=== PATIENT | female | born 1990 | race Caucasian/White ===

== ENCOUNTER → 2016-02-17 | Outpatient (CLI) | payer OTHER ==
[~2016-02-17] MED LIST: BCPILLS PO; CGN1 PO; LEVO50TA6 PO; LTHSR/300 PO; RISP3TAB3 PO
[2016-02-17 16:41] LABS: BASO % 0.1 %; BASO ABS # 0.01 K/uL (0-0.2); COMPLETE YES; HEMATOCRIT 38.1 % (37-47); IG% 0.1 %; LYMPH % 30.4 %; LYMPH ABS # 2.41 K/uL (1.2-3.4); MEAN CELL VOLUME 83.6 fL (80-100); MEAN CORPUSCULAR HEMOGLOBIN 27.6 pg (25-34); MEAN CORPUSCULAR HGB CONC 33.1 g/dl (32-36); MEAN PLATELET VOLUME 9.2 fL (7.4-10.4); MONO % 6.8 %; NEUT % 60.6 %; PLATELET COUNT 316 K/uL (130-400); RED BLOOD COUNT 4.56 M/uL (4.2-5.4); WHITE BLOOD COUNT 7.93 K/uL (4.8-10.8)
[2016-02-17 16:59] LABS: ALT/SGPT 29 U/L (12-78); AST/SGOT 13 U/L (15-37); BLOOD UREA NITROGEN 7 mg/dl (7-18); BUN/CREATININE RATIO 10.2 (10-20); CARBON DIOXIDE 26 mmol/L (21-32); CHLORIDE 109 mmol/L (98-107); CHOLESTEROL 181 mg/dl (0-200); CREATININE 0.69 mg/dl (0.60-1.20); GLUCOSE 87 mg/dl (70-99); SODIUM 143 mmol/L (136-145); TRIGLYCERIDES 130 mg/dl (0-150); VERY LOW DENSITY LIPOPROT CALC 26 mg/dl
[2016-02-17 17:09] LABS: ALB/GLOB RATIO 1.2 (0.9-2); ALKALINE PHOSPHATASE 30 U/L (45-117); CHOLESTEROL/HDL RATIO 2.8; HDL CHOLESTEROL 65 mg/dl; LDL CHOLESTEROL CALCULATED 90 mg/dl
== END | disposition home or self-care (01) ==
LOC: C.LAB1850 15:58
PROVIDERS: ATTEND Internal Medicine
DX: E03.9 Hypothyroidism, unspecified (principal); F30.9 Manic episode, unspecified; Z51.81 Encounter for therapeutic drug level monitoring; Z00.00 Encounter for general adult medical examination without abnormal findings; F32.9 Major depressive disorder, single episode, unspecified

== ENCOUNTER → 2016-07-21 | Outpatient (CLI) | payer OTHER ==
[~2016-07-21] MED LIST changes: +BENZ-89 PO; -CGN1 PO
[2016-07-23 20:51] LABS: CHLAMYDIA TRACH RNA*** NOT DETECTED (NOT DETECTED); GC (NEIS GONORRHOEAE)RNA** NOT DETECTED (NOT DETECTED)
== END | disposition home or self-care (01) ==
LOC: C.LABSPEC 15:50
PROVIDERS: ATTEND Physician Assistant
DX: Z01.419 Encounter for gynecological examination (general) (routine) without abnormal findings (principal)

== ENCOUNTER → 2017-02-03 | Outpatient (CLI) | payer OTHER ==
[2017-02-03 18:06] LABS: BASO % 0.1 %; BASO ABS # 0.01 K/uL (0-0.2); COMPLETE YES; EOS % 1.4 %; HEMATOCRIT 39.6 % (37-47); IG% 0.1 %; LYMPH % 29.4 %; LYMPH ABS # 2.52 K/uL (1.2-3.4); MEAN CORPUSCULAR HEMOGLOBIN 28.8 pg (25-34); MEAN CORPUSCULAR HGB CONC 33.8 g/dl (32-36); MEAN PLATELET VOLUME 9.3 fL (7.4-10.4); MONO % 7.9 %; NEUT % 61.1 %; PLATELET COUNT 294 K/uL (130-400); RED BLOOD COUNT 4.66 M/uL (4.2-5.4); WHITE BLOOD COUNT 8.58 K/uL (4.8-10.8)
[2017-02-03 18:32] LABS: ALT/SGPT 21 U/L (12-78); AST/SGOT 12 U/L (15-37); BLOOD UREA NITROGEN 15 mg/dl (7-18); CALCIUM 9.6 mg/dl (8.5-10.1); CARBON DIOXIDE 23 mmol/L (21-32); CHLORIDE 105 mmol/L (98-107); CREATININE 0.74 mg/dl (0.60-1.20); GLUCOSE 84 mg/dl (70-99); POTASSIUM 3.8 mmol/L (3.5-5.1); SODIUM 137 mmol/L (136-145)
[2017-02-03 18:42] LABS: ALKALINE PHOSPHATASE 28 U/L (45-117)
== END | disposition home or self-care (01) ==
LOC: C.LAB 17:07
PROVIDERS: ATTEND Internal Medicine
DX: E03.9 Hypothyroidism, unspecified (principal); F32.9 Major depressive disorder, single episode, unspecified

== ENCOUNTER 2019-07-05 10:04 | Inpatient (IN) ==
[2019-07-05] MEDS ORDERED: LORazepam 2 MG/ML VIAL (IM USE) IM STA ×2 (10:38→13:41)
--- NOTE | 2019-07-05 10:47 | Emergency Department Note ---
History of Present Illness General Chief Complaint: Mental Health Evaluation Time Seen by Provider: 07/05/19 10:14 Source: patient, EMS and police Mode of arrival: EMS Limitations: patient cooperation History of Present Illness Provider complaint: altered mental status Onset (ago): hour(s) less than 1 Duration: constant History of same: Yes Relieved By: + none Context: no recent alcohol abuse Associated psychiatric symptoms: + racing thoughts Associated symptoms: + denies other symptoms Treatments prior to arrival: + physical restraints The patient presents to the ED with police and EMS. According to the police, the mother called 911 when her daughter dressed up like a Cinderella and was carrying a basket and stated to her mother that she was walking to [place]. Police picked her up. She was combative for police and had to be restrained and brought in with police. When asked questions, the patient just asked additional questions he does not answer the questions that she has asked. She has racing thoughts and random statements. She is unreliable. She is observant of his her surroundings and is aware of her surroundings. She does remember certain things that have been asked to her and will repeat them later. No additional history is available. Home Medications Home Medications Medication Instructions Recorded Confirmed Type progesterone micronized 200 mg PO HS 06/04/19 07/05/19 History [Prometrium] azelastine 137 mcg (0.1 %) nasal 2 spray INTNAS DAILY #30 ml 06/11/19 07/05/19 Rx spray aerosol Allergies Allergy/AdvReac Type Severity Reaction Status Date / Time amoxicillin Allergy Intermediate RASH Verified 06/04/19 22:31 Bactrim Allergy Intermediate HIVES Verified 08/02/14 21:30 prednisone Allergy Intermediate PSYCH Verified 06/04/19 22:31 SYMPTOMS (MANIC) sulfamethoxazole Allergy Intermediate HIVES Verified 06/04/19 22:31 trimethoprim Allergy Intermediate HIVES Verified 06/04/19 22:31 clindamycin Allergy Verified 06/04/19 22:31 Sulfa (Sulfonamide Allergy Verified 06/04/19 22:31 Antibiotics) Past Med/Surg History Medical History Bipolar disorder (Acute 08/02/12) Manic behavior (Inactive) Surgical History H/O oral surgery Family History Brother ADHD (attention deficit hyperactivity disorder) Drug dependence Father Alcoholism Coronary heart disease Myocardial infarction Grandmother (Maternal) Bipolar disorder Depression Mother Multiple sclerosis Uncle Colorectal cancer Denies family history of Ovarian cancer Prostate cancer Breast cancer Social History Preferred Language: Faroese Feels Safe at Home: Yes Smoking Status: Unknown if ever smoked Hx Alcohol Use: Yes Hx Substance Use: No Review of Systems Unobtainable due to cognitive status Physical Exam Vital Signs Vital Signs - 24 hr 07/05/19 10:16 07/05/19 12:23 07/05/19 14:00 Pulse Rate 146 H Pulse Rate [Right Finger] 145 H 147 H Pulse Rhythm [Right Finger] Pulse Strength [Right Finger] Respiratory Rate 22 20 20 Respiratory Effort / Characteristics Non-Labored Spontaneous Non-Labored Spontaneous Non-Labored Spontaneous Respiratory Depth Normal Normal Normal Respiratory Pattern Regular Regular Blood Pressure 131/95 Blood Pressure [Right Arm] 150/89 H 131/78 Blood Pressure Mean 107 Blood Pressure Mean [Right Arm] 109 95 Blood Pressure Position Lying Pulse Oximetry 98 97 96 Oxygen Delivery Method Room Air Room Air Room Air Sepsis Action Taken by Nursing No Action Required 07/05/19 16:00 07/05/19 17:32 Pulse Rate Pulse Rate [Right Finger] 114 H 101 H Pulse Rhythm [Right Finger] Regular Pulse Strength [Right Finger] Normal Respiratory Rate 16 Respiratory Effort / Characteristics Non-Labored Respiratory Depth Normal Respiratory Pattern Regular Blood Pressure Blood Pressure [Right Arm] Blood Pressure Mean Blood Pressure Mean [Right Arm] Blood Pressure Position Pulse Oximetry 98 Oxygen Delivery Method Room Air Sepsis Action Taken by Nursing CONSTITUTIONAL/VITAL SIGNS: Reviewed / noted above. GENERAL: Non-toxic in appearance. The patient's hands are painted green and her nose tip is green. INTEGUMENTARY: Warm, dry, and [place]. HEAD: Normocephalic. EYES: without scleral icterus or trauma. ENT/OROPHARYNX: clear and moist. LYMPHADENOPATHY/NECK: Is supple without lymphadenopathy or meningismus. RESPIRATORY: Lungs clear and equal. CARDIOVASCULAR: Regular rate and rhythm. GI/ABDOMEN: Soft and nontender. No organomegaly or pulsatile mass. No rebound or guarding. Normal bowel sounds. EXTREMITIES: Warm and well perfused. BACK: No CVA tenderness. NEUROLOGICAL: Intact without focal deficits. PSYCHIATRIC: The patient has racing thoughts. She is not cooperative and does not answer questions when asked. The patient frequently asks questions or attempts to ask questions when she has asked a question. She does not follow any commands. She is speaking incessantly. MUSCULOSKELETAL: Normally developed with good muscle tone. TRIAGE NURSING DOCUMENTATION REVIEWED. Course Administered Medications Discontinued Medications Haloperidol Lactate (Haldol) 5 mg IM NOW STA Stop: 07/05/19 11:06 Last Admin: 07/05/19 12:07 Dose: 5 mg Documented by: [id number] Sodium Chloride (Nss 1000ml) 1,000 mls @ 999 mls/hr IV .Q1H1M ONE Stop: 07/05/19 16:00 Last Infusion: 07/05/19 16:38 Dose: 0 mls/hr Documented by: [id number] Admin: 07/05/19 15:29 Dose: 999 mls/hr Documented by: [id number] Lorazepam (Ativan) 1 mg IM NOW STA Stop: 07/05/19 10:39 Last Admin: 07/05/19 10:43 Dose: 1 mg Documented by: [id number] Lorazepam (Ativan) Confirm Administered Dose 2 mg .ROUTE .STK-MED ONE Stop: 07/05/19 12:42 Last Admin: 07/05/19 12:45 Dose: 2 mg Documented by: [id number] Lorazepam (Ativan) 2 mg IM NOW STA Stop: 07/05/19 13:42 Last Admin: 07/05/19 12:45 Dose: Not Given Documented by: [id number] Potassium Chloride (Klor-Con M10) 40 meq PO NOW STA Stop: 07/05/19 15:01 Last Admin: 07/05/19 16:16 Dose: 40 meq Documented by: [id number] Medical Decision Making Differential Diagnosis + acute psychosis, + chronic schizophrenia, + suicidal ideation, + bipolar disorder, + depression, + drug-induced psychotic disorder, + anxiety, + mood disorder, + panic attack, + infection, + hypoglycemia, + toxicologic and + neurologic Medical Records Attestation: I reviewed the patient's medical records. Home Medications Current Medication List: was personally reviewed by me Laboratory Data Attestation: I reviewed the patient's lab results. Result diagrams: 07/05/19 10:37 07/05/19 10:37 Lab Results 07/05/19 07/05/19 07/05/19 Range/Units 10:37 10:37 10:37 WBC 11.44 H (4.8-10.8) K/uL RBC 4.60 (4.2-5.4) M/uL Hgb 13.2 (12.0-16.0) g/dL Hct 39.3 (37-47) % MCV 85.4 (80-100) fL MCH 28.7 (25-34) pg MCHC 33.6 (32-36) g/dL RDW Std Deviation 40.3 (36.4-46.3) fL RDW Coeff of Yanna 12.9 (11.5-14.5) % Plt Count 361 (130-400) K/uL MPV 9.2 (7.4-10.4) fL Immature Gran % (Auto) 0.2 % Neut % (Auto) 72.1 % Lymph % (Auto) 20.2 % [place] % (Auto) 7.1 % Eos % (Auto) 0.3 % Baso % (Auto) 0.1 % Immature Gran # (Auto) 0.02 (0.00-0.02) K/uL Neut # (Auto) 8.26 H (1.4-6.5) K/uL Lymph # (Auto) 2.31 (1.2-3.4) K/uL [place] # (Auto) 0.81 H (0.11-0.59) K/uL Eos # (Auto) 0.03 (0-0.5) K/uL Baso # (Auto) 0.01 (0-0.2) K/uL Sodium 141 (136-145) mmol/L Potassium 3.1 L (3.5-5.1) mmol/L Chloride 109 H (98-107) mmol/L Carbon Dioxide 20 L (21-32) mmol/L Anion Gap 12.0 H (3-11) BUN 15 (7-18) mg/dl Creatinine 1.00 (0.6-1.2) mg/dl Est Cr Clr Drug Dosing 82.2 ml/min Est GFR ( Amer) 89.4 Est GFR (Non-Af Amer) 77.2 BUN/Creatinine Ratio 15.5 (10-20) Glucose 106 H (70-99) mg/dl Calcium 9.0 (8.5-10.1) mg/dl Total Bilirubin 0.7 (0.2-1) mg/dl AST 14 L (15-37) U/L ALT 20 (12-78) U/L Alkaline Phosphatase 33 L (45-117) U/L Total Protein 8.2 (6.4-8.2) gm/dl Albumin 4.4 (3.4-5.0) gm/dl Globulin 3.8 (2.5-4.0) gm/dl Albumin/Globulin Ratio 1.2 (0.9-2) TSH 0.208 L (0.300-4.500) uIu/ml Free T4 (0.8-1.6) ng/dl HCG, Qual (Negative) Urine Color Urine Appearance (Clear) Urine pH (4.5-7.5) Ur Specific [place] (1.000-1.030) Urine Protein (Negative) Urine Glucose (UA) (Negative) Urine Ketones (Negative) Urine Blood (Negative) Urine Nitrite (Negative) Urine Bilirubin (Negative) Urine Urobilinogen (Negative) Ur Leukocyte Esterase (Negative) Urine WBC (Auto) (0-5) /hpf Urine RBC (Auto) (0-4) /hpf U Hyaline Cast (Auto) (0-5) /lpf U Epithel Cells (Auto) (0-5) /lpf Urine Bacteria (Auto) (Negative) POC Ur Test (NEG) Salicylates < 1.7 L (2.8-20) mg/dl Urine Opiates Screen (Neg) Ur Methadone, Qual (Neg) Acetaminophen < 2 L (10-30) ug/ml Urine Barbiturates (Neg) Ur Phencyclidine (PCP) (Neg) U Amphetamin/Meth Scrn (Neg) MDMA (Ecstasy) Screen (Neg) U Benzodiazepines Scrn (Neg) Ur Cocaine Metabolite (Neg) U Marijuana (THC) Screen (Neg) Ethyl Alcohol mg/dL (0-3) mg/dl 07/05/19 07/05/19 07/05/19 Range/Units 10:37 10:37 10:44 WBC (4.8-10.8) K/uL RBC (4.2-5.4) M/uL Hgb (12.0-16.0) g/dL Hct (37-47) % MCV (80-100) fL MCH (25-34) pg MCHC (32-36) g/dL RDW Std Deviation (36.4-46.3) fL RDW Coeff of Yanna (11.5-14.5) % Plt Count (130-400) K/uL MPV (7.4-10.4) fL Immature Gran % (Auto) % Neut % (Auto) % Lymph % (Auto) % [place] % (Auto) % Eos % (Auto) % Baso % (Auto) % Immature Gran # (Auto) (0.00-0.02) K/uL Neut # (Auto) (1.4-6.5) K/uL Lymph # (Auto) (1.2-3.4) K/uL [place] # (Auto) (0.11-0.59) K/uL Eos # (Auto) (0-0.5) K/uL Baso # (Auto) (0-0.2) K/uL Sodium (136-145) mmol/L Potassium (3.5-5.1) mmol/L Chloride (98-107) mmol/L Carbon Dioxide (21-32) mmol/L Anion Gap (3-11) BUN (7-18) mg/dl Creatinine (0.6-1.2) mg/dl Est Cr Clr Drug Dosing ml/min Est GFR ( Amer) Est GFR (Non-Af Amer) BUN/Creatinine Ratio (10-20) Glucose (70-99) mg/dl Calcium (8.5-10.1) mg/dl Total Bilirubin (0.2-1) mg/dl AST (15-37) U/L ALT (12-78) U/L Alkaline Phosphatase (45-117) U/L Total Protein (6.4-8.2) gm/dl Albumin (3.4-5.0) gm/dl Globulin (2.5-4.0) gm/dl Albumin/Globulin Ratio (0.9-2) TSH (0.300-4.500) uIu/ml Free T4 1.06 (0.8-1.6) ng/dl HCG, Qual Negative (Negative) Urine Color Urine Appearance (Clear) Urine pH (4.5-7.5) Ur Specific [place] (1.000-1.030) Urine Protein (Negative) Urine Glucose (UA) (Negative) Urine Ketones (Negative) Urine Blood (Negative) Urine Nitrite (Negative) Urine Bilirubin (Negative) Urine Urobilinogen (Negative) Ur Leukocyte Esterase (Negative) Urine WBC (Auto) (0-5) /hpf Urine RBC (Auto) (0-4) /hpf U Hyaline Cast (Auto) (0-5) /lpf U Epithel Cells (Auto) (0-5) /lpf Urine Bacteria (Auto) (Negative) POC Ur Test (NEG) Salicylates (2.8-20) mg/dl Urine Opiates Screen (Neg) Ur Methadone, Qual (Neg) Acetaminophen (10-30) ug/ml Urine Barbiturates (Neg) Ur Phencyclidine (PCP) (Neg) U Amphetamin/Meth Scrn (Neg) MDMA (Ecstasy) Screen (Neg) U Benzodiazepines Scrn (Neg) Ur Cocaine Metabolite (Neg) U Marijuana (THC) Screen (Neg) Ethyl Alcohol mg/dL < 3.0 (0-3) mg/dl 07/05/19 07/05/19 07/05/19 Range/Units Unknown Unknown Unknown WBC (4.8-10.8) K/uL RBC (4.2-5.4) M/uL Hgb (12.0-16.0) g/dL Hct (37-47) % MCV (80-100) fL MCH (25-34) pg MCHC (32-36) g/dL RDW Std Deviation (36.4-46.3) fL RDW Coeff of Yanna (11.5-14.5) % Plt Count (130-400) K/uL MPV (7.4-10.4) fL Immature Gran % (Auto) % Neut % (Auto) % Lymph % (Auto) % [place] % (Auto) % Eos % (Auto) % Baso % (Auto) % Immature Gran # (Auto) (0.00-0.02) K/uL Neut # (Auto) (1.4-6.5) K/uL Lymph # (Auto) (1.2-3.4) K/uL [place] # (Auto) (0.11-0.59) K/uL Eos # (Auto) (0-0.5) K/uL Baso # (Auto) (0-0.2) K/uL Sodium (136-145) mmol/L Potassium (3.5-5.1) mmol/L Chloride (98-107) mmol/L Carbon Dioxide (21-32) mmol/L Anion Gap (3-11) BUN (7-18) mg/dl Creatinine (0.6-1.2) mg/dl Est Cr Clr Drug Dosing ml/min Est GFR ( Amer) Est GFR (Non-Af Amer) BUN/Creatinine Ratio (10-20) Glucose (70-99) mg/dl Calcium (8.5-10.1) mg/dl Total Bilirubin (0.2-1) mg/dl AST (15-37) U/L ALT (12-78) U/L Alkaline Phosphatase (45-117) U/L Total Protein (6.4-8.2) gm/dl Albumin (3.4-5.0) gm/dl Globulin (2.5-4.0) gm/dl Albumin/Globulin Ratio (0.9-2) TSH (0.300-4.500) uIu/ml Free T4 (0.8-1.6) ng/dl HCG, Qual (Negative) Urine Color Dark Yellow Urine Appearance Cloudy A (Clear) Urine pH 5.0 (4.5-7.5) Ur Specific [place] 1.030 (1.000-1.030) Urine Protein 1+ H (Negative) Urine Glucose (UA) Negative (Negative) Urine Ketones 4+ H (Negative) Urine Blood Negative (Negative) Urine Nitrite Negative (Negative) Urine Bilirubin Negative (Negative) Urine Urobilinogen Negative (Negative) Ur Leukocyte Esterase Trace H (Negative) Urine WBC (Auto) 10-30 H (0-5) /hpf Urine RBC (Auto) 10-30 H (0-4) /hpf U Hyaline Cast (Auto) 5-10 H (0-5) /lpf U Epithel Cells (Auto) >30 H (0-5) /lpf Urine Bacteria (Auto) 1+ H (Negative) POC Ur Test NEG (NEG) Salicylates (2.8-20) mg/dl Urine Opiates Screen Neg (Neg) Ur Methadone, Qual Neg (Neg) Acetaminophen (10-30) ug/ml Urine Barbiturates Neg (Neg) Ur Phencyclidine (PCP) Neg (Neg) U Amphetamin/Meth Scrn Neg (Neg) MDMA (Ecstasy) Screen Neg (Neg) U Benzodiazepines Scrn Neg (Neg) Ur Cocaine Metabolite Neg (Neg) U Marijuana (THC) Screen Neg (Neg) Ethyl Alcohol mg/dL (0-3) mg/dl ECG Data Attestation: I personally reviewed and interpreted this ECG as follows: Indication: tachycardia Rate (beats per minute): 129 Rhythm: sinus tachycardia Findings: no PVC and no ST elevation Blood Pressure Blood Pressure Findings: Normal blood pressure MDM Narrative The patient presents to the ED with police and EMS. According to the police, the mother called 911 when her daughter dressed up like a Cinderella and was carrying a basket and stated to her mother that she was walking to [place]. Police picked her up. She was combative for police and had to be restrained and brought in with police. When asked questions, the patient just asked additional questions he does not answer the questions that she has asked. She has racing thoughts and random statements. She is unreliable. She is observant of his her surroundings and is aware of her surroundings. She does remember certain things that have been asked to her and will repeat them later. No additional history is available. The patient's vital signs revealed tachycardia. She was agitated when these were taken. Other details noted above. The patient does not answer questions. She is speaking constantly and asking questions. She does not answer questions but asks questions when she is asked questions. She does not want to cooperate. She required physical restraints and she was also given IV Ativan to help calm her down. We twelve-lead EKG shows a sinus tach at a rate of 129. The patient CBC was unremarkable. Potassium was low at 3 0.1. Salicylate and Tylenol are negative. Alcohol was negative. The patient's urinalysis appears contaminated. The patient does not complain of any urinary symptoms. Will await culture. She does have ketones which would suggest dehydration. The patient was given a liter of normal saline IV here. She was also given 40 mEq of oral potassium. In addition to this she was given a total of 3 mg of IM Ativan and 5 mg of IM Haldol for her initial lack of cooperation and agitation. Urine tox screen was negative. The patient was a little more cooperative after medication was provided. Her tachycardia improved. A 302 petition was signed by myself. The patient is felt to be stable for psychiatric admission. Impression & Plan Bipolar disorder, Madeline, Acute dehydration Discharge Plan Visit Data Chief Complaint: Mental Health Evaluation ED Provider: Devyn Oakley Discharge Problem: Bipolar disorder, Madeline, Acute dehydration Patient Disposition: Transfer Behavioral Health Fac Forms Stand Alone Forms: Count Includes [facility], Suicide Prevention Resources, Virtual Emergency Department, Important Visit Information Prescriptions Prescriptions: No Action azelastine 137 mcg (0.1 %) aerosol,spray 2 spray INTNAS DAILY Qty: 30 RF: 11 progesterone micronized [Prometrium] 200 mg capsule 200 mg PO HS RF: 0 Referrals Referrals: Francisco Nance MD [Primary Care Provider] -
[2019-07-05 10:51] LABS: Basophils # (auto) 0.01 K/uL (0-0.2); Basophils % (auto) 0.1 %; Eosinophils # (auto) 0.03 K/uL (0-0.5); Eosinophils % (auto) 0.3 %; Hematocrit (blood only) 39.3 % (37-47); Hemoglobin 13.2 g/dL (12.0-16.0); Immature Granulocytes # (auto) 0.02 K/uL (0.00-0.02); Immature Granulocytes % (auto) 0.2 %; Lymphocytes # (auto) 2.31 K/uL (1.2-3.4); Lymphocytes % (auto) 20.2 %; Mean Corpuscular Hemoglobin 28.7 pg (25-34); Mean Corpuscular Hgb Conc 33.6 g/dL (32-36); Mean Corpuscular Volume 85.4 fL (80-100); Mean Platelet Volume 9.2 fL (7.4-10.4); Monocytes # (auto) 0.81 K/uL (0.11-0.59); Monocytes % (auto) 7.1 %; Neutrophils # (auto) 8.26 K/uL (1.4-6.5); Neutrophils % (auto) 72.1 %; Platelet Count 361 K/uL (130-400); RDW Coefficient of Variation 12.9 % (11.5-14.5); RDW Standard Deviation 40.3 fL (36.4-46.3); White Blood Count 11.44 K/uL (4.8-10.8)
[2019-07-05] MEDS ORDERED: HALOPERIDOL LACTATE 5 MG/ML 1 ML VIAL IM STA ×2 (11:05→19:30)
[2019-07-05 11:09] LABS: Albumin Level 4.4 gm/dl (3.4-5.0); BUN Creatinine Ratio 15.5 (10-20); Creatinine Clr Calc Pharmacy 82.2 ml/min; Est GFR (African American) 89.4; Est GFR (Non-African American) 77.2; Potassium 3.1 mmol/L (3.5-5.1)
[2019-07-05 11:20] LABS: Albumin Globulin Ratio 1.2 (0.9-2); Bilirubin,Total 0.7 mg/dl (0.2-1); Globulin 3.8 gm/dl (2.5-4.0); Thyroid Stimulating Hormone 0.208 uIu/ml (0.300-4.500); Total Protein 8.2 gm/dl (6.4-8.2)
[2019-07-05 11:23] LABS: Acetaminophen < 2 ug/ml (10-30); Salicylate < 1.7 mg/dl (2.8-20)
[2019-07-05] MEDS ORDERED: LORazepam 2 MG/ML VIAL (IM USE) ONE (12:41)
[2019-07-05 13:14] LABS: Pregnancy Test, Serum Negative (Negative)
[2019-07-05] MEDS ORDERED: POTASSIUM CHLORIDE 10 MEQ TABCR PO STA (15:00)
[2019-07-05] MEDS ORDERED: SODIUM CHLORIDE 0.9% 1000ML 1,000 ML IV ONE (15:00)
[2019-07-05 16:49] LABS: Appearance Urine Cloudy (Clear); Bacteria Urine Automated 1+ (Negative); Bilirubin Urine Negative (Negative); Blood Urine Negative (Negative); Color Urine Dark Yellow; Epithelial Cell Urine Auto >30 /lpf (0-5); Glucose Urine UA Negative (Negative); Ketones Urine 4+ (Negative); Leukocyte Esterase Urine Trace (Negative); Nitrite Urine Negative (Negative); Protein Urine 1+ (Negative); Urobilinogen Urine Negative (Negative)
[2019-07-05 17:27] LABS: Amphetamines+Metham, Urine Neg (Neg); Barbiturates, Urine Neg (Neg); Benzodiazepine, Urine Neg (Neg); Cocaine, Urine Neg (Neg); MDMA (Ecstacy), Urine Neg (Neg); Methadone, Urine Neg (Neg); Opiate, Urine Neg (Neg); Phencyclidine, Urine Neg (Neg)
[2019-07-05] MEDS ORDERED: MAGNESIUM HYDROXIDE SUSP 30 ML UDC PO PRN (18:39)
[2019-07-05] MEDS ORDERED: BISMUTH SUBSALICYLATE PER ML OMNICELL CHARGE PO PRN (18:39)
[2019-07-05] MEDS ORDERED: ALUMINUM/MAGNESIUM SUSP 30 ML UDC PO PRN (18:39)
[2019-07-05] MEDS ORDERED: SODIUM CHLORIDE 0.65% NA SOLN 45 ML (OCEAN) PRN (18:39)
[2019-07-05] MEDS ORDERED: ACETAMINOPHEN 325 MG TAB PO PRN (18:39)
[2019-07-05] MEDS ORDERED: HALOPERIDOL LACTATE 5 MG/ML 1 ML VIAL IM PRN (18:41)
[2019-07-05] MEDS ORDERED: haloperidoL 5 MG TAB PO PRN (18:43)
[2019-07-05] MEDS ORDERED: LORazepam 1 MG TAB PO PRN (18:44)
[2019-07-05] MEDS ORDERED: LORazepam 2 MG/ML VIAL (IM USE) IM PRN (18:44)
[2019-07-05] MEDS ORDERED: BENZTROPINE MESYLATE 1 MG/ML 2 ML AMP IM PRN (18:45)
[2019-07-05] MEDS ORDERED: BENZTROPINE MESYLATE 1 MG TAB PO PRN (18:47)
[2019-07-05] MEDS ORDERED: BENZTROPINE MESYLATE 1 MG/ML 2 ML AMP IM STA (19:30)
--- NOTE | 2019-07-05 19:39 | Emergency Department Note ---
ED Visit Note I received this patient at change of shift signout from Dr. Oakley. Please see his note for initial history and physical. The patient has a history of psychosis and presented to the emergency department with a 302 petition. The patient was medically cleared but received medication for sedation prior to my evaluation. At this time the patient is awake and alert. She is somewhat somnolent but awakens easily to verbal commands. She was evaluated for admission at 3 S. and at this time the psychiatrist on 3 S. is requesting further sedation because the patient is starting to become somewhat combative when she found out she was a 302 which was being upheld. I did order Haldol and Cogentin at this time. Further sedation will be ordered if the patient does not respond well to this. Otherwise the patient has been medically cleared and I feel is a good candidate for inpatient management. .
[2019-07-06] MEDS ORDERED: LORazepam 1 MG TAB PO PRN (05:05)
--- NOTE | 2019-07-06 10:19 | History & Physical ---
Date of Service July 06, 2019 Impression / Recommendations Impression This 29-year-old woman with a known history of bipolar disorder was admitted in a manic state through the emergency room after her mother called 911 and reported that the patient was behaving in a bizarre and disorganized fashion. According to reports from the patient's mother, she had been fasting for up to 4 days at a time (inexplicably), had only been sleeping approximately 2 hours a night, and was engaging in behaviors such as dressing up as "a Cinderella" and announcing that she plan to walk from [facility] to [place]. The patient tells us that she her skin green, and offers varying explanations for this. And when explanation she said that she believes that she was being sent a message through a calling that she observed that had a embossed image of the Stat[place] on 1 side. The patient told us that the image of the statue of Moran allowed her to realize that the [place] is a corrupt place and that she needed to protest this by posing as the Statue of [place]. However, she could not begin to explain any connection between seeing a coin that showed the Statue of [place] and believing that somehow she was being sent a message, targeted just for her, that the [place] is corrupt. She also firmly believe that others would understand that if she her skin green posed like the Statue of [place] (the patient gestures as if holding a torch in the air) she was doing so to protest corruption. Later, she said that she was mimicking a statue of some sort that she had seen of either a ballerina or an industrial gas service helper [whereupon she arose from her chair and posed with 1 lower extremity raised in the air, with one arm behind her and one arm in front of her, suggesting an industrial gas service helper]. Later, she said that she had dyed her skin green as a way of communicating her concern about the earth and the environment. The above seems to encapsulate the degree o to which the patient's thinking is disorganized. She has marketed flight of ideas and pressured speech. She sometimes cannot be interrupted, and if she is interrupted she accuses the interviewer of "not listening" and "not understanding." The patient also seems to have no insight into her illness, and is largely uncooperative with the interview. The patient indicates that she will declined to take psychiatric medications and says "I do not need any medications. There is nothing wrong with me. Maybe you should take them." Currently, medication over objection may be necessary in this case. (1) Bipolar disorder: 07/06/19 -The patient is currently in the manic phase of bipolar disorder, although she has essentially no insight into her condition and her need for treatment. She has been admitted to the [facility] health unit and has been referred for individual, group and activity therapies with the goal of providing the patient on external reality testing, as well as the importance of adherence with psychiatric treatment. -It will be important for the patient to be placed back on mood stabilizing agents and antipsychotics. It has been reported that, in the past, the patient has taken aripiprazole and lithium carbonate, but she reportedly stopped these medications at some unspecified point or points in the past. The plan is to restart aripiprazole 15 mg a day and lithium carbonate 300 mg twice a day. Because of the question of possible dehydration admission, we are starting lithium carbonate at a lower dose, but anticipate titrating following laboratory testing. Present on Admission?: Yes (2) Acute dehydration: 07/06/2019 -The patient had an elevated heart rate in the emergency department and it was felt that this was probably attributable to dehydration. The patient's laboratory data is equivocal. The concern is that the patient's mother reports that the patient has been fasting and it is possible that she is also been restricting fluid intake. We will monitor while encouraging fluids. (3) Hypothyroidism: 07/06/2019 -Patient has reported history of hypothyroidism. Her most recent laboratory data showed a TSH of 208 (low) and T4 of 1.06, at the high end of normal. She tells us that she has been adherent with her thyroid medication on an outpatient basis, namely Alba thyroid 90 mg daily. -Alba Thyroid is not on the formulary at [facility]. The reasonable conversion is to levothyroxine 125 mcg daily, and this will be ordered. Inventory Assets Strengths: Intelligent. Supportive family. Needs: Mood stabilization. Insight into her illness. Cooperation with treatment. Risk Factors Assessment History of multiple psychiatric hospitalizations. Psychotic illness. Male: No : Yes Do You Have Access To A Gun?: No Health Problems: No Mental Health Diagnoses: Yes Previous Attempt: No (The patient reports that she has no history of suicide attempts or other self-injurious behaviors. However, she is considered a highly unreliable cyanide pot hardener.) Family History of Suicide: No (The patient is not considered a reliable cyanide pot hardener.) Previous Psychiatric Hospitalization: Yes (The patient does not cooperate by providing information regarding previous hospitalizations and, in fact, neither confirms or denies that there have been previous psychiatric hospitalizations. However, third-republican reports of the patient has a history of multiple psychiatric admissions.) Hopelessness: No Smoker: No Protective Factors Assessment : No Responsible for Young Children: No Employed: No Stable Relationships: No Supportive Family: Yes Good Rapport with Provider: No Absence of Any Risk Factors Above: No Psychiatric History Identifying Data GIOVANNI EDMOND is a 29-year-old F who currently lives in the [facility] with her mother. She has a history of biplolar disorder, and was admitted on 07/05/19 18:28 on a 302 involuntary commitment for psychosis and dangerous behaviors. Chief Complaint "I've become aware of all that's wrong with [place], and some people don't like it". History of Present Illness The patient is a 29-year-old woman with a known diagnosis of bipolar disorder who presented to the emergency room regarding these.on 07/05/2019 accompanied by the police and EMS. According to reports received from the patient's mother with whom the patient lives the patient had been engaging in bizarre behaviors such as "dressing up like a Cinderella," and announcing that she planned to walk from [facility] to [place]. (The patient told our staff that she had walked "about 45 miles already.") Mother also reports that the patient has been not sleeping, with the possible exception of "maybe about 2 hours a night," has exhibited increased energy, and has been inexplicably "fasting" approximately 4 days a week. Admission, the patient's heart rate was elevated and she was found to be dehydrated. The patient's mother contacted the police through 911, and according to reports when the patient was encountered by the police she was combative and had to be restrained. (The patient, herself, says that she was simply sitting on some grass, and that she did not resist -- but did question why she was being handcuffed.) On evaluation today the patient was found to be quite disorganized with marketed pressured speech and flight of ideas. Much of what the patient said made little or no sense. For instance, she began by saying that she observed a client that had the embossed image of "a bird" on 1 side" lady liberty" on the other. She took this as a sign that [place] is "fundamentally corrupt," and so in order to protest corruption she somehow her skin green and posed as lady liberty, and then later as a mica plate layer hand in order to resemble a statue of some sort that she has in her home. She also says that she picked the color green to protest "the rape of our environment." Further, the patient being the victim of some sort of conspiracy that involved [facility] and several credit unions. This belief seems to have been somehow connected to an incident in which her banking card was not returned by an [employer]. She also says that she believes that her hospitalization is directly a function of the fact that "[place] is not ready for me to change it," and insists that she does not have nor has she ever had a mental illness. Further, the patient insists that she must be discharged today because she has "uncovered" written evidence that will somehow exonerate her brother, a man who she says is facing criminal charges and imprisonmentalthough she declines to say what the charges are and what the exonerated evident says. She was quite uncooperative and, for example, during the interview refused to sit in the seat that I did ask her to sit and. Later, she sat down on the floor, but did arise and return to her seat when asked to do so. I tried several times to enjoying the patient to cooperate with the evaluation, but she said, repeatedly "you are not in a position to private tutors and teachers me. I am in a position to private tutors and teachers you!" At 1 point, she became electively mute "to protest [place]," but then spontaneously spoke but subsequently refused to answer questions and, instead, he became irritable and bumptious. Reportedly, the patient had been prescribed Abilify and lithium, but had stopped both medications in the past. Past Psychiatric History Previous Psych History: Patient has a known diagnosis of bipolar disorder. She does not cooperate with questions regarding past medications. Information provided by third parties indicate that she had been taking Abilify and lithium, but both of these medications were stopped by the patient, independently, at some unspecified point in the past. Current Psychiatric Diagnosis: Bipolar 1 disorder, manic. Outpatient Services: The patient tells us that she is not seeing a psychiatrist or therapist on an outpatient basis and as that she does not intend to because she does not believe she has a mental illness. Previous Psych Admissions: Reportedly, the patient has a history of multiple psychiatric hospitalizations. She does not respond to questions Do You Have Access To A Gun?: No History of Previous Suicide Attempt: No (The patient reports that she does not have a history of intentional self-injurious behaviors, but is not considered a reliable cyanide pot hardener.) Past Medication Trials: Declines to discuss medication history. It is noted that at some unspecified point in the past the patient took Abilify and lithium. It is not clear when she stopped these medications. Past Head Trauma/Neuro History The patient was not cooperative with review of systems Allergies Allergy/AdvReac Type Severity Reaction Status Date / Time amoxicillin Allergy Intermediate RASH Verified 06/04/19 22:31 Bactrim Allergy Intermediate HIVES Verified 08/02/14 21:30 prednisone Allergy Intermediate PSYCH Verified 06/04/19 22:31 SYMPTOMS (MANIC) sulfamethoxazole Allergy Intermediate HIVES Verified 06/04/19 22:31 trimethoprim Allergy Intermediate HIVES Verified 06/04/19 22:31 clindamycin Allergy Verified 06/04/19 22:31 Sulfa (Sulfonamide Allergy Verified 06/04/19 22:31 Antibiotics) Home Medications Home Medications Medication Instructions Recorded Confirmed Type progesterone micronized 200 mg PO HS 06/04/19 07/05/19 History [Prometrium] azelastine 137 mcg (0.1 %) nasal 2 spray INTNAS DAILY #30 ml 06/11/19 07/05/19 Rx spray aerosol thyroid (pork) [Alba Thyroid] 90 mg PO DAILY 07/06/19 07/06/19 History Family History Family History of: Doesn't Know Alcohol History Hx of Alcohol Use Over the Past 12 Months: Yes (Occasional) Smoking Use tobacco type: cigarettes Smoking Status: Unknown if ever smoked Substance History Hx of Prescription Med Misuse Over the Past 12 Months: No Hx of Over the Counter Med Misuse Over the Past 12 Months: No Hx of Inhalent Misuse Over the Past 12 Months: No Hx of Organic Substance Use Over the Past 12 Months: No Hx of Illegal Substances/Street Drug Use Over Past 12 Months: No Problems as a Result of Past Substance Use: None Identified Personal History Living Arrangements: Home Highest Grade Completed: College Patient History Medical History Bipolar disorder (Acute 08/02/12) Manic behavior (Inactive) Surgical History H/O oral surgery Family History Brother ADHD (attention deficit hyperactivity disorder) Drug dependence Father Alcoholism Coronary heart disease Myocardial infarction Grandmother (Maternal) Bipolar disorder Depression Mother Multiple sclerosis Uncle Colorectal cancer Denies family history of Ovarian cancer Prostate cancer Breast cancer Social History Preferred Language: Italian Communication Ability: Effective Feels Safe at Home: Yes Smoking Status: Unknown if ever smoked Hx Alcohol Use: Yes Hx Substance Use: No Review of Systems Review of Systems: All systems reviewed & are unremarkable except as noted in HPI & below The patient was not cooperative with the review of systems during her psychiatric evaluation and repeatedly insisted that she needed to leave the hospital in order to save her brother from imprisonment. The somatic history, review of systems, and physical examination completed by Devyn Oakley DO of the emergency department has been reviewed and is excepted for purposes of medical clearance to the behavioral health unit. Physical Exam Psychiatric: Orientation: alert, oriented x 3 and + guarded The patient's cheeks, forearms, and neck have a greenish tint about them. The patient explains that this is because she had dyed her skin green, intentionally. First, she said that it was so that she could pose as the Statue of [place]. Later, she referenced wanting to pose like a ballerina or industrial gas service helper. Later still, she said that the green was to speak to her connection to the green earth, and as a form of protest. Eye Contact: + poor eye contact Hyper kinetic. The patient moved fairly constantly within her seat, but out of her seat, sat on the floor Speech: + pressured speech Affect: + irritable affect and + elated affect The patient tells us that her mood is "Perfectly normal." Thought Process: + flight of ideas Thought Content: + delusions The patient speaks of conspiracies to prevent her from forcing changes "to [place]" that the contrary is not prepared to make. She gives as an example the fact that her LOLI card was recently not returned by an LOL[employer] machine Suicidal Thoughts: denies suicidal thoughts The patient will not cooperate with a formal suicide risk assessment Homicidal Thoughts: denies homicidal thoughts The patient does not cooperate with a formal homicide risk assessment Hallucinations: no auditory hallucinations, no visual hallucinations and no tactile hallucinations Many of the patient's recollections appear to be distorted by delusional beliefs and extremely poor insight. Estimated Intelligence: + above average estimated intelligence Insight: + severely impaired insight Judgement: + severely impaired judgement Vital Signs (Past 24 Hours): Last Vital Signs Temp 36.7 C 07/06/19 06:28 Pulse 139 H 07/06/19 06:29 Resp 18 07/06/19 06:28 BP 119/73 07/06/19 06:29 Pulse Ox 98 07/05/19 16:00 Results & Data ([facility]) Laboratory Results Laboratory Results - last 24 hr 07/05/19 07/05/19 07/05/19 10:37 10:37 10:37 WBC 11.44 H RBC 4.60 Hgb 13.2 Hct 39.3 MCV 85.4 MCH 28.7 MCHC 33.6 RDW Std Deviation 40.3 RDW Coeff of Yanna 12.9 Plt Count 361 MPV 9.2 Immature Gran % (Auto) 0.2 Neut % (Auto) 72.1 Lymph % (Auto) 20.2 Hughes % (Auto) 7.1 Eos % (Auto) 0.3 Baso % (Auto) 0.1 Immature Gran # (Auto) 0.02 Neut # (Auto) 8.26 H Lymph # (Auto) 2.31 Hughes # (Auto) 0.81 H Eos # (Auto) 0.03 Baso # (Auto) 0.01 Sodium 141 Potassium 3.1 L Chloride 109 H Carbon Dioxide 20 L Anion Gap 12.0 H BUN 15 Creatinine 1.00 Est Cr Clr Drug Dosing 82.2 Est GFR ( Amer) 89.4 Est GFR (Non-Af Amer) 77.2 BUN/Creatinine Ratio 15.5 Glucose 106 H Calcium 9.0 Total Bilirubin 0.7 AST 14 L ALT 20 Alkaline Phosphatase 33 L Total Creatine Kinase 151 Total Protein 8.2 Albumin 4.4 Globulin 3.8 Albumin/Globulin Ratio 1.2 TSH 0.208 L Free T4 HCG, Qual Urine Color Urine Appearance Urine pH Ur Specific [place] Urine Protein Urine Glucose (UA) Urine Ketones Urine Blood Urine Nitrite Urine Bilirubin Urine Urobilinogen Ur Leukocyte Esterase Urine WBC (Auto) Urine RBC (Auto) U Hyaline Cast (Auto) U Epithel Cells (Auto) Urine Bacteria (Auto) POC Ur Test Salicylates < 1.7 L Urine Opiates Screen Ur Methadone, Qual Acetaminophen < 2 L Urine Barbiturates Ur Phencyclidine (PCP) U Amphetamin/Meth Scrn MDMA (Ecstasy) Screen U Benzodiazepines Scrn Ur Cocaine Metabolite U Marijuana (THC) Screen Ethyl Alcohol mg/dL 07/05/19 07/05/19 07/05/19 10:37 10:37 10:44 WBC RBC Hgb Hct MCV MCH MCHC RDW Std Deviation RDW Coeff of Yanna Plt Count MPV Immature Gran % (Auto) Neut % (Auto) Lymph % (Auto) Hughes % (Auto) Eos % (Auto) Baso % (Auto) Immature Gran # (Auto) Neut # (Auto) Lymph # (Auto) Hughes # (Auto) Eos # (Auto) Baso # (Auto) Sodium Potassium Chloride Carbon Dioxide Anion Gap BUN Creatinine Est Cr Clr Drug Dosing Est GFR ( Amer) Est GFR (Non-Af Amer) BUN/Creatinine Ratio Glucose Calcium Total Bilirubin AST ALT Alkaline Phosphatase Total Creatine Kinase Total Protein Albumin Globulin Albumin/Globulin Ratio TSH Free T4 1.06 HCG, Qual Negative Urine Color Urine Appearance Urine pH Ur Specific [place] Urine Protein Urine Glucose (UA) Urine Ketones Urine Blood Urine Nitrite Urine Bilirubin Urine Urobilinogen Ur Leukocyte Esterase Urine WBC (Auto) Urine RBC (Auto) U Hyaline Cast (Auto) U Epithel Cells (Auto) Urine Bacteria (Auto) POC Ur Test Salicylates Urine Opiates Screen Ur Methadone, Qual Acetaminophen Urine Barbiturates Ur Phencyclidine (PCP) U Amphetamin/Meth Scrn MDMA (Ecstasy) Screen U Benzodiazepines Scrn Ur Cocaine Metabolite U Marijuana (THC) Screen Ethyl Alcohol mg/dL < 3.0 07/05/19 07/05/19 07/05/19 Unknown Unknown Unknown WBC RBC Hgb Hct MCV MCH MCHC RDW Std Deviation RDW Coeff of Yanna Plt Count MPV Immature Gran % (Auto) Neut % (Auto) Lymph % (Auto) Hughes % (Auto) Eos % (Auto) Baso % (Auto) Immature Gran # (Auto) Neut # (Auto) Lymph # (Auto) Hughes # (Auto) Eos # (Auto) Baso # (Auto) Sodium Potassium Chloride Carbon Dioxide Anion Gap BUN Creatinine Est Cr Clr Drug Dosing Est GFR ( Amer) Est GFR (Non-Af Amer) BUN/Creatinine Ratio Glucose Calcium Total Bilirubin AST ALT Alkaline Phosphatase Total Creatine Kinase Total Protein Albumin Globulin Albumin/Globulin Ratio TSH Free T4 HCG, Qual Urine Color Dark Yellow Urine Appearance Cloudy A Urine pH 5.0 Ur Specific [place] 1.030 Urine Protein 1+ H Urine Glucose (UA) Negative Urine Ketones 4+ H Urine Blood Negative Urine Nitrite Negative Urine Bilirubin Negative Urine Urobilinogen Negative Ur Leukocyte Esterase Trace H Urine WBC (Auto) 10-30 H Urine RBC (Auto) 10-30 H U Hyaline Cast (Auto) 5-10 H U Epithel Cells (Auto) >30 H Urine Bacteria (Auto) 1+ H POC Ur Test NEG Salicylates Urine Opiates Screen Neg Ur Methadone, Qual Neg Acetaminophen Urine Barbiturates Neg Ur Phencyclidine (PCP) Neg U Amphetamin/Meth Scrn Neg MDMA (Ecstasy) Screen Neg U Benzodiazepines Scrn Neg Ur Cocaine Metabolite Neg U Marijuana (THC) Screen Neg Ethyl Alcohol mg/dL Current Inpatient Medications Current Inpatient Medications: Current Inpatient Medications Acetaminophen (Tylenol) 650 mg PO Q4H PRN PRN Reason: Headache or Minor Fever Stop: 08/04/19 18:38 Al Hydrox/Mg Hydrox/Simethicone (Maalox) 30 ml PO Q4H PRN PRN Reason: GI Upset Stop: 08/04/19 18:38 Benztropine Mesylate (Cogentin) 1 mg IM Q4H PRN PRN Reason: Allergic Reaction Stop: 08/04/19 18:44 Benztropine Mesylate (Cogentin) 1 mg PO Q4H PRN PRN Reason: Allergic Reaction Stop: 08/04/19 18:46 Bismuth Subsalicylate (Kaopectate) 15 ml PO PRN PRN PRN Reason: Loose Stool Stop: 08/04/19 18:38 Haloperidol (Haldol) 5 mg PO Q4H PRN PRN Reason: Anxiety/Agitation Stop: 08/04/19 18:42 Haloperidol Lactate (Haldol) 5 mg IM Q4H PRN PRN Reason: Anxiety/Agitation Stop: 08/04/19 18:40 Hydroxyzine HCl (Vistaril) 50 mg PO HSZ PRN PRN Reason: Insomnia Stop: 08/04/19 18:38 Hydroxyzine HCl (Vistaril) 25 mg PO Q4H PRN PRN Reason: Anxiety Stop: 08/04/19 18:38 Lorazepam (Ativan) 2 mg IM Q4H PRN PRN Reason: Anxiety/Agitation Stop: 08/04/19 18:43 Lorazepam (Ativan) 1 mg PO Q4H PRN PRN Reason: Anxiety/Agitation Stop: 08/04/19 18:43 Magnesium Hydroxide (Milk Of Magnesia) 30 ml PO DAILY PRN PRN Reason: Constipation Stop: 08/04/19 18:38 Sodium Chloride (Hillman Nasal) 1 - 2 sprays NA PRN PRN PRN Reason: Nasal Dryness/Congestion Stop: 08/04/19 18:38
[2019-07-06] MEDS: ARIPiprazole 15 MG TAB PO SCH (12:22)
--- NOTE | 2019-07-06 16:49 | Electrocardiogram Report ---
Test Reason : Blood Pressure : / mmHG Vent. Rate : 129 BPM Atrial Rate : 129 BPM P-R Int : 154 ms QRS Dur : 064 ms QT Int : 300 ms P-R-T Axes : 064 072 044 degrees QTc Int : 439 ms Sinus tachycardia Septal infarct , age undetermined Abnormal ECG When compared with ECG of 22-MAR-2013 15:29, QRS duration has decreased Septal infarct is now Present ST no longer elevated in Anterior leads Nonspecific T wave abnormality now evident in Anterior leads Confirmed by Dru Claire ([id number]) on 07/06/2019 4:49:30 PM Referred By: REFERRED SELF Confirmed By:Dru Claire
--- NOTE | 2019-07-06 17:03 | Communication Note ---
Date of Service: July 06, 2019 The patient was offered a dose of aripiprazole today and she flatly refused it. She further announced that she would not agree to take any psychiatric medi cations. We suggested the possibility of quetiapine, and she said that she would not take any psychiatric medication and that the only medication she would agree to take is her thyroid medication. Further, the patient was advised that she has been ordered lithium carbonate and is scheduled for a dose this evening. She similarly announced that she would refuse lithium carbonate as well. She notes that she will not accept any available mood stabilizer as a substitute. The patient is psychotic, manic, and psychotropic medications (mood stabilizers/antipsychotic medications) are medically necessary and are in the service of stabilizing the patient's condition to the degree that she will be safely able to leave the hospital and transition to ongoing psychiatric treatment in the community. Accordingly, it is my finding at the patient should be given an antipsychotic/mood stabilizing agent such as olanzapine against her expressed will if she continues to refuse aripiprazole or similar antipsychotic.
[2019-07-06] MEDS ORDERED: LITHIUM CARBONATE 450 MG TABCR PO SCH (21:00)
[2019-07-06] MEDS: LITHIUM CARBONATE 300 MG TAB PO SCH (21:40)
--- NOTE | 2019-07-07 07:01 | Psychiatric Progress Note ---
Date of Service July 07, 2019 Impression / Recommendations Impression This 29-year-old woman with a known history of bipolar disorder was admitted in a manic state through the emergency room after her mother called 911 and reported that the patient was behaving in a bizarre and disorganized fashion. 302 was completed by police, who noted that the patient [place] singing and dancing with no sense of her surroundings, was delusional, talking to "prophets" and was unable to articulate her thoughts. She was labile, delusional, combative, and laughing hysterically. According to reports from the patient's mother, she had been fasting for up to 4 days at a time (inexplicably), had only been sleeping approximately 2 hours a night, and was engaging in behaviors such as dressing up as "a Cinderella" and announcing that she plan to walk from [facility] to [place]. She dyed her skin green, and said that she believes that she was being sent a message through a coin that she observed that had a embossed image of the [place] of [place] on 1 side. Thinking is disorganized, and she has marked flight of ideas and pressured speech, lacks insight into her illness, and is largely uncooperative. She remains severely manic and psychotic, is refusing to take psychiatric medications, and we are recommending medications over objection. (1) Bipolar disorder: 07/06/19 -The patient is currently in the manic phase of bipolar disorder, although she has essentially no insight into her condition and her need for treatment. [facility] and has been referred for individual, group and activity therapies with the goal of providing the patient on external reality testing, as well as the importance of adherence with psychiatric treatment. -It will be important for the patient to be placed back on mood stabilizing agents and antipsychotics. It has been reported that, in the past, the patient has taken aripiprazole and lithium carbonate, but she reportedly stopped these medications at some unspecified point or points in the past. The plan is to restart aripiprazole 15 mg a day and lithium carbonate 300 mg twice a day. Because of the question of possible dehydration admission, we are starting lithium carbonate at a lower dose, but anticipate titrating following laboratory testing. 06/26 -Continues to refuse medications. Will require a 303 and meds over objection, will need to file for 303 hearing on Tuesday. -Continue to offer home psychotropics (lithium and aripiprazole), and has Haldol PO and IM prn. -Continue private room, and excuse for groups due to disruptive behavior. Minimize stimulation, and encourage sleep. No caffeine. (2) Acute dehydration: 07/06/2019 -The patient had an elevated heart rate in the emergency department and it was felt that this was probably attributable to dehydration. The patient's laboratory data is equivocal. The concern is that the patient's mother reports that the patient has been fasting and it is possible that she is also been restricting fluid intake. We will monitor while encouraging fluids. (3) Hypothyroidism: 07/06/2019 -Patient has reported history of hypothyroidism. Her most recent laboratory data showed a TSH of 208 (low) and T4 of 1.06, at the high end of normal. She tells us that she has been adherent with her thyroid medication on an outpatient basis, namely [place] thyroid 90 mg daily. -[place] Thyroid is not on the formulary at [facility]. The reasonable conversion is to levothyroxine 125 mcg daily, and this will be ordered. 07/06 -patient's mother is going to bring in her thyroid medication. (4) Hypokalemia: Potassium 3.1 in the ER, received 40 mEq. She is eating here. Recheck BMP tomorrow. (5) Madeline: Inventory Assets Strengths: Intelligent. Supportive family. Needs: Mood stabilization. Insight into her illness, treatment adherence. Cooperation with treatment. Risk Factors Assessment Male: No : Yes Do You Have Access To A Gun?: No Health Problems: No Mental Health Diagnoses: Yes Previous Attempt: No (The patient reports that she has no history of suicide attempts or other self-injurious behaviors. 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 However, third-constitution party reports of the patient has a history of multiple psychiatric admissions.) Hopelessness: No Smoker: No Protective Factors Assessment : No Responsible for Young Children: No Employed: No Stable Relationships: No Supportive Family: Yes Good Rapport with Provider: No Absence of Any Risk Factors Above: No Interval History Identifying Information GIOVANNI EDMOND is a 29-year-old F who currently lives in the [place] with her mother, has a history of bipolar disorder, and was admitted on 07/05/19 18:28 on a 302 involuntary commitment for psychosis and dangerous behaviors. Chief Complaint "That's really negative". Review of Systems Sleep Information Total Hours of Sleep: 1 Sleep Comments: See nurse's note. Meal Information Percent Meal Consumed - Breakfast: 100 Percent Meal Consumed - Lunch: 75 Percent Meal Consumed - Dinner: 75 Subjective Subjective Patient was seen & assessed and interval progress reviewed with nursing and social work. Staff report she has been irritable, uncooperative, disruptive, hiding from staff, and refusing all medications. She is inappropriate and disruptive in groups, but gets angry when she is asked to leave. She entered the day room without clothes, and had to be redirected to her room, and then returned to the day room wearing a brown paper garbage bag. She is sarcastic and argumentative with staff, and is refusing all medications. She was unwilling to complete her social history, and filled out paperwork nonsensically with colored pencils. She has been irritable and oppositional with admission assessment/questions from staff. She only slept 1 hour overnight. On my assessment, she is irritable, oppositional, and extremely pressured and hyperverbal. She says "I was dressing up like lady Scott, a peaceful protest, I have these coins at my house with a lady [place] on one side and a hawk on one side, you can go there and look at them if you don't believe me. I just decided to see what [place] would look like, do you understand what art is? You can go to my house, check it if you do not believe me, I wasn't hurting anyone, I wanted to walk to [place], it's another whole long story, it is the headquarters of [email or web address] and they've been playing tag along or pass along for 20 people, I simply wanted to take care of my brother's loans because he's incarcerated, I decided to walk there in person if you're just going to toggle me between 20 people..." She is very difficult to redirect or interrupt. Attempted to clarify when she came to [place], she indicates that she is left ear "off-and-on" for many years, and says she graduated in February and returned here sometime after that because of "a detour, a bump in the road, and I don't want to get into that, but it let me back to [place]." She says she has not been in treatment for at least 3 months, and does not believe that she has a mental illness or needs treatment, stating she does not believe in medication and demands that we "stop using the words dis-ability and dis-order and bi-polar, do understand?!" Tempted to de-escalate her verbally, which was ineffective, and she then dismissed me from her room. Physical Exam Psychiatric Orientation: alert; + uncooperative Apperance: appeared stated age; + inappropriately dressed (Wearing a hooded sweater that is on backwards with a solorzano in front) Eye Contact: + poor eye contact Motor Behavior: + psychomotor agitation Moving rapidly around the room, lying on her bed, getting up, going to the window, doing dance moves Extremely pressured, hyperverbal speech; loud and sarcastic tone Affect: + labile affect Changes rapidly from euphoric/expansive to angry Thought Process: + flight of ideas, + looseness of associations and + incoherent thought process; + thought process not clear or coherent Thought Content: + delusions and + ideas of reference Suicidal Thoughts: denies suicidal thoughts Homicidal Thoughts: denies homicidal thoughts Patient refuses to answer questions Cognition: + recent memory not intact and + attention not intact Insight: + severely impaired insight Judgement: + severely impaired judgement Vital Signs (Past 24 Hours) Last Vital Signs Temp 36.8 C 07/06/19 20:00 Pulse 139 H 07/06/19 06:29 Resp 18 07/06/19 06:28 BP 119/73 07/06/19 06:29 Pulse Ox 98 07/05/19 16:00 Results & Data ([facility]) Current Inpatient Medications Current Inpatient Medications: Current Inpatient Medications Acetaminophen (Tylenol) 650 mg PO Q4H PRN PRN Reason: Headache or Minor Fever Stop: 08/04/19 18:38 Al Hydrox/Mg Hydrox/Simethicone (Maalox) 30 ml PO Q4H PRN PRN Reason: GI Upset Stop: 08/04/19 18:38 Aripiprazole (Abilify) 15 mg PO QAM KOFI Stop: 08/05/19 10:44 Last Admin: 07/06/19 12:22 Dose: Not Given Documented by: Benztropine Mesylate (Cogentin) 1 mg IM Q4H PRN PRN Reason: Allergic Reaction Stop: 08/04/19 18:44 Benztropine Mesylate (Cogentin) 1 mg PO Q4H PRN PRN Reason: Allergic Reaction Stop: 08/04/19 18:46 Bismuth Subsalicylate (Kaopectate) 15 ml PO PRN PRN PRN Reason: Loose Stool Stop: 08/04/19 18:38 Haloperidol (Haldol) 5 mg PO Q4H PRN PRN Reason: Anxiety/Agitation Stop: 08/04/19 18:42 Haloperidol Lactate (Haldol) 5 mg IM Q4H PRN PRN Reason: Anxiety/Agitation Stop: 08/04/19 18:40 Hydroxyzine HCl (Vistaril) 50 mg PO HSZ PRN PRN Reason: Insomnia Stop: 08/04/19 18:38 Hydroxyzine HCl (Vistaril) 25 mg PO Q4H PRN PRN Reason: Anxiety Stop: 08/04/19 18:38 Levothyroxine Sodium (Synthroid) 125 mcg PO DAILYBB [facility] Stop: 08/06/19 07:59 [place] Carbonate ([place] Carbonate) 300 mg PO BID [facility] Stop: 08/05/19 20:59 Last Admin: 07/06/19 21:40 Dose: Not Given Documented by: Lorazepam (Ativan) 2 mg IM Q4H PRN PRN Reason: Anxiety/Agitation Stop: 08/04/19 18:43 Lorazepam (Ativan) 1 mg PO Q4H PRN PRN Reason: Anxiety/Agitation Stop: 08/04/19 18:43 Magnesium Hydroxide (Milk Of Magnesia) 30 ml PO DAILY PRN PRN Reason: Constipation Stop: 08/04/19 18:38 Sodium Chloride ([place] Nasal) 1 - 2 sprays NA PRN PRN PRN Reason: Nasal Dryness/Congestion Stop: 08/04/19 18:38 Mental Health & Subst Abuse Tx Therapist Name of Therapist: Denies Horticulture/Floriculture Teacher Name of Horticulture/Floriculture Teacher: Denies Post Discharge Appointments Primary Care Physician Name Of Family Doctor: Dr. Galvan (1) Bipolar disorder Active/Remission status: currently active Current bipolar episode type: manic Current episode severity: severe Psychotic features: with psychotic features Qualified Code(s): F31.2 - Bipolar disorder, current episode manic severe with psychotic features
[2019-07-07] MEDS: LEVOTHYROXINE SODIUM 125 MCG TABLET PO SCH (10:42)
[2019-07-07] MEDS: LITHIUM CARBONATE 300 MG TAB PO SCH ×2 (10:42→21:44)
[2019-07-07] MEDS: ARIPiprazole 15 MG TAB PO SCH (10:42)
--- NOTE | 2019-07-08 07:04 | Psychiatric Progress Note ---
Date of Service July 08, 2019 Impression / Recommendations Impression This 29-year-old woman with a known history of bipolar disorder was admitted in a manic state through the emergency room after her mother called 911 and reported that the patient was behaving in a bizarre and disorganized fashion. 302 was completed by police, who noted that the patient was [place] to a divided highway singing and dancing with no sense of her surroundings, was delusional, talking to "prophets" and was unable to articulate her thoughts. She was labile, delusional, combative, and laughing hysterically. According to reports from the patient's mother, she had been fasting for up to 4 days at a time (inexplicably), had only been sleeping approximately 2 hours a night, and was engaging in behaviors such as dressing up as "a Cinderella" and announcing that she plan to walk from [facility] to [place]. She dyed her skin green, and said that she believes that she was being sent a message through a coin that she observed that had a embossed image of the Stat[place] of [place] on 1 side. Thinking is disorganized, and she has marked flight of ideas and pressured speech, lacks insight into her illness, and is agitated and uncooperative. She remains severely manic and psychotic, is refusing to take psychiatric medications, and we are recommending a 303 involuntary commitment and medications over objection. (1) Bipolar disorder: 07/06/19 -The patient is currently in the manic phase of bipolar disorder, although she has essentially no insight into her condition and her need for treatment. She has been admitted to the [facility] and has been referred for individual, group and activity therapies with the goal of providing the patient on external reality testing, as well as the importance of adherence with psychiatric treatment. -It will be important for the patient to be placed back on mood stabilizing agents and antipsychotics. It has been reported that, in the past, the patient has taken aripiprazole and lithium carbonate, but she reportedly stopped these medications at some unspecified point or points in the past. The plan is to restart aripiprazole 15 mg a day and lithium carbonate 300 mg twice a day. Because of the question of possible dehydration admission, we are starting lithium carbonate at a lower dose, but anticipate titrating following laboratory testing. 07/06 -Continues to refuse medications. Will require a 303 and meds over objection, will need to file for 303 hearing on Tuesday. -Continue to offer home psychotropics (lithium and aripiprazole), and has Haldol PO and IM prn. -Continue private room, and excuse for groups due to disruptive behavior. Minimize stimulation, and encourage sleep. No caffeine. 07/07 -Continue to refuse all medications. Will file for 303 tomorrow and initiate meds over objection as soon as granted, as she is no better, and manic and psychotic symptoms are severe and impairing. She is unable to provide for her own basic needs and is at risk of harm to herself as evidenced by her behavior detailed above, not eating or sleeping, with electrolyte disarray (hypokalemia). (2) Acute dehydration: 07/06/2019 -The patient had an elevated heart rate in the emergency department and it was felt that this was probably attributable to dehydration. The patient's laboratory data is equivocal. The concern is that the patient's mother reports that the patient has been fasting and it is possible that she is also been restricting fluid intake. We will monitor while encouraging fluids. (3) Hypothyroidism: 07/06/2019 -Patient has reported history of hypothyroidism. Her most recent laboratory data showed a TSH of 208 (low) and T4 of 1.06, at the high end of normal. She tells us that she has been adherent with her thyroid medication on an outpatient basis, namely [place] thyroid 90 mg daily. -[place] Thyroid is not on the formulary at [facility]. The reasonable conversion is to levothyroxine 125 mcg daily, and this will be ordered. 07/06 -patient is refusing levothyroxine. She states her mother is going to bring in her thyroid medication. (4) Hypokalemia: 07/06 - Potassium 3.1 in the ER, received 40 mEq. She is eating here. Recheck BMP tomorrow. 07/07 - potassium 3.3 today. Is eating some, encouraging good nutrition. Reviewed EKG from the ER; sinus tachycardia with rate 129, QTC 439. (5) Aleida: Inventory Assets Strengths: Intelligent. Supportive family. Needs: Mood stabilization. Insight into her illness, treatment adherence. Cooperation with treatment. Risk Factors Assessment Male: No : Yes Do You Have Access To A Gun?: No Health Problems: No Mental Health Diagnoses: Yes Previous Attempt: No (The patient reports that she has no history of suicide attempts or other self-injurious behaviors. 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 However, third-democrat reports of the patient has a history of multiple psychiatric admissions.) Hopelessness: No Smoker: No Protective Factors Assessment : No Responsible for Young Children: No Employed: No Stable Relationships: No Supportive Family: Yes Good Rapport with Provider: No Absence of Any Risk Factors Above: No Interval History Identifying Information GIOVANNI EDMOND is a 29-year-old F who currently lives in the [facility] with her mother, has a history of bipolar disorder, and was admitted on 07/05/19 18:28 on a 302 involuntary commitment for psychosis and dangerous behaviors. Chief Complaint Patient laughing and yelling, " maybe don't put coffee on their trays next time examination point" Review of Systems Sleep Information Total Hours of Sleep: 1 Sleep Comments: See nurse's note. Meal Information Percent Meal Consumed - Breakfast: 100 Percent Meal Consumed - Lunch: 0 Percent Meal Consumed - Dinner: 50 Nutrition Comment: pt. allowed to rest Subjective Subjective Patient was seen & assessed and interval progress reviewed with nursing and social work. Staff report she remains psychotic and manic, labile, hyperverbal, irritable, easily agitated, and unable to complete admission assessment due to disorganization and aleida. She wanted staff to mail her mother an ROMA when asked to sign one so staff could talk to her mother, who called in last evening. She napped in the quiet room yesterday. She is disorganized, wrote all over the covers of books from the unit library, decorated her room with toilet paper, placed all her socks in a big comanche, and made a concoction of orange peels and put it on her face. Attempted to see her several times today; she was agitated, screaming at staff and at someone on the phone, yelling that the hospital is "giving sick people sugar! Can you believe that!" She did not respond to several attempts by staff to verbally de-escalate her. The phone was turned off, but she continued to talk as if someone was there. Security was called and she was offered medication, which she refused. She was sobbing and yelling, but allowed staff to walk her to her room. She yelled expletives at staff, "you think you're doing such good, you're all part of the machine." She went to her room but was yelling and ranting in her room. Staff again verbally de-escalated, offered to get her food and drink, but in the interim she again started yelling, pacing, gesticulating agitatedly. Physical Exam Psychiatric Well-nourished well-developed female appearing her stated age. Casually dressed, hair disheveled and unkempt, sticking out from her head. Agitated and uncooperative. Observed several times on the unit, yelling, screaming, frequent use of expletives. Initially on the phone, screaming and ranting, and then in the quiet room, pacing, yelling. Hyperverbal, pressured, agitated. Loose associations, flight of ideas, paranoia and delusions of persecution. Very poor judgment and insight. Vital Signs (Past 24 Hours) Last Vital Signs Temp 36.9 C 07/07/19 21:37 Pulse 132 H 07/07/19 07:08 Resp 16 07/07/19 07:07 BP 125/73 07/07/19 07:08 Pulse Ox 98 07/05/19 16:00 Results & Data ([facility]) Current Inpatient Medications Current Inpatient Medications: Current Inpatient Medications Acetaminophen (Tylenol) 650 mg PO Q4H PRN PRN Reason: Headache or Minor Fever Stop: 08/04/19 18:38 Al Hydrox/Mg Hydrox/Simethicone (Maalox) 30 ml PO Q4H PRN PRN Reason: GI Upset Stop: 08/04/19 18:38 Aripiprazole (Abilify) 15 mg PO QAM KOFI Stop: 08/05/19 10:44 Last Admin: 07/07/19 10:42 Dose: Not Given Documented by: Benztropine Mesylate (Cogentin) 1 mg IM Q4H PRN PRN Reason: Allergic Reaction Stop: 08/04/19 18:44 Benztropine Mesylate (Cogentin) 1 mg PO Q4H PRN PRN Reason: Allergic Reaction Stop: 08/04/19 18:46 Bismuth Subsalicylate (Kaopectate) 15 ml PO PRN PRN PRN Reason: Loose Stool Stop: 08/04/19 18:38 Haloperidol (Haldol) 5 mg PO Q4H PRN PRN Reason: Anxiety/Agitation Stop: 08/04/19 18:42 Haloperidol Lactate (Haldol) 5 mg IM Q4H PRN PRN Reason: Anxiety/Agitation Stop: 08/04/19 18:40 Hydroxyzine HCl (Vistaril) 50 mg PO HSZ PRN PRN Reason: Insomnia Stop: 08/04/19 18:38 Hydroxyzine HCl (Vistaril) 25 mg PO Q4H PRN PRN Reason: Anxiety Stop: 08/04/19 18:38 Levothyroxine Sodium (Synthroid) 125 mcg PO DAILYBB [facility] Stop: 08/06/19 07:59 Last Admin: 07/07/19 10:42 Dose: Not Given Documented by: [place] Carbonate ([place] Carbonate) 300 mg PO BID [facility] Stop: 08/05/19 20:59 Last Admin: 07/07/19 21:44 Dose: Not Given Documented by: Lorazepam (Ativan) 2 mg IM Q4H PRN PRN Reason: Anxiety/Agitation Stop: 08/04/19 18:43 Lorazepam (Ativan) 1 mg PO Q4H PRN PRN Reason: Anxiety/Agitation Stop: 08/04/19 18:43 Magnesium Hydroxide (Milk Of Magnesia) 30 ml PO DAILY PRN PRN Reason: Constipation Stop: 08/04/19 18:38 Sodium Chloride ([place] Nasal) 1 - 2 sprays NA PRN PRN PRN Reason: Nasal Dryness/Congestion Stop: 08/04/19 18:38 Mental Health & Subst Abuse Tx Therapist Name of Therapist: Denies Auto Garage Attendant Name of Auto Garage Attendant: Denies Post Discharge Appointments Primary Care Physician Name Of Family Doctor: Dr. Galvan (1) Bipolar disorder Active/Remission status: currently active Current bipolar episode type: manic Current episode severity: severe Psychotic features: with psychotic features Qualified Code(s): F31.2 - Bipolar disorder, current episode manic severe with psychotic features
[2019-07-08 08:38] LABS: BUN Creatinine Ratio 5.1 (10-20); Calcium 9.5 mg/dl (8.5-10.1); Creatinine Clr Calc Pharmacy 100.2 ml/min; Est GFR (African American) 113.7; Est GFR (Non-African American) 98.1; Potassium 3.3 mmol/L (3.5-5.1)
[2019-07-08] MEDS: LITHIUM CARBONATE 300 MG TAB PO SCH ×2 (08:59→21:36)
[2019-07-08] MEDS: LEVOTHYROXINE SODIUM 125 MCG TABLET PO SCH (08:59)
[2019-07-08] MEDS: ARIPiprazole 15 MG TAB PO SCH (08:59)
[2019-07-08] MEDS ORDERED: HALOPERIDOL LACTATE 5 MG/ML 1 ML VIAL IM PRN (10:11)
[2019-07-09] MEDS: ARMOUR THYROID PO SCH (07:15)
--- NOTE | 2019-07-09 08:09 | Psychiatric Progress Note ---
Date of Service July 09, 2019 Impression / Recommendations Impression This 29-year-old woman with a known history of bipolar disorder was admitted in a manic state through the emergency room after her mother called 911 and reported that the patient was behaving in a bizarre and disorganized fashion. 302 was completed by police, who noted that the patient was [place] to a divided [place] singing and dancing with no sense of her surroundings, was delusional, talking to "prophets" and was unable to articulate her thoughts. She was labile, delusional, combative, and laughing hysterically. According to reports from the patient's mother, she had been fasting for up to 4 days at a time (inexplicably), had only been sleeping approximately 2 hours a night, and was engaging in behaviors such as dressing up as "a Cinderella" and announcing that she plan to walk from [facility] to [place]. She dyed her skin green, and said that she believes that she was being sent a message through a coin that she observed that had a embossed image of the [place] on 1 side. Thinking is disorganized, and she has marked flight of ideas and pressured speech, lacks insight into her illness, and is agitated and uncooperative. She remains severely manic and psychotic, is refusing to take psychiatric medications, and is on a a 303 involuntary commitment, and will start medications over objection. She has slept 1 hour or less for the past 3 nights, and is increasingly agitated, disruptive and intrusive, causing property damage on the unit. (1) Bipolar disorder: 07/06/19 -The patient is currently in the manic phase of bipolar disorder, although she has essentially no insight into her condition and her need for treatment. She has been admitted to the [facility] behavioral health unit and has been referred for individual, group and activity therapies with the goal of providing the patient on external reality testing, as well as the importance of adherence with psychiatric treatment. -It will be important for the patient to be placed back on mood stabilizing agents and antipsychotics. It has been reported that, in the past, the patient has taken aripiprazole and lithium carbonate, but she reportedly stopped these medications at some unspecified point or points in the past. The plan is to restart aripiprazole 15 mg a day and lithium carbonate 300 mg twice a day. Because of the question of possible dehydration admission, we are starting lithium carbonate at a lower dose, but anticipate titrating following laboratory testing. 07/06 -Continues to refuse medications. Will require a 303 and meds over objection, will need to file for 303 hearing on Tuesday. -Continue to offer home psychotropics (lithium and aripiprazole), and has Haldol PO and IM prn. -Continue private room, and excuse for groups due to disruptive behavior. Minimize stimulation, and encourage sleep. No caffeine. 07/07 -Continue to refuse all medications. Will file for 303 tomorrow and initiate meds over objection as soon as granted, as she is no better, and manic and psychotic symptoms are severe and impairing. She is unable to provide for her own basic needs and is at risk of harm to herself as evidenced by her behavior detailed above, not eating or sleeping, with electrolyte disarray (hypokalemia). 07/08 -303 granted. -Agree with Dr. Lal's recommendation for medications over objection as she has bipolar type I, is currently manic and psychotic, lacks any insight into her condition, and is unlikely to recover without the use of mood stabilizing and antipsychotic medication. She has responded well to medication in the past, and has been able to stabilize and regain function. She refused to discuss medication options, but after being informed of the recommendation for medications over objection, she took Abilify and lithium. -Will discontinue aripiprazole in favor of a more potent antipsychotic, given severity of symptoms and agitation, and start olanzapine 5mg qnoon with 10mg IM for refusal. -She will need fasting labs when more cooperative. -She has now signed release for her mother and will get collateral from her and schedule a family meeting once patient is more stable and able to tolerate it. She will also need outpatient services, possibly a 304 IOC and BCM. (2) Nonadherence to medication: 07/08 - Get collateral information from mother regarding treatment history, as patient unable/unwilling to provide information, and we have no previous records. Consider 304 IOC and PABON, given history of nonadherence with severe, debilitating symptoms when ill. Present on Admission?: Yes (3) Acute dehydration: 07/06/2019 -The patient had an elevated heart rate in the emergency department and it was felt that this was probably attributable to dehydration. The patient's laboratory data is equivocal. The concern is that the patient's mother reports that the patient has been fasting and it is possible that she is also been restricting fluid intake. We will monitor while encouraging fluids. (4) Hypothyroidism: 07/06/2019 -Patient has reported history of hypothyroidism. Her most recent laboratory data showed a TSH of 208 (low) and T4 of 1.06, at the high end of normal. She tells us that she has been adherent with her thyroid medication on an outpatient basis, namely [place] thyroid 90 mg daily. -[place] Thyroid is not on the formulary at [facility]. The reasonable conversion is to levothyroxine 125 mcg daily, and this will be ordered. 07/06 -patient is refusing levothyroxine. She states her mother is going to bring in her thyroid medication. (5) Hypokalemia: 07/06 - Potassium 3.1 in the ER, received 40 mEq. She is eating here. Recheck BMP tomorrow. 07/07 - potassium 3.3 today. Is eating some, encouraging good nutrition. Reviewed EKG from the ER; sinus tachycardia with rate 129, QTC 439. Inventory Assets Strengths: Intelligent. Supportive family. Needs: Mood stabilization. Insight into her illness, treatment adherence. Cooperation with treatment. Risk Factors Assessment Male: No : Yes Do You Have Access To A Gun?: No Health Problems: No Mental Health Diagnoses: Yes Previous Attempt: No (The patient reports that she has no history of suicide attempts or other self-injurious behaviors. However, she is considered a highly unreliable oreman.) Family History of Suicide: No (The patient is not considered a reliable oreman.) Previous Psychiatric Hospitalization: Yes (The patient does not cooperate by providing information regarding previous hospitalizations and, in fact, neither confirms or denies that there have been previous psychiatric hospitalizations. However, third-green party reports of the patient has a history of multiple psychiatric admissions.) Hopelessness: No Smoker: No Protective Factors Assessment : No Responsible for Young Children: No Employed: No Stable Relationships: No Supportive Family: Yes Good Rapport with Provider: No Absence of Any Risk Factors Above: No Interval History Identifying Information GIOVANNI EDMOND is a 29-year-old F who currently lives in the [place] with her mother, has a history of bipolar disorder, and was admitted on 05/28/20 18:28 on a 302 involuntary commitment for psychosis and dangerous behaviors. She is on a 303 as of 07/09/2019. Chief Complaint "What is this, who signed my 302?" Review of Systems Notes Attempted to review 10 systems, but patient is unable to participate due to severity of agitation. Sleep Information Total Hours of Sleep: 0.75 Sleep Comments: See nurse's note. Meal Information Percent Meal Consumed - Breakfast: 100 Percent Meal Consumed - Lunch: 100 Percent Meal Consumed - Dinner: 25 Nutrition Comment: pt. allowed to rest Subjective Subjective Patient was seen & assessed and interval progress reviewed with treatment team. Staff report she has been agitated, causing property destruction on the unit (defacing books, ripping down art and charts on the wall, drawing on the mendes with crayons, ripping up papers). She remains expansive, labile, easily overwhelmed, tangential with flight of ideas, and continues to refuse all medications. She is intrusive and inappropriate with peers, touching them and disrupting groups. The phones had to be turned off as she was screaming and swearing and could not be redirected, but continued to talk on the phone for several minutes, not realizing the phone was off. She was escorted to open seclusion and refused medication, stating it was against her right, she would only take natural substances, and wanted to be able to express her feelings. She said harm would come to anyone who forces her to take meds, but she would not harm them. She believes the air being circulated around the unit and in the hospital is filled with COVID-19. She called her mother and was behaving in a paranoid fashion, trying to give her mother codes and passwords, and the conversation made no sense. She frequently goes to the nursing station with various requests, and slept only 45 minutes overnight. She continues to come out of her room partially clothed, and is irritable when reminded that she has to be dressed while out on the unit. On my assessment, she was being given her rights with respect to her 303 hearing, and was agitated and argumentative, stating she can't read while walking, and when invited to sit down, said "no, I'm fine here," and sat down on the floor. Observed nursing staff attempt to review patient's rights with her, and she asked multiple questions, interrupting before anyone could complete an answer. Reviewed with her that she was admitted on a 302 for bipolar aleida with psychosis, reviewed treatment recommendations and her refusal, and reviewed that we will have a 303 hearing today as we are recommending ongoing inpatient treatment. Reviewed medication recommendations and that two physicians have seen her and recommended medications over objection, and that these will be administered via IM. Asked if she would be w illing to discuss medication options, and if there were any mood stabilizers or antipsychotic medications she would be willing to take. She said she was "willing to take meds that aren't synthesized, do you know what that means?" She interrupted several times to ask questions including "Why are you a doctor?" "Do you think you and I speak the same language?" She did not answer when asked if she would take lithium, which she was previously prescribed for bipolar, as it is an element, and responded with "Do you have any curl cream in your purse? Well that's too bad." She did not appear to understand her rights, as she made statements such as "what is inpatient treatment mean?" Even after explaining this several times, said she still did not understand. She insisted no one had given her her rights, although she was holding the paper in her hand and reading from it. She attended her 303 hearing by phone and was intrusive and interrupting frequently. She had to be redirected multiple times, and security were called to the unit, as she escalated, yelling, with psychomotor agitation. She demanded to question me, and asked "where were you at 9:05am on July 08?" She stated "if you don't know where you were, you're not responsible for you're surroundings, you're not responsible for me." "You didn't see me leave my house, I doubt anyone here saw me leave!" She asked a series of disjointed questions and at one point was yelling into the phone, interrupting her assistant county attorney, at other times started to sob, and was very labile. She was hyperverbal and extremely disorganized, talking about The Wizard of and the [address] brick [address], related Em to Sleeping Beauty, for to herself is Em, and was largely incoherent. She spoke for about 20 minutes, despite multiple attempts by the flight deck officer to redirect her. Staff who sat with her for the hearing reported she had documents spread out all around her, including a Lion [employer] coloring page, and during her testimony jumped up and did a toe touch while yelling. After the hearing, she was sobbing uncontrollably, stating her family was in danger, and asked staff to call her mother and tell her to lock the door so she would stay safe. The social service manager and I attempted to contact her mother by phone, but were unable to reach her and left a voicemail after multiple attempts. Physical Exam Psychiatric Orientation: alert; + uncooperative Hostile and agitated Apperance: appropriately dressed; + inappropriately groomed Hair standing up wildly on head, runs her hands through it frequently Eye Contact: good eye contact (staring, intense) Motor Behavior: steady gait and station and + psychomotor agitation pacing, repeatedly comes at me and gets very close despite frequent reminders to maintain a 6 foot distance Speech: + pressured speech hyperverbal, loud, sarcastic and angry tone Affect: + labile affect and + irritable affect vacillates wildly, expansive, angry Mood: + irritable mood Thought Process: + tangential thought process, + flight of ideas and + looseness of associations Thought Content: + paranoid, + delusions, + ideas of reference and + persecution Patient will not answer questions Cognition: + recent memory not intact and + attention not intact Insight: + severely impaired insight Judgement: + severely impaired judgement Vital Signs (Past 24 Hours) Last Vital Signs Temp 37.3 C 07/08/19 21:25 Pulse 101 H 07/08/19 07:17 Resp 16 07/08/19 07:15 BP 135/91 07/08/19 07:17 Pulse Ox 98 07/05/19 16:00 Results & Data ([facility]) Laboratory Results Laboratory Results - last 24 hr 07/08/19 07:58 Sodium 138 Potassium 3.3 L Chloride 105 Carbon Dioxide 25 Anion Gap 8.0 BUN 4 L Creatinine 0.82 Est Cr Clr Drug Dosing 100.2 Est GFR ( Amer) 113.7 Est GFR (Non-Af Amer) 98.1 BUN/Creatinine Ratio 5.1 L Glucose 103 H Calcium 9.5 Current Inpatient Medications Current Inpatient Medications: Current Inpatient Medications Acetaminophen (Tylenol) 650 mg PO Q4H PRN PRN Reason: Headache or Minor Fever Stop: 08/04/19 18:38 Al Hydrox/Mg Hydrox/Simethicone (Maalox) 30 ml PO Q4H PRN PRN Reason: GI Upset Stop: 08/04/19 18:38 Aripiprazole (Abilify) 15 mg PO QAM [facility] Stop: 08/05/19 10:44 Last Admin: 07/08/19 08:59 Dose: Not Given Documented by: Benztropine Mesylate (Cogentin) 1 mg IM Q4H PRN PRN Reason: Allergic Reaction Stop: 08/04/19 18:44 Benztropine Mesylate (Cogentin) 1 mg PO Q4H PRN PRN Reason: Allergic Reaction Stop: 08/04/19 18:46 Bismuth Subsalicylate (Kaopectate) 15 ml PO PRN PRN PRN Reason: Loose Stool Stop: 08/04/19 18:38 Haloperidol (Haldol) 5 mg PO Q4H PRN PRN Reason: Anxiety/Agitation Stop: 08/04/19 18:42 Haloperidol Lactate (Haldol) 10 mg IM Q4H PRN PRN Reason: psychosis, aleida, agitation Stop: 08/04/19 18:40 Hydroxyzine HCl (Vistaril) 50 mg PO HSZ PRN PRN Reason: Insomnia Stop: 08/04/19 18:38 Hydroxyzine HCl (Vistaril) 25 mg PO Q4H PRN PRN Reason: Anxiety Stop: 08/04/19 18:38 Goldenrod Carbonate (Goldenrod Carbonate) 300 mg PO BID [facility] Stop: 08/05/19 20:59 Last Admin: 07/08/19 21:36 Dose: Not Given Documented by: Lorazepam (Ativan) 2 mg IM Q4H PRN PRN Reason: Anxiety/Agitation Stop: 08/04/19 18:43 Lorazepam (Ativan) 1 mg PO Q4H PRN PRN Reason: Anxiety/Agitation Stop: 08/04/19 18:43 Magnesium Hydroxide (Milk Of Magnesia) 30 ml PO DAILY PRN PRN Reason: Constipation Stop: 08/04/19 18:38 *[place] Thyroid*Non- Formulary Patient's Own Med 1 ea PO DAILY@0800 [facility] Stop: 08/08/19 07:59 Last Admin: 07/09/19 07:15 Dose: 1 ea Documented by: Sodium Chloride ([place] Nasal) 1 - 2 sprays NA PRN PRN PRN Reason: Nasal Dryness/Congestion Stop: 08/04/19 18:38 Mental Health & Subst Abuse Tx Therapist Name of Therapist: Denies Vp Analysis Name of Vp Analysis: Denies Post Discharge Appointments Primary Care Physician Name Of Family Doctor: Dr. Galvan (1) Bipolar disorder Active/Remission status: currently active Current bipolar episode type: manic Current episode severity: severe Psychotic features: with psychotic features Qualified Code(s): F31.2 - Bipolar disorder, current episode manic severe with psychotic features
[2019-07-09] MEDS: ARIPiprazole 15 MG TAB PO SCH (09:53)
[2019-07-09] MEDS: LITHIUM CARBONATE 300 MG TAB PO SCH ×2 (09:53→22:32)
[2019-07-09] MEDS ORDERED: OLANZapine 5 MG TABLET PO PRN (10:44)
[2019-07-09] MEDS ORDERED: OLANZapine 10 MG/2.1 ML SDV IM PRN ×2 (10:45→11:08)
[2019-07-09] MEDS ORDERED: OLANZapine 5 MG TABLET PO SCH (12:00)
[2019-07-10] MEDS: LITHIUM CARBONATE 300 MG TAB PO SCH ×2 (08:41→20:54)
[2019-07-10] MEDS ORDERED: OLANZAPINE ZYDIS 5 MG ORALLY DIS. TAB PO SCH (12:00)
--- NOTE | 2019-07-10 13:21 | Psychiatric Progress Note ---
Date of Service July 10, 2019 Impression / Recommendations Impression This 29-year-old woman with a known history of bipolar disorder was admitted in a manic state through the emergency room after her mother called 911 and reported that the patient was behaving in a bizarre and disorganized fashion. 302 was completed by police, who noted that the patient [place] to a [place] singing and dancing with no sense of her surroundings, was delusional, talking to "prophets" and was unable to articulate her thoughts. She was labile, delusional, combative, and laughing hysterically. According to reports from the patient's mother, she had been fasting for up to 4 days at a time (inexplicably), had only been sleeping approximately 2 hours a night, and was engaging in behaviors such as dressing up as "a Cinderella" and announcing that she plan to walk from [facility] to [place]. She dyed her skin green, and said that she believes that she was being sent a message through a coin that she observed that had a embossed image of the Stat[place] of [place] on 1 side. Thinking is disorganized, and she has marked flight of ideas and pressured speech, lacks insight into her illness, and is agitated and uncooperative. She presented as severely manic and psychotic, was refusing to take psychiatric medications, and is now on a 303 involuntary commitment as of 07/09/2019. Medications over objection has been initiated; however, patient has been agreeable with taking her medications by mouth at this point. Pt is receiving olanzapine, with we are titrating as tolerated. Early in her admission, patient was sleeping 1 hour or less for the past 3 nights, and was agitated, disruptive and intrusive, and had caused property damage on the unit. Although she is in better behavioral control today, she is still labile, excessively energized, intrusive, and tangential and in need of ongoing inpatient psychiatric hospitalization. (1) Bipolar disorder: 07/06/19 -The patient is currently in the manic phase of bipolar disorder, although she has essentially no insight into her condition and her need for treatment. She has been admitted to the [facility] behavioral health unit and has been referred for individual, group and activity therapies with the goal of providing the patient on external reality testing, as well as the importance of adherence with psychiatric treatment. -It will be important for the patient to be placed back on mood stabilizing agents and antipsychotics. It has been reported that, in the past, the patient has taken aripiprazole and lithium carbonate, but she reportedly stopped these medications at some unspecified point or points in the past. The plan is to restart aripiprazole 15 mg a day and lithium carbonate 300 mg twice a day. Because of the question of possible dehydration admission, we are starting lithium carbonate at a lower dose, but anticipate titrating following laboratory testing. 07/06 -Continues to refuse medications. Will require a 303 and meds over objection, will need to file for 303 hearing on Tuesday. -Continue to offer home psychotropics (lithium and aripiprazole), and has Haldol PO and IM prn. -Continue private room, and excuse for groups due to disruptive behavior. Minimize stimulation, and encourage sleep. No caffeine. 07/07 -Continue to refuse all medications. Will file for 303 tomorrow and initiate meds over objection as soon as granted, as she is no better, and manic and psychotic symptoms are severe and impairing. She is unable to provide for her own basic needs and is at risk of harm to herself as evidenced by her behavior detailed above, not eating or sleeping, with electrolyte disarray (hypokalemia). 07/08 -303 granted. -Agree with Dr. Lal's recommendation for medications over objection as she has bipolar type I, is currently manic and psychotic, lacks any insight into her condition, and is unlikely to recover without the use of mood stabilizing and antipsychotic medication. She has responded well to medication in the past, and has been able to stabilize and regain function. She refused to discuss medication options, but after being informed of the recommendation for medications over objection, she took Abilify and lithium. -Will discontinue aripiprazole in favor of a more potent antipsychotic, given severity of symptoms and agitation, and start olanzapine 5mg qnoon with 10mg IM for refusal. -She will need fasting labs when more cooperative. -She has now signed release for her mother and will get collateral from her and schedule a family meeting once patient is more stable and able to tolerate it. She will also need outpatient services, possibly a 304 IOC and BC. 07/09 - Pt has been taking scheduled oral doses of olanzapine, not requiring IM medications over objection. She was hesitant to increase her dose further, but did agree to 7.5mg of olanzapine tomorrow. Pt preferred to continue her dosing at 1200, but we did discuss moving the medication to bedtime once patient is able to demonstrate consistency with the oral medications. - Fasting labs when appropriate - Will require family meeting when appropriate (2) Nonadherence to medication: 07/08 - Get collateral information from mother regarding treatment history, as patient unable/unwilling to provide information, and we have no previous records. Consider 304 IOC and PABON, given history of nonadherence with severe, debilitating symptoms when ill. (3) Acute dehydration: 07/06/2019 -The patient had an elevated heart rate in the emergency department and it was felt that this was probably attributable to dehydration. The patient's laboratory data is equivocal. The concern is that the patient's mother reports that the patient has been fasting and it is possible that she is also been restricting fluid intake. We will monitor while encouraging fluids. (4) Hypothyroidism: 07/06/2019 -Patient has reported history of hypothyroidism. Her most recent laboratory data showed a TSH of 208 (low) and T4 of 1.06, at the high end of normal. She tells us that she has been adherent with her thyroid medication on an outpatient basis, namely Celoron thyroid 90 mg daily. -Celoron Thyroid is not on the formulary at [facility]. The reasonable conversion is to levothyroxine 125 mcg daily, and this will be ordered. 07/06 -patient is refusing levothyroxine. She states her mother is going to bring in her thyroid medication. 07/09 - Celoron Thyroid brought in from home and initiated on 07/08, patient has been taking consistently but has been negotiating timing of the medication to avoid taking with food or other medications. (5) Hypokalemia: 07/06 - Potassium 3.1 in the ER, received 40 mEq. She is eating here. Recheck BMP tomorrow. 07/07 - potassium 3.3 today. Is eating some, encouraging good nutrition. Reviewed EKG from the ER; sinus tachycardia with rate 129, QTC 439. Inventory Assets Strengths: Intelligent. Supportive family. Needs: Mood stabilization. Insight into her illness, treatment adherence. Cooperation with treatment. Risk Factors Assessment Male: No : Yes Do You Have Access To A Gun?: No Health Problems: No Mental Health Diagnoses: Yes Previous Attempt: No (The patient reports that she has no history of suicide attempts or other self-injurious behaviors. 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 However, third-green party reports of the patient has a history of multiple psychiatric admissions.) Hopelessness: No Smoker: No Protective Factors Assessment : No Responsible for Young Children: No Employed: No Stable Relationships: No Supportive Family: Yes Good Rapport with Provider: No Absence of Any Risk Factors Above: No Interval History Identifying Information GIOVANNI EDMOND is a 29-year-old F who currently lives in the [place] with her mother, has a history of bipolar disorder, and was admitted on 07/05/19 18:28 on a 302 involuntary commitment for psychosis and dangerous behaviors. She is on a 303 as of 07/09/2019. Chief Complaint "Oh, I'm doing alright. Busy reading." Review of Systems Notes Constitutional: reports fatigue after taking olanzapine Cardiovascular: denied Respiratory: denied Gastrointestinal: denied Neurological: denied Psychiatric: denies symptoms other than stated above Total of at least 10 systems reviewed, pertinent positives as above and in HPI. Sleep Information Total Hours of Sleep: 10 Sleep Comments: See nurse's note. Meal Information Percent Meal Consumed - Breakfast: 100 Percent Meal Consumed - Lunch: 55 Percent Meal Consumed - Dinner: 50 Nutrition Comment: pt. allowed to rest Subjective Subjective Patient was seen & assessed and interval progress reviewed with nursing and social work. Staff report the patient has been taking her prescribed medications by mouth, not yet requiring medications over objection as ordered. She continues to be intrusive and energized, but did reportedly sleep last evening. Pt was seen today to assess progress since admission. Pt states that she is "doing alright" and states that she has been "busy reading." Pt has been working through part of the patient workbook and was previously observed to be reviewing her 303 paperwork with a highlighter. Pt denies any concerns presently, aside from fatigue related to dosing of olanzapine. Pt states that she feels stable on her current dose and states "don't you think I'm stable?" This provider informed the patient that 5mg of olanzapine is generally insufficient for stabilization of mood and that further titration is recommended. Pt shares with this provider that she is concerned about increasing her medication as "this will cause me to lose my creativity, it will cause me to be lethargic, and I will have seizures." Pt states that she is worried about becoming "too tired to even think." We discussed that these our not our treatment goals, and that once patient is demonstrating ability to tolerate the medication consistently, consideration could be given to moving the dose to bedtime. Pt did appreciate hearing this. After further discussion, patient is agreeable with increasing her dose to 7.5mg tomorrow afternoon. She requested to keep the medication at 1200 until it is adjusted to the evening. Pt denies SI and other concerns. Again, she claims that her present mood is "stable, normal" and "a good night sleep was all I needed." Pt denied any additional needs presently. Physical Exam Psychiatric Orientation: alert and cooperative (appropriate with conversation) Apperance: appropriately dressed, appropriately groomed and appeared stated age Eye Contact: + fair eye contact Motor Behavior: no abnormal motor movements (sitting on edge of bed) Speech: normal rate/rhythm/volume of speech (rambling, though not necessarily pressured at this time) Affect: + labile affect (as observed throughout the day) At time of conversation, patient is calm and behavior is appropriate Mood: no depressed mood ("I'm alright") Thought Process: + circumstantial thought process and + flight of ideas Thought Content: + preoccupation (with controlling medications, desire for creativity) Suicidal Thoughts: denies suicidal thoughts and denies suicidal intent Homicidal Thoughts: denies homicidal thoughts Hallucinations: no auditory hallucinations and no visual hallucinations Cognition: attention grossly intact and language grossly intact Insight: + impaired insight Judgement: + impaired judgement Vital Signs (Past 24 Hours) Last Vital Signs Temp 37.3 C 07/08/19 21:25 Pulse 101 H 07/08/19 07:17 Resp 16 07/08/19 07:15 BP 135/91 07/08/19 07:17 Pulse Ox 98 07/05/19 16:00 Results & Data ([facility]) Current Inpatient Medications Current Inpatient Medications: Current Inpatient Medications Acetaminophen (Tylenol) 650 mg PO Q4H PRN PRN Reason: Headache or Minor Fever Stop: 08/04/19 18:38 Al Hydrox/Mg Hydrox/Simethicone (Maalox) 30 ml PO Q4H PRN PRN Reason: GI Upset Stop: 08/04/19 18:38 Benztropine Mesylate (Cogentin) 1 mg IM Q4H PRN PRN Reason: Allergic Reaction Stop: 08/04/19 18:44 Benztropine Mesylate (Cogentin) 1 mg PO Q4H PRN PRN Reason: Allergic Reaction Stop: 08/04/19 18:46 Bismuth Subsalicylate (Kaopectate) 15 ml PO PRN PRN PRN Reason: Loose Stool Stop: 08/04/19 18:38 Hydroxyzine HCl (Vistaril) 50 mg PO HSZ PRN PRN Reason: Insomnia Stop: 08/04/19 18:38 Hydroxyzine HCl (Vistaril) 25 mg PO Q4H PRN PRN Reason: Anxiety Stop: 08/04/19 18:38 Clemons Carbonate (Clemons Carbonate) 300 mg PO BID KOFI Stop: 08/05/19 20:59 Last Admin: 07/10/19 08:41 Dose: 300 mg Documented by: Lorazepam (Ativan) 1 mg PO Q4H PRN PRN Reason: Anxiety/Agitation Stop: 08/04/19 18:43 Magnesium Hydroxide (Milk Of Magnesia) 30 ml PO DAILY PRN PRN Reason: Constipation Stop: 08/04/19 18:38 *Celoron Thyroid*Non- Formulary Patient's Own Med 1 ea PO DAILY@0800 [facility] Stop: 08/08/19 07:59 Last Admin: 07/09/19 07:15 Dose: 1 ea Documented by: Olanzapine (Zyprexa) 5 mg PO Q4H PRN PRN Reason: psychosis Stop: 08/08/19 10:44 Olanzapine (Zyprexa) 10 mg IM UD PRN PRN Reason: agitation/psychosis/PO refusal Stop: 08/08/19 10:44 Olanzapine (Zyprexa Zydis Od) 5 mg PO DAILY@1200 [facility] Stop: 08/09/19 11:59 Last Admin: 07/10/19 11:08 Dose: 5 mg Documented by: Sodium Chloride ([place] Nasal) 1 - 2 sprays NA PRN PRN PRN Reason: Nasal Dryness/Congestion Stop: 08/04/19 18:38 Mental Health & Subst Abuse Tx Therapist Name of Therapist: Denies Application Performance Engineer Name of Application Performance Engineer: Denies Post Discharge Appointments Primary Care Physician Name Of Family Doctor: LANNY Galvan Primary Care Provider Appointment Comment: [address] [facility] Contact Information Discharge Discharge Address: [address] [place] [address] (1) Bipolar disorder Active/Remission status: currently active Current bipolar episode type: manic Current episode severity: severe Psychotic features: with psychotic features Qualified Code(s): F31.2 - Bipolar disorder, current episode manic severe with psychotic features
[2019-07-10] MEDS: ARMOUR THYROID PO SCH (14:31)
[2019-07-11] MEDS: ARMOUR THYROID PO SCH (06:21)
[2019-07-11] MEDS: LITHIUM CARBONATE 300 MG TAB PO SCH ×2 (08:46→20:52)
[2019-07-11] MEDS ORDERED: OLANZAPINE ZYDIS 5 MG ORALLY DIS. TAB PO SCH (12:00)
--- NOTE | 2019-07-11 13:15 | Psychiatric Progress Note ---
Date of Service July 11, 2019 Impression / Recommendations Impression This 29-year-old woman with a known history of bipolar disorder was admitted in a manic state through the emergency room after her mother called 911 and reported that the patient was behaving in a bizarre and disorganized fashion. 302 was completed by police, who noted that the patient was [place] to a [place] singing and dancing with no sense of her surroundings, was delusional, talking to "prophets" and was unable to articulate her thoughts. She was labile, delusional, combative, and laughing hysterically. According to reports from the patient's mother, she had been fasting for up to 4 days at a time (inexplicably), had only been sleeping approximately 2 hours a night, and was engaging in behaviors such as dressing up as "a Cinderella" and announcing that she plan to walk from [facility] to [place]. She dyed her skin green, and said that she believes that she was being sent a message through a coin that she observed that had a embossed image of the [place] of [place] on 1 side. Thinking is disorganized, and she has marked flight of ideas and pressured speech, lacks insight into her illness, and is agitated and uncooperative. She presented as severely manic and psychotic, was refusing to take psychiatric medications, and is now on a 303 involuntary commitment as of 07/09/2019. Medications over objection has been initiated; however, patient has been agreeable with taking her medications by mouth at this point. Pt is receiving olanzapine, with we are titrating as tolerated. Early in her admission, patient was sleeping 1 hour or less for the past 3 nights, and was agitated, disruptive and intrusive, and had caused property damage on the unit. Although she is in better behavioral control today, she is still labile, excessively energized, intrusive, and tangential and in need of ongoing inpatient psychiatric hospitalization. (1) Bipolar disorder: 07/06/19 -The patient is currently in the manic phase of bipolar disorder, although she has essentially no insight into her condition and her need for treatment. She has been admitted to the [facility] unit and has been referred for individual, group and activity therapies with the goal of providing the patient on external reality testing, as well as the importance of adherence with psychiatric treatment. -It will be important for the patient to be placed back on mood stabilizing agents and antipsychotics. It has been reported that, in the past, the patient has taken aripiprazole and lithium carbonate, but she reportedly stopped these medications at some unspecified point or points in the past. The plan is to restart aripiprazole 15 mg a day and lithium carbonate 300 mg twice a day. Because of the question of possible dehydration admission, we are starting lithium carbonate at a lower dose, but anticipate titrating following laboratory testing. 07/06 -Continues to refuse medications. Will require a 303 and meds over objection, will need to file for 303 hearing on Tuesday. -Continue to offer home psychotropics (lithium and aripiprazole), and has Haldol PO and IM prn. -Continue private room, and excuse for groups due to disruptive behavior. Minimize stimulation, and encourage sleep. No caffeine. 07/07 -Continue to refuse all medications. Will file for 303 tomorrow and initiate meds over objection as soon as granted, as she is no better, and manic and psychotic symptoms are severe and impairing. She is unable to provide for her own basic needs and is at risk of harm to herself as evidenced by her behavior detailed above, not eating or sleeping, with electrolyte disarray (hypokalemia). 07/08 -303 granted. -Agree with Dr. Lal's recommendation for medications over objection as she has bipolar type I, is currently manic and psychotic, lacks any insight into her condition, and is unlikely to recover without the use of mood stabilizing and antipsychotic medication. She has responded well to medication in the past, and has been able to stabilize and regain function. She refused to discuss medication options, but after being informed of the recommendation for medications over objection, she took Abilify and lithium. -Will discontinue aripiprazole in favor of a more potent antipsychotic, given severity of symptoms and agitation, and start olanzapine 5mg qnoon with 10mg IM for refusal. -She will need fasting labs when more cooperative. -She has now signed release for her mother and will get collateral from her and schedule a family meeting once patient is more stable and able to tolerate it. She will also need outpatient services, possibly a 304 IOC and BC. 07/09 - Pt has been taking scheduled oral doses of olanzapine, not requiring IM medications over objection. She was hesitant to increase her dose further, but did agree to 7.5mg of olanzapine tomorrow. Pt preferred to continue her dosing at 1200. Discuss moving the medication to bedtime once patient is able to demonstrate consistency with the oral medications. - Fasting labs when appropriate - Will require family meeting when appropriate 07/10 - Patient still shows manic symptoms with some improvement today but is willing to participate in treatment plan as recommended, including p.o. medications and attending groups. - Patient is willing to take PO medication consistently and agrees to increase olanzapine 10 mg from tomorrow. However she changed her mind regarding scheduled 7.5 mg olanzapine at noon and wanted to start 10 mg olanzapine from today. Olanzapine 10 mg scheduled nightly from today. Patient experiences mild restlessness with 5 mg of olanzapine and needs to monitor if she shows worsening symptoms with increased dose of olanzapine. Patient was advised to to utilize benztropine as needed for akathisia and she verbalized understanding during the today's assessment. - Fasting labs, including fasting lipids and fasting glucose, and free T3, which was requested by the patient and also indicated with abnormal TSH on her adm ission, ordered and they will be obtained tomorrow morning. - Patient is willing to have a family meeting with her mother and her ex- boyfriend, Shad, and our social psychologist was informed of this. -Patient wants to continue melatonin 9 mg nightly and it is a scheduled from today. (2) Nonadherence to medication: 07/08 - Get collateral information from mother regarding treatment history, as patient unable/unwilling to provide information, and we have no previous records. Consider 304 IO and [facility], given history of nonadherence with severe, debilitating symptoms when ill. (3) Acute dehydration: 07/06/2019 -The patient had an elevated heart rate in the emergency department and it was felt that this was probably attributable to dehydration. The patient's laboratory data is equivocal. The concern is that the patient's mother reports that the patient has been fasting and it is possible that she is also been re stricting fluid intake. We will monitor while encouraging fluids. (4) Hypothyroidism: 07/06/2019 -Patient has reported history of hypothyroidism. Her most recent laboratory data showed a TSH of 208 (low) and T4 of 1.06, at the high end of normal. She tells us that she has been adherent with her thyroid medication on an outpatient basis, namely [place] thyroid 90 mg daily. -[place] Thyroid is not on the formulary at [facility]. The reasonable conversion is to levothyroxine 125 mcg daily, and this will be ordered. 07/06 -patient is refusing levothyroxine. She states her mother is going to bring in her thyroid medication. 07/09 - [place] Thyroid brought in from home and initiated on 07/08, patient has been taking consistently but has been negotiating timing of the medication to avoid taking with food or other medications. (5) Hypokalemia: 07/06 - Potassium 3.1 in the ER, received 40 mEq. She is eating here. Recheck BMP tomorrow. 07/07 - potassium 3.3 today. Is eating some, encouraging good nutrition. Reviewed EKG from the ER; sinus tachycardia with rate 129, QTC 439. 07/10 - Patient wants to continue [id number] magnesium supplement but agrees to resume it at home after her potassium level is corrected. Inventory Assets Strengths: Intelligent. Supportive family. Needs: Mood stabilization. Insight into her illness, treatment adherence. Cooperation with treatment. Risk Factors Assessment Male: No : Yes Do You Have Access To A Gun?: No Health Problems: No Mental Health Diagnoses: Yes Previous Attempt: No (The patient reports that she has no history of suicide attempts or other self-injurious behaviors. However, she is considered a highly unreliable rn field.) Family History of Suicide: No (The patient is not considered a reliable rn field.) Previous Psychiatric Hospitalization: Yes (The patient does not cooperate by providing information regarding previous hospitalizations and, in fact, neither confirms or denies that there have been previous psychiatric hospitalizations. However, third-green party reports of the patient has a history of multiple psychiatric admissions.) Hopelessness: No Smoker: No Protective Factors Assessment : No Responsible for Young Children: No Employed: No Stable Relationships: No Supportive Family: Yes Good Rapport with Provider: No Absence of Any Risk Factors Above: No Interval History Identifying Information GIOVANNI EDMOND is a 29-year-old F who currently lives in the [place] with her mother, has a history of bipolar disorder, and was admitted on 07/05/19 18:28 on a 302 involuntary commitment for psychosis and dangerous behaviors. She is on a 303 as of 07/09/2019. Chief Complaint "[I'm good]". Review of Systems Notes Constitutional: denied cardiovascular: denied Respiratory: denied GI: denied Neurologic: reports mild restlessness and occasional tremor Psychiatric: denies symptoms other than stated above Remainder of 10 body systems also reviewed and denied other than noted above. Sleep Information Total Hours of Sleep: 3 Sleep Comments: Poor sleep this shift. Meal Information Percent Meal Consumed - Breakfast: 100 Percent Meal Consumed - Lunch: 75 Percent Meal Consumed - Dinner: 80 Nutrition Comment: pt. allowed to rest Subjective Subjective Patient was seen & assessed and interval progress reviewed with treatment team. Staff reports the patient had a better day yesterday, taking medications as directed, attending groups as instructed, staying on track in groups, and interacting with peers appropriately, even though she was still intrusive, and tangential. She stated her mood was 6/10 in the community meeting yesterday. She slept 3 hours last night. Patient was seen today to assess progress since admission. She states that her mood is pretty good today and she needs patience until people understand her. When she was told that she was confused during the admission, she says "I was in a fast pace instead of being confused but nobody understands me." She explained to me what happened prior to admission, including the reason of her journey to [place] and meaning of silver coins. She says [place] has too much brain at this point without souls or hearts and she wanted to show how she can protect feminism in peaceful way in the costumes of a sleeping beauty, Cinderella and Em from [facility] prior to admission. She states that she wanted to finish a journey to [place], [place] to contact a head quarter of "[employer]" since they have been contacting her house for the past 1 month regarding her brother's financial issues and she wanted to protest peacefully. She also mentions that she did not want to rest until her brother is free from the group home and that is why she did not want to eat, drink or sleep prior to admission. However, she agrees that she needs to follow our recommendation during the hospital stay. She reports that she feels mild restlessness or occasional tremors with olanzapine 5 mg, which is tolerable at this point, and was encouraged to request as needed benztropine if her symptoms get worse. She agrees to increase olanzapine to 10 mg in the evening from tomorrow when she was informed that 7.5 mg is subtherapeutic dose. She was also informed of scheduled lab work for fasting lipid panel, fasting glucose and lithium level tomorrow morning and she states that she would be okay with blood work only if free T3 level is checked at the same time because it was not done when she was admitted at the ER. She also wanted to continue melatonin 9 mg before bedtime, which she used to be on at home. She also wants to get her glasses from home because that she cannot see well without them. She is willing to have a meeting with her mother and her ex-boyfriend, Shad and she says that she prefers Zoom meeting because telephone meeting is not "meeting. " She was a lso informed of expected length of stay and that she states that she is now cannot see anything because everything can be used against her. Physical Exam Psychiatric Orientation: alert and oriented x 3 Apperance: appropriately dressed and + disheveled Eye Contact: good eye contact Motor Behavior: steady gait and station; n tremor (pt reports tremor but during the assessment, no tremor noted.) Speech: no pressured speech (hyperverbalized but not pressured speech noted) Mood: + irritable mood (occasionally) Thought Process: + circumstantial thought process, + tangential thought process, + flight of ideas and + incoherent thought process Thought Content: + preoccupation and + cognitive distortions Suicidal Thoughts: denies suicidal thoughts Homicidal Thoughts: denies homicidal thoughts Hallucinations: no auditory hallucinations and no visual hallucinations Cognition: attention grossly intact Estimated Intelligence: consistent with education level Insight: + poor insight Judgement: + poor judgement Vital Signs (Past 24 Hours) Last Vital Signs Temp 36 C L 07/11/19 06:56 Pulse 96 H 07/11/19 07:06 Resp 16 07/11/19 06:56 BP 133/99 07/11/19 06:57 Pulse Ox 97 07/10/19 14:40 Results & Data ([facility]) Current Inpatient Medications Current Inpatient Medications: Current Inpatient Medications Acetaminophen (Tylenol) 650 mg PO Q4H PRN PRN Reason: Headache or Minor Fever Stop: 08/04/19 18:38 Al Hydrox/Mg Hydrox/Simethicone (Maalox) 30 ml PO Q4H PRN PRN Reason: GI Upset Stop: 08/04/19 18:38 Benztropine Mesylate (Cogentin) 1 mg IM Q4H PRN PRN Reason: Allergic Reaction Stop: 08/04/19 18:44 Benztropine Mesylate (Cogentin) 1 mg PO Q4H PRN PRN Reason: Allergic Reaction Stop: 08/04/19 18:46 Bismuth Subsalicylate (Kaopectate) 15 ml PO PRN PRN PRN Reason: Loose Stool Stop: 08/04/19 18:38 Hydroxyzine HCl (Vistaril) 50 mg PO HSZ PRN PRN Reason: Insomnia Stop: 08/04/19 18:38 Hydroxyzine HCl (Vistaril) 25 mg PO Q4H PRN PRN Reason: Anxiety Stop: 08/04/19 18:38 [place] Carbonate ([place] Carbonate) 300 mg PO BID KOFI Stop: 08/05/19 20:59 Last Admin: 07/11/19 08:46 Dose: 300 mg Documented by: Lorazepam (Ativan) 1 mg PO Q4H PRN PRN Reason: Anxiety/Agitation Stop: 08/04/19 18:43 Magnesium Hydroxide (Milk Of Magnesia) 30 ml PO DAILY PRN PRN Reason: Constipation Stop: 08/04/19 18:38 *[place] Thyroid*Non- Formulary Patient's Own Med 1 ea PO DAILY@0800 KOFI Stop: 08/08/19 07:59 Last Admin: 07/11/19 06:21 Dose: 1 ea Documented by: Olanzapine (Zyprexa) 5 mg PO Q4H PRN PRN Reason: psychosis Stop: 08/08/19 10:44 Olanzapine (Zyprexa) 10 mg IM UD PRN PRN Reason: agitation/psychosis/PO refusal Stop: 08/08/19 10:44 Olanzapine (Zyprexa Zydis Od) 7.5 mg PO DAILY@1200 KOFI Stop: 08/10/19 11:59 Sodium Chloride ([place] Nasal) 1 - 2 sprays NA PRN PRN PRN Reason: Nasal Dryness/Congestion Stop: 08/04/19 18:38 Mental Health & Subst Abuse Tx Therapist Name of Therapist: Denies Hrbp Name of Hrbp: Denies Post Discharge Appointments Primary Care Physician Name Of Family Doctor: LANNY Galvan Primary Care Provider Appointment Comment: [address] [facility] Contact Information Discharge Discharge [facility] [place] [address] (1) Bipolar disorder Active/Remission status: currently active Current bipolar episode type: manic Current episode severity: severe Psychotic features: with psychotic features Qualified Code(s): F31.2 - Bipolar disorder, current episode manic severe with psychotic features
[2019-07-11] MEDS: OLANZAPINE ZYDIS 10 MG ORALLY DIS. TAB PO SCH (20:52)
[2019-07-12] MEDS: ARMOUR THYROID PO SCH (06:55)
[2019-07-12 09:19] LABS: Glucose Fasting 94 mg/dl (70-99)
[2019-07-12 09:25] LABS: Chol HDL Ratio 2; Cholesterol 170 mg/dl (0-200); HDL Cholesterol 77 mg/dl; LDL Cholesterol Calculated 80 mg/dl; Triglycerides 64 mg/dl (0-150); VLDL Cholesterol 13 mg/dl
[2019-07-12] MEDS: LITHIUM CARBONATE 300 MG TAB PO SCH ×2 (09:26→21:06)
--- NOTE | 2019-07-12 09:55 | Psychiatric Progress Note ---
Date of Service July 12, 2019 Impression / Recommendations Impression This 29-year-old woman with a known history of bipolar disorder was admitted in a manic state through the emergency room after her mother called 911 and reported that the patient was behaving in a bizarre and disorganized fashion. 302 was completed by police, who noted that the patient was [place] to a divided [place] singing and dancing with no sense of her surroundings, was delusional, talking to "prophets" and was unable to articulate her thoughts. She was labile, delusional, combative, and laughing hysterically. According to reports from the patient's mother, she had been fasting for up to 4 days at a time (inexplicably), had only been sleeping approximately 2 hours a night, and was engaging in behaviors such as dressing up as "a Cinderella" and announcing that she plan to walk from [facility] to [place]. She dyed her skin green, and said that she believes that she was being sent a message through a coin that she observed that had a embossed image of the [place] on 1 side. Thinking is disorganized, and she has marked flight of ideas and pressured speech, lacks insight into her illness, and is agitated and uncooperative. She presented as severely manic and psychotic, was refusing to take psychiatric medications, and is now on a 303 involuntary commitment as of 07/09/2019. Medications over objection has been initiated; however, patient has been agreeable with taking her medications by mouth at this point. Pt is receiving olanzapine, with we are titrating as tolerated. Early in her admission, patient was sleeping 1 hour or less for the past 3 nights, and was agitated, disruptive and intrusive, and had caused property damage on the unit. Although she is in better behavioral control today, she is still labile, excessively energized, intrusive, and tangential and in need of ongoing inpatient psychiatric hospitalization. (1) Bipolar disorder: 07/06/19 -The patient is currently in the manic phase of bipolar disorder, although she has essentially no insight into her condition and her need for treatment. [facility] and has been referred for individual, group and activity therapies with the goal of providing the patient on external reality testing, as well as the importance of adherence with psychiatric treatment. -It will be important for the patient to be placed back on mood stabilizing agents and antipsychotics. It has been reported that, in the past, the patient has taken aripiprazole and lithium carbonate, but she reportedly stopped these medications at some unspecified point or points in the past. The plan is to restart aripiprazole 15 mg a day and lithium carbonate 300 mg twice a day. Because of the question of possible dehydration admission, we are starting lithium carbonate at a lower dose, but anticipate titrating following laboratory testing. 07/06 -Continues to refuse medications. Will require a 303 and meds over objection, will need to file for 303 hearing on Tuesday. -Continue to offer home psychotropics (lithium and aripiprazole), and has Haldol PO and IM prn. -Continue private room, and excuse for groups due to disruptive behavior. Minimize stimulation, and encourage sleep. No caffeine. 07/07 -Continue to refuse all medications. Will file for 303 tomorrow and initiate meds over objection as soon as granted, as she is no better, and manic and psychotic symptoms are severe and impairing. She is unable to provide for her own basic needs and is at risk of harm to herself as evidenced by her behavior detailed above, not eating or sleeping, with electrolyte disarray (hypokalemia). 07/08 -303 granted. -Agree with Dr. Lal's recommendation for medications over objection as she has bipolar type I, is currently manic and psychotic, lacks any insight into her condition, and is unlikely to recover without the use of mood stabilizing and antipsychotic medication. She has responded well to medication in the past, and has been able to stabilize and regain function. She refused to discuss medication options, but after being informed of the recommendation for medications over objection, she took Abilify and lithium. -Will discontinue aripiprazole in favor of a more potent antipsychotic, given severity of symptoms and agitation, and start olanzapine 5mg qnoon with 10mg IM for refusal. -She will need fasting labs when more cooperative. -She has now signed release for her mother and will get collateral from her and schedule a family meeting once patient is more stable and able to tolerate it. She will also need outpatient services, possibly a 304 IOC and BC. 07/09 - Pt has been taking scheduled oral doses of olanzapine, not requiring IM medications over objection. She was hesitant to increase her dose further, but did agree to 7.5mg of olanzapine tomorrow. Pt preferred to continue her dosing at 1200. Discuss moving the medication to bedtime once patient is able to demonstrate consistency with the oral medications. - Fasting labs when appropriate - Will require family meeting when appropriate 07/10 - Patient still shows manic symptoms with some improvement today but is willing to participate in treatment plan as recommended, including p.o. medications and attending groups. - Patient is willing to take PO medication consistently and agrees to increase olanzapine 10 mg from tomorrow. However she changed her mind regarding scheduled 7.5 mg olanzapine at noon and wanted to start 10 mg olanzapine from today. Olanzapine 10 mg scheduled nightly from today. Patient experiences mild restlessness with 5 mg of olanzapine and needs to monitor if she shows worsening symptoms with increased dose of olanzapine. Patient was advised to to utilize benztropine as needed for akathisia and she verbalized understanding during the today's assessment. - Fasting labs, including fasting lipids and fasting glucose, and free T3, which was requested by the patient and also indicated with abnormal TSH on her adm ission, ordered and they will be obtained tomorrow morning. - Patient is willing to have a family meeting with her mother and her ex- boyfriend, Shad, and our social service assistant was informed of this. -Patient wants to continue melatonin 9 mg nightly and it is a scheduled from today. 07/11 - Still shows manic symptoms, including being labile, irritable, hyperverbal, intrusive, and tangential, with some improvement in her mood. Cannot tolerate groups or activities more than 5 minutes without getting agitated or intrusive. Also has poor insight into her mental illness and the seriousness of her illn ess, which has been impacting on her treatment negatively. She still does not appreciate the lack of self-care prior to admission, including not eating, drinking or sleeping, was due to her manic episode. - Fasting lab results and lithium level reviewed with the patient. Trough lithium level is 0.5 today and further titration of lithium was recommended to the patient but patient declines our recommendation. Patient has been on lithium 300 mg twice a day consistently for the past 2 to 3 days, since July 09. Continue lithium 300 mg twice daily for the next 2 to 3 days and further titration will be considered after another lithium level is obtained at that point. - Continued inpatient hospitalization is medically necessary for ongoing monitoring and safety while titration of the medication is still considered with subtherapeutic range of serum lithium level. (2) Nonadherence to medication: 07/08 - Get collateral information from mother regarding treatment history, as patient unable/unwilling to provide information, and we have no previous records. Consider 304 IOC and PABON, given history of nonadherence with severe, debilitating symptoms when ill. (3) Acute dehydration: 07/06/2019 -The patient had an elevated heart rate in the emergency department and it was felt that this was probably attributable to dehydration. The patient's laboratory data is equivocal. The concern is that the patient's mother reports that the patient has been fasting and it is possible that she is also been restricting fluid intake. We will monitor while encouraging fluids. (4) Hypothyroidism: 07/06/2019 -Patient has reported history of hypothyroidism. Her most recent laboratory data showed a TSH of 208 (low) and T4 of 1.06, at the high end of normal. She tells us that she has been adherent with her thyroid medication on an outpatient basis, namely [place] thyroid 90 mg daily. -[place] Thyroid is not on the formulary at [facility]. The reasonable conversion is to levothyroxine 125 mcg daily, and this will be ordered. 07/06 -patient is refusing levothyroxine. She states her mother is going to bring in her thyroid medication. 07/09 - [place] Thyroid brought in from home and initiated on 07/08, patient has been taking consistently but has been negotiating timing of the medication to avoid taking with food or other medications. (5) Hypokalemia: 07/06 - Potassium 3.1 in the ER, received 40 mEq. She is eating here. Recheck [facility] tomorrow. 07/07 - potassium 3.3 today. Is eating some, encouraging good nutrition. Reviewed EKG from the ER; sinus tachycardia with rate 129, QTC 439. 07/10 - Patient wants to continue [id number] magnesium supplement but agrees to resume it at home after her potassium level is corrected. Inventory Assets Strengths: Intelligent. Supportive family. Needs: Mood stabilization. Insight into her illness, treatment adherence. Cooperation with treatment. Risk Factors Assessment Male: No : Yes Do You Have Access To A Gun?: No Health Problems: No Mental Health Diagnoses: Yes Previous Attempt: No (The patient reports that she has no history of suicide attempts or other self-injurious behaviors. 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 However, third-democrat reports of the patient has a history of multiple psychiatric admissions.) Hopelessness: No Smoker: No Protective Factors Assessment : No Responsible for Young Children: No Employed: No Stable Relationships: No Supportive Family: Yes Good Rapport with Provider: No Absence of Any Risk Factors Above: No Interval History Identifying Information GIVOANNI EDMOND is a 29-year-old F who currently lives in the [place] Area with her mother, has a history of bipolar disorder, and was admitted on 07/05/19 18:28 on a 302 involuntary commitment for psychosis and dangerous behaviors. She is on a 303 as of 07/09/2019. Chief Complaint "[I feel good but am impatient occasionally.]". Review of Systems Notes Constitutional: denied cardiovascular: denied Respiratory: denied GI: denied Neurologic: denied Psychiatric: denies symptoms other than stated above Remainder of 10 body systems also reviewed and denied other than noted above. Sleep Information Total Hours of Sleep: 6.75 Sleep Comments: Poor sleep this shift. Meal Information Percent Meal Consumed - Breakfast: 100 Percent Meal Consumed - Lunch: 75 Percent Meal Consumed - Dinner: 50 Nutrition Comment: pt. allowed to rest Subjective Subjective Patient was seen & assessed and interval progress reviewed with nursing and social work. Staff reports that she was still labile and easily frustrated and does not accept her mental health diagnosis and showed poor insight into the seriousness of her illness. However, she reported that her mood had improved in the community meeting last evening. She had p.o. olanzapine 10 mg qHS and slept 6 hours 45 minutes last night. Also she utilized as needed benztropine 1 mg for restlessness yesterday afternoon and did not report worsening symptoms anymore. Patient was seen today to assess progress since admission. Patient reports that she feels good today but gets impatient occasionally when people tell her that she cannot do certain things. She still thinks people do not understand her thoughts or behaviors and gets frustrated easily. She had a conversation with her mom over the phone prior to the assessment and said it went pretty well. Her mother told her that Shad, her ex-boyfriend, will bring in glasses, melatonin and an Swedish book, which will help people understand her better if they read that. Patient was reminded that 9 mg melatonin was ordered nightly instead of a scheduled dose, since coadministration of olanzapine 10 mg with melatonin might give her too much sedation and advised her to request as needed melatonin if she needs them for insomnia. She reports that she had pretty good night sleep last night, sleeping 8 hours. She could tolerate 10 mg olanzapine without significant restlessness or tremors, which she experienced yesterday, and denies any restlessness this morning. She does not recall she requested and took benztropine 1 mg for restlessness yesterday, saying, "Maybe I don't remember I took them." Her lab results reviewed with the patient and she does not want to increase the dose of lithium further at this point, saying "you guys do not want to change the doses of medications daily after giving me lithium only a couple days. I did my best to quit all psychiatric medications in April to manage my mental health issues with natural materials instead of synthetic ones. And you have been been trying to put more and more synthetic medications daily and I don't want that. "She also wants to know her T3 level and is concerned that thyroid might be affected with increased dose of lithium. All of a sudden, she wants to review lab results in April with me today, which were done at the ER when she had signs or symptoms of a bladder infection at that point. Physical Exam Psychiatric Orientation: alert and oriented x 3 Apperance: appropriately dressed and + disheveled Eye Contact: good eye contact Motor Behavior: steady gait and station, no abnormal motor movements (no tremors noted) and + psychomotor agitation Speech: + loud speech (hyperverbal) Affect: + labile affect Mood: + irritable mood (occasionally with certain topics) Thought Process: + circumstantial thought process, + tangential thought process and + flight of ideas Thought Content: + cognitive distortions Suicidal Thoughts: denies suicidal thoughts Homicidal Thoughts: denies homicidal thoughts Hallucinations: + auditory hallucinations and + visual hallucinations Cognition: recent memory grossly intact Estimated Intelligence: consistent with education level Insight: + poor insight Judgement: + fair judgement Vital Signs (Past 24 Hours) Last Vital Signs Temp 36.7 C 07/12/19 07:33 Pulse 114 H 07/12/19 07:33 Resp 16 07/12/19 07:33 BP 133/78 07/12/19 07:33 Pulse Ox 97 07/10/19 14:40 Results & Data ([facility]) Laboratory Results Laboratory Results - last 24 hr 07/12/19 07/12/19 07/12/19 08:15 08:15 08:15 Fasting Glucose 94 Triglycerides 64 Cholesterol 170 LDL Cholesterol, Calc 80 VLDL Cholesterol, Calc 13 HDL Cholesterol 77 Cholesterol/HDL Ratio 2 Free T3 Pending Pevely 0.5 L Current Inpatient Medications Current Inpatient Medications: Current Inpatient Medications Acetaminophen (Tylenol) 650 mg PO Q4H PRN PRN Reason: Headache or Minor Fever Stop: 08/04/19 18:38 Al Hydrox/Mg Hydrox/Simethicone (Maalox) 30 ml PO Q4H PRN PRN Reason: GI Upset Stop: 08/04/19 18:38 Benztropine Mesylate (Cogentin) 1 mg IM Q4H PRN PRN Reason: Allergic Reaction Stop: 08/04/19 18:44 Benztropine Mesylate (Cogentin) 1 mg PO Q4H PRN PRN Reason: Allergic Reaction Stop: 08/04/19 18:46 Last Admin: 07/11/19 14:37 Dose: 1 mg Documented by: Bismuth Subsalicylate (Kaopectate) 15 ml PO PRN PRN PRN Reason: Loose Stool Stop: 08/04/19 18:38 Hydroxyzine HCl (Vistaril) 50 mg PO HSZ PRN PRN Reason: Insomnia Stop: 08/04/19 18:38 Hydroxyzine HCl (Vistaril) 25 mg PO Q4H PRN PRN Reason: Anxiety Stop: 08/04/19 18:38 P[place] Carbonate ([place] Carbonate) 300 mg PO BID KOFI Stop: 08/05/19 20:59 Last Admin: 07/12/19 09:26 Dose: 300 mg Documented by: Lorazepam (Ativan) 1 mg PO Q4H PRN PRN Reason: Anxiety/Agitation Stop: 08/04/19 18:43 Magnesium Hydroxide (Milk Of Magnesia) 30 ml PO DAILY PRN PRN Reason: Constipation Stop: 08/04/19 18:38 Melatonin (Melatonin) 9 mg PO HS PRN PRN Reason: Sleep Stop: 08/10/19 13:29 *[place] Thyroid*Non- Formulary Patient's Own Med 1 ea PO DAILY@0800 KOFI Stop: 08/08/19 07:59 Last Admin: 07/12/19 06:55 Dose: 1 ea Documented by: Olanzapine (Zyprexa) 5 mg PO Q4H PRN PRN Reason: psychosis Stop: 08/08/19 10:44 Olanzapine (Zyprexa) 10 mg IM UD PRN PRN Reason: agitation/psychosis/PO refusal Stop: 08/08/19 10:44 Olanzapine (Zyprexa Zydis Od) 10 mg PO HS KOFI Stop: 08/10/19 21:59 Last Admin: 07/11/19 20:52 Dose: 10 mg Documented by: Sodium Chloride ([place] Nasal) 1 - 2 sprays NA PRN PRN PRN Reason: Nasal Dryness/Congestion Stop: 08/04/19 18:38 Mental Health & Subst Abuse Tx Therapist Name of Therapist: Denies Relays Draftsperson Name of Relays Draftsperson: Denies Post Discharge Appointments Primary Care Physician Name Of Family Doctor: LANNY Galvan Primary Care Provider Appointment Comment: [address] [facility] Contact Information Discharge Discharge Address: [address] [place] [address], [place] [address] (1) Bipolar disorder Active/Remission status: currently active Current bipolar episode type: manic Current episode severity: severe Psychotic features: with psychotic features Qualified Code(s): F31.2 - Bipolar disorder, current episode manic severe with psychotic features
--- NOTE | 2019-07-12 15:28 | Communication Note ---
Date of Service: July 12, 2019 Patient's thyroid function test results reviewed. TSH on admission is low with normal T4, 0.208, and T3 is high today, 6.05. Patient was informed that these abnormal numbers might be due to discontinuation of lithium since lithium suppresses TSH. She admits that she discontinued all her psychiatric medications from March 31 since "a weird mali" told her there is 1% success rate of psychotropic medications. She wanted to know what the reference ranges of the TSH, T4 and T3 and she said how we can set reference ranges for thyroid function and what if she is not included in an average person. She said she does not want to increase lithium because for the past 3 years, she has been working on discontinuation of lithium. She informed that she was on 900 mg lithium and 3 mg risperidone since 2012 and 450 mg lithium since 2017 and 200 mg lithium with 1.5 mg risperidone since 2018. She says she has been behaving differently and not taking care of herself intentionally to save herself, family, this country and this world when she was questioned about her bizarre behaviors and lack of self care during her manic episode. She states that she doesn't have any mood problem and she decided to follow our medication recommendation because of a 303 and she almost threatened me that she will stay on low dose of lithium and in this unit during whole summer, not being discharged. Patient was pretty agitated during the whole conversation.
[2019-07-12] MEDS: OLANZAPINE ZYDIS 10 MG ORALLY DIS. TAB PO SCH (21:06)
[2019-07-13] MEDS: ARMOUR THYROID PO SCH (07:28)
[2019-07-13] MEDS: LITHIUM CARBONATE 300 MG TAB PO SCH ×2 (09:12→21:59)
--- NOTE | 2019-07-13 11:32 | Psychiatric Progress Note ---
Date of Service July 13, 2019 Impression / Recommendations Impression This 29-year-old woman with a known history of bipolar disorder was admitted in a manic state through the emergency room after her mother called 911 and reported that the patient was behaving in a bizarre and disorganized fashion. 302 was completed by police, who noted that the patient was [place] to a divided [place] singing and dancing with no sense of her surroundings, was delusional, talking to "prophets" and was unable to articulate her thoughts. She was labile, delusional, combative, and laughing hysterically. According to reports from the patient's mother, she had been fasting for up to 4 days at a time (inexplicably), had only been sleeping approximately 2 hours a night, and was engaging in behaviors such as dressing up as "a Cinderella" and announcing that she plan to walk from [facility] to [place]. She dyed her skin green, and said that she believes that she was being sent a message through a coin that she observed that had a embossed image of the Stat[place] of [place] on 1 side. Thinking is disorganized, and she has marked flight of ideas and pressured speech, lacks insight into her illness, and is agitated and uncooperative. She presented as severely manic and psychotic, was refusing to take psychiatric medications, and is now on a 303 involuntary commitment as of 07/09/2019. Medications over objection has been initiated; however, patient has been agreeable with taking her medications by mouth at this point. Pt is receiving olanzapine, with we are titrating as tolerated. Early in her admission, patient was sleeping 1 hour or less for the past 3 nights, and was agitated, disruptive and intrusive, and had caused property damage on the unit. Although she is in better behavioral control today, she is still labile, excessively energized, intrusive, and tangential and in need of ongoing inpatient psychiatric hospitalization. (1) Bipolar disorder: 07/06/19 -The patient is currently in the manic phase of bipolar disorder, although she has essentially no insight into her condition and her need for treatment. [facility] and has been referred for individual, group and activity therapies with the goal of providing the patient on external reality testing, as well as the importance of adherence with psychiatric treatment. -It will be important for the patient to be placed back on mood stabilizing agents and antipsychotics. It has been reported that, in the past, the patient has taken aripiprazole and lithium carbonate, but she reportedly stopped these medications at some unspecified point or points in the past. The plan is to restart aripiprazole 15 mg a day and lithium carbonate 300 mg twice a day. Because of the question of possible dehydration admission, we are starting lithium carbonate at a lower dose, but anticipate titrating following laboratory testing. 07/06 -Continues to refuse medications. Will require a 303 and meds over objection, will need to file for 303 hearing on Tuesday. -Continue to offer home psychotropics (lithium and aripiprazole), and has Haldol PO and IM prn. -Continue private room, and excuse for groups due to disruptive behavior. Minimize stimulation, and encourage sleep. No caffeine. 07/07 -Continue to refuse all medications. Will file for 303 tomorrow and initiate meds over objection as soon as granted, as she is no better, and manic and psychotic symptoms are severe and impairing. She is unable to provide for her own basic needs and is at risk of harm to herself as evidenced by her behavior detailed above, not eating or sleeping, with electrolyte disarray (hypokalemia). 07/08 -303 granted. -Agree with Dr. Lal's recommendation for medications over objection as she has bipolar type I, is currently manic and psychotic, lacks any insight into her condition, and is unlikely to recover without the use of mood stabilizing and antipsychotic medication. She has responded well to medication in the past, and has been able to stabilize and regain function. She refused to discuss medication options, but after being informed of the recommendation for medications over objection, she took Abilify and lithium. -Will discontinue aripiprazole in favor of a more potent antipsychotic, given severity of symptoms and agitation, and start olanzapine 5mg qnoon with 10mg IM for refusal. -She will need fasting labs when more cooperative. -She has now signed release for her mother and will get collateral from her and schedule a family meeting once patient is more stable and able to tolerate it. She will also need outpatient services, possibly a 304 IOC and BC. 07/09 - Pt has been taking scheduled oral doses of olanzapine, not requiring IM medications over objection. She was hesitant to increase her dose further, but did agree to 7.5mg of olanzapine tomorrow. Pt preferred to continue her dosing at 1200. Discuss moving the medication to bedtime once patient is able to demonstrate consistency with the oral medications. - Fasting labs when appropriate - Will require family meeting when appropriate 07/10 - Patient still shows manic symptoms with some improvement today but is willing to participate in treatment plan as recommended, including p.o. medications and attending groups. - Patient is willing to take PO medication consistently and agrees to increase olanzapine 10 mg from tomorrow. However she changed her mind regarding scheduled 7.5 mg olanzapine at noon and wanted to start 10 mg olanzapine from today. Olanzapine 10 mg scheduled nightly from today. Patient experiences mild restlessness with 5 mg of olanzapine and needs to monitor if she shows worsening symptoms with increased dose of olanzapine. Patient was advised to to utilize benztropine as needed for akathisia and she verbalized understanding during the today's assessment. - Fasting labs, including fasting lipids and fasting glucose, and free T3, which was requested by the patient and also indicated with abnormal TSH on her adm ission, ordered and they will be obtained tomorrow morning. - Patient is willing to have a family meeting with her mother and her ex- boyfriend, Shad, and our dialysis social worker was informed of this. -Patient wants to continue melatonin 9 mg nightly and it is a scheduled from today. 07/11 - Still shows manic symptoms, including being labile, irritable, hyperverbal, intrusive, and tangential, with some improvement in her mood. Cannot tolerate groups or activities more than 5 minutes without getting agitated or intrusive. Also has poor insight into her mental illness and the seriousness of her illn ess, which has been impacting on her treatment negatively. She still does not appreciate the lack of self-care prior to admission, including not eating, drinking or sleeping, was due to her manic episode. - Fasting lab results and lithium level reviewed with the patient. Trough lithium level is 0.5 today and further titration of lithium was recommended to the patient but patient declines our recommendation. Patient has been on lithium 300 mg twice a day consistently for the past 2 to 3 days, since July 09. Continue lithium 300 mg twice daily for the next 2 to 3 days and further titration will be considered after another lithium level is obtained at that point. - Continued inpatient hospitalization is medically necessary for ongoing monitoring and safety while titration of the medication is still considered with subtherapeutic range of serum lithium level. 07/12 - Continue current medication regimen. - Widener level will be obtained tomorrow and the patient agreed with this today. Further titration will be considered if trough serum lithium level is still subtherapeutic. - Patient could maintain some constructive conversation today during the assessment even though she was tangential. (2) Nonadherence to medication: 07/08 - Get collateral information from mother regarding treatment history, as patient unable/unwilling to provide information, and we have no previous records. Consider 304 IOC and PABON, given history of nonadherence with severe, debilitating symptoms when ill. (3) Acute dehydration: 07/06/2019 -The patient had an elevated heart rate in the emergency department and it was felt that this was probably attributable to dehydration. The patient's laboratory data is equivocal. The concern is that the patient's mother reports that the patient has been fasting and it is possible that she is also been restricting fluid intake. We will monitor while encouraging fluids. (4) Hypothyroidism: 07/06/2019 -Patient has reported history of hypothyroidism. Her most recent laboratory data showed a TSH of 208 (low) and T4 of 1.06, at the high end of normal. She tells us that she has been adherent with her thyroid medication on an outpatient basis, namely Berlin thyroid 90 mg daily. -Berlin Thyroid is not on the formulary at [facility]. The reasonable conversion is to levothyroxine 125 mcg daily, and this will be ordered. 07/06 -patient is refusing levothyroxine. She states her mother is going to bring in her thyroid medication. 07/09 - [place] Thyroid brought in from home and initiated on 07/08, patient has been taking consistently but has been negotiating timing of the medication to avoid taking with food or other medications. (5) Hypokalemia: 07/06 - Potassium 3.1 in the ER, received 40 mEq. She is eating here. Recheck BMP tomorrow. 07/07 - potassium 3.3 today. Is eating some, encouraging good nutrition. Reviewed EKG from the ER; sinus tachycardia with rate 129, QTC 439. 07/10 - Patient wants to continue [id number] magnesium supplement but agrees to resume it at home after her potassium level is corrected. (6) Allergy: 07/11 - Patient complains of URI symptoms since last night and her symptoms are more consistent with seasonal allergies. Given COVID-19 outbreak, her symptoms will be monitored closely even if there is low risk of COVID-19. -Continues azelastine nasal spray when it is brought in today. Inventory Assets Strengths: Intelligent. Supportive family. Needs: Mood stabilization. Insight into her illness, treatment adherence. Cooperation with treatment. Risk Factors Assessment Male: No : Yes Do You Have Access To A Gun?: No Health Problems: No Mental Health Diagnoses: Yes Previous Attempt: No (The patient reports that she has no history of suicide attempts or other self-injurious behaviors. 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 However, third-libertarian reports of the patient has a history of multiple psychiatric admissions.) Hopelessness: No Smoker: No Protective Factors Assessment : No Responsible for Young Children: No Employed: No Stable Relationships: No Supportive Family: Yes Good Rapport with Provider: No Absence of Any Risk Factors Above: No Interval History Identifying Information GIOVANNI EDMOND is a 29-year-old F who currently lives in the [place] with her mother, has a history of bipolar disorder, and was admitted on 07/05/19 18:28 on a 302 involuntary commitment for psychosis and dangerous behaviors. She is on a 303 as of 07/09/2019. Chief Complaint "My range of emotions is narrowed down but if it is acceptable by other people, I'll take this". Review of Systems Notes Constitutional: denied cardiovascular: denied Respiratory: reports occasional dry cough, mild hoarse voice and nasal congestion. GI: denied Neurologic: denied Psychiatric: denies symptoms other than stated above Remainder of 10 body systems also reviewed and denied other than noted above. Sleep Information Total Hours of Sleep: 6 Sleep Comments: Poor sleep this shift. Meal Information Percent Meal Consumed - Breakfast: 100 Percent Meal Consumed - Lunch: 80 Percent Meal Consumed - Dinner: 85 Nutrition Comment: pt. allowed to rest Subjective Subjective Patient was seen & assessed and interval progress reviewed with treatment team. Staff report that she has been attending in groups and meeting yesterday and rated her mood 5/10 and "patient "in the evening community meeting. She was irritated somewhat in the last evening while she was talking to her mother over the phone but she was not escalated too much with verbal cue. She accepted p.o. medications without problem and slept more than 6 hours last night. Patient was seen today to assess progress since admission. She states she is pretty good today even though she feels the range of her emotions is narrowed down significantly but she will take it, if it is acceptable by other people. When she was asked about this provider's concern regarding compliance with her medications after conversation with this provider yesterday afternoon, she stated "I thought about pros and cons with use of medications and felt that I would not gain anything, even if I refused medications last night. "She reports that she felt drowsy about 30 minutes after taking olanzapine 10 mg and slept pretty well last night. She feels slightly restless occasionally but states that she can tolerate that. She still does not want to increase lithium further but agrees to get her lithium level checked tomorrow morning. She admits that she gets still agitated intermittently because of "structural factors" in the world. When she was asked further about meaning of structural factors, she started to talk about her autoimmune diet, which will cure MS or autoimmune disease. She is concerned about stuffy nose and mild hoarseness in her voice with occasional dry cough, which might be due to side effects of olanzapine or lithium, but admits to her seasonal allergies and hasn't had her home allergy medications since the admission. Denies any significant signs or symptoms of coronavirus, including fevers. She says that her ex-boyfriend, Shad, will bring in glasses, and some of home medications, including antihistamine nasal spray, melatonin today. She also wonders if discontinuation of progesterone, which was prescribed for amenorrhea at the end of last January, might cause her mental problem but admits that she has not been on progesterone consistently. Denies any other concerns or questions. Physical Exam Psychiatric Orientation: alert and oriented x 3 Apperance: appropriately dressed, appropriately groomed and + disheveled (She attributes this to lack of hair products) Eye Contact: good eye contact Motor Behavior: steady gait and station and no abnormal motor movements Speech: normal rate/rhythm/volume of speech (still hyperverbal but her volume of speech and rhythm improved) Affect: + anxious affect and + labile affect (Less significant than the past 2 days) Mood: + irritable mood (Improvement noted today even though she is irritable occasionally) Thought Process: goal directed thought process, + circumstantial thought process, + tangential thought process and + flight of ideas Thought Content: + preoccupation and + cognitive distortions Suicidal Thoughts: denies suicidal thoughts Homicidal Thoughts: denies homicidal thoughts Hallucinations: no auditory hallucinations and no visual hallucinations Cognition: recent memory grossly intact, attention grossly intact and language grossly intact Estimated Intelligence: consistent with education level Insight: + fair insight Judgement: + fair judgement Vital Signs (Past 24 Hours) Last Vital Signs Temp 36.7 C 07/13/19 06:30 Pulse 84 07/13/19 06:31 Resp 18 07/13/19 06:30 BP 113/78 07/13/19 06:31 Pulse Ox 97 07/10/19 14:40 Results & Data ([facility]) Laboratory Results Laboratory Results - last 24 hr 07/12/19 08:15 Free T3 6.05 H Current Inpatient Medications Current Inpatient Medications: Current Inpatient Medications Acetaminophen (Tylenol) 650 mg PO Q4H PRN PRN Reason: Headache or Minor Fever Stop: 08/04/19 18:38 Al Hydrox/Mg Hydrox/Simethicone (Maalox) 30 ml PO Q4H PRN PRN Reason: GI Upset Stop: 08/04/19 18:38 Benztropine Mesylate (Cogentin) 1 mg IM Q4H PRN PRN Reason: Allergic Reaction Stop: 08/04/19 18:44 Benztropine Mesylate (Cogentin) 1 mg PO Q4H PRN PRN Reason: Allergic Reaction Stop: 08/04/19 18:46 Last Admin: 07/11/19 14:37 Dose: 1 mg Documented by: Bismuth Subsalicylate (Kaopectate) 15 ml PO PRN PRN PRN Reason: Loose Stool Stop: 08/04/19 18:38 Hydroxyzine HCl (Vistaril) 50 mg PO HSZ PRN PRN Reason: Insomnia Stop: 08/04/19 18:38 Hydroxyzine HCl (Vistaril) 25 mg PO Q4H PRN PRN Reason: Anxiety Stop: 08/04/19 18:38 Widener Carbonate (Widener Carbonate) 300 mg PO BID KOFI Stop: 08/05/19 20:59 Last Admin: 07/13/19 09:12 Dose: 300 mg Documented by: Lorazepam (Ativan) 1 mg PO Q4H PRN PRN Reason: Anxiety/Agitation Stop: 08/04/19 18:43 Magnesium Hydroxide (Milk Of Magnesia) 30 ml PO DAILY PRN PRN Reason: Constipation Stop: 08/04/19 18:38 Melatonin (Melatonin) 9 mg PO HS PRN PRN Reason: Sleep Stop: 08/10/19 13:29 *Berlin Thyroid*Non- Formulary Patient's Own Med 1 ea PO DAILY@0800 KOFI Stop: 08/08/19 07:59 Last Admin: 07/13/19 07:28 Dose: 1 ea Documented by: Olanzapine (Zyprexa) 5 mg PO Q4H PRN PRN Reason: psychosis Stop: 08/08/19 10:44 Olanzapine (Zyprexa) 10 mg IM UD PRN PRN Reason: agitation/psychosis/PO refusal Stop: 08/08/19 10:44 Olanzapine (Zyprexa Zydis Od) 10 mg PO HS KOFI Stop: 08/10/19 21:59 Last Admin: 07/12/19 21:06 Dose: 10 mg Documented by: Sodium Chloride (Alcona Nasal) 1 - 2 sprays NA PRN PRN PRN Reason: Nasal Dryness/Congestion Stop: 08/04/19 18:38 Mental Health & Subst Abuse Tx Therapist Name of Therapist: Denies Winter Intern Name of Winter Intern: Denies Post Discharge Appointments Primary Care Physician Name Of Family Doctor: LANNY Galvan Primary Care Provider Appointment Comment: [address] [facility] Contact Information Discharge Discharge Address: [address] [place] [address], [place] [address] (1) Bipolar disorder Active/Remission status: currently active Current bipolar episode type: manic Current episode severity: severe Psychotic features: with psychotic features Qualified Code(s): F31.2 - Bipolar disorder, current episode manic severe with psychotic features
[2019-07-13] MEDS: OLANZAPINE ZYDIS 10 MG ORALLY DIS. TAB PO SCH (22:01)
[2019-07-13] MEDS: MELATONIN 3 MG TAB PO PRN (22:07)
[2019-07-14] MEDS: ARMOUR THYROID PO SCH (06:49)
[2019-07-14] MEDS ORDERED: Nursing to Pharmacy Communication ONE (09:15)
[2019-07-14] MEDS: LITHIUM CARBONATE 300 MG TAB PO SCH ×2 (09:18→22:10)
[2019-07-14] MEDS: [UNRECOGNIZED DRUG - OTHER] PO SCH (13:02)
--- NOTE | 2019-07-14 13:14 | Psychiatric Progress Note ---
Date of Service July 14, 2019 Impression / Recommendations Impression This 29-year-old woman with a known history of bipolar disorder was admitted in a manic state through the emergency room after her mother called 911 and reported that the patient was behaving in a bizarre and disorganized fashion. 302 was completed by police, who noted that the patient was [place] to [place] divided [place] singing and dancing with no sense of her surroundings, was delusional, talking to "prophets" and was unable to articulate her thoughts. She was labile, delusional, combative, and laughing hysterically. According to reports from the patient's mother, she had been fasting for up to 4 days at a time (inexplicably), had only been sleeping approximately 2 hours a night, and was engaging in behaviors such as dressing up as "a Cinderella" and announcing that she plan to walk from [facility] to [place]. She dyed her skin green, and said that she believes that she was being sent a message through a coin that she observed that had a embossed image of the Stat[place] of [place] on 1 side. Thinking is disorganized, and she has marked flight of ideas and pressured speech, lacks insight into her illness, and is agitated and uncooperative. She presented as severely manic and psychotic, was refusing to take psychiatric medications, and is now on a 303 involuntary commitment as of 07/09/2019. Medications over objection has been initiated; however, patient has been agreeable with taking her medications by mouth at this point. Pt is receiving olanzapine, with we are titrating as tolerated. Early in her admission, patient was sleeping 1 hour or less for the past 3 nights, and was agitated, disruptive and intrusive, and had caused property damage on the unit. Although she is in better behavioral control today, she is still labile, excessively energized, intrusive, and tangential and in need of ongoing inpatient psychiatric hospitalization. Reviewed--much improved. (1) Bipolar disorder: 07/06/19 -The patient is currently in the manic phase of bipolar disorder, although she has essentially no insight into her condition and her need for treatment. She has been admitted to the [facility] behavioral health unit and has been referred for individual, group and activity therapies with the goal of providing the patient on external reality testing, as well as the importance of adherence with psychiatric treatment. -It will be important for the patient to be placed back on mood stabilizing agents and antipsychotics. It has been reported that, in the past, the patient has taken aripiprazole and lithium carbonate, but she reportedly stopped these medications at some unspecified point or points in the past. The plan is to restart aripiprazole 15 mg a day and lithium carbonate 300 mg twice a day. Because of the question of possible dehydration admission, we are starting lithium carbonate at a lower dose, but anticipate titrating following laboratory testing. 07/06 -Continues to refuse medications. Will require a 303 and meds over objection, will need to file for 303 hearing on Tuesday. -Continue to offer home psychotropics (lithium and aripiprazole), and has Haldol PO and IM prn. -Continue private room, and excuse for groups due to disruptive behavior. Minimize stimulation, and encourage sleep. No caffeine. 07/07 -Continue to refuse all medications. Will file for 303 tomorrow and initiate meds over objection as soon as granted, as she is no better, and manic and psychotic symptoms are severe and impairing. She is unable to provide for her own basic needs and is at risk of harm to herself as evidenced by her behavior detailed above, not eating or sleeping, with electrolyte disarray (hypokalemia). 07/08 -303 granted. -Agree with Dr. Lal's recommendation for medications over objection as she has bipolar type I, is currently manic and psychotic, lacks any insight into her condition, and is unlikely to recover without the use of mood stabilizing and antipsychotic medication. She has responded well to medication in the past, and has been able to stabilize and regain function. She refused to discuss medication options, but after being informed of the recommendation for medicati ons over objection, she took Abilify and lithium. -Will discontinue aripiprazole in favor of a more potent antipsychotic, given severity of symptoms and agitation, and start olanzapine 5mg qnoon with 10mg IM for refusal. -She will need fasting labs when more cooperative. -She has now signed release for her mother and will get collateral from her and schedule a family meeting once patient is more stable and able to tolerate it. She will also need outpatient services, possibly a 304 IOC and [facility]. 07/09 - Pt has been taking scheduled oral doses of olanzapine, not requiring IM medications over objection. She was hesitant to increase her dose further, but did agree to 7.5mg of olanzapine tomorrow. Pt preferred to continue her dosing at 1200. Discuss moving the medication to bedtime once patient is able to demonstrate consistency with the oral medications. - Fasting labs when appropriate - Will require family meeting when appropriate 07/10 - Patient still shows manic symptoms with some improvement today but is willing to participate in treatment plan as recommended, including p.o. medications and attending groups. - Patient is willing to take PO medication consistently and agrees to increase olanzapine 10 mg from tomorrow. However she changed her mind regarding scheduled 7.5 mg olanzapine at noon and wanted to start 10 mg olanzapine from today. Olanzapine 10 mg scheduled nightly from today. Patient experiences mild restlessness with 5 mg of olanzapine and needs to monitor if she shows worsening symptoms with increased dose of olanzapine. Patient was advised to to utilize benztropine as needed for akathisia and she verbalized understanding during the today's assessment. - Fasting labs, including fasting lipids and fasting glucose, and free T3, which was requested by the patient and also indicated with abnormal TSH on her admission, ordered and they will be obtained tomorrow morning. - Patient is willing to have a family meeting with her mother and her ex- boyfriend, Shad, and our social security assessor was informed of this. -Patient wants to continue melatonin 9 mg nightly and it is a scheduled from today. 07/11 - Still shows manic symptoms, including being labile, irritable, hyperverbal, intrusive, and tangential, with some improvement in her mood. Cannot tolerate groups or activities more than 5 minutes without getting agitated or intrusive. Also has poor insight into her mental illness and the seriousness of her illness, which has been impacting on her treatment negatively. She still does not appreciate the lack of self-care prior to admission, including not eating, drinking or sleeping, was due to her manic episode. - Fasting lab results and lithium level reviewed with the patient. Trough lithium level is 0.5 today and further titration of lithium was recommended to the patient but patient declines our recommendation. Patient has been on lithium 300 mg twice a day consistently for the past 2 to 3 days, since July 09. Continue lithium 300 mg twice daily for the next 2 to 3 days and further titration will be considered after another lithium level is obtained at that point. - Continued inpatient hospitalization is medically necessary for ongoing m onitoring and safety while titration of the medication is still considered with subtherapeutic range of serum lithium level. 07/12 - Continue current medication regimen. - [place] level will be obtained tomorrow and the patient agreed with this today. Further titration will be considered if trough serum lithium level is still subtherapeutic. - Patient could maintain some constructive conversation today during the assessment even though she was tangential. 07/13 lithium level low end therapeutic, aleida appears to be resolving and she does not want higher dose. More accepting of Zyprexa. (2) Nonadherence to medication: 07/08 - Get collateral information from mother regarding treatment history, as patient unable/unwilling to provide information, and we have no previous records. Consider 304 IOC and [facility], given history of nonadherence with severe, debilitating symptoms when ill. Reviewed. (3) Acute dehydration: 07/06/2019 -The patient had an elevated heart rate in the emergency department and it was felt that this was probably attributable to dehydration. The patient's laboratory data is equivocal. The concern is that the patient's mother reports that the patient has been fasting and it is possible that she is also been restricting fluid intake. We will monitor while encouraging fluids. 07/13 resolved. (4) Hypothyroidism: 07/06/2019 -Patient has reported history of hypothyroidism. Her most recent laboratory data showed a TSH of 208 (low) and T4 of 1.06, at the high end of normal. She tells us that she has been adherent with her thyroid medication on an outpatient basis, namely [place] thyroid 90 mg daily. -[place] Thyroid is not on the formulary at [facility]. The reasonable conversion is to levothyroxine 125 mcg daily, and this will be ordered. 07/06 -patient is refusing levothyroxine. She states her mother is going to bring in her thyroid medication. 07/09 - [place] Thyroid brought in from home and initiated on 07/08, patient has been taking consistently but has been negotiating timing of the medication to avoid taking with food or other medications. Reviewed. (5) Hypokalemia: 07/06 - Potassium 3.1 in the ER, received 40 mEq. She is eating here. Recheck BMP tomorrow. 07/07 - potassium 3.3 today. Is eating some, encouraging good nutrition. Reviewed EKG from the ER; sinus tachycardia with rate 129, QTC 439. 07/10 - Patient wants to continue [id number] magnesium supplement but agrees to resume it at home after her potassium level is corrected. Reviewed. (6) Allergy: 07/11 - Patient complains of URI symptoms since last night and her symptoms are more consistent with seasonal allergies. Given COVID-19 outbreak, her symptoms will be monitored closely even if there is low risk of COVID-19. -Continues azelastine nasal spray when it is brought in today. Reviewed. Inventory Assets Strengths: Intelligent. Supportive family. Needs: Mood stabilization. Insight into her illness, treatment adherence. Cooperation with treatment. Risk Factors Assessment Male: No : Yes Do You Have Access To A Gun?: No Health Problems: No Mental Health Diagnoses: Yes Previous Attempt: No (The patient reports that she has no history of suicide attempts or other self-injurious behaviors. 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 However, third-alliance party reports of the patient has a history of multiple psychiatric admissions.) Hopelessness: No Smoker: No Protective Factors Assessment : No Responsible for Young Children: No Employed: No Stable Relationships: No Supportive Family: Yes Good Rapport with Provider: No Absence of Any Risk Factors Above: No Interval History Identifying Information GIOVANNI EDMOND is a 29-year-old F who currently lives in the [place] Area with her mother, has a history of bipolar disorder, and was admitted on 07/05/19 18:28 on a 302 involuntary commitment for psychosis and dangerous behaviors. She is on a 303 as of 07/09/2019. Chief Complaint "I feel awesome today". Review of Systems Sleep Information Total Hours of Sleep: 6 Sleep Comments: received an hs dose of her melatonin for sleep aid Meal Information Percent Meal Consumed - Breakfast: 100 Percent Meal Consumed - Lunch: 100 Percent Meal Consumed - Dinner: 80 Nutrition Comment: documented from the pt. meal record Subjective Subjective Patient was seen & assessed and interval progress reviewed with nursing and social work. Staff report some resistance to Zyprexa as "brings me down" but today she describes taking it later and sleeping well. Reviewed her lithium level. She was mainly focussed on her probiotics and tantra book (staff gave copies of a few appropriate pictures). Need to clarify dosing scheduled for progesterone upon discharge, patient mainly focussed today as believes it is "contributing to all of this" Physical Exam Psychiatric Orientation: alert Apperance: appropriately dressed and appropriately groomed Eye Contact: + fair eye contact Motor Behavior: steady gait and station Speech: normal rate/rhythm/volume of speech Affect: euthymic affect calm mood Thought Process: linear/logical thought process Thought Content: reality based without delusions Suicidal Thoughts: denies suicidal thoughts Homicidal Thoughts: denies homicidal thoughts Hallucinations: no auditory hallucinations and no visual hallucinations Cognition: attention grossly intact Estimated Intelligence: consistent with education level Insight: + poor insight Judgement: + poor judgement Vital Signs (Past 24 Hours) Last Vital Signs Temp 36.8 C 07/14/19 06:49 Pulse 94 H 07/14/19 06:49 Resp 18 07/14/19 06:49 BP 123/79 07/14/19 06:49 Pulse Ox 97 07/10/19 14:40 Results & Data ([facility]) Laboratory Results Laboratory Results - last 24 hr 07/14/19 06:56 [place] 0.6 Current Inpatient Medications Current Inpatient Medications: Current Inpatient Medications Acetaminophen (Tylenol) 650 mg PO Q4H PRN PRN Reason: Headache or Minor Fever Stop: 08/04/19 18:38 Al Hydrox/Mg Hydrox/Simethicone (Maalox) 30 ml PO Q4H PRN PRN Reason: GI Upset Stop: 08/04/19 18:38 Benztropine Mesylate (Cogentin) 1 mg IM Q4H PRN PRN Reason: Allergic Reaction Stop: 08/04/19 18:44 Benztropine Mesylate (Cogentin) 1 mg PO Q4H PRN PRN Reason: Allergic Reaction Stop: 08/04/19 18:46 Last Admin: 07/11/19 14:37 Dose: 1 mg Documented by: Bismuth Subsalicylate (Kaopectate) 15 ml PO PRN PRN PRN Reason: Loose Stool Stop: 08/04/19 18:38 Hydroxyzine HCl (Vistaril) 50 mg PO HSZ PRN PRN Reason: Insomnia Stop: 08/04/19 18:38 Hydroxyzine HCl (Vistaril) 25 mg PO Q4H PRN PRN Reason: Anxiety Stop: 08/04/19 18:38 [place] Carbonate ([place] Carbonate) 300 mg PO BID KOFI Stop: 08/05/19 20:59 Last Admin: 07/14/19 09:18 Dose: 300 mg Documented by: Lorazepam (Ativan) 1 mg PO Q4H PRN PRN Reason: Anxiety/Agitation Stop: 08/04/19 18:43 Magnesium Hydroxide (Milk Of Magnesia) 30 ml PO DAILY PRN PRN Reason: Constipation Stop: 08/04/19 18:38 Melatonin (Melatonin) 9 mg PO HS PRN PRN Reason: Sleep Stop: 08/10/19 13:29 Last Admin: 07/13/19 22:07 Dose: 9 mg Documented by: *Cj Thyroid*Non- Formulary Patient's Own Med 1 ea PO DAILY@0800 KOFI Stop: 08/08/19 07:59 Last Admin: 07/14/19 06:49 Dose: 1 ea Documented by: Pt's Own Med: [place] Probiotic Capsule 1 cap PO DAILY KOFI Stop: 08/13/19 10:59 Last Admin: 07/14/19 13:02 Dose: 1 cap Documented by: Olanzapine (Zyprexa) 5 mg PO Q4H PRN PRN Reason: psychosis Stop: 08/08/19 10:44 Olanzapine (Zyprexa) 10 mg IM UD PRN PRN Reason: agitation/psychosis/PO refusal Stop: 08/08/19 10:44 Olanzapine (Zyprexa Zydis Od) 10 mg PO HS KOFI Stop: 08/10/19 21:59 Last Admin: 07/13/19 22:01 Dose: 10 mg Documented by: Sodium Chloride ([place] Nasal) 1 - 2 sprays NA PRN PRN PRN Reason: Nasal Dryness/Congestion Stop: 08/04/19 18:38 Mental Health & Subst Abuse Tx Therapist Name of Therapist: Denies Managing Attorney Name of Managing Attorney: Denies Post Discharge Appointments Primary Care Physician Name Of Family Doctor: LANNY Galvan Primary Care Provider Appointment Comment: [address] [facility] Contact Information Discharge Discharge Address: [facility] [place] [address] (1) Bipolar disorder Active/Remission status: currently active Current bipolar episode type: manic Current episode severity: severe Psychotic features: with psychotic features Qualified Code(s): F31.2 - Bipolar disorder, current episode manic severe with psychotic features
[2019-07-14] MEDS ORDERED: AZELASTINE INTNAS SCH (13:30)
[2019-07-14] MEDS: OLANZAPINE ZYDIS 10 MG ORALLY DIS. TAB PO SCH (22:07)
[2019-07-14] MEDS: MELATONIN 3 MG TAB PO PRN (22:14)
[2019-07-15] MEDS: ARMOUR THYROID PO SCH (07:15)
[2019-07-15] MEDS: LITHIUM CARBONATE 300 MG TAB PO SCH ×2 (09:15→21:37)
[2019-07-15] MEDS: ASTELIN SCH (09:16)
[2019-07-15] MEDS: [UNRECOGNIZED DRUG - OTHER] PO SCH (09:17)
--- NOTE | 2019-07-15 11:39 | Psychiatric Progress Note ---
Date of Service July 15, 2019 Impression / Recommendations Impression This 29-year-old woman with a known history of bipolar disorder was admitted in a manic state through the emergency room after her mother called 911 and reported that the patient was behaving in a bizarre and disorganized fashion. 302 was completed by police, who noted that the patient was [place] to a divided [place] singing and dancing with no sense of her surroundings, was delusional, talking to "prophets" and was unable to articulate her thoughts. She was labile, delusional, combative, and laughing hysterically. According to reports from the patient's mother, she had been fasting for up to 4 days at a time (inexplicably), had only been sleeping approximately 2 hours a night, and was engaging in behaviors such as dressing up as "a Cinderella" and announcing that she plan to walk from [facility] to [place]. She dyed her skin green, and said that she believes that she was being sent a message through a coin that she observed that had a embossed image of the Stat[place] of [place] on 1 side. Thinking is disorganized, and she has marked flight of ideas and pressured speech, lacks insight into her illness, and is agitated and uncooperative. She presented as severely manic and psychotic, was refusing to take psychiatric medications, and is now on a 303 involuntary commitment as of 07/09/2019. Medications over objection has been initiated; however, patient has been agreeable with taking her medications by mouth at this point. Pt is receiving olanzapine, with we are titrating as tolerated. Early in her admission, patient was sleeping 1 hour or less for the past 3 nights, and was agitated, disruptive and intrusive, and had caused property damage on the unit. Although she is in better behavioral control today, she is still labile, excessively energized, intrusive, and tangential and in need of ongoing inpatient psychiatric hospitalization. 07/14--re-Reviewed--much improved. Plan: continue current meds and tx plan. Inventory Assets Strengths: Intelligent. Supportive family. Needs: Mood stabilization. Insight into her illness, treatment adherence. Cooperation with treatment. Risk Factors Assessment Male: No : Yes Do You Have Access To A Gun?: No Health Problems: No Mental Health Diagnoses: Yes Previous Attempt: No (The patient reports that she has no history of suicide attempts or other self-injurious behaviors. 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 However, third-republican reports of the patient has a history of multiple psychiatric admissions.) Hopelessness: No Smoker: No Protective Factors Assessment : No Responsible for Young Children: No Employed: No Stable Relationships: No Supportive Family: Yes Good Rapport with Provider: No Absence of Any Risk Factors Above: No Interval History Identifying Information GIOVANNI EDMOND is a 29-year-old F who currently lives in the [place] Area with her mother, has a history of bipolar disorder, and was admitted on 07/05/19 18:28 on a 302 involuntary commitment for psychosis and dangerous behaviors. She is on a 303 as of 07/09/2019. Chief Complaint "I'm great thanks for asking". Review of Systems Sleep Information Total Hours of Sleep: 4.25 Sleep Comments: received an hs dose of her melatonin for sleep aid Meal Information Percent Meal Consumed - Breakfast: 100 Percent Meal Consumed - Lunch: 90 Percent Meal Consumed - Dinner: 100 Nutrition Comment: documented from the pt. meal record Subjective Subjective Patient was seen & assessed and interval progress reviewed with nursing and social work. No acute issues overnight, she is finding things to do on the unit, attention span improved, seems ready for a discharge planning meeting with family and ex-boyfriend (now friends). States she will continue medication upon discharge. No complaints. Physical Exam Psychiatric Orientation: alert Apperance: appropriately dressed and appropriately groomed Eye Contact: good eye contact Motor Behavior: no abnormal motor movements Speech: normal rate/rhythm/volume of speech Affect: euthymic affect calm mood Thought Process: goal directed thought process Thought Content: reality based without delusions Suicidal Thoughts: denies suicidal thoughts Homicidal Thoughts: denies homicidal thoughts Hallucinations: no auditory hallucinations and no visual hallucinations Vital Signs (Past 24 Hours) Last Vital Signs Temp 36.7 C 07/15/19 06:37 Pulse 80 07/15/19 06:37 Resp 18 07/15/19 06:37 BP 118/82 07/15/19 06:37 Pulse Ox 97 07/10/19 14:40 Results & Data ([facility]) Current Inpatient Medications Current Inpatient Medications: Current Inpatient Medications Acetaminophen (Tylenol) 650 mg PO Q4H PRN PRN Reason: Headache or Minor Fever Stop: 08/04/19 18:38 Al Hydrox/Mg Hydrox/Simethicone (Maalox) 30 ml PO Q4H PRN PRN Reason: GI Upset Stop: 08/04/19 18:38 Benztropine Mesylate (Cogentin) 1 mg IM Q4H PRN PRN Reason: Allergic Reaction Stop: 08/04/19 18:44 Benztropine Mesylate (Cogentin) 1 mg PO Q4H PRN PRN Reason: Allergic Reaction Stop: 08/04/19 18:46 Last Admin: 07/11/19 14:37 Dose: 1 mg Documented by: Bismuth Subsalicylate (Kaopectate) 15 ml PO PRN PRN PRN Reason: Loose Stool Stop: 08/04/19 18:38 Hydroxyzine HCl (Vistaril) 50 mg PO HSZ PRN PRN Reason: Insomnia Stop: 08/04/19 18:38 Hydroxyzine HCl (Vistaril) 25 mg PO Q4H PRN PRN Reason: Anxiety Stop: 08/04/19 18:38 [place] Carbonate ([place] Carbonate) 300 mg PO BID KOFI Stop: 08/05/19 20:59 Last Admin: 07/15/19 09:15 Dose: 300 mg Documented by: Lorazepam (Ativan) 1 mg PO Q4H PRN PRN Reason: Anxiety/Agitation Stop: 08/04/19 18:43 Magnesium Hydroxide (Milk Of Magnesia) 30 ml PO DAILY PRN PRN Reason: Constipation Stop: 08/04/19 18:38 Melatonin (Melatonin) 9 mg PO HS PRN PRN Reason: Sleep Stop: 08/10/19 13:29 Last Admin: 07/14/19 22:14 Dose: 9 mg Documented by: *Cj Thyroid*Non- Formulary Patient's Own Med 1 ea PO DAILY@0800 KOFI Stop: 08/08/19 07:59 Last Admin: 07/15/19 07:15 Dose: 1 ea Documented by: Pt's Own Med: [place] Probiotic Capsule 1 cap PO DAILY KOFI Stop: 07/06/20 10:59 Last Admin: 07/15/19 09:17 Dose: 1 cap Documented by: [place] Nasal [place]: Non-Formulary Patient's Own Med 1 ea NA DAILY KOFI Stop: 08/14/19 08:59 Last Admin: 07/15/19 09:16 Dose: 1 sprays Documented by: Olanzapine (Zyprexa) 5 mg PO Q4H PRN PRN Reason: psychosis Stop: 08/08/19 10:44 Olanzapine (Zyprexa) 10 mg IM UD PRN PRN Reason: agitation/psychosis/PO refusal Stop: 08/08/19 10:44 Olanzapine (Zyprexa Zydis Od) 10 mg PO HS KOFI Stop: 08/10/19 21:59 Last Admin: 07/14/19 22:07 Dose: 10 mg Documented by: Sodium Chloride ([place] Nasal) 1 - 2 sprays NA PRN PRN PRN Reason: Nasal Dryness/Congestion Stop: 08/04/19 18:38 Mental Health & Subst Abuse Tx Therapist Name of Therapist: Denies Pharmacy Innovation Assistant Name of Pharmacy Innovation Assistant: Denies Post Discharge Appointments Primary Care Physician Name Of Family Doctor: LANNY Galvan Primary Care Provider Appointment Comment: [address] [facility] Contact Information Discharge Discharge Address: [address] [place] [address], [place] [address]
[2019-07-15] MEDS: MELATONIN 3 MG TAB PO PRN (22:36)
[2019-07-15] MEDS: OLANZAPINE ZYDIS 10 MG ORALLY DIS. TAB PO SCH (22:55)
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
[2019-07-16] MEDS: LITHIUM CARBONATE 300 MG TAB PO SCH ×2 (08:26→21:28)
[2019-07-16] MEDS: ASTELIN SCH (08:26)
[2019-07-16] MEDS: [UNRECOGNIZED DRUG - OTHER] PO SCH (08:27)
[2019-07-16] MEDS: ARMOUR THYROID PO SCH (12:33)
[2019-07-16] MEDS: MELATONIN 3 MG TAB PO PRN (22:30)
[2019-07-16] MEDS: OLANZAPINE ZYDIS 10 MG ORALLY DIS. TAB PO SCH (22:31)
[2019-07-17] MEDS: ARMOUR THYROID PO SCH (06:39)
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
[2019-07-17] MEDS: ASTELIN SCH (08:55)
[2019-07-17] MEDS: LITHIUM CARBONATE 300 MG TAB PO SCH ×2 (08:55→21:25)
[2019-07-17] MEDS: [UNRECOGNIZED DRUG - OTHER] PO SCH (08:55)
[2019-07-17] MEDS: OLANZAPINE ZYDIS 10 MG ORALLY DIS. TAB PO SCH (21:25)
[2019-07-17] MEDS: MELATONIN 3 MG TAB PO PRN (21:34)
[2019-07-18] MEDS: ARMOUR THYROID PO SCH (07:51)
[2019-07-18] MEDS: ASTELIN SCH (08:52)
[2019-07-18] MEDS: [UNRECOGNIZED DRUG - OTHER] PO SCH (08:52)
[2019-07-18] MEDS: LITHIUM CARBONATE 300 MG TAB PO SCH ×2 (09:09→21:27)
--- NOTE | 2019-07-18 12:29 | Psychiatric Progress Note ---
Date of Service July 18, 2019 Impression / Recommendations Impression 29-year-old woman with a known history of bipolar disorder was admitted in a manic state through the emergency room after her mother called 911 and reported that the patient was behaving in a bizarre and disorganized fashion. 302 was completed by police, who noted that the patient was [place] to a divided [place] singing and dancing with no sense of her surroundings, was delusional, talking to "prophets" and was unable to articulate her thoughts. She was labile, delusional, combative, and laughing hysterically. According to reports from the patient's mother, she had been fasting for up to 4 days at a time (inexplicably), had only been sleeping approximately 2 hours a night, and was engaging in behaviors such as dressing up as "a Cinderella" and announcing that she plan to walk from [facility] to [place]. She dyed her skin green, and said that she believes that she was being sent a message through a coin that she observed that had a embossed image of the Stat[place] on 1 side. Thinking is disorganized, and she has marked flight of ideas and pressured speech, lacks insight into her illness, and is agitated and uncooperative. She presented as severely manic and psychotic, was refusing to take psychiatric medications, and is now on a 303 involuntary commitment as of 07/09/2019. Medications over objection has been initiated; however, patient has been agreeable with taking her medications by mouth at this point. Pt is receiving olanzapine, with we are titrating as tolerated. Early in her admission, patient was sleeping 1 hour or less, and was agitated, disruptive and intrusive, and had caused property damage on the unit. Although she is in better behavioral control, she is still labile, excessively energized, intrusive, tangential, with limited insight and unwillingness for the required outpatient treatment, so remains in need of ongoing inpatient psychiatric hospitalization. We have filed for a 304 and if we are able to get a good discharge pill in place, may be able to do a 304 IOC with discharge later this week. (1) Bipolar disorder: 07/06/19 -The patient is currently in the manic phase of bipolar disorder, although she has essentially no insight into her condition and her need for treatment. She has been admitted to the [facility] behavioral health unit and has been referred for individual, group and activity therapies with the goal of providing the patient on external reality testing, as well as the importance of adherence with psychiatric treatment. -It will be important for the patient to be placed back on mood stabilizing agents and antipsychotics. It has been reported that, in the past, the patient has taken aripiprazole and lithium carbonate, but she reportedly stopped these medications at some unspecified point or points in the past. The plan is to restart aripiprazole 15 mg a day and lithium carbonate 300 mg twice a day. Because of the question of possible dehydration admission, we are starting lithium carbonate at a lower dose, but anticipate titrating following laboratory testing. 07/06 -Continues to refuse medications. Will require a 303 and meds over objection, will need to file for 303 hearing on Tuesday. -Continue to offer home psychotropics (lithium and aripiprazole), and has Haldol PO and IM prn. -Continue private room, and excuse for groups due to disruptive behavior. Minimize stimulation, and encourage sleep. No caffeine. 07/07 -Continue to refuse all medications. Will file for 303 tomorrow and initiate meds over objection as soon as granted, as she is no better, and manic and psychotic symptoms are severe and impairing. She is unable to provide for her own basic needs and is at risk of harm to herself as evidenced by her behavior detailed above, not eating or sleeping, with electrolyte disarray (hypokalemia). 07/08 -303 granted. -Agree with Dr. Lal's recommendation for medications over objection as she has bipolar type I, is currently manic and psychotic, lacks any insight into her condition, and is unlikely to recover without the use of mood stabilizing and antipsychotic medication. She has responded well to medication in the past, and has been able to stabilize and regain function. She refused to discuss medication options, but after being informed of the recommendation for medications over objection, she took Abilify and lithium. -Will discontinue aripiprazole in favor of a more potent antipsychotic, given severity of symptoms and agitation, and start olanzapine 5mg qnoon with 10mg IM for refusal. -She will need fasting labs when more cooperative. -She has now signed release for her mother and will get collateral from her and schedule a family meeting once patient is more stable and able to tolerate it. She will also need outpatient services, possibly a [address] [place] [address] and [facility]. 07/09 - Pt has been taking scheduled oral doses of olanzapine, not requiring IM medications over objection. She was hesitant to increase her dose further, but did agree to 7.5mg of olanzapine tomorrow. Pt preferred to continue her dosing at 1200. Discuss moving the medication to bedtime once patient is able to demonstrate consistency with the oral medications. - Fasting labs when appropriate - Will require family meeting when appropriate 07/10 - Patient still shows manic symptoms with some improvement today but is willing to participate in treatment plan as recommended, including p.o. medications and attending groups. - Patient is willing to take PO medication consistently and agrees to increase olanzapine 10 mg from tomorrow. However she changed her mind regarding scheduled 7.5 mg olanzapine at noon and wanted to start 10 mg olanzapine from today. Olanzapine 10 mg scheduled nightly from today. Patient experiences mild restlessness with 5 mg of olanzapine and needs to monitor if she shows worsening symptoms with increased dose of olanzapine. Patient was advised to to utilize benztropine as needed for akathisia and she verbalized understanding during the today's assessment. - Fasting labs, including fasting lipids and fasting glucose, and free T3, which was requested by the patient and also indicated with abnormal TSH on her admission, ordered and they will be obtained tomorrow morning. - Patient is willing to have a family meeting with her mother and her ex- boyfriend, Shad, and our school social worker was informed of this. -Patient wants to continue melatonin 9 mg nightly and it is a scheduled from today. 07/11 - Still shows manic symptoms, including being labile, irritable, hyperverbal, intrusive, and tangential, with some improvement in her mood. Cannot tolerate groups or activities more than 5 minutes without getting agitated or intrusive. Also has poor insight into her mental illness and the seriousness of her illness, which has been impacting on her treatment negatively. She still does not appreciate the lack of self-care prior to admission, including not eating, drinking or sleeping, was due to her manic episode. - Fasting lab results and lithium level reviewed with the patient. Trough lithium level is 0.5 today and further titration of lithium was recommended to the patient but patient declines our recommendation. Patient has been on lithium 300 mg twice a day consistently for the past 2 to 3 days, since July 09. Continue lithium 300 mg twice daily for the next 2 to 3 days and further titration will be considered after another lithium level is obtained at that point. - Continued inpatient hospitalization is medically necessary for ongoing monitoring and safety while titration of the medication is still considered with subtherapeutic range of serum lithium level. 07/12 - Continue current medication regimen. - Tolleson level will be obtained tomorrow and the patient agreed with this today. Further titration will be considered if trough serum lithium level is still subtherapeutic. - Patient could maintain some constructive conversation today during the assessment even though she was tangential. 07/13 lithium level low end therapeutic, aleida appears to be resolving and she does not want higher dose. More accepting of Zyprexa. 07/15--unclear what was triggering about family interaction with family but clearly more labile--reconsider lithium titration, may benefit from 304 outpatient commitment since not demonstrating commitment to outpatient. 07/16 -file for 304 involuntary outpatient commitment, and referred for outpatient services including psychiatry, therapy, and case management. -Again reviewed recommendations to increase lithium to target manic symptoms, which she remains unwilling to do. Reviewed the risk of ongoing manic symptoms or even worsening of symptoms when stressed (as evidenced yesterday), but patient continues to decline and states understanding of the risks associated with this. Continue olanzapine 10 mg at bedtime and lithium 300 mg twice daily. 07/17 -Continue current medications regimen and the patient consistently refuses titration of lithium. -Serum prolactin level will be obtained since she has been on olanzapine, even though the risk of prolactinemia is not that high, and BMP will be obtained before she is discharged to see if electrolyte imbalance is normalized. -Patient still was focused on one phrase on her 304 petition form and got irritated because of arrangement of outpatient aftercare. (2) Nonadherence to medication: 07/08 - Get collateral information from mother regarding treatment history, as patient unable/unwilling to provide information, and we have no previous records. Consider 304 IOC and PABON, given history of nonadherence with severe, debilitating symptoms when ill. 07/16 -we will pursue a 304 IOC. She continues to decline PABON. Reviewed. (3) Acute dehydration: 07/06/2019 -The patient had an elevated heart rate in the emergency department and it was felt that this was probably attributable to dehydration. The patient's laboratory data is equivocal. The concern is that the patient's mother reports that the patient has been fasting and it is possible that she is also been restricting fluid intake. We will monitor while encouraging fluids. 07/13 resolved. (4) Hypothyroidism: 07/06/2019 -Patient has reported history of hypothyroidism. Her most recent laboratory data showed a TSH of 208 (low) and T4 of 1.06, at the high end of normal. She tells us that she has been adherent with her thyroid medication on an outpatient basis, namely Dallas thyroid 90 mg daily. -[place] Thyroid is not on the formulary at [facility]. The reasonable conversion is to levothyroxine 125 mcg daily, and this will be ordered. 07/06 -patient is refusing levothyroxine. She states her mother is going to bring in her thyroid medication. 07/09 - [place] Thyroid brought in from home and initiated on 07/08, patient has been taking consistently but has been negotiating timing of the medication to avoid taking with food or other medications. (5) Hypokalemia: 07/06 - Potassium 3.1 in the ER, received 40 mEq. She is eating here. Recheck BMP tomorrow. 07/07 - potassium 3.3 today. Is eating some, encouraging good nutrition. Reviewed EKG from the ER; sinus tachycardia with rate 129, QTC 439. 07/10 - Patient wants to continue [id number] magnesium supplement but agrees to resume it at home after her potassium level is corrected. Reviewed. 07/17 Resolved. (6) Allergy: 07/11 - Patient complains of URI symptoms since last night and her symptoms are more consistent with seasonal allergies. Given COVID-19 outbreak, her symptoms will be monitored closely even if there is low risk of COVID-19. -Continues azelastine nasal spray when it is brought in today. 07/17 Resolved Inventory Assets Strengths: Intelligent. Supportive family. Needs: Mood stabilization. Insight into her illness, treatment adherence. Cooperation with treatment. Risk Factors Assessment Male: No : Yes Do You Have Access To A Gun?: No Health Problems: No Mental Health Diagnoses: Yes Previous Attempt: No (The patient reports that she has no history of suicide attempts or other self-injurious behaviors. 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 However, third-constitution party reports of the patient has a history of multiple psychiatric admissions.) Hopelessness: No Smoker: No Protective Factors Assessment : No Responsible for Young Children: No Employed: No Stable Relationships: No Supportive Family: Yes Good Rapport with Provider: No Absence of Any Risk Factors Above: No Interval History Identifying Information GIOVANNI EDMOND is a 29-year-old F who currently lives in the [facility] with her mother, has a history of bipolar disorder, and was admitted on 07/05/19 18:28 on a 302 involuntary commitment for psychosis and dangerous behaviors. She is on a 303 as of 07/09/2019. Chief Complaint " I feel okay today". Review of Systems Notes Constitutional: denied cardiovascular: denied Respiratory: denied GI: denied Neurologic: denied Psychiatric: denies symptoms other than stated above Remainder of 10 body systems also reviewed and denied other than noted above. Sleep Information Total Hours of Sleep: 7 Sleep Comments: pt on q-15 minute checks Meal Information Percent Meal Consumed - Breakfast: 80 Percent Meal Consumed - Lunch: 100 Percent Meal Consumed - Dinner: 50 Nutrition Comment: documented from the pt. meal record Subjective Subjective Patient was seen & assessed and interval progress reviewed with treatment team. Staff report that patient has been interacting with the staff appropriately, even though she gets irritated pretty easily with certain things, and she states she has been working on having enough solitude and accepting help. She rates her mood a 7/10 and "piqued "in the community meeting this morning. Patient's 304 hearing is tomorrow. Her mother reported yesterday that she has been having soreness in her breast and asked if she could resume prescribed progesterone. An appointment with Dr. Han in [facility] will be arranged for follow-up after discharge. Patient was seen today to assess progress since admission. Patient states that she feels okay today. However she complains of soreness in her breasts since yesterday and is concerned about elevated prolactin level since she experienced prolactinemia with risperidone in the past. Patient was informed that olanzapine does not cause significant prolactinemia comparing to risperidone but prolactin level will be obtained to rule out side effect of olanzapine. She also has a gravelly voice for the past couple days and says since she has been on lithium and olanzapine and she is concerned about possible side effects. She finished safety plan and reviewed it with this provider today. She could verbalize warning signs, coping skills and people who can reach out when she has another manic episode. However she was pretty irritated and frustrated, showing her 304 petition form to this provider and saying she never refused outpatient treatment. The timeline regarding 302 completion of petition form was explained to the patient but patient does not process that. Physical Exam Psychiatric Orientation: alert and oriented x 3 Apperance: appropriately dressed and + disheveled Eye Contact: + fair eye contact Motor Behavior: steady gait and station and no abnormal motor movements Speech: normal rate/rhythm/volume of speech (slightly hyperverbal) Affect: + irritable affect Mood: + irritable mood (pointing out a certain phrase on her 304 IOC form) Thought Process: + concrete thought process Thought Content: + cognitive distortions Suicidal Thoughts: denies suicidal thoughts Homicidal Thoughts: denies homicidal thoughts Hallucinations: no auditory hallucinations and no visual hallucinations Cognition: attention grossly intact and language grossly intact Estimated Intelligence: consistent with education level Insight: + limited insight Judgement: + limited judgement Vital Signs (Past 24 Hours) Last Vital Signs Temp 36.6 C 07/18/19 06:39 Pulse 74 07/18/19 06:40 Resp 18 07/18/19 06:39 BP 109/64 07/18/19 06:40 Pulse Ox 97 07/10/19 14:40 Results & Data ([facility]) Current Inpatient Medications Current Inpatient Medications: Current Inpatient Medications Acetaminophen (Tylenol) 650 mg PO Q4H PRN PRN Reason: Headache or Minor Fever Stop: 08/04/19 18:38 Al Hydrox/Mg Hydrox/Simethicone (Maalox) 30 ml PO Q4H PRN PRN Reason: GI Upset Stop: 08/04/19 18:38 Benztropine Mesylate (Cogentin) 1 mg IM Q4H PRN PRN Reason: Allergic Reaction Stop: 08/04/19 18:44 Benztropine Mesylate (Cogentin) 1 mg PO Q4H PRN PRN Reason: Allergic Reaction Stop: 08/04/19 18:46 Last Admin: 07/11/19 14:37 Dose: 1 mg Documented by: Bismuth Subsalicylate (Kaopectate) 15 ml PO PRN PRN PRN Reason: Loose Stool Stop: 08/04/19 18:38 Hydroxyzine HCl (Vistaril) 50 mg PO HSZ PRN PRN Reason: Insomnia Stop: 08/04/19 18:38 Hydroxyzine HCl (Vistaril) 25 mg PO Q4H PRN PRN Reason: Anxiety Stop: 08/04/19 18:38 Tolleson Carbonate (Tolleson Carbonate) 300 mg PO BID KOFI Stop: 08/05/19 20:59 Last Admin: 07/18/19 09:09 Dose: 300 mg Documented by: Lorazepam (Ativan) 1 mg PO Q4H PRN PRN Reason: Anxiety/Agitation Stop: 08/04/19 18:43 Magnesium Hydroxide (Milk Of Magnesia) 30 ml PO DAILY PRN PRN Reason: Constipation Stop: 08/04/19 18:38 Melatonin (Melatonin) 9 mg PO HS PRN PRN Reason: Sleep Stop: 08/10/19 13:29 Last Admin: 07/17/19 21:34 Dose: 9 mg Documented by: *[place] Thyroid*Non- Formulary Patient's Own Med 1 ea PO DAILY@0800 KOFI Stop: 08/08/19 07:59 Last Admin: 07/18/19 07:51 Dose: 1 ea Documented by: Pt's Own Med: [place] Probiotic Capsule 1 cap PO DAILY KOFI Stop: 08/13/19 10:59 Last Admin: 07/18/19 08:52 Dose: 1 cap Documented by: Abdias Nasal Orosi: Non-Formulary Patient's Own Med 1 ea NA DAILY KOFI Stop: 08/14/19 08:59 Last Admin: 07/18/19 08:52 Dose: 1 sprays Documented by: Olanzapine (Zyprexa) 5 mg PO Q4H PRN PRN Reason: psychosis Stop: 08/08/19 10:44 Olanzapine (Zyprexa) 10 mg IM UD PRN PRN Reason: agitation/psychosis/PO refusal Stop: 08/08/19 10:44 Olanzapine (Zyprexa Zydis Od) 10 mg PO HS KOFI Stop: 08/10/19 21:59 Last Admin: 07/17/19 21:25 Dose: 10 mg Documented by: Sodium Chloride (Allegheny Nasal) 1 - 2 sprays NA PRN PRN PRN Reason: Nasal Dryness/Congestion Stop: 08/04/19 18:38 Mental Health & Subst Abuse Tx Therapist Name of Therapist: Denies Special Education Coordinator Name of Special Education Coordinator: Denies Post Discharge Appointments Primary Care Physician Name Of Family Doctor: LANNY Galvan Primary Care Provider Appointment Comment: [address] [facility] Other #1: Name of Aftercare Appointment: [facility] Phone Number of Aftercare Appointment: [phone] Date of Aftercare Appointment: 07/23/19 Time of Aftercare Appointment: 3:00 p.m. Aftercare Appointment Comment: In person - [address] [facility], [address], [place] Contact Information Discharge Discharge Address: [address] [place] [address], [place] [address] (1) Bipolar disorder Active/Remission status: currently active Current bipolar episode type: manic Current episode severity: severe Psychotic features: with psychotic features Qualified Code(s): F31.2 - Bipolar disorder, current episode manic severe with psychotic features
[2019-07-18 13:25] LABS: BUN Creatinine Ratio 11.9 (10-20); Calcium 9.6 mg/dl (8.5-10.1); Est GFR (African American) 128.7; Potassium 3.8 mmol/L (3.5-5.1)
[2019-07-19] MEDS: ARMOUR THYROID PO SCH (08:02)
--- NOTE | 2019-07-19 08:56 | Discharge Summary ---
Date of Service July 19, 2019 History of Present Illness The patient is a 29-year-old woman with a known diagnosis of bipolar disorder who presented to the emergency room regarding these.on 07/05/2019 accompanied by the police and EMS. According to reports received from the patient's mother with whom the patient lives the patient had been engaging in bizarre behaviors such as "dressing up like a Cinderella," and announcing that she planned to walk from [facility] to [place]. (The patient told our staff that she had walked "about 45 miles already.") Mother also reports that the patient has been not sleeping, with the possible exception of "maybe about 2 hours a night," has exhibited increased energy, and has been inexplicably "fasting" approximately 4 days a week. Admission, the patient's heart rate was elevated and she was found to be dehydrated. The patient's mother contacted the police through , and according to reports when the patient was encountered by the police she was combative and had to be restrained. (The patient, herself, says that she was simply sitting on some grass, and that she did not resist -- but did question why she was being handcuffed.) On evaluation today the patient was found to be quite disorganized with marketed pressured speech and flight of ideas. Much of what the patient said made little or no sense. For instance, she began by saying that she observed a client that had the embossed image of "a bird" on 1 side" lady liberty" on the other. She took this as a sign that [place] is "fundamentally corrupt," and so in order to protest corruption she somehow her skin green and posed as lady liberty, and then later as a dice manager in order to resemble a statue of some sort that she has in her home. She also says that she picked the color green to protest "the rape of our environment." Further, the patient being the victim of some sort of conspiracy that involved [employer] and several credit unions. This belief seems to have been somehow connected to an incident in which her banking card was not returned by an [employer]. She also says that she believes that her hospitalization is directly a function of the fact that "[place] is not ready for me to change it," and insists that she does not have nor has she ever had a mental illness. Further, the patient insists that she must be discharged today because she has "uncovered" written evidence that will somehow exonerate her brother, a man who she says is facing criminal charges and imprisonmentalthough she declines to say what the charges are and what the exonerated evident says. She was quite uncooperative and, for example, during the interview refused to sit in the seat that I did ask her to sit and. Later, she sat down on the floor, but did arise and return to her seat when asked to do so. I tried several times to enjoying the patient to cooperate with the evaluation, but she said, repeatedly "you are not in a position to director process engineering me. I am in a position to director process engineering you!" At 1 point, she became electively mute "to cristobal Ayala," but then spontaneously spoke but subsequently refused to answer questions and, instead, he became irritable and bumptious. Reportedly, the patient had been prescribed Abilify and lithium, but had stopped both medications in the past. Physical Exam Psychiatric Orientation: alert, oriented x 3 and cooperative Apperance: appropriately dressed, appropriately groomed and appeared stated age Eye Contact: good eye contact Motor Behavior: steady gait and station and no abnormal motor movements Speech: normal rate/rhythm/volume of speech Affect: euthymic affect and mood congruent with affect "Good." Thought Process: goal directed thought process Thought Content: reality based without delusions Suicidal Thoughts: denies suicidal thoughts Homicidal Thoughts: denies homicidal thoughts Hallucinations: no auditory hallucinations and no visual hallucinations Cognition: recent memory grossly intact, attention grossly intact and language grossly intact Estimated Intelligence: average estimated intelligence Insight: + limited insight Judgement: + limited judgement Vital Signs (Past 24 Hours) Last Vital Signs Temp 36.8 C 07/19/19 06:39 Pulse 88 07/19/19 06:40 Resp 18 07/19/19 06:39 BP 102/70 07/19/19 06:40 Pulse Ox 97 07/10/19 14:40 Principal Diagnosis Bipolar disorder type I, most recent episode manic with psychosis. Treatment nonadherence. Psychiatric Data The patient was hospitalized for 14 days. She was floridly manic and psychotic on presentation, combative in the ER, and had to be placed in physical restraints. She had been off of psychotropic medications for at least 3 months, and her last known regimen was aripiprazole and lithium. These were resumed on admission, but she refused them. She continued to have severe manic symptoms during her first several days on the unit, was sleeping 1 hour or less at night, was extremely disruptive, hyperverbal, pressured, loose and tangential. She demonstrated poor insight into her condition, stating she did not need treatment or medication. She was seen by 2 physicians who both recommended medications over objection, and had a 303 involuntary commitment hearing on 07/09/2019, after which medications over objection were initiated. She was started on olanzapine, which she then began taking orally, as well as lithium. She was very resistant to recommendations for medication titration, despite limited symptom response. Olanzapine was titrated to 10 mg daily, and lithium to 300 mg twice daily, but she refused further lithium dose titration despite recommendations to increase the dose to better control symptoms. After she started taking medication, symptoms gradually improved, with increased sleep, more organized thinking, and mood stabilized. She had a family meeting with her mother and ex-boyfriend Shad (who also lives with the patient's mother in [place]) on 07/16/2019, which started out well, as she brought a list of items she wanted to discuss. She then decompensated during the meeting, became hyperverbal, required frequent redirection, and would not allow anyone else to talk. The patient's mother and ex-boyfriend both encouraged her to comply with medications and add structure to her schedule, and to get outpatient treatment in the community. The recommendations for outpatient treatment with a psychiatrist, therapist, and correctional casework specialist were reviewed, and she refused to sign releases. We then filed for a 304 involuntary commitment, given her unwillingness to continue with outpatient treatment. In the interim before the hearing was held, she agreed to referrals for outpatient treatment and completed an intake with the [facility] for case management. A 304 hearing was held on the day of discharge and she was released on a 304 [facility] Day of Discharge Assessment Staff report the patient has been attending group and therapy, participating appropriately, and has been in better behavioral control. She rated her mood as 6/10. She attended her 304 hearing and was able to remain in behavioral control. She reports good mood, feels she is stable, and denies hallucinations, paranoia, confusion/jumbled thoughts, racing thoughts, difficulty sleeping, SI, and HI. She continues to talk about going on a "tour of [place]," stating that is what she was going to do prior to admission when the police picked her up and brought her to the hospital, but says that if she does this again, she will plan it better. She states willingness to continue medications and follow-up with outpatient treatment, although she notes she would prefer to have been able to pick her own outpatient providers and not to be on an involuntary commitment. She denies any safety concerns with returning home, and states her ex-boyfriend will assist her with transportation to appointments. Transition of Care Transition Of Care Record: was reviewed with the patient Advance Directives Advance Directives Information Provided: Yes Advance Directives: No Mental Health Advance Directive: No Advance Directives on File: No Living Will: No Power of French Edge Operator: No Advance Directives Reason:: Declines as Mental Health Visit. Risk Factors Assessment Risk factors were mitigated by admission to the inpatient unit, use of medications to target manic and psychotic symptoms, psychoeducation about her diagnosis and the recommended treatment, involuntary commitment with transition to involuntary outpatient commitment at discharge, involvement of her supports in a family meeting, group attendance and participation, working on healthy coping skills and a discharge safety plan, and referral for outpatient treatment. She has demonstrated improvement in mood and psychotic symptoms, is taking medications as prescribed, and stating willingness to follow-up with outpatient treatment. She is no longer at acute risk of harm to herself or others, so can be discharged and managed as an outpatient at this time. Due to her history of nonadherence and severity of manic and psychotic symptoms, with risk of harm to both herself and others when in a decompensated state, an involuntary outpatient commitment was requested and granted today. Male: No : Yes Do You Have Access To A Gun?: No Health Problems: No Mental Health Diagnoses: Yes Substance Use Disorders: No Previous Attempt: No (The patient reports that she has no history of suicide attempts or other self-injurious behaviors. 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 However, third-constitution party reports of the patient has a history of multiple psychiatric admissions.) Hopelessness: No Smoker: No Protective Factors Assessment : No Responsible for Young Children: No Employed: No Stable Relationships: No Supportive Family: Yes Good Rapport with Provider: No Absence of Any Risk Factors Above: No Tobacco Cessation at Discharge Tobacco Cessation Medication Prescribed at Discharge: Not Applicable/Non-Smoker Total Time Total Time Spent: Greater Than 30 Minutes Total Time Includes: Examination of the patient, Discharge Planning, Medication Reconciliation and As well as (304 hearing) Discharge Data Lab Results 07/05/19 07/05/19 07/05/19 10:37 10:37 10:37 WBC 11.44 H RBC 4.60 Hgb 13.2 Hct 39.3 MCV 85.4 MCH 28.7 MCHC 33.6 RDW Std Deviation 40.3 RDW Coeff of Yanna 12.9 Plt Count 361 MPV 9.2 Immature Gran % (Auto) 0.2 Neut % (Auto) 72.1 Lymph % (Auto) 20.2 [place] % (Auto) 7.1 Eos % (Auto) 0.3 Baso % (Auto) 0.1 Immature Gran # (Auto) 0.02 Neut # (Auto) 8.26 H Lymph # (Auto) 2.31 [place] # (Auto) 0.81 H Eos # (Auto) 0.03 Baso # (Auto) 0.01 Sodium 141 Potassium 3.1 L Chloride 109 H Carbon Dioxide 20 L Anion Gap 12.0 H BUN 15 Creatinine 1.00 Est Cr Clr Drug Dosing 82.2 Est GFR ( Amer) 89.4 Est GFR (Non-Af Amer) 77.2 BUN/Creatinine Ratio 15.5 Glucose 106 H Fasting Glucose Calcium 9.0 Total Bilirubin 0.7 AST 14 L ALT 20 Alkaline Phosphatase 33 L Total Creatine Kinase 151 Total Protein 8.2 Albumin 4.4 Globulin 3.8 Albumin/Globulin Ratio 1.2 Triglycerides Cholesterol LDL Cholesterol, Calc VLDL Cholesterol, Calc HDL Cholesterol Cholesterol/HDL Ratio TSH 0.208 L Free T4 Free T3 Prolactin HCG, Qual Urine Color Urine Appearance Urine pH Ur Specific [place] Urine Protein Urine Glucose (UA) Urine Ketones Urine Blood Urine Nitrite Urine Bilirubin Urine Urobilinogen Ur Leukocyte Esterase Urine WBC (Auto) Urine RBC (Auto) U Hyaline Cast (Auto) U Epithel Cells (Auto) Urine Bacteria (Auto) POC Ur Test Salicylates < 1.7 L Urine Opiates Screen Ur Methadone, Qual Acetaminophen < 2 L Urine Barbiturates Ur Phencyclidine (PCP) U Amphetamin/Meth Scrn MDMA (Ecstasy) Screen U Benzodiazepines Scrn [place] Ur Cocaine Metabolite U Marijuana (THC) Screen Ethyl Alcohol mg/dL 07/05/19 07/05/19 07/05/19 10:37 10:37 10:44 WBC RBC Hgb Hct MCV MCH MCHC RDW Std Deviation RDW Coeff of Yanna Plt Count MPV Immature Gran % (Auto) Neut % (Auto) Lymph % (Auto) [place] % (Auto) Eos % (Auto) Baso % (Auto) Immature Gran # (Auto) Neut # (Auto) Lymph # (Auto) [place] # (Auto) Eos # (Auto) Baso # (Auto) Sodium Potassium Chloride Carbon Dioxide Anion Gap BUN Creatinine Est Cr Clr Drug Dosing Est GFR ( Amer) Est GFR (Non-Af Amer) BUN/Creatinine Ratio Glucose Fasting Glucose Calcium Total Bilirubin AST ALT Alkaline Phosphatase Total Creatine Kinase Total Protein Albumin Globulin Albumin/Globulin Ratio Triglycerides Cholesterol LDL Cholesterol, Calc VLDL Cholesterol, Calc HDL Cholesterol Cholesterol/HDL Ratio TSH Free T4 1.06 Free T3 Prolactin HCG, Qual Negative Urine Color Urine Appearance Urine pH Ur Specific [place] Urine Protein Urine Glucose (UA) Urine Ketones Urine Blood Urine Nitrite Urine Bilirubin Urine Urobilinogen Ur Leukocyte Esterase Urine WBC (Auto) Urine RBC (Auto) U Hyaline Cast (Auto) U Epithel Cells (Auto) Urine Bacteria (Auto) POC Ur Test Salicylates Urine Opiates Screen Ur Methadone, Qual Acetaminophen Urine Barbiturates Ur Phencyclidine (PCP) U Amphetamin/Meth Scrn MDMA (Ecstasy) Screen U Benzodiazepines Scrn [place] Ur Cocaine Metabolite U Marijuana (THC) Screen Ethyl Alcohol mg/dL < 3.0 07/05/19 07/05/19 07/05/19 Unknown Unknown Unknown WBC RBC Hgb Hct MCV MCH MCHC RDW Std Deviation RDW Coeff of Yanna Plt Count MPV Immature Gran % (Auto) Neut % (Auto) Lymph % (Auto) [place] % (Auto) Eos % (Auto) Baso % (Auto) Immature Gran # (Auto) Neut # (Auto) Lymph # (Auto) [place] # (Auto) Eos # (Auto) Baso # (Auto) Sodium Potassium Chloride Carbon Dioxide Anion Gap BUN Creatinine Est Cr Clr Drug Dosing Est GFR ( Amer) Est GFR (Non-Af Amer) BUN/Creatinine Ratio Glucose Fasting Glucose Calcium Total Bilirubin AST ALT Alkaline Phosphatase Total Creatine Kinase Total Protein Albumin Globulin Albumin/Globulin Ratio Triglycerides Cholesterol LDL Cholesterol, Calc VLDL Cholesterol, Calc HDL Cholesterol Cholesterol/HDL Ratio TSH Free T4 Free T3 Prolactin HCG, Qual Urine Color Dark Yellow Urine Appearance Cloudy A Urine pH 5.0 Ur Specific [place] 1.030 Urine Protein 1+ H Urine Glucose (UA) Negative Urine Ketones 4+ H Urine Blood Negative Urine Nitrite Negative Urine Bilirubin Negative Urine Urobilinogen Negative Ur Leukocyte Esterase Trace H Urine WBC (Auto) 10-30 H Urine RBC (Auto) 10-30 H U Hyaline Cast (Auto) 5-10 H U Epithel Cells (Auto) >30 H Urine Bacteria (Auto) 1+ H POC Ur Test NEG Salicylates Urine Opiates Screen Neg Ur Methadone, Qual Neg Acetaminophen Urine Barbiturates Neg Ur Phencyclidine (PCP) Neg U Amphetamin/Meth Scrn Neg MDMA (Ecstasy) Screen Neg U Benzodiazepines Scrn Neg [place]legate Ur Cocaine Metabolite Neg U Marijuana (THC) Screen Neg Ethyl Alcohol mg/dL 07/08/19 07/12/19 07/12/19 07:58 08:15 08:15 WBC RBC Hgb Hct MCV MCH MCHC RDW Std Deviation RDW Coeff of Yanna Plt Count MPV Immature Gran % (Auto) Neut % (Auto) Lymph % (Auto) [place] % (Auto) Eos % (Auto) Baso % (Auto) Immature Gran # (Auto) Neut # (Auto) Lymph # (Auto) [place] # (Auto) Eos # (Auto) Baso # (Auto) Sodium 138 Potassium 3.3 L Chloride 105 Carbon Dioxide 25 Anion Gap 8.0 BUN 4 L Creatinine 0.82 Est Cr Clr Drug Dosing 100.2 Est GFR ( Amer) 113.7 Est GFR (Non-Af Amer) 98.1 BUN/Creatinine Ratio 5.1 L Glucose 103 H Fasting Glucose 94 Calcium 9.5 Total Bilirubin AST ALT Alkaline Phosphatase Total Creatine Kinase Total Protein Albumin Globulin Albumin/Globulin Ratio Triglycerides 64 Cholesterol 170 LDL Cholesterol, Calc 80 VLDL Cholesterol, Calc 13 HDL Cholesterol 77 Cholesterol/HDL Ratio 2 TSH Free T4 Free T3 Prolactin HCG, Qual Urine Color Urine Appearance Urine pH Ur Specific [place] Urine Protein Urine Glucose (UA) Urine Ketones Urine Blood Urine Nitrite Urine Bilirubin Urine Urobilinogen Ur Leukocyte Esterase Urine WBC (Auto) Urine RBC (Auto) U Hyaline Cast (Auto) U Epithel Cells (Auto) Urine Bacteria (Auto) POC Ur Test Salicylates Urine Opiates Screen Ur Methadone, Qual Acetaminophen Urine Barbiturates Ur Phencyclidine (PCP) U Amphetamin/Meth Scrn MDMA (Ecstasy) Screen U Benzodiazepines Scrn [place] 0.5 L Ur Cocaine Metabolite U Marijuana (THC) Screen Ethyl Alcohol mg/dL 07/12/19 07/14/19 07/18/19 08:15 06:56 12:43 WBC RBC Hgb Hct MCV MCH MCHC RDW Std Deviation RDW Coeff of Yanna Plt Count MPV Immature Gran % (Auto) Neut % (Auto) Lymph % (Auto) [place] % (Auto) Eos % (Auto) Baso % (Auto) Immature Gran # (Auto) Neut # (Auto) Lymph # (Auto) [place] # (Auto) Eos # (Auto) Baso # (Auto) Sodium 138 Potassium 3.8 Chloride 109 H Carbon Dioxide 24 Anion Gap 6.0 BUN 9 Creatinine 0.74 Est Cr Clr Drug Dosing 111.0 Est GFR ( Amer) 128.7 Est GFR (Non-Af Amer) 111.0 BUN/Creatinine Ratio 11.9 Glucose 89 Fasting Glucose Calcium 9.6 Total Bilirubin AST ALT Alkaline Phosphatase Total Creatine Kinase Total Protein Albumin Globulin Albumin/Globulin Ratio Triglycerides Cholesterol LDL Cholesterol, Calc VLDL Cholesterol, Calc HDL Cholesterol Cholesterol/HDL Ratio TSH Free T4 Free T3 6.05 H Prolactin HCG, Qual Urine Color Urine Appearance Urine pH Ur Specific [place] Urine Protein Urine Glucose (UA) Urine Ketones Urine Blood Urine Nitrite Urine Bilirubin Urine Urobilinogen Ur Leukocyte Esterase Urine WBC (Auto) Urine RBC (Auto) U Hyaline Cast (Auto) U Epithel Cells (Auto) Urine Bacteria (Auto) POC Ur Test Salicylates Urine Opiates Screen Ur Methadone, Qual Acetaminophen Urine Barbiturates Ur Phencyclidine (PCP) U Amphetamin/Meth Scrn MDMA (Ecstasy) Screen U Benzodiazepines Scrn [place]legate 0.6 Ur Cocaine Metabolite U Marijuana (THC) Screen Ethyl Alcohol mg/dL 07/18/19 12:43 WBC RBC Hgb Hct MCV MCH MCHC RDW Std Deviation RDW Coeff of Yanna Plt Count MPV Immature Gran % (Auto) Neut % (Auto) Lymph % (Auto) [place] % (Auto) Eos % (Auto) Baso % (Auto) Immature Gran # (Auto) Neut # (Auto) Lymph # (Auto) [place] # (Auto) Eos # (Auto) Baso # (Auto) Sodium Potassium Chloride Carbon Dioxide Anion Gap BUN Creatinine Est Cr Clr Drug Dosing Est GFR ( Amer) Est GFR (Non-Af Amer) BUN/Creatinine Ratio Glucose Fasting Glucose Calcium Total Bilirubin AST ALT Alkaline Phosphatase Total Creatine Kinase Total Protein Albumin Globulin Albumin/Globulin Ratio Triglycerides Cholesterol LDL Cholesterol, Calc VLDL Cholesterol, Calc HDL Cholesterol Cholesterol/HDL Ratio TSH Free T4 Free T3 Prolactin 9.54 HCG, Qual Urine Color Urine Appearance Urine pH Ur Specific [place] Urine Protein Urine Glucose (UA) Urine Ketones Urine Blood Urine Nitrite Urine Bilirubin Urine Urobilinogen Ur Leukocyte Esterase Urine WBC (Auto) Urine RBC (Auto) U Hyaline Cast (Auto) U Epithel Cells (Auto) Urine Bacteria (Auto) POC Ur Test Salicylates Urine Opiates Screen Ur Methadone, Qual Acetaminophen Urine Barbiturates Ur Phencyclidine (PCP) U Amphetamin/Meth Scrn MDMA (Ecstasy) Screen U Benzodiazepines Scrn [place]legate Ur Cocaine Metabolite U Marijuana (THC) Screen Ethyl Alcohol mg/dL Hospital Course (1) Bipolar disorder: 07/06/19 -The patient is currently in the manic phase of bipolar disorder, although she has essentially no insight into her condition and her need for treatment. She has been admitted to the [facility] behavioral health unit and has been referred for individual, group and activity therapies with the goal of providing the patient on external reality testing, as well as the importance of adherence with psychiatric treatment. -It will be important for the patient to be placed back on mood stabilizing agents and antipsychotics. It has been reported that, in the past, the patient has taken aripiprazole and lithium carbonate, but she reportedly stopped these medications at some unspecified point or points in the past. The plan is to restart aripiprazole 15 mg a day and lithium carbonate 300 mg twice a day. Because of the question of possible dehydration admission, we are starting lithium carbonate at a lower dose, but anticipate titrating following laboratory testing. 07/06 -Continues to refuse medications. Will require a 303 and meds over objection, will need to file for 303 hearing on Tuesday. -Continue to offer home psychotropics (lithium and aripiprazole), and has Haldol PO and IM prn. -Continue private room, and excuse for groups due to disruptive behavior. Minimize stimulation, and encourage sleep. No caffeine. 07/07 -Continue to refuse all medications. Will file for 303 tomorrow and initiate meds over objection as soon as granted, as she is no better, and manic and psychotic symptoms are severe and impairing. She is unable to provide for her own basic needs and is at risk of harm to herself as evidenced by her behavior detailed above, not eating or sleeping, with electrolyte disarray (hypokalemia). 07/08 -303 granted. -Agree with Dr. Lal's recommendation for medications over objection as she has bipolar type I, is currently manic and psychotic, lacks any insight into her condition, and is unlikely to recover without the use of mood stabilizing and antipsychotic medication. She has responded well to medication in the past, and has been able to stabilize and regain function. She refused to discuss medication options, but after being informed of the recommendation for medications over objection, she took Abilify and lithium. -Will discontinue aripiprazole in favor of a more potent antipsychotic, given severity of symptoms and agitation, and start olanzapine 5mg qnoon with 10mg IM for refusal. -She will need fasting labs when more cooperative. -She has now signed release for her mother and will get collateral from her and schedule a family meeting once patient is more stable and able to tolerate it. She will also need outpatient services, possibly a [facility] and [facility]. 07/09 - Pt has been taking scheduled oral doses of olanzapine, not requiring IM medications over objection. She was hesitant to increase her dose further, but did agree to 7.5mg of olanzapine tomorrow. Pt preferred to continue her dosing at 1200. Discuss moving the medication to bedtime once patient is able to demonstrate consistency with the oral medications. - Fasting labs when appropriate - Will require family meeting when appropriate 07/10 - Patient still shows manic symptoms with some improvement today but is willing to participate in treatment plan as recommended, including p.o. medications and attending groups. - Patient is willing to take PO medication consistently and agrees to increase olanzapine 10 mg from tomorrow. However she changed her mind regarding scheduled 7.5 mg olanzapine at noon and wanted to start 10 mg olanzapine from today. Olanzapine 10 mg scheduled nightly from today. Patient experiences mild restlessness with 5 mg of olanzapine and needs to monitor if she shows worsening symptoms with increased dose of olanzapine. Patient was advised to to utilize benztropine as needed for akathisia and she verbalized understanding during the today's assessment. - Fasting labs, including fasting lipids and fasting glucose, and free T3, which was requested by the patient and also indicated with abnormal TSH on her admission, ordered and they will be obtained tomorrow morning. - Patient is willing to have a family meeting with her mother and her ex- boyfriend, Shad, and our elementary school social worker was informed of this. -Patient wants to continue melatonin 9 mg nightly and it is a scheduled from today. 07/11 - Still shows manic symptoms, including being labile, irritable, hyperverbal, intrusive, and tangential, with some improvement in her mood. Cannot tolerate groups or activities more than 5 minutes without getting agitated or intrusive. Also has poor insight into her mental illness and the seriousness of her illness, which has been impacting on her treatment negatively. She still does not appreciate the lack of self-care prior to admission, including not eating, drinking or sleeping, was due to her manic episode. - Fasting lab results and lithium level reviewed with the patient. Trough lithium level is 0.5 today and further titration of lithium was recommended to the patient but patient declines our recommendation. Patient has been on lithium 300 mg twice a day consistently for the past 2 to 3 days, since July 09. Continue lithium 300 mg twice daily for the next 2 to 3 days and further titration will be considered after another lithium level is obtained at that point. - Continued inpatient hospitalization is medically necessary for ongoing monitoring and safety while titration of the medication is still considered with subtherapeutic range of serum lithium level. 07/12 - Continue current medication regimen. - [place] level will be obtained tomorrow and the patient agreed with this today. Further titration will be considered if trough serum lithium level is still subtherapeutic. - Patient could maintain some constructive conversation today during the assessment even though she was tangential. 07/13 lithium level low end therapeutic, aleida appears to be resolving and she does not want higher dose. More accepting of Zyprexa. 07/15--unclear what was triggering about family interaction with family but clearly more labile--reconsider lithium titration, may benefit from 304 outpatient commitment since not demonstrating commitment to outpatient. 07/16 -file for 304 involuntary outpatient commitment, and referred for outpatient services including psychiatry, therapy, and case management. -Again reviewed recommendations to increase lithium to target manic symptoms, which she remains unwilling to do. Reviewed the risk of ongoing manic symptoms or even worsening of symptoms when stressed (as evidenced yesterday), but patient continues to decline and states understanding of the risks associated with this. Continue olanzapine 10 mg at bedtime and lithium 300 mg twice daily. 07/17 -Continue current medications regimen and the patient consistently refuses titration of lithium. -Serum prolactin level will be obtained since she has been on olanzapine, even though the risk of prolactinemia is not that high, and BMP will be obtained before she is discharged to see if electrolyte imbalance is normalized. -Patient still was focused on one phrase on her 304 petition form and got irritated because of arrangement of outpatient aftercare. 07/18 -304 IOC granted. -Follow-up at [facility] for psychiatry and therapy, and with blended correctional casework specialist, Bre. -30-day prescriptions issued for olanzapine and lithium. Again reviewed with patient recommendations to increase her lithium dose, as trough level on her current dose was only 0.6, but she continues to decline. Advised that if mood destabilizes after discharge, an increase in her lithium dose could be helpful. -Reviewed lab results with her including prolactin level which was drawn at her request and is normal at 9.54. (2) Nonadherence to medication: 07/08 - Get collateral information from mother regarding treatment history, as patient unable/unwilling to provide information, and we have no previous records. Consider 304 IOC and PABON, given history of nonadherence with severe, debilitating symptoms when ill. 07/16 -we will pursue a 304 IOC. She continues to decline PABON. 07/18 -304 IOC granted. (3) Acute dehydration: 07/06/2019 -The patient had an elevated heart rate in the emergency department and it was felt that this was probably attributable to dehydration. The patient's laboratory data is equivocal. The concern is that the patient's mother reports that the patient has been fasting and it is possible that she is also been restricting fluid intake. We will monitor while encouraging fluids. 07/13 resolved. (4) Hypothyroidism: 07/06/2019 -Patient has reported history of hypothyroidism. Her most recent laboratory data showed a TSH of 208 (low) and T4 of 1.06, at the high end of normal. She tells us that she has been adherent with her thyroid medication on an outpatient basis, namely [place] thyroid 90 mg daily. -[place] Thyroid is not on the formulary at [facility]. The reasonable conversion is to levothyroxine 125 mcg daily, and this will be ordered. 07/06 -patient is refusing levothyroxine. She states her mother is going to bring in her thyroid medication. 07/09 - [place] Thyroid brought in from home and initiated on 07/08, patient has been taking consistently but has been negotiating timing of the medication to avoid taking with food or other medications. 07/18 -follow-up with PCP for ongoing treatment. (5) Hypokalemia: 07/06 - Potassium 3.1 in the ER, received 40 mEq. She is eating here. Recheck BMP tomorrow. 07/07 - potassium 3.3 today. Is eating some, encouraging good nutrition. Reviewed EKG from the ER; sinus tachycardia with rate 129, QTC 439. 07/10 - Patient wants to continue [id number] magnesium supplement but agrees to resume it at home after her potassium level is corrected. 07/17 Resolved -potassium 3.8. (6) Allergy: 07/11- Patient complains of URI symptoms since last night and her symptoms are more consistent with seasonal allergies. Given COVID-19 outbreak, her symptoms will be monitored closely even if there is low risk of COVID-19. -Continues azelastine nasal spray when it is brought in today. 07/17 -Resolved Mental Health & Subst Abuse Tx Therapist Name of Therapist: Denies Auto Wash Buffer Name of Auto Wash Buffer: [employer] [facility] - Ronny Garcia Phone Number for Auto Wash Buffer: [phone] Date of Appointment with Auto Wash Buffer: 07/20/19 Time of Appointment with Auto Wash Buffer: 2 p.m. Case Management Appointment Comment: Will contact you via telephone Post Discharge Appointments Primary Care Physician Name Of Family Doctor: LANNY - Dr. Galvan Primary Care Time of Appointment with PCP: Please follow up as needed Provider Appointment Comment: [id number] [facility] Smoking Cessation Counseling Tobacco Cessation Medication Prescribed at Discharge: Not Applicable/Non-Smoker Contact Information Discharge Discharge Address: [place] [address] Discharge Plan Discharge Items Patient Disposition: Home - Self-Care Reason For Visit: BIPOLAR DISORDER Discharge Diagnosis: Bipolar disorder type I, most recent episode manic with psychosis Treatment nonadherence Activity: Per Instructions section Non-emergency contact: Psychiatrist, Therapist and Stereotype Molder Call non-emergency contact if: you have any medication questions and your symptoms worsen Follow-up/Referrals: Francisco Nance MD [Primary Care Provider] - Diet: Regular Addtl Attending Provider Instructions: SPECIAL CARE INSTRUCTIONS: 1. Follow through with your scheduled aftercare appointments. If unable to keep an appointment, please call to reschedule. You are on a 304 involuntary outpatient commitment. See additional paperwork for details. 2. Take your medication only as prescribed. Medication should not be changed or stopped without the approval of your doctor. In the event of worsening symptoms or concerns about side effects, contact your doctor immediately. 3. Utilize new healthy coping skills, anger management skills, and stress management skills learned during your hospitalization. Journal feelings and process them with a support person. Identify stressors or situations that may result in relapse, deterioration or inappropriate behaviors and develop a plan to deal with those issues. 4. If your coping skills are ineffective and you are in crisis, contact your outpatient providers for direction. If unable to reach your providers, please call the CAN HELP LINE AT or go to the closest Emergency Room. 5. Avoid alcohol and un-prescribed drugs. 6. You have been provided with the Mental Health Advance Directives Pamphlet for your review. AFTERCARE APPOINTMENTS: * Please call your insurance company prior to your scheduled appointment to confirm your aftercare providers are covered. Take your insurance information to your appointments. WHO TO CALL AND WHEN: Medical Emergencies: For questions or emergencies related to your hospital stay, please contact the Inpatient Behavioral Health Unit at [phone]. A rolls mill operator is on-call 30/08 for the Behavioral Health Unit for emergencies At any time you feel your situation is an emergency, you may also call 911 immediately. Your Doctors Instructions noted above were prepared by provider Gale Baker MD. Pending Studies at Discharge: No Stand-Alone Forms: [facility], Smoking Cessation, Suicide Prevention Resources Medications and DC Order Prescriptions: New lithium carbonate 300 mg tablet extended release 300 mg PO BID Qty: 60 RF: 0 olanzapine 10 mg tablet 10 mg PO HS Qty: 30 RF: 0 Continued azelastine 137 mcg (0.1 %) aerosol,spray 2 spray INTNAS DAILY Qty: 30 RF: 11 thyroid (pork) [[place] Thyroid] 90 mg tablet 90 mg PO DAILY RF: 0 progesterone micronized [Prometrium] 200 mg capsule 200 mg PO HS RF: 0 Discharge Orders: Discharge Order (Routine); Ordered 07/19/19 Ordered By: Gale Baker Admission Data Admit Date/Time: 07/05/19 18:28 Attending Provider: Gale Baker Admit Provider: Cristiane Herrera Primary Care Provider: Francisco Nance V. Other Interventions: PSY Interdisciplinary Discharge Planning Last Done: 07/19/19 10:15 Coding Level of Care Code 79168 D/C day mgmt > 30 min Diagnoses Bipolar disorder F31.2 Active/Remission status: currently active Current bipolar episode type: manic Current episode severity: severe Psychotic features: with psychotic features Nonadherence to medication Z91.14 Acute dehydration E86.0 Hypothyroidism E03.9 Hypokalemia E87.6 Allergy T78.40XA
[2019-07-19] MEDS: [UNRECOGNIZED DRUG - OTHER] PO SCH (09:01)
[2019-07-19] MEDS: ASTELIN SCH (09:02)
[2019-07-19] MEDS: LITHIUM CARBONATE 300 MG TAB PO SCH (09:02)
[2019-07-19] MEDS: OLANZAPINE ZYDIS 10 MG ORALLY DIS. TAB PO SCH (09:03)
[2019-07-19] MEDS ORDERED: DESTROY THIS MEDICATION ONE (11:54)
== END 2019-07-19 13:35 | disposition home or self-care (01) | DRG 885 ==
LOC: ED 10:04 → SUATTDRO 18:28 → 3S 18:28

== ENCOUNTER 2021-11-08 07:13 | Inpatient (IN) ==
--- NOTE | 2021-11-08 07:30 | Emergency Department Note ---
Impression & Plan Aleida Admit to 3 S. on a 302 ED Provider Note NAME: GIOVANNI EDMOND AGE: 31 SEX: F ARRIVES VIA: Ambulance INFORMANT: Police and EMS ED PROVIDER(S): Mehnaz Greer DO CHIEF COMPLAINT: Patient was acutely manic PLAN: Disposition: Admit to 3 S. on a 302 Condition: Stable MEDICAL DECISION MAKING: This is a 31-year-old female patient with an extensive history of bipolar disorder who presents to the emergency department with acute aleida. The patient has not been taking her medications. She has not been eating or sleeping according to her brother. Police and EMS were called to her home this morning and she was transported here for evaluation. The patient was unable to answer my questions or hold a normal conversation with me. She was very confrontational with me. She was unwilling to stay in the bed or in the room. She required Haldol and Ativan. The piano case and bench assembler spoke with the patient's brother who gave a more extensive history of the patient's overall decline over the past month. I signed a 302. The patient was evaluated by the ED psychiatric piano case and bench assembler. The delegate presented to the ER for a bed search and the patient was accepted to 3 S. Triage Nursing notes reviewed and agree with them. Additional history obtained from police and EMS Prior medical records reviewed Vital Signs: reviewed and remarkable for tachycardia Differential diagnosis: Medication noncompliance; acute aleida; thought disorder; insomnia ER treatment provided: IM Haldol and Ativan Diagnostics interpreted by me: Laboratory studies: See below HPI: 31/F arrives for evaluation of aleida. According to police, the patient's mother had called out of concern that the patient had not been taking her medications and was not sleeping. She had become acutely manic. Upon arrival, the patient was exhibiting [id number] behavior. The patient had to be handcuffed and was administered IM Versed by EMS. ROS: See above HPI for pertinent positives & negatives. A total of 10 systems reviewed and were otherwise negative. PAST MEDICAL HISTORY:Bipolar disorder; aleida PAST SURGICAL HISTORY:See Below FAMILY HISTORY:See Below SOCIAL HISTORY:The patient denies any drug or alcohol abuse. She is employed. The patient's brother is in town visiting her. HOME MEDICATIONS:See list ALLERGIES:See list VITALS:See Below PHYSICAL EXAMINATION: HEENT: Head - normocephalic and atraumatic Pupils are equal, round, and reactive to light. Extraocular eye muscles are intact, and sclera are anicteric. Nose - moist nasal mucosa without discharge. Mouth - moist buccal mucosa. Oropharynx is nonerythematous and there is no tonsillar exudate or edema noted. Neck: Supple; no JVD, nuchal rigidity, cervical lymphadenopathy, or auscultated bruits. Heart: Tachycardia with a normal rhythm. There is a normal S1 and S2 with no murmurs, clicks, or gallops appreciated. Lungs: Clear to auscultation bilaterally with no wheezes, rales, or rhonchi. Abdomen: Soft, completely nontender, nondistended, with good bowel sounds. There are no palpable pulsatile masses or hepatosplenomegaly. There is no guarding, rigidity, or rebound noted. Extremities: No evidence of cyanosis, clubbing, or edema. There are easily palpable peripheral pulses. Skin: warm and dry with good turgor and no rashes. Psych: The patient appears acutely manic with a tangential thought process and acute paranoia. ED COURSE: Times/Reassessments: 720: The patient was evaluated in room A6. A complete history and physical was performed after discussing the case with police and EMS. Laboratory studies were drawn as above. The patient became quite agitated with me and security. She was unwilling to stay in the bed. She was unwilling to provide blood for laboratory testing. She was unwilling to answer questions. She was becoming increasingly paranoid with my questioning. Despite me trying to talk to the patient and offering to give her something by mouth to help her calm down, the patient began to scream out of control. She required chemical sedation with Haldol and Ativan. The patient remained hemodynamically stable and was much more relaxed after the medications were administered. 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 Manic behavior Surgical History H/O oral surgery Family History Brother ADHD (attention deficit hyperactivity disorder) Drug dependence Father Alcoholism Coronary heart disease Myocardial infarction Grandmother (Maternal) Bipolar disorder Depression Mother Multiple sclerosis Uncle Colorectal cancer Denies family history of Ovarian cancer Prostate cancer Breast cancer Social History Smoking Status: Unknown if ever smoked Hx Alcohol Use: Yes Hx Substance Use: No Preferred Language: Latvian Communication Ability: Effective Feels Safe at Home: Yes Allergies Allergies Allergy/AdvReac Type Severity Reaction Status Date / Time amoxicillin Allergy Intermediate RASH Verified 09/30/21 09:34 Bactrim Allergy Intermediate HIVES Verified 08/02/14 21:30 prednisone Allergy Intermediate PSYCH Verified 09/30/21 09:34 SYMPTOMS (MANIC) sulfamethoxazole Allergy Intermediate HIVES Verified 09/30/21 09:34 trimethoprim Allergy Intermediate HIVES Verified 09/30/21 09:34 clindamycin Allergy Verified 09/30/21 09:34 Sulfa (Sulfonamide Allergy Verified 09/30/21 09:34 Antibiotics) Home Meds Previous Rx's Medication Instructions Recorded thyroid (pork) 90 mg tablet 90 mg PO DAILY #90 tabs 07/29/21 ([place] Thyroid) thyroid (pork) 15 mg tablet 15 mg PO DAILY #90 tabs 09/30/21 ([place] Thyroid) Results & Data (ED) Vital Signs Vital Signs - 24 hr 11/08/21 07:13 Temperature 36.9 C Temperature Source Oral Pulse Rate 135 H Respiratory Rate 20 Respiratory Effort / Characteristics Non-Labored Spontaneous Respiratory Depth Normal Blood Pressure 138/81 Blood Pressure Mean 100 Pulse Oximetry 97 Oxygen Delivery Method Room Air Sepsis Recent Fever Within 48 Hours No Sepsis New/Unexplained Change in Mental Status N/A Sepsis Action Taken by Nursing No Action Required Laboratory Data Result diagrams: 11/08/21 07:57 11/08/21 07:57 Lab Results 11/08/21 11/08/21 11/08/21 Range/Units 07:57 07:57 07:57 WBC 15.13 H (4.8-10.8) K/ul RBC 4.71 (3.93-5.22) M/uL Hgb 13.6 (12.0-16.0) g/dl Hct 40.6 (34.1-44.9) % MCV 86.2 (80.0-100.0) fL MCH 28.9 (25.0-34.0) pg MCHC 33.5 (32.0-36.0) g/dL RDW Std Deviation 40.4 (36.4-46.3) fL RDW Coeff of Yanna 13.0 (11.5-14.5) % Plt Count 324 (130-400) K/uL MPV 9.2 L (9.4-12.3) fL Immature Gran % (Auto) 0.3 % Neut % (Auto) 78.4 % Lymph % (Auto) 11.8 % Lea % (Auto) 9.1 % Eos % (Auto) 0.1 % Baso % (Auto) 0.3 % Neut # (Auto) 11.88 H (1.4-6.5) K/uL Lymph # (Auto) 1.78 (1.2-3.4) K/uL Lea # (Auto) 1.37 H (0.24-0.82) K/uL Eos # (Auto) 0.01 (0-0.50) K/uL Baso # (Auto) 0.04 (0-0.2) K/uL Immature Gran # (Auto) 0.05 H (0.00-0.02) K/uL Sodium 142 (136-145) mmol/L Potassium 3.9 (3.5-5.1) mmol/L Chloride 110 H (98-107) mmol/L Carbon Dioxide 21 (21-32) mmol/L Anion Gap 11 (3-11) BUN 11 (6-23) mg/dl Creatinine 0.76 (0.6-1.2) mg/dl Est Cr Clr Drug Dosing Not Reportable Est GFR ( Amer) 122.9 ml/min Est GFR (Non-Af Amer) 106.0 ml/min BUN/Creatinine Ratio 14.5 (10-20) Glucose 112 H (70-99(Fasting)) mg/dl Calcium 9.9 (8.5-10.1) mg/dl Total Bilirubin 0.8 (0.2-1.0) mg/dl AST 19 (13-39) U/L ALT 12 (7-52) U/L Alkaline Phosphatase 24 L (34-104) U/L Total Protein 7.3 (6.0-8.3) gm/dl Albumin 4.8 (3.4-5.0) gm/dl Globulin 2.5 (2.5-4.0) gm/dl Albumin/Globulin Ratio 1.9 (0.9-2) TSH 3.051 (0.300-4.500) uIu/ml Urine Color Urine Appearance (Clear) Urine pH (4.5-7.5) Ur Specific [place] (1.000-1.030) Urine Protein (Negative) Urine Glucose (UA) (Negative) Urine Ketones (Negative) Urine Blood (Negative) Urine Nitrite (Negative) Urine Bilirubin (Negative) Urine Urobilinogen (Negative) Ur Leukocyte Esterase (Negative) Urine WBC (Auto) (0-5) /hpf Urine RBC (Auto) (0-4) /hpf U Hyaline Cast (Auto) (0-5) /lpf U Epithel Cells (Auto) (0-5) /lpf Urine Bacteria (Auto) (Negative) POC Ur Test (NEG) Salicylates (3.0-30) mg/dl Urine Opiates Screen (Neg) Ur Methadone, Qual (Neg) Acetaminophen (10-30) ug/ml Urine Barbiturates (Neg) Ur Phencyclidine (PCP) (Neg) U Amphetamin/Meth Scrn (Neg) MDMA (Ecstasy) Screen (Neg) U Benzodiazepines Scrn (Neg) Ur Cocaine Metabolite (Neg) U Marijuana (THC) Screen (Neg) Ethyl Alcohol mg/dL (<10.0) mg/dl SARS-CoV-2, RNA, NAAT (NEGATIVE) 11/08/21 11/08/21 11/08/21 Range/Units 07:57 07:57 09:45 WBC (4.8-10.8) K/ul RBC (3.93-5.22) M/uL Hgb (12.0-16.0) g/dl Hct (34.1-44.9) % MCV (80.0-100.0) fL MCH (25.0-34.0) pg MCHC (32.0-36.0) g/dL RDW Std Deviation (36.4-46.3) fL RDW Coeff of Yanna (11.5-14.5) % Plt Count (130-400) K/uL MPV (9.4-12.3) fL Immature Gran % (Auto) % Neut % (Auto) % Lymph % (Auto) % Lea % (Auto) % Eos % (Auto) % Baso % (Auto) % Neut # (Auto) (1.4-6.5) K/uL Lymph # (Auto) (1.2-3.4) K/uL Lea # (Auto) (0.24-0.82) K/uL Eos # (Auto) (0-0.50) K/uL Baso # (Auto) (0-0.2) K/uL Immature Gran # (Auto) (0.00-0.02) K/uL Sodium (136-145) mmol/L Potassium (3.5-5.1) mmol/L Chloride (98-107) mmol/L Carbon Dioxide (21-32) mmol/L Anion Gap (3-11) BUN (6-23) mg/dl Creatinine (0.6-1.2) mg/dl Est Cr Clr Drug Dosing Est GFR ( Amer) ml/min Est GFR (Non-Af Amer) ml/min BUN/Creatinine Ratio (10-20) Glucose (70-99(Fasting)) mg/dl Calcium (8.5-10.1) mg/dl Total Bilirubin (0.2-1.0) mg/dl AST (13-39) U/L ALT (7-52) U/L Alkaline Phosphatase (34-104) U/L Total Protein (6.0-8.3) gm/dl Albumin (3.4-5.0) gm/dl Globulin (2.5-4.0) gm/dl Albumin/Globulin Ratio (0.9-2) TSH (0.300-4.500) uIu/ml Urine Color Urine Appearance (Clear) Urine pH (4.5-7.5) Ur Specific [place] (1.000-1.030) Urine Protein (Negative) Urine Glucose (UA) (Negative) Urine Ketones (Negative) Urine Blood (Negative) Urine Nitrite (Negative) Urine Bilirubin (Negative) Urine Urobilinogen (Negative) Ur Leukocyte Esterase (Negative) Urine WBC (Auto) (0-5) /hpf Urine RBC (Auto) (0-4) /hpf U Hyaline Cast (Auto) (0-5) /lpf U Epithel Cells (Auto) (0-5) /lpf Urine Bacteria (Auto) (Negative) POC Ur Test (NEG) Salicylates < 3.0 L (3.0-30) mg/dl Urine Opiates Screen (Neg) Ur Methadone, Qual (Neg) Acetaminophen < 3 L (10-30) ug/ml Urine Barbiturates (Neg) Ur Phencyclidine (PCP) (Neg) U Amphetamin/Meth Scrn (Neg) MDMA (Ecstasy) Screen (Neg) U Benzodiazepines Scrn (Neg) Ur Cocaine Metabolite (Neg) U Marijuana (THC) Screen (Neg) Ethyl Alcohol mg/dL < 10.0 (<10.0) mg/dl SARS-CoV-2, RNA, NAAT NEGATIVE (NEGATIVE) 11/08/21 11/08/21 11/08/21 Range/Units 11:15 11:15 11:15 WBC (4.8-10.8) K/ul RBC (3.93-5.22) M/uL Hgb (12.0-16.0) g/dl Hct (34.1-44.9) % MCV (80.0-100.0) fL MCH (25.0-34.0) pg MCHC (32.0-36.0) g/dL RDW Std Deviation (36.4-46.3) fL RDW Coeff of Yanna (11.5-14.5) % Plt Count (130-400) K/uL MPV (9.4-12.3) fL Immature Gran % (Auto) % Neut % (Auto) % Lymph % (Auto) % Lea % (Auto) % Eos % (Auto) % Baso % (Auto) % Neut # (Auto) (1.4-6.5) K/uL Lymph # (Auto) (1.2-3.4) K/uL Le[place] # (Auto) (0.24-0.82) K/uL Eos # (Auto) (0-0.50) K/uL Baso # (Auto) (0-0.2) K/uL Immature Gran # (Auto) (0.00-0.02) K/uL Sodium (136-145) mmol/L Potassium (3.5-5.1) mmol/L Chloride (98-107) mmol/L Carbon Dioxide (21-32) mmol/L Anion Gap (3-11) BUN (6-23) mg/dl Creatinine (0.6-1.2) mg/dl Est Cr Clr Drug Dosing Est GFR ( Amer) ml/min Est GFR (Non-Af Amer) ml/min BUN/Creatinine Ratio (10-20) Glucose (70-99(Fasting)) mg/dl Calcium (8.5-10.1) mg/dl Total Bilirubin (0.2-1.0) mg/dl AST (13-39) U/L ALT (7-52) U/L Alkaline Phosphatase (34-104) U/L Total Protein (6.0-8.3) gm/dl Albumin (3.4-5.0) gm/dl Globulin (2.5-4.0) gm/dl Albumin/Globulin Ratio (0.9-2) TSH (0.300-4.500) uIu/ml Urine Color Yellow Urine Appearance Turbid A (Clear) Urine pH 5.5 (4.5-7.5) Ur Specific [place] 1.019 (1.000-1.030) Urine Protein Negative (Negative) Urine Glucose (UA) Negative (Negative) Urine Ketones 2+ H (Negative) Urine Blood Negative (Negative) Urine Nitrite Negative (Negative) Urine Bilirubin Negative (Negative) Urine Urobilinogen Negative (Negative) Ur Leukocyte Esterase 1+ H (Negative) Urine WBC (Auto) 5-10 H (0-5) /hpf Urine RBC (Auto) 0-4 (0-4) /hpf U Hyaline Cast (Auto) 1-5 (0-5) /lpf U Epithel Cells (Auto) >30 H (0-5) /lpf Urine Bacteria (Auto) 1+ H (Negative) POC Ur Test NEG (NEG) Salicylates (3.0-30) mg/dl Urine Opiates Screen Neg (Neg) Ur Methadone, Qual Neg (Neg) Acetaminophen (10-30) ug/ml Urine Barbiturates Neg (Neg) Ur Phencyclidine (PCP) Neg (Neg) U Amphetamin/Meth Scrn Pos H (Neg) MDMA (Ecstasy) Screen Neg (Neg) U Benzodiazepines Scrn Pos H (Neg) Ur Cocaine Metabolite Neg (Neg) U Marijuana (THC) Screen Pos H (Neg) Ethyl Alcohol mg/dL (<10.0) mg/dl SARS-CoV-2, RNA, NAAT (NEGATIVE) Administered Medications Discontinued Medications Haloperidol Lactate (Haloperidol Lactate 5 Mg/Ml 1 Ml Vial) Confirm Administered Dose 10 mg .ROUTE .STK-MED ONE Stop: 11/08/21 08:04 Last Admin: 11/08/21 08:08 Dose: 10 mg Documented By: LETICIA Lorazepam (Lorazepam 2 Mg/2 Ml Syr) Confirm Administered Dose 2 mg .ROUTE .STK- MED ONE Stop: 11/08/21 08:04 Last Admin: 11/08/21 08:08 Dose: 2 mg Documented By: LETICIA Discharge Plan Visit Data Chief Complaint: Mental Health Evaluation Stated Complaint: MHID ED Provider: Mehnaz Greer Discharge Problem: Aleida Patient Disposition: Admitted As Inpatient Discharge Instructions Interventions: ED Discharge Assessment Last Done: 11/08/21 14:09
[2021-11-08] MEDS ORDERED: LORazepam 2 MG/2 ML SYR ONE (08:03)
[2021-11-08] MEDS ORDERED: HALOPERIDOL LACTATE 5 MG/ML 1 ML VIAL ONE (08:03)
[2021-11-08 08:15] LABS: Basophils # (auto) 0.04 K/uL (0-0.2); Basophils % (auto) 0.3 %; Eosinophils # (auto) 0.01 K/uL (0-0.50); Eosinophils % (auto) 0.1 %; Hematocrit (blood only) 40.6 % (34.1-44.9); Hemoglobin 13.6 g/dl (12.0-16.0); Immature Granulocytes # (auto) 0.05 K/uL (0.00-0.02); Immature Granulocytes % (auto) 0.3 %; Lymphocytes # (auto) 1.78 K/uL (1.2-3.4); Lymphocytes % (auto) 11.8 %; Mean Corpuscular Hemoglobin 28.9 pg (25.0-34.0); Mean Corpuscular Hgb Conc 33.5 g/dL (32.0-36.0); Mean Corpuscular Volume 86.2 fL (80.0-100.0); Mean Platelet Volume 9.2 fL (9.4-12.3); Monocytes # (auto) 1.37 K/uL (0.24-0.82); Monocytes % (auto) 9.1 %; Neutrophils # (auto) 11.88 K/uL (1.4-6.5); Neutrophils % (auto) 78.4 %; Platelet Count 324 K/uL (130-400); RDW Standard Deviation 40.4 fL (36.4-46.3); Red Blood Count 4.71 M/uL (3.93-5.22); White Blood Count 15.13 K/ul (4.8-10.8)
[2021-11-08 08:32] LABS: Acetaminophen < 3 ug/ml (10-30); Salicylate < 3.0 mg/dl (3.0-30)
[2021-11-08 08:33] LABS: Alanine Aminotransferase 12 U/L (7-52); Albumin Globulin Ratio 1.9 (0.9-2); Albumin Level 4.8 gm/dl (3.4-5.0); Alkaline Phosphatase 24 U/L (34-104); Anion Gap 11 (3-11); Aspartate Aminotransferase 19 U/L (13-39); BUN Creatinine Ratio 14.5 (10-20); Bilirubin,Total 0.8 mg/dl (0.2-1.0); Blood Urea Nitrogen 11 mg/dl (6-23); Calcium 9.9 mg/dl (8.5-10.1); Carbon Dioxide 21 mmol/L (21-32); Chloride 110 mmol/L (98-107); Est GFR (African American) 122.9 ml/min; Globulin 2.5 gm/dl (2.5-4.0); Glucose 112 mg/dl (70-99(Fasting)); Potassium 3.9 mmol/L (3.5-5.1); Sodium 142 mmol/L (136-145); Total Protein 7.3 gm/dl (6.0-8.3)
[2021-11-08 11:39] LABS: Appearance Urine Turbid (Clear); Bacteria Urine Automated 1+ (Negative); Bilirubin Urine Negative (Negative); Blood Urine Negative (Negative); Color Urine Yellow; Epithelial Cell Urine Auto >30 /lpf (0-5); Glucose Urine UA Negative (Negative); Ketones Urine 2+ (Negative); Leukocyte Esterase Urine 1+ (Negative); Nitrite Urine Negative (Negative); Protein Urine Negative (Negative); RBC Urine Automated 0-4 /hpf (0-4); Specific Gravity Urine 1.019 (1.000-1.030); Urobilinogen Urine Negative (Negative); pH Urine 5.5 (4.5-7.5)
[2021-11-08 12:09] LABS: Amphetamines+Metham, Urine Pos (Neg); Barbiturates, Urine Neg (Neg); Benzodiazepine, Urine Pos (Neg); Cocaine, Urine Neg (Neg); MDMA (Ecstacy), Urine Neg (Neg); Methadone, Urine Neg (Neg); Opiate, Urine Neg (Neg); Phencyclidine, Urine Neg (Neg)
[2021-11-08] MEDS ORDERED: OLANZapine 5 MG TABLET PO PRN (15:35)
[2021-11-08] MEDS ORDERED: LORazepam 0.5 MG TAB PO PRN (15:35)
[2021-11-08] MEDS ORDERED: OLANZapine 10 MG/2.1 ML SDV IM PRN (15:35)
[2021-11-08] MEDS ORDERED: Flu Vaccine (Fluarix) 0.5mL SYR (Standard Dose) IM ONE (19:00)
--- NOTE | 2021-11-09 08:25 | History & Physical ---
Date of Service November 09, 2021 Impression / Recommendations Impression 31 yo woman with a history of BPAD presenting with acute aleida in the context of no recent psychiatric medication and worsening sleep, disorganization, impulsivity, irritability and risk taking behaviors over the last few weeks. Her initial screening UDS was positive for amphetamine/methamphetamine so possibility of substance-induced presentation but aleida felt to be more likely with increased impulsivity and risk taking potentially leading to substance use in recent days as she has no known history of substance use besides marijuana. The patient is deemed unstable and requires psychiatric hospitalization for diagnostic clarification, safety and stabilization, medication management and development of further coping skills. She is on a 302 commitment. Discussed medication treatment options in detail including antipsychotics, Paukaa, ativan. Discussed risks, benefits and alternatives. Patient would like to start and consented to Paukaa for mood stabilization. She declines any other medications. Reviewed side effects including but not limited to: dehydration, renal, thyroid, cardiac, drug interactions (NSAIDs, ACEIs, angiotensin receptor antagonists, and risks. Baseline labs of thyroid function, kidney function, weight, electrolytes, LFTs, CBC, and UA were preformed and WNL with exception of elevated WBC and slightly elevated chloride but felt by ED provider to be medically stable and not of acute concern. MNPR due to acute aleida with intrusiveness and poor boundaries with peers, and lack of sleep and disruptive activities (1) Aleida: (2) Bipolar disorder: Active/Remission status: currently active Current bipolar episode type: manic Current episode severity: severe Psychotic features: with psychotic features Qualified Code(s): F31.2 - Bipolar disorder, current episode manic severe with psychotic features (3) Hypothyroidism: (4) Eliza's disease: Plan 11/09/21: The patient was admitted to the [facility] ([facility] mental health unit) on q15 min checks (behavioral with suicide precautions) for safety. The patient will participate in group, recreational, and milieu therapies and will be offered additional individual and family sessions as clinically appropriate. -Start Paukaa carbonate 300mg BID -Zyprexa and ativan prn for agitation -Continue prior to admission [facility] thyroid, she prefers this to synthroid Inventory Assets Strengths: supportive relationships, employed, housing, intelligent Needs: safety and stabilization, medication adjustment, additional coping skills, increased outpatient services Suicide Risk Level Suicide Risk Level: Low (q15 min observation checks) Suicide Risk Level Comments: Presents with acute aleida, consistently denying SI. 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 Chief Complaint "What are you writing, I need a copy of that, I need to see that!". History of Present Illness Divine presents for psychiatric admission for worsening sleep, risk taking behaviors, and behavioral disorganization concerning for acute aleida. Overnight she was awake, dancing in the hallways, touching other peers on the unit, moved her mattress onto the floor, singing music loudly, attempting to pull on the doors of the unit, tied a hospital sock around her head as a headband and refused ordered medication of olanzapine at [facility]. Today she reports 1.5 years of mood stability on no psychiatric medications which she credits to a diet of "meat, fish and fruit" and feels things changed in the last few days due to a murder in the community that she feels was not adequately covered by the local news media, inability to sleep due to her responsibilities helping to care for her mother/busy schedule, and argument after her brother came to stay in their home and brought his cellphone into her study/office which she reports is an "electronic free zone" and he was not respecting these rules. She feels her is here due to "in media res" which she clarifies for me is Latin for "in the middle of things" and due to "helping with my mom's sacred detox". She has bruises all over her arms and legs of various stages of healing but is not sure where they came from noting "I cannot account for where they all came from" but she wonders if some occurred from needing to be put into handcuffs to be brought by police/EMS to the ED and from requiring IM medication in the ED on arrival. Today she reports her mood is "5/10" and denies any psychiatric symptoms and disagrees with a potential diagnosis of aleida. She is intermittently irritable during the interview, especially when discussing symptoms of acute aleida and suspiciousness about my note taking including standing over me and invading my personal space in an attempt to see my notes. Further history and collateral per manager engine notes from 11/08/21: "EMS worker brought patient to ED reporting patient is clearly experiencing a manic episode, has not slept in 2 days and has not been eating as she should, nor taken her medication. This morning police were called to the home because of patients odd behaviors. Officer Antonio reports patient lives with her Mom and the Mom called the police due to an argument and patients mental health. The Officer reports there are blankets and food on the front porch as if patient is sleeping/living there. Yesterday, patient was scheduled to work, however, she showed up for the wrong shift and was dressed like [place], the leida character from [employer]. [...] Spoke with Devyn (patient's brother) and he reports he has noticed this maniabuilding up for the past few months, exhibiting very odd and risky behaviors. Patient is not taking her medication, does not have a known drug history and has not mentioned anything about wanting to hurt herself or anyone else. Patient has not slept in 3 days, according to patients Mom who was talking in the back ground during this conversation. Zoey tovar brother believes patients decision making is impaired and she has been associating with homeless people and taking them to work with her. This morning, patient took her Moms motorized wheelchair out of her Moms room along with the cell phone and hid it. It is unknown why patient did this, but it is important for patients Mom to be able to move about the home as she is unable to do so without her chair." She is not currently prescribed any psychiatric medications. Further psychiatric ROS and history limited by her irritability and mood lability. Past Psychiatric History Current Psychiatric Diagnosis: Bipolar Disorder Outpatient Services: none currently Previous Psych Admissions: [facility] June to July 2019 Do You Have Access To A Gun?: No History of Previous Suicide Attempt: No Past Medication Trials: Paukaa, Abilify, possibly haldol at one point? Past Head Trauma/Neuro History History of Concussion/Seizure: No Allergies Allergy/AdvReac Type Severity Reaction Status Date / Time amoxicillin Allergy Intermediate RASH Verified 09/30/21 09:34 Bactrim Allergy Intermediate HIVES Verified 08/02/14 21:30 prednisone Allergy Intermediate PSYCH Verified 09/30/21 09:34 SYMPTOMS (MANIC) sulfamethoxazole Allergy Intermediate HIVES Verified 09/30/21 09:34 trimethoprim Allergy Intermediate HIVES Verified 09/30/21 09:34 clindamycin Allergy Verified 09/30/21 09:34 Sulfa (Sulfonamide Allergy Verified 09/30/21 09:34 Antibiotics) Home Medications Medication Instructions Recorded Confirmed Type thyroid (pork) 90 mg tablet 90 mg PO DAILY #90 tabs 07/29/21 09/30/21 Rx ([facility] Thyroid) thyroid (pork) 15 mg tablet 15 mg PO DAILY #90 tabs 09/30/21 09/30/21 Rx ([facility] Thyroid) Family History Family History of: Doesn't Know Alcohol History Hx of Alcohol Use Over the Past 12 Months: Yes (Occasional) Smoking Use Have You Smoked or Used Tobacco Products in the Last 30 Days: No tobacco type: cigarettes Smoking Status: Unknown if ever smoked Substance History Hx of Prescription Med Misuse Over the Past 12 Months: No Hx of Over the Counter Med Misuse Over the Past 12 Months: No Hx of Inhalent Misuse Over the Past 12 Months: No Hx of Organic Substance Use Over the Past 12 Months: Yes (Occasional, UDS +) Hx of Illegal Substances/Street Drug Use Over Past 12 Months: Yes (UDS + Meth) Problems as a Result of Past Substance Use: None Identified she declines to discuss this stating "I'd prefer not to say" but does confirm recent marijuana use a few days ago and prior to that had not used it in 6 months Personal History Living Arrangements: Home Childhood: Grew up in [place], her father in 2016, she has two older brothers Highest Grade Completed: College (BA in Mongolian) 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[employer]) Marital Status: Single Number Of Children: 0 Current Legal Problems: No Hx Legal Problems: Yes (she prefers not to discuss) Hx Traumatic Life Events: Yes (unable to fully assess but she reports vicarious trauma community murder) Patient History Medical History Bipolar disorder (08/02/12) Eliza's disease Hypokalemia Manic behavior Surgical History H/O oral surgery Family History Brother ADHD (attention deficit hyperactivity disorder) Drug dependence Father Alcoholism Coronary heart disease Myocardial infarction Grandmother (Maternal) Bipolar disorder Depression Mother Multiple sclerosis Uncle Colorectal cancer Denies family history of Ovarian cancer Prostate cancer Breast cancer Social History Smoking Status: Unknown if ever smoked Hx Alcohol Use: Yes Hx Substance Use: No Preferred Language: Mongolian Communication Ability: Effective 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 Feels Safe at Home: Yes Assistive Devices: None Review of Systems Review of Systems: All systems reviewed & are unremarkable except as noted in HPI & below (bruises across arms and legs bilaterally, she denies pain from this) Physical Exam Psychiatric: Orientation: alert and oriented x 3 Apperance: appropriately groomed; + inappropriately dressed (wearing sock in her hair) Eye Contact: good eye contact (intense) Motor Behavior: no abnormal motor movements Speech: + pressured speech and + loud speech Affect: + labile affect and + irritable affect Mood: + irritable mood Thought Process: + circumstantial thought process and + flight of ideas Thought Content: + preoccupation (some hyperreligious statements intermittently ) and + paranoid (increased suspiciousness ) Suicidal Thoughts: denies suicidal thoughts Homicidal Thoughts: denies homicidal thoughts Hallucinations: no auditory hallucinations and no visual hallucinations Cognition: language grossly intact; + attention not intact Estimated Intelligence: consistent with education level Insight: + impaired insight Judgement: + impaired judgement Vital Signs (Past 24 Hours): Last Vital Signs Temp 36.9 C 11/08/21 07:13 Pulse 135 H 11/08/21 07:13 Resp 20 11/08/21 07:13 BP 138/81 11/08/21 07:13 Pulse Ox 97 11/08/21 07:13 O2 Del Method 11/08/21 07:13 Exam Statement: A physical exam was performed in the ED by Dr. Greer for the purposes of medical clearance. I accept that physical as correct and adequate for the purposes of the inpatient physical exam. Results & Data ([facility]) Laboratory Results Laboratory Results - last 24 hr 11/08/21 11/08/21 11/08/21 07:57 07:57 07:57 Sodium 142 Potassium 3.9 Chloride 110 H Carbon Dioxide 21 Anion Gap 11 BUN 11 Creatinine 0.76 Est Cr Clr Drug Dosing Not Reportable Est GFR ( Amer) 122.9 Est GFR (Non-Af Amer) 106.0 BUN/Creatinine Ratio 14.5 Glucose 112 H Calcium 9.9 Total Bilirubin 0.8 AST 19 ALT 12 Alkaline Phosphatase 24 L Total Protein 7.3 Albumin 4.8 Globulin 2.5 Albumin/Globulin Ratio 1.9 TSH 3.051 Urine Color Urine Appearance Urine pH Ur Specific Jensen Urine Protein Urine Glucose (UA) Urine Ketones Urine Blood Urine Nitrite Urine Bilirubin Urine Urobilinogen Ur Leukocyte Esterase Urine WBC (Auto) Urine RBC (Auto) U Hyaline Cast (Auto) U Epithel Cells (Auto) Urine Bacteria (Auto) POC Ur Test Salicylates < 3.0 L Urine Opiates Screen Ur Methadone, Qual Acetaminophen < 3 L Urine Barbiturates Ur Phencyclidine (PCP) U Amphetamines Confirm U Amphetamin/Meth Scrn U Methamphetamin Confrm MDMA (Ecstasy) Screen U OH-Alprazolam Confrm U Benzodiazepines Scrn 7-Amino Clonazepam Ur Nordiazepam Confirm U OH-ethylflurazepam U Lorazepam Cnf GC/MS U Oxazepam Confm GC/MS Ur Temazepam Confirm U OH-Triazolam Confirm U OH-Midazolam Confirm Ur Cocaine Metabolite U Marijuana (THC) Screen U Marijuana THC Carboxy Drug Screen Comment Ethyl Alcohol mg/dL SARS-CoV-2, RNA, NAAT 11/08/21 11/08/21 11/08/21 07:57 09:45 11:15 Sodium Potassium Chloride Carbon Dioxide Anion Gap BUN Creatinine Est Cr Clr Drug Dosing Est GFR ( Amer) Est GFR (Non-Af Amer) BUN/Creatinine Ratio Glucose Calcium Total Bilirubin AST ALT Alkaline Phosphatase Total Protein Albumin Globulin Albumin/Globulin Ratio TSH Urine Color Yellow Urine Appearance Turbid A Urine pH 5.5 Ur Specific Jensen 1.019 Urine Protein Negative Urine Glucose (UA) Negative Urine Ketones 2+ H Urine Blood Negative Urine Nitrite Negative Urine Bilirubin Negative Urine Urobilinogen Negative Ur Leukocyte Esterase 1+ H Urine WBC (Auto) 5-10 H Urine RBC (Auto) 0-4 U Hyaline Cast (Auto) 1-5 U Epithel Cells (Auto) >30 H Urine Bacteria (Auto) 1+ H POC Ur Test Salicylates Urine Opiates Screen Ur Methadone, Qual Acetaminophen Urine Barbiturates Ur Phencyclidine (PCP) U Amphetamines Confirm U Amphetamin/Meth Scrn U Methamphetamin Confrm MDMA (Ecstasy) Screen U OH-Alprazolam Confrm U Benzodiazepines Scrn 7-Amino Clonazepam Ur Nordiazepam Confirm U OH-ethylflurazepam U Lorazepam Cnf GC/MS U Oxazepam Confm GC/MS Ur Temazepam Confirm U OH-Triazolam Confirm U OH-Midazolam Confirm Ur Cocaine Metabolite U Marijuana (THC) Screen U Marijuana THC Carboxy Drug Screen Comment Ethyl Alcohol mg/dL < 10.0 SARS-CoV-2, RNA, NAAT NEGATIVE 11/08/21 11/08/21 11/08/21 11:15 11:15 11:15 Sodium Potassium Chloride Carbon Dioxide Anion Gap BUN Creatinine Est Cr Clr Drug Dosing Est GFR ( Amer) Est GFR (Non-Af Amer) BUN/Creatinine Ratio Glucose Calcium Total Bilirubin AST ALT Alkaline Phosphatase Total Protein Albumin Globulin Albumin/Globulin Ratio TSH Urine Color Urine Appearance Urine pH Ur Specific Jensen Urine Protein Urine Glucose (UA) Urine Ketones Urine Blood Urine Nitrite Urine Bilirubin Urine Urobilinogen Ur Leukocyte Esterase Urine WBC (Auto) Urine RBC (Auto) U Hyaline Cast (Auto) U Epithel Cells (Auto) Urine Bacteria (Auto) POC Ur Test NEG Salicylates Urine Opiates Screen Neg Ur Methadone, Qual Neg Acetaminophen Urine Barbiturates Neg Ur Phencyclidine (PCP) Neg U Amphetamines Confirm Pending U Amphetamin/Meth Scrn Pos H U Methamphetamin Confrm Pending MDMA (Ecstasy) Screen Neg U OH-Alprazolam Confrm Pending U Benzodiazepines Scrn Pos H 7-Amino Clonazepam Pending Ur Nordiazepam Confirm Pending U OH-ethylflurazepam Pending U Lorazepam Cnf GC/MS Pending U Oxazepam Confm GC/MS Pending Ur Temazepam Confirm Pending U OH-Triazolam Confirm Pending U OH-Midazolam Confirm Pending Ur Cocaine Metabolite Neg U Marijuana (THC) Screen Pos H U Marijuana THC Carboxy Pending Drug Screen Comment Pending Ethyl Alcohol mg/dL SARS-CoV-2, RNA, NAAT Current Inpatient Medications Current Inpatient Medications: Current Inpatient Medications Lorazepam (Lorazepam 0.5 Mg Tab) 0.5 mg PO TID PRN PRN Reason: Anxiety/Agitation Stop: 12/08/21 15:34 Olanzapine (Olanzapine 5 Mg Tablet) 5 mg PO BID PRN PRN Reason: Anxiety/Agitation Stop: 12/08/21 20:59 Olanzapine (Olanzapine 10 Mg/2.1 Ml Sdv) 10 mg IM BID PRN PRN Reason: Agitation Stop: 12/08/21 20:59
[2021-11-09] MEDS ORDERED: ARMOUR THYROID 30 MG TAB PO SCH (11:15)
[2021-11-09] MEDS: LITHIUM CARBONATE 300 MG TAB PO SCH ×2 (11:43→20:47)
[2021-11-09] MEDS: ARMOUR THYROID 30 MG TAB PO SCH (14:52)
[2021-11-10] MEDS: ARMOUR THYROID 30 MG TAB PO SCH (07:09)
[2021-11-10] MEDS: LITHIUM CARBONATE 300 MG TAB PO SCH ×2 (08:05→20:59)
--- NOTE | 2021-11-10 09:12 | Communication Note ---
Date of Service: November 10, 2021 Seclusion/Restraint/Emergency Medication Note Date: 11/10/2021 Patient assessed for imminent danger of harm to self/others. Description of events leading to Psychiatric Emergency Intervention: Patient entered the staff room where rounds were occurring and grabbed for a social workers keys and tried to grab at other objects on the table. Physical restraint began at 9am when staff had to put hands on to remove her into the hallway. She then responded briefly to verbal de-escalation before then beginning to kick and scratch staff again and was brought to the seclusion room. She continued to shout and kick and required IM olanzapine. She then defecated in the seclusion room. Mental Status Exam: Intense eye contact, posturing, loud shouting voice, tangential thought content, paranoid delusions, angry mood, angry affect, very impaired insight and very imparied judgment. Impression: Acute psychiatric emergency intervention was necessary to reduce the patient's imminent risk of harm to others/themself. Rationale for this seclusion/restraint order: refer to seclusion/restraint order Emergency Medication administered: olanzapine 10mg IM Rationale for emergency medications (if administered): refer to seclusion/restraint order Patient response: Shouting, yelling, after IM olanzapine laid down on the mattress in seclusion. Singing intermittently. Plan: Continue to closely monitor patient as per seclusion/restraint criteria. No evidence of any physical harm, decompensation nor physical complaints. - Intervention initiated at: refer to seclusion/restraint order - Emergency meds (if administered): olanzapine 10mg IM -Debriefing occurred at: 9:15am Adina Aguilar MD
[2021-11-10] MEDS ORDERED: HALOPERIDOL LACTATE 5 MG/ML 1 ML VIAL IM PRN (11:23)
[2021-11-10] MEDS ORDERED: LORazepam 2 MG/2 ML SYR IM PRN (11:23)
[2021-11-10] MEDS ORDERED: LORazepam 1 MG TAB PO PRN (11:23)
[2021-11-10] MEDS ORDERED: haloperidoL 5 MG TAB PO PRN (11:23)
[2021-11-10] MEDS: haloperidoL 5 MG TAB PO PRN (11:40)
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
--- NOTE | 2021-11-10 13:23 | Communication Note ---
Date of Service: November 10, 2021 Seclusion/Restraint/Emergency Medication Note Date: 11/10/2021 At 1300 patient reassessed to determine if she required ongoing need for seclusion. At 1300 she presented as calm, lying on the mattress with snacks and water next to her. She awoke when the seclusion door was opened and was informed by RN of plan for 303 hearing at 1430 today. She remained calm and in behavioral control. No evidence of any physical harm, decompensation nor physical complaints. Mental Status Exam: lying on mattress, eyes closed, thought process concrete, no psychomotor agitation, speech is normal volume and rate, no evidence of EPS, she was observed to stand with normal gait and balance as she walked to the bathroom. Impression: Re-assessment of need for seclusion at 1300 and felt that seclusion is no longer required as patient is now in behavioral control. Seclusion discontinued and door opened. Patient used bathroom and then decided to return to open seclusion room to nap further, door remains unlocked and open as she wishes to use it as a quiet room and knows she can return to her assigned room at any point should she desire this. -Seclusion discontinued at 1300. Adina Aguilar MD
--- NOTE | 2021-11-10 15:42 | Communication Note ---
Date of Service: November 10, 2021 2nd opinion consultation: Patient is a 31 yo female with a history of bipolar aleida, previous inpatient admit, recent non compliance with lithium but still corrected on [place] thyroid (TSH nl, hx of T3 elevation), urine tox positive for amphetamines (likely recent meth use with a homeless partner as a risk taking behavior). Was admit on 302 following emergency medication for agitation in the emergency department. Initially resistant but agreeing to restart lithium only. Today she became acutely agitated and aggressive toward staff, required IM Zyprexa with minimal benefit and was smearing feces on the wall of the seclusion room. She did ultimately accept oral Haldol and Ativan and is now sleeping soundly. Case reviewed with Dr. Aguilar and unit staff. When I attempted to see her, she had barricaded her door with the extra bed in the room. Staff removed bed for safety due to unpredictable behavior. 303 granted this afternoon. The patient is clearly a danger to herself and others due to her acute aleida. She is in need of additional medications pending therapeutic dose of lithium which she has been resistant to. There is significant risk of or serious disability in the next 30 days without the care she is receiving here and given repeated requirement for IM medication, active agitation with aggression toward staff, risks associated with smearing feces (biocontaminant) and active paranoia in form of barricading door, medications over objection are medically necessary if she refuses scheduled doses of mood stabilizing/antipsychotic/benzodiazepine medications as prescribed by Dr. Aguilar. consider full thyroid panel when able to comply and perhaps holding thyroid suppl given acute aleida consider standing benzo given presumed meth exposure Haldol seems more effective than Zyprexa thus far but defer to Dr. Aguilar.
[2021-11-10] MEDS: haloperidoL 5 MG TAB PO SCH (16:52)
[2021-11-10] MEDS: LORazepam 1 MG TAB PO SCH (16:53)
[2021-11-11] MEDS: ARMOUR THYROID 30 MG TAB PO SCH (06:04)
[2021-11-11] MEDS: LORazepam 1 MG TAB PO SCH ×2 (07:34→15:54)
[2021-11-11] MEDS: haloperidoL 5 MG TAB PO SCH ×2 (07:34→15:53)
[2021-11-11] MEDS ORDERED: HALOPERIDOL LACTATE 5 MG/ML 1 ML VIAL IM SCH ×2 (08:00→16:00)
[2021-11-11] MEDS ORDERED: LORazepam 2 MG/2 ML SYR IM SCH ×2 (08:00→16:00)
[2021-11-11] MEDS: LITHIUM CARBONATE 300 MG TAB PO SCH ×2 (08:46→20:11)
[2021-11-11 10:51] LABS: 7-Aminoclonaz, Confirm NEGATIVE ng/mL (<25); Amphetamine Urine, Confirm 665 ng/mL (<250); Hydro-Alp Ur, GC/MS NEGATIVE ng/mL (<25); Hydroxyethylflurazepam, Conf NEGATIVE ng/mL (<50); Hydroxymidazolam Ur, GC/MS >2000 ng/mL (<50); Hydroxytriazolam NEGATIVE ng/mL (<50); Lorazepam, Ur GC/MS 568 ng/mL (<50); Marijuana Quant, GCMS Urine 24 ng/mL (<5); Methamphetamine, Ur Confirm 1170 ng/mL (<250); Nordiazepam, Confirm NEGATIVE ng/mL (<50); Oxazepam Ur, GC/MS NEGATIVE ng/mL (<50); Temazepam, Confirm NEGATIVE ng/mL (<50)
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
[2021-11-11] MEDS ORDERED: BISMUTH SUBSALICYLATE LIQD 236 ML PO PRN (11:22)
[2021-11-11] MEDS ORDERED: ACETAMINOPHEN 325 MG TAB PO PRN (11:22)
[2021-11-11] MEDS ORDERED: LORazepam 2 MG/2 ML SYR IM PRN ×2 (11:22)
[2021-11-11] MEDS ORDERED: MAGNESIUM HYDROXIDE SUSP 30 ML UDC PO PRN (11:22)
[2021-11-11] MEDS ORDERED: LORazepam 1 MG TAB PO PRN (11:22)
[2021-11-11] MEDS ORDERED: SODIUM CHLORIDE 0.65% NA SOLN 45 ML (OCEAN) PRN (11:22)
[2021-11-11] MEDS ORDERED: HALOPERIDOL LACTATE 5 MG/ML 1 ML VIAL IM PRN (11:22)
[2021-11-11] MEDS ORDERED: ALUMINUM/MAGNESIUM SUSP 30 ML UDC PO PRN (11:22)
--- NOTE | 2021-11-11 15:57 | Electrocardiogram Report ---
Test Reason : Blood Pressure : / mmHG Vent. Rate : 115 BPM Atrial Rate : 115 BPM P-R Int : 150 ms QRS Dur : 074 ms QT Int : 312 ms P-R-T Axes : 063 075 049 degrees QTc Int : 431 ms Sinus tachycardia Otherwise normal ECG When compared with ECG of 05-JUL-2019 14:06, Nonspecific T wave abnormality no longer evident in Anterior leads Confirmed by Best Ferrara ([id number]) on 11/11/2021 3:57:18 PM Referred By: REFERRED SELF Confirmed By:Eric Ferrraa
[2021-11-11] MEDS ORDERED: LORazepam 1 MG TAB PO SCH (16:00)
[2021-11-11] MEDS ORDERED: haloperidoL 5 MG TAB PO SCH (16:00)
[2021-11-11] MEDS: haloperidoL 5 MG TAB PO PRN (18:52)
[2021-11-12] MEDS: ARMOUR THYROID 30 MG TAB PO SCH (06:35)
[2021-11-12] MEDS: LITHIUM CARBONATE 300 MG TAB PO SCH ×2 (08:28→21:32)
[2021-11-12 08:54] LABS: Chol HDL Ratio 2.7 (0-5)
[2021-11-12] MEDS: LORazepam 2 MG/2 ML SYR IM PRN ×2 (09:11→16:59)
[2021-11-12] MEDS: HALOPERIDOL LACTATE 5 MG/ML 1 ML VIAL IM PRN ×2 (09:16→16:59)
[2021-11-12] MEDS: LORazepam 1 MG TAB PO SCH ×2 (09:18→17:07)
[2021-11-12] MEDS: haloperidoL 5 MG TAB PO SCH ×2 (09:18→17:07)
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
[2021-11-13] MEDS: ARMOUR THYROID 30 MG TAB PO SCH (05:57)
[2021-11-13] MEDS: LITHIUM CARBONATE 300 MG TAB PO SCH ×2 (08:30→21:07)
[2021-11-13] MEDS: haloperidoL 5 MG TAB PO SCH ×2 (08:56→15:31)
[2021-11-13] MEDS: LORazepam 1 MG TAB PO SCH ×2 (08:57→15:31)
--- NOTE | 2021-11-13 17:14 | Psychiatric Progress Note ---
Date of Service November 13, 2021 Impression / Recommendations Impression 31 yo woman with a history of BPAD presenting with acute laeida in the context of no recent psychiatric medication and worsening sleep, disorganization, impulsivity, irritability and risk taking behaviors over the last few weeks. Her initial screening UDS was positive for amphetamine/methamphetamine so possibility of substance-induced presentation but aleida felt to be more likely with increased impulsivity and risk taking potentially leading to substance use in recent days as she has no known history of substance use besides marijuana. The patient is deemed unstable and requires psychiatric hospitalization for diagnostic clarification, safety and stabilization, medication management and development of further coping skills. As of 11/10/21 she is on a 303 commitment. MNPR due to acute aleida with intrusiveness and poor boundaries with peers, and lack of sleep and disruptive activities 11/13/21: Ongoing acute aleida, less aggression with haldol and ativan. Li level tomorrow AM. (1) Aleida: (2) Bipolar disorder: (3) Hypothyroidism: (4) Eliza's disease: Plan 11/13/21: Li level in the morning. Continue other medications. 11/12/21: Reduce [place] thyroid to 90mg qd. Continue other medications. Will check Li level on 11/14/21 and then consider further titration. 11/11/21: Continue with current medications and tx plan. Fasting lipid panel and glucose and free T3/free T4 ordered for tomorrow morning. EKG done. She continues to refuse ROIs for family. 11/10/21: Now on 303 commitment. Required olanzapine 10mg IM as part of chemical restraint and then took haldol 5mg po and ativan 2mg po. Will begin medication over objection with haldol 5mg po or IM qAM & qevening and ativan 2mg po or IM qmorning and qevening. 11/09/21: The patient was admitted to the [facility] ([facility]) on q15 min checks (behavioral with suicide precautions) for safety. The patient will participate in group, recreational, and milieu therapies and will be offered additional individual and family sessions as clinically appropriate. -Start [place] carbonate 300mg BID -Zyprexa and ativan prn for agitation -Continue prior to admission [place] thyroid, she prefers this to synthroid Inventory Assets Strengths: supportive relationships, employed, housing, intelligent Needs: safety and stabilization, medication adjustment, additional coping skills, increased outpatient services Suicide Risk Level Suicide Risk Level: Low (q15 min observation checks) Suicide Risk Level Comments: Presents with acute aleida, consistently denying SI. Risk Factors Assessment : Yes Do You Have Access To A Gun?: No Health Problems: Yes Mental Health Diagnoses: Yes Previous Attempt: No Family History of Suicide: No Previous Psychiatric Hospitalization: Yes Hopelessness: No Protective Factors Assessment Hinduism Beliefs: Yes Employed: Yes ([employer]) Stable Relationships: Yes Supportive Family: Yes Interval History Identifying Information GIOVANNI EDMOND is a 31-year-old F who currently lives in [place] with her mother, has a history of BPAD, and was admitted on 11/08/21 14:17 on a 302 involuntary commitment for acute aleida. Chief Complaint "I'm very well, thanks for asking". Review of Systems Sleep Information Total Hours of Sleep: 7.25 Sleep Comments: pt on q-15 minute checks Meal Information Percent Meal Consumed - Breakfast: 100 Percent Meal Consumed - Lunch: 100 Percent Meal Consumed - Dinner: 20 Nutrition Comment: pt. declines snacks/lunch. Fluids offered and accepted. Subjective Subjective Patient was seen & assessed and interval progress reviewed with treatment team nursing and social work. Accepted po medication today. Slightly more redirectable able to tolerate an exercise group today otherwise excused from all groups. Continues to be intrusive with peers at times, making multiple outfit changes per day and pushing on the doors at times. Denies any side effects from the medication except "high activity" which she describes as having a hard time sitting still. Assessed for sense of akathisia which she denies and she is observed to sit comfortably and denies any internal restlessness conversation. After agreeing to a lithium level tomorrow morning she today is asking to push this head another day telling me "well it will not be a true 5-day level because I spit out some of my doses" and goes on to tell me that she may have spit out some doses on Tuesday or Tuesday of her lithium. We reviewed that a level tomorrow will help us determine if further dose adjustment can safely occur and she states "well you know my kidneys are my weakest organ". Physical Exam Psychiatric Orientation: alert and oriented x 3 Apperance: appropriately groomed Eye Contact: good eye contact (intense) Motor Behavior: no abnormal motor movements Speech: + loud speech; + abnormal rate/rhythm/volume of speech Affect: + labile affect Mood: + irritable mood Thought Process: + circumstantial thought process and + looseness of associations Thought Content: + preoccupation, + paranoid and + delusions Suicidal Thoughts: denies suicidal thoughts Homicidal Thoughts: denies homicidal thoughts Hallucinations: no auditory hallucinations and no visual hallucinations Cognition: language grossly intact; + attention not intact Estimated Intelligence: consistent with education level Insight: + severely impaired insight Judgement: + severely impaired judgement Vital Signs (Past 24 Hours) Last Vital Signs Temp 37.0 C 11/13/21 06:27 Pulse 115 H 11/13/21 06:27 Resp 20 11/13/21 06:27 BP 122/86 11/13/21 06:29 Pulse Ox 97 11/08/21 07:13 O2 Del Method 11/08/21 07:13 Results & Data ([facility]) Current Inpatient Medications Current Inpatient Medications: Current Inpatient Medications Acetaminophen (Acetaminophen 325 Mg Tab) 650 mg PO Q4H PRN PRN Reason: Headache or Minor Fever Stop: 12/11/21 11:21 Al Hydrox/Mg Hydrox/Simethicone (Aluminum/Magnesium Susp 30 Ml Udc) 30 ml PO Q4H PRN PRN Reason: GI Upset Stop: 12/11/21 11:21 Bismuth Subsalicylate (Bismuth Subsalicylate Liqd 236 Ml) 15 ml PO PRN PRN PRN Reason: Loose Stool Stop: 12/11/21 11:21 Haloperidol (Haloperidol 5 Mg Tab) 5 mg PO BID PRN PRN Reason: agitation Stop: 12/10/21 11:22 Last Admin: 11/11/21 18:52 Dose: 5 mg Haloperidol (Haloperidol 5 Mg Tab) 5 mg PO QD@08 [facility] Stop: 12/11/21 07:59 Last Admin: 11/13/21 08:56 Dose: 5 mg Haloperidol (Haloperidol 5 Mg Tab) 5 mg PO QD@16 [facility] Stop: 12/10/21 16:34 Last Admin: 11/13/21 15:31 Dose: 5 mg Haloperidol Lactate (Haloperidol Lactate 5 Mg/Ml 1 Ml Vial) 5 mg IM BID PRN PRN Reason: agitation Stop: 12/10/21 11:22 Haloperidol Lactate (Haloperidol Lactate 5 Mg/Ml 1 Ml Vial) 5 mg IM QD@08 PRN PRN Reason: if refuses po Stop: 12/11/21 07:59 Last Admin: 11/12/21 16:59 Dose: 5 mg Haloperidol Lactate (Haloperidol Lactate 5 Mg/Ml 1 Ml Vial) 5 mg IM QD@16 PRN PRN Reason: if refuses po Stop: 12/11/21 15:59 Cu[place] Carbonate ([place] Carbonate 300 Mg Tab) 300 mg PO BID KOFI Stop: 12/09/21 11:14 Last Admin: 11/13/21 08:30 Dose: 300 mg Lorazepam (Lorazepam 1 Mg Tab) 2 mg PO QD@08 [facility] Stop: 12/11/21 07:59 Last Admin: 11/13/21 08:57 Dose: 2 mg Lorazepam (Lorazepam 1 Mg Tab) 2 mg PO QD@16 [facility] Stop: 12/10/21 16:34 Last Admin: 11/13/21 15:31 Dose: 2 mg Lorazepam (Lorazepam 1 Mg Tab) 2 mg PO BID PRN PRN Reason: Anxiety/Agitation Stop: 12/10/21 11:22 Last Admin: 11/11/21 18:52 Dose: 2 mg Lorazepam (Lorazepam 2 Mg/2 Ml Syr) 2 mg IM BID PRN PRN Reason: Agitation/Refuses PO Stop: 12/12/21 08:38 Last Admin: 11/12/21 16:59 Dose: 2 mg Magnesium Hydroxide (Magnesium Hydroxide Susp 30 Ml Udc) 30 ml PO DAILY PRN PRN Reason: Constipation Stop: 12/11/21 11:21 Sodium Chloride (Sodium Chloride 0.65% Na Soln 45 Ml ([place])) 1 - 2 sprays NA PRN PRN PRN Reason: Nasal Dryness/Congestion Stop: 12/11/21 11:21 Thyroid ([place] Thyroid 30 Mg Tab) 90 mg PO DAILY@0700 [facility] Stop: 12/13/21 06:59 Last Admin: 11/13/21 05:57 Dose: 90 mg (1) Bipolar disorder Active/Remission status: currently active Current bipolar episode type: manic Current episode severity: severe Psychotic features: with psychotic features Qualified Code(s): F31.2 - Bipolar disorder, current episode manic severe with psychotic features
[2021-11-14] MEDS: ARMOUR THYROID 30 MG TAB PO SCH (06:41)
[2021-11-14] MEDS: LORazepam 1 MG TAB PO SCH ×2 (08:38→15:50)
[2021-11-14] MEDS: LITHIUM CARBONATE 300 MG TAB PO SCH ×2 (08:38→21:04)
[2021-11-14] MEDS: haloperidoL 5 MG TAB PO SCH ×2 (08:38→15:50)
--- NOTE | 2021-11-14 09:01 | Psychiatric Progress Note ---
Date of Service November 14, 2021 Impression / Recommendations Impression 31 yo woman with a history of BPAD presenting with acute aleida in the context of no recent psychiatric medication and worsening sleep, disorganization, impulsivity, irritability and risk taking behaviors over the last few weeks. Her initial screening UDS was positive for amphetamine/methamphetamine so possibility of substance-induced presentation but aleida felt to be more likely with increased impulsivity and risk taking potentially leading to substance use in recent days as she has no known history of substance use besides marijuana. The patient is deemed unstable and requires psychiatric hospitalization for diagnostic clarification, safety and stabilization, medication management and development of further coping skills. As of 11/10/21 she is on a 303 commitment. MNPR due to acute aleida with intrusiveness and poor boundaries with peers, and lack of sleep and disruptive activities 11/14/21: Ongoing acute aleida, subtherapeutic on lithium (1) Aleida: (2) Bipolar disorder: (3) Hypothyroidism: (4) Eliza's disease: Plan 11/14/21: hold [place] thyroid, titrate lithium to 600 mg BID. 11/13/21: Li level in the morning. Continue other medications. 11/12/21: Reduce [place] thyroid to 90mg qd. Continue other medications. Will check Li level on 11/14/21 and then consider further titration. 11/11/21: Continue with current medications and tx plan. Fasting lipid panel and glucose and free T3/free T4 ordered for tomorrow morning. EKG done. She continues to refuse ROIs for family. 11/10/21: Now on 303 commitment. Required olanzapine 10mg IM as part of chemical restraint and then took haldol 5mg po and ativan 2mg po. Will begin medication over objection with haldol 5mg po or IM qAM & qevening and ativan 2mg po or IM qmorning and qevening. 11/09/21: The patient was admitted to the [facility] ([facility] mental health unit) on q15 min checks (behavioral with suicide precautions) for safety. The patient will participate in group, recreational, and milieu therapies and will be offered additional individual and family sessions as clinically appropriate. -Start [place] carbonate 300mg BID -Zyprexa and ativan prn for agitation -Continue prior to admission [place] thyroid, she prefers this to synthroid Inventory Assets Strengths: supportive relationships, employed, housing, intelligent Needs: safety and stabilization, medication adjustment, additional coping skills, increased outpatient services Suicide Risk Level Suicide Risk Level: Low (q15 min observation checks) Suicide Risk Level Comments: Presents with acute aleida, consistently denying SI. 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 Chief Complaint "I'm ready for any/all treatment." Review of Systems Sleep Information Total Hours of Sleep: 5.5 Meal Information Percent Meal Consumed - Breakfast: 100 Percent Meal Consumed - Lunch: 100 Percent Meal Consumed - Dinner: 100 Subjective Subjective Patient was seen & assessed and interval progress reviewed with nursing and social work. Hypertalkative around political topics. STates she now feels somewhat jittery and attributed to lithium but reviewed her level and her tyroid labs and that I would suggest holding her thyroid supplement, particularly given tachy. She's intermittently had some issues with impulsivity. She expressed concerns about Ativan "messing with her brain" and reviewed that for short term use for acute aleida and will be tapered as more therapeutic on other meds. Physical Exam Psychiatric Orientation: alert Apperance: appropriately groomed Eye Contact: good eye contact (intense) Motor Behavior: no abnormal motor movements Speech: + abnormal rate/rhythm/volume of speech Affect: + elated affect Thought Process: + circumstantial thought process and + tangential thought process Suicidal Thoughts: denies suicidal thoughts Homicidal Thoughts: denies homicidal thoughts Hallucinations: no auditory hallucinations and no visual hallucinations Cognition: language grossly intact; + attention not intact Insight: + impaired insight Judgement: + impaired judgement Vital Signs (Past 24 Hours) Last Vital Signs Temp 37.1 C 11/14/21 06:42 Pulse 139 H 11/14/21 06:43 Resp 16 11/14/21 06:42 BP 115/80 11/14/21 06:43 Pulse Ox 97 11/08/21 07:13 O2 Del Method 11/08/21 07:13 Results & Data ([facility]) Laboratory Results Laboratory Results - last 24 hr 11/14/21 08:03 [place] 0.3 L Current Inpatient Medications Current Inpatient Medications: Current Inpatient Medications Acetaminophen (Acetaminophen 325 Mg Tab) 650 mg PO Q4H PRN PRN Reason: Headache or Minor Fever Stop: 12/11/21 11:21 Al Hydrox/Mg Hydrox/Simethicone (Aluminum/Magnesium Susp 30 Ml Udc) 30 ml PO Q4H PRN PRN Reason: GI Upset Stop: 12/11/21 11:21 Bismuth Subsalicylate (Bismuth Subsalicylate Liqd 236 Ml) 15 ml PO PRN PRN PRN Reason: Loose Stool Stop: 12/11/21 11:21 Haloperidol (Haloperidol 5 Mg Tab) 5 mg PO BID PRN PRN Reason: agitation Stop: 12/10/21 11:22 Last Admin: 11/11/21 18:52 Dose: 5 mg Haloperidol (Haloperidol 5 Mg Tab) 5 mg PO QD@08 [facility] Stop: 12/11/21 07:59 Last Admin: 11/14/21 08:38 Dose: 5 mg Haloperidol (Haloperidol 5 Mg Tab) 5 mg PO QD@16 [facility] Stop: 12/10/21 16:34 Last Admin: 11/13/21 15:31 Dose: 5 mg Haloperidol Lactate (Haloperidol Lactate 5 Mg/Ml 1 Ml Vial) 5 mg IM BID PRN PRN Reason: agitation Stop: 12/10/21 11:22 Haloperidol Lactate (Haloperidol Lactate 5 Mg/Ml 1 Ml Vial) 5 mg IM QD@08 PRN PRN Reason: if refuses po Stop: 12/11/21 07:59 Last Admin: 11/12/21 16:59 Dose: 5 mg Haloperidol Lactate (Haloperidol Lactate 5 Mg/Ml 1 Ml Vial) 5 mg IM QD@16 PRN PRN Reason: if refuses po Stop: 12/11/21 15:59 [place] Carbonate ([place] Carbonate 300 Mg Tab) 300 mg PO BID [facility] Stop: 12/09/21 11:14 Last Admin: 11/14/21 08:38 Dose: 300 mg Lorazepam (Lorazepam 1 Mg Tab) 2 mg PO QD@08 [facility] Stop: 12/11/21 07:59 Last Admin: 11/14/21 08:38 Dose: 2 mg Lorazepam (Lorazepam 1 Mg Tab) 2 mg PO QD@16 [facility] Stop: 12/10/21 16:34 Last Admin: 11/13/21 15:31 Dose: 2 mg Lorazepam (Lorazepam 1 Mg Tab) 2 mg PO BID PRN PRN Reason: Anxiety/Agitation Stop: 12/10/21 11:22 Last Admin: 11/11/21 18:52 Dose: 2 mg Lorazepam (Lorazepam 2 Mg/2 Ml Syr) 2 mg IM BID PRN PRN Reason: Agitation/Refuses PO Stop: 12/12/21 08:38 Last Admin: 11/12/21 16:59 Dose: 2 mg Magnesium Hydroxide (Magnesium Hydroxide Susp 30 Ml Udc) 30 ml PO DAILY PRN PRN Reason: Constipation Stop: 12/11/21 11:21 Sodium Chloride (Sodium Chloride 0.65% Na Soln 45 Ml ([place])) 1 - 2 sprays NA PRN PRN PRN Reason: Nasal Dryness/Congestion Stop: 12/11/21 11:21 Thyroid ([place] Thyroid 30 Mg Tab) 90 mg PO DAILY@0700 [facility] Stop: 12/13/21 06:59 Last Admin: 11/14/21 06:41 Dose: 90 mg (1) Bipolar disorder Active/Remission status: currently active Current bipolar episode type: manic Current episode severity: severe Psychotic features: with psychotic features Qualified Code(s): F31.2 - Bipolar disorder, current episode manic severe with psychotic features
[2021-11-15] MEDS: LITHIUM CARBONATE 300 MG TAB PO SCH ×2 (09:40→21:14)
[2021-11-15] MEDS: LORazepam 1 MG TAB PO SCH (09:40)
[2021-11-15] MEDS: haloperidoL 5 MG TAB PO SCH (09:41)
--- NOTE | 2021-11-15 12:36 | Psychiatric Progress Note ---
Date of Service November 15, 2021 Impression / Recommendations Impression 31 yo woman with a history of BPAD presenting with acute aleida in the context of no recent psychiatric medication and worsening sleep, disorganization, impulsivity, irritability and risk taking behaviors over the last few weeks. Her initial screening UDS was positive for amphetamine/methamphetamine so possibility of substance-induced presentation but aleida felt to be more likely with increased impulsivity and risk taking potentially leading to substance use in recent days as she has no known history of substance use besides marijuana. The patient is deemed unstable and requires psychiatric hospitalization for diagnostic clarification, safety and stabilization, medication management and development of further coping skills. As of 11/10/21 she is on a 303 commitment. MNPR due to acute aleida with intrusiveness and poor boundaries with peers, and lack of sleep and disruptive activities 11/15/21: significantly elevated mood and tangential thought process (1) Aleida: (2) Bipolar disorder: (3) Hypothyroidism: (4) Eliza's disease: Plan 11/15/21: shift pm dose of Haldol and Ativan to hs. 11/14/21: hold [place] thyroid, titrate lithium to 600 mg BID. 11/13/21: Li level in the morning. Continue other medications. 11/12/21: Reduce [place] thyroid to 90mg qd. Continue other medications. Will check Li level on 11/14/21 and then consider further titration. 11/11/21: Continue with current medications and tx plan. Fasting lipid panel and glucose and free T3/free T4 ordered for tomorrow morning. EKG done. She continues to refuse ROIs for family. 11/10/21: Now on 303 commitment. Required olanzapine 10mg IM as part of chemical restraint and then took haldol 5mg po and ativan 2mg po. Will begin medication over objection with haldol 5mg po or IM qAM & qevening and ativan 2mg po or IM qmorning and qevening. 11/09/21: The patient was admitted to the [facility] ([facility] mental health unit) on q15 min checks (behavioral with suicide precautions) for safety. The patient will participate in group, recreational, and milieu therapies and will be offered additional individual and family sessions as clinically appropriate. -Start [place] carbonate 300mg BID -Zyprexa and ativan prn for agitation -Continue prior to admission [place] thyroid, she prefers this to synthroid Inventory Assets Strengths: supportive relationships, employed, housing, intelligent Needs: safety and stabilization, medication adjustment, additional coping skills, increased outpatient services Suicide Risk Level Suicide Risk Level: Low (q15 min observation checks) Suicide Risk Level Comments: Presents with acute aleida, consistently denying SI. 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 Chief Complaint "I just didn't sleep for 72 hrs., I did fine off of medication for over a year." Review of Systems Sleep Information Total Hours of Sleep: 4.5 Meal Information Percent Meal Consumed - Breakfast: 100 Percent Meal Consumed - Lunch: 100 Percent Meal Consumed - Dinner: 100 Subjective Subjective Patient was seen & assessed and interval progress reviewed with nursing and social work. Continues to have little insight into her ongoing aleida. Shahram an eye for a patient and made multiple tangential references to various books (gretchen noland). Believes she was cleansing her mother's swollen feet with rain water. She would prefer that her 2nd dose of Haldol and Ativan be given at hs. Discussed rationale for holding [place] thyroid until communicate with endocrine. Physical Exam Psychiatric Orientation: alert Eye Contact: good eye contact Speech: + abnormal rate/rhythm/volume of speech (hyperverbal) Affect: + elated affect Mood: + anxious mood Thought Process: + tangential thought process Thought Content: + preoccupation Suicidal Thoughts: denies suicidal thoughts Homicidal Thoughts: denies homicidal thoughts Hallucinations: no auditory hallucinations and no visual hallucinations Cognition: language grossly intact; + attention not intact Vital Signs (Past 24 Hours) Last Vital Signs Temp 37 C 11/15/21 06:35 Pulse 105 H 11/15/21 06:36 Resp 16 11/15/21 06:35 BP 121/87 11/15/21 06:36 Pulse Ox 97 11/08/21 07:13 O2 Del Method 11/08/21 07:13 Results & Data ([facility]) Current Inpatient Medications Current Inpatient Medications: Current Inpatient Medications Acetaminophen (Acetaminophen 325 Mg Tab) 650 mg PO Q4H PRN PRN Reason: Headache or Minor Fever Stop: 12/11/21 11:21 Last Admin: 11/15/21 01:36 Dose: 650 mg Al Hydrox/Mg Hydrox/Simethicone (Aluminum/Magnesium Susp 30 Ml Udc) 30 ml PO Q4H PRN PRN Reason: GI Upset Stop: 12/11/21 11:21 Bismuth Subsalicylate (Bismuth Subsalicylate Liqd 236 Ml) 15 ml PO PRN PRN PRN Reason: Loose Stool Stop: 12/11/21 11:21 Haloperidol (Haloperidol 5 Mg Tab) 5 mg PO BID PRN PRN Reason: agitation Stop: 12/10/21 11:22 Last Admin: 11/11/21 18:52 Dose: 5 mg Haloperidol (Haloperidol 5 Mg Tab) 5 mg PO QD@08 [facility] Stop: 12/11/21 07:59 Last Admin: 11/15/21 09:41 Dose: 5 mg Haloperidol (Haloperidol 5 Mg Tab) 5 mg PO QD@16 [facility] Stop: 12/10/21 16:34 Last Admin: 11/14/21 15:50 Dose: 5 mg Haloperidol Lactate (Haloperidol Lactate 5 Mg/Ml 1 Ml Vial) 5 mg IM BID PRN PRN Reason: agitation Stop: 12/10/21 11:22 Haloperidol Lactate (Haloperidol Lactate 5 Mg/Ml 1 Ml Vial) 5 mg IM QD@08 PRN PRN Reason: if refuses po Stop: 12/11/21 07:59 Last Admin: 11/12/21 16:59 Dose: 5 mg Haloperidol Lactate (Haloperidol Lactate 5 Mg/Ml 1 Ml Vial) 5 mg IM QD@16 PRN PRN Reason: if refuses po Stop: 12/11/21 15:59 [place] Carbonate ([place] Carbonate 300 Mg Tab) 600 mg PO BID [facility] Stop: 12/14/21 20:59 Last Admin: 11/15/21 09:40 Dose: 600 mg Lorazepam (Lorazepam 1 Mg Tab) 2 mg PO QD@08 [facility] Stop: 12/11/21 07:59 Last Admin: 11/15/21 09:40 Dose: 2 mg Lorazepam (Lorazepam 1 Mg Tab) 2 mg PO QD@16 [facility] Stop: 12/10/21 16:34 Last Admin: 11/14/21 15:50 Dose: 2 mg Lorazepam (Lorazepam 1 Mg Tab) 2 mg PO BID PRN PRN Reason: Anxiety/Agitation Stop: 12/10/21 11:22 Last Admin: 11/11/21 18:52 Dose: 2 mg Lorazepam (Lorazepam 2 Mg/2 Ml Syr) 2 mg IM BID PRN PRN Reason: Agitation/Refuses PO Stop: 12/12/21 08:38 Last Admin: 11/12/21 16:59 Dose: 2 mg Magnesium Hydroxide (Magnesium Hydroxide Susp 30 Ml Udc) 30 ml PO DAILY PRN PRN Reason: Constipation Stop: 12/11/21 11:21 Sodium Chloride (Sodium Chloride 0.65% Na Soln 45 Ml ([place])) 1 - 2 sprays NA PRN PRN PRN Reason: Nasal Dryness/Congestion Stop: 12/11/21 11:21 Thyroid ([place] Thyroid 30 Mg Tab) 90 mg PO DAILY@0700 [facility] Stop: 12/13/21 06:59 Last Admin: 11/14/21 06:41 Dose: 90 mg (1) Bipolar disorder Active/Remission status: currently active Current bipolar episode type: manic Current episode severity: severe Psychotic features: with psychotic features Qualified Code(s): F31.2 - Bipolar disorder, current episode manic severe with psychotic features
[2021-11-15] MEDS ORDERED: LORazepam 1 MG TAB PO PRN (12:41)
[2021-11-15] MEDS ORDERED: LORazepam 1 MG TAB PO SCH (22:00)
[2021-11-15] MEDS ORDERED: haloperidoL 5 MG TAB PO SCH (22:00)
[2021-11-16] MEDS: LITHIUM CARBONATE 300 MG TAB PO SCH ×2 (08:30→19:46)
[2021-11-16] MEDS: LORazepam 1 MG TAB PO SCH (08:33)
[2021-11-16] MEDS: haloperidoL 5 MG TAB PO SCH ×2 (08:33→19:46)
--- NOTE | 2021-11-16 10:24 | Psychiatric Progress Note ---
Date of Service November 16, 2021 Impression / Recommendations Impression 31 yo woman with a history of BPAD presenting with acute aleida in the context of no recent psychiatric medication and worsening sleep, disorganization, impulsivity, irritability and risk taking behaviors over the last few weeks. Her initial screening UDS was positive for amphetamine/methamphetamine so possibility of substance-induced presentation but aleida felt to be more likely with increased impulsivity and risk taking potentially leading to substance use in recent days as she has no known history of substance use besides marijuana. The patient is deemed unstable and requires psychiatric hospitalization for diagnostic clarification, safety and stabilization, medication management and development of further coping skills. As of 11/10/21 she is on a 303 commitment. MNPR due to acute aleida with intrusiveness and poor boundaries with peers, and lack of sleep and disruptive activities 11/16/21: improving, thyroid med held, tolerating increase in lithium (1) Aleida: (2) Bipolar disorder: (3) Hypothyroidism: (4) Eliza's disease: Plan 11/16/21: continue Ativan and Haldol tapers, clarify dosing plan for thyroid medication, lithium level in pm on 11/18/21. 11/15/21: shift pm dose of Haldol and Ativan to hs. 11/14/21: hold [place] thyroid, titrate lithium to 600 mg BID. 11/13/21: Li level in the morning. Continue other medications. 11/12/21: Reduce [place] thyroid to 90mg qd. Continue other medications. Will check Li level on 11/14/21 and then consider further titration. 11/11/21: Continue with current medications and tx plan. Fasting lipid panel and glucose and free T3/free T4 ordered for tomorrow morning. EKG done. She continues to refuse ROIs for family. 11/10/21: Now on 303 commitment. Required olanzapine 10mg IM as part of chemical restraint and then took haldol 5mg po and ativan 2mg po. Will begin medication over objection with haldol 5mg po or IM qAM & qevening and ativan 2mg po or IM qmorning and qevening. 11/09/21: The patient was admitted to the [facility] ([facility] unit) on q15 min checks (behavioral with suicide precautions) for safety. The patient will participate in group, recreational, and milieu therapies and will be offered additional individual and family sessions as clinically appropriate. -Start [place] carbonate 300mg BID -Zyprexa and ativan prn for agitation -Continue prior to admission [place] thyroid, she prefers this to synthroid Inventory Assets Strengths: supportive relationships, employed, housing, intelligent Needs: safety and stabilization, medication adjustment, additional coping skills, increased outpatient services Suicide Risk Level Suicide Risk Level: Low (q15 min observation checks) Suicide Risk Level Comments: Presents with acute aleida, consistently denying SI. 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 Chief Complaint "I still feel some tired in the am." Review of Systems Sleep Information Total Hours of Sleep: 6.5 Sleep Comments: pt on q-15 minute checks Meal Information Percent Meal Consumed - Breakfast: 100 Percent Meal Consumed - Lunch: 100 Percent Meal Consumed - Dinner: 100 Subjective Subjective Patient was seen & assessed and interval progress reviewed with treatment team. Patient has been less overstimulated with smaller milieu. She asks appropriate questions about her medications and discharge planning. She is open to a family meeting and CM referral. She is wondering about plan for thyroid medication and I will reach out to endocrine. Physical Exam Psychiatric Orientation: alert and oriented x 3 Apperance: appropriately dressed and appropriately groomed (though dramatic eye makeup ) Eye Contact: good eye contact Motor Behavior: no abnormal motor movements Speech: normal rate/rhythm/volume of speech Affect: euthymic affect Mood: no depressed mood Thought Process: + circumstantial thought process Thought Content: no delusions Suicidal Thoughts: denies suicidal thoughts Homicidal Thoughts: denies homicidal thoughts Hallucinations: no auditory hallucinations and no visual hallucinations Cognition: attention grossly intact and language grossly intact Estimated Intelligence: consistent with education level Insight: + limited insight Judgement: + limited judgement Vital Signs (Past 24 Hours) Last Vital Signs Temp 37.1 C 11/16/21 06:30 Pulse 93 H 11/16/21 06:31 Resp 16 11/16/21 06:30 BP 103/70 11/16/21 06:31 Pulse Ox 97 11/08/21 07:13 O2 Del Method 11/08/21 07:13 Results & Data ([facility]) Current Inpatient Medications Current Inpatient Medications: Current Inpatient Medications Acetaminophen (Acetaminophen 325 Mg Tab) 650 mg PO Q4H PRN PRN Reason: Headache or Minor Fever Stop: 12/11/21 11:21 Last Admin: 11/15/21 01:36 Dose: 650 mg Al Hydrox/Mg Hydrox/Simethicone (Aluminum/Magnesium Susp 30 Ml Udc) 30 ml PO Q4H PRN PRN Reason: GI Upset Stop: 12/11/21 11:21 Bismuth Subsalicylate (Bismuth Subsalicylate Liqd 236 Ml) 15 ml PO PRN PRN PRN Reason: Loose Stool Stop: 12/11/21 11:21 Haloperidol (Haloperidol 5 Mg Tab) 5 mg PO BID PRN PRN Reason: agitation Stop: 12/10/21 11:22 Last Admin: 11/11/21 18:52 Dose: 5 mg Haloperidol (Haloperidol 5 Mg Tab) 5 mg PO HS [facility] Stop: 12/15/21 21:59 Last Admin: 11/15/21 21:14 Dose: 5 mg Haloperidol (Haloperidol 0.5 Mg Tab) 2.5 mg PO QD@08 [facility] Stop: 12/17/21 07:59 Haloperidol Lactate (Haloperidol Lactate 5 Mg/Ml 1 Ml Vial) 5 mg IM BID PRN PRN Reason: agitation Stop: 12/10/21 11:22 [place] Carbonate ([place] Carbonate 300 Mg Tab) 600 mg PO BID [facility] Stop: 12/14/21 20:59 Last Admin: 11/16/21 08:30 Dose: 600 mg Lorazepam (Lorazepam 1 Mg Tab) 1 mg PO BID PRN PRN Reason: Anxiety Stop: 12/10/21 11:22 Lorazepam (Lorazepam 1 Mg Tab) 1 mg PO QD@08 [facility] Stop: 12/16/21 07:59 Last Admin: 11/16/21 08:33 Dose: 1 mg Lorazepam (Lorazepam 1 Mg Tab) 2 mg PO HS [facility] Stop: 12/15/21 21:59 Last Admin: 11/15/21 21:13 Dose: 2 mg [place] Hydroxide (Magnesium Hydroxide Susp 30 Ml Udc) 30 ml PO DAILY PRN PRN Reason: Constipation Stop: 12/11/21 11:21 Sodium Chloride (Sodium Chloride 0.65% Na Soln 45 Ml ([place])) 1 - 2 sprays NA PRN PRN PRN Reason: Nasal Dryness/Congestion Stop: 12/11/21 11:21 Thyroid ([place] Thyroid 30 Mg Tab) 90 mg PO DAILY@0700 [facility] Stop: 12/13/21 06:59 Last Admin: 11/14/21 06:41 Dose: 90 mg (1) Bipolar disorder Active/Remission status: currently active Current bipolar episode type: manic Current episode severity: severe Psychotic features: with psychotic features Qualified Code(s): F31.2 - Bipolar disorder, current episode manic severe with psychotic features
[2021-11-16] MEDS ORDERED: LORazepam 1 MG TAB PO SCH (20:00)
[2021-11-17] MEDS: haloperidoL 5 MG TAB PO SCH ×2 (07:47→20:56)
[2021-11-17] MEDS: LORazepam 1 MG TAB PO SCH ×2 (07:48→20:55)
[2021-11-17] MEDS: LITHIUM CARBONATE 300 MG TAB PO SCH ×2 (08:39→20:56)
[2021-11-17] MEDS ORDERED: LORazepam 0.5 MG TAB PO PRN (11:45)
--- NOTE | 2021-11-17 11:54 | Psychiatric Progress Note ---
Date of Service November 17, 2021 Impression / Recommendations Impression 31 yo woman with a history of BPAD presenting with acute aleida in the context of no recent psychiatric medication and worsening sleep, disorganization, impulsivity, irritability and risk taking behaviors over the last few weeks. Her initial screening UDS was positive for amphetamine/methamphetamine so possibility of substance-induced presentation but aleida felt to be more likely with increased impulsivity and risk taking potentially leading to substance use in recent days as she has no known history of substance use besides marijuana. The patient is deemed unstable and requires psychiatric hospitalization for diagnostic clarification, safety and stabilization, medication management and development of further coping skills. As of 11/10/21 she is on a 303 commitment. MNPR due to acute aleida with intrusiveness and poor boundaries with peers, and lack of sleep and disruptive activities 11/17/21: improving, more willing to discuss aftercare (1) Aleida: (2) Bipolar disorder: (3) Hypothyroidism: (4) Eliza's disease: Plan 11/17/21: as TSH is normal, will restart Armor thyroid now that aleida is resolving, continue Ativan taper this hs with goal of finding minimal effective dose and/or consolidating to bedtime. Patient declines PABON but agreeable to CM. 11/16/21: continue Ativan and Haldol tapers, clarify dosing plan for thyroid medication, lithium level in pm on 11/18/21. 11/15/21: shift pm dose of Haldol and Ativan to hs. 11/14/21: hold [place] thyroid, titrate lithium to 600 mg BID. 11/13/21: Li level in the morning. Continue other medications. 11/12/21: Reduce [place] thyroid to 90mg qd. Continue other medications. Will check Li level on 11/14/21 and then consider further titration. 11/11/21: Continue with current medications and tx plan. Fasting lipid panel and glucose and free T3/free T4 ordered for tomorrow morning. EKG done. She continues to refuse ROIs for family. 11/10/21: Now on 303 commitment. Required olanzapine 10mg IM as part of chemical restraint and then took haldol 5mg po and ativan 2mg po. Will begin medication over objection with haldol 5mg po or IM qAM & qevening and ativan 2mg po or IM qmorning and qevening. 11/09/21: The patient was [facility] to the [facility] on q15 min checks (behavioral with suicide precautions) for safety. The patient will participate in group, recreational, and milieu therapies and will be offered additional individual and family sessions as clinically appropriate. -Start [place] carbonate 300mg BID -Zyprexa and ativan prn for agitation -Continue prior to admission [place]etta thyroid, she prefers this to synthroid Inventory Assets Strengths: supportive relationships, employed, housing, intelligent Needs: safety and stabilization, medication adjustment, additional coping skills, increased outpatient services Suicide Risk Level Suicide Risk Level: Low (q15 min observation checks) Suicide Risk Level Comments: Presents with acute aleida, consistently denying SI. Risk Factors Assessment : Yes Do You Have Access To A Gun?: No Health Problems: Yes Mental Health Diagnoses: Yes Previous Attempt: No Family History of Suicide: No Previous Psychiatric Hospitalization: Yes Hopelessness: No Protective Factors Assessment Tenriism Beliefs: Yes Employed: Yes ([employer]) Stable Relationships: Yes Supportive Family: Yes Interval History Identifying Information GIOVANNI EDMOND is a 31-year-old F who currently lives in [place] with her mother, has a history of BPAD, and was admitted on 11/08/21 14:17 on a 302 involuntary commitment for acute aleida. Chief Complaint "I still get tired" Review of Systems Sleep Information Total Hours of Sleep: 6.5 Sleep Comments: pt on q-15 minute checks Meal Information Percent Meal Consumed - Breakfast: 100 Percent Meal Consumed - Lunch: 100 Percent Meal Consumed - Dinner: 80 Subjective Subjective Patient was seen & assessed and interval progress reviewed with nursing and social work. patient is resistant to CM and reviewed what services CM could help with, particularly as declining therapy and we would have right to puruse outpatient commitment. Patient would like to avoid the latter and PABON. Voices willingness for referral. Will have family meeting with mother today. Reviewed restarting her thyroid supplement and continuing to consolidate medications/monitor as gets closer to d/c. Physical Exam Psychiatric Orientation: alert and oriented x 3 Apperance: appropriately dressed and appropriately groomed Eye Contact: good eye contact Motor Behavior: no abnormal motor movements Speech: normal rate/rhythm/volume of speech Affect: euthymic affect Mood: + anxious mood Thought Process: + circumstantial thought process and + concrete thought process Thought Content: no delusions (but religiously preoccupied in groups) Suicidal Thoughts: denies suicidal thoughts Homicidal Thoughts: denies homicidal thoughts Hallucinations: no auditory hallucinations and no visual hallucinations Cognition: attention grossly intact and language grossly intact Estimated Intelligence: consistent with education level Insight: + limited insight Judgement: + limited judgement Vital Signs (Past 24 Hours) Last Vital Signs Temp 37.1 C 11/17/21 06:42 Pulse 94 H 11/17/21 06:43 Resp 16 11/17/21 06:42 BP 114/72 11/17/21 06:43 Pulse Ox 97 11/08/21 07:13 O2 Del Method 11/08/21 07:13 Results & Data ([facility]) Current Inpatient Medications Current Inpatient Medications: Current Inpatient Medications Acetaminophen (Acetaminophen 325 Mg Tab) 650 mg PO Q4H PRN PRN Reason: Headache or Minor Fever Stop: 12/11/21 11:21 Last Admin: 11/15/21 01:36 Dose: 650 mg Al Hydrox/Mg Hydrox/Simethicone (Aluminum/Magnesium Susp 30 Ml Udc) 30 ml PO Q4H PRN PRN Reason: GI Upset Stop: 12/11/21 11:21 Bismuth Subsalicylate (Bismuth Subsalicylate Liqd 236 Ml) 15 ml PO PRN PRN PRN Reason: Loose Stool Stop: 12/11/21 11:21 Haloperidol (Haloperidol 5 Mg Tab) 5 mg PO BID PRN PRN Reason: agitation Stop: 12/10/21 11:22 Last Admin: 11/11/21 18:52 Dose: 5 mg Haloperidol (Haloperidol 5 Mg Tab) 2.5 mg PO QD@ [facility] Stop: 12/17/21 07:59 Last Admin: 11/17/21 07:47 Dose: 2.5 mg Haloperidol (Haloperidol 5 Mg Tab) 5 mg PO 1999 [facility] Stop: 12/16/21 19:59 Last Admin: 11/16/21 19:46 Dose: 5 mg Haloperidol Lactate (Haloperidol Lactate 5 Mg/Ml 1 Ml Vial) 5 mg IM BID PRN PRN Reason: agitation Stop: 12/10/21 11:22 Noble Carbonate (Noble Carbonate 300 Mg Tab) 600 mg PO BID@0900,1999 [facility] Stop: 12/14/21 20:59 Last Admin: 11/17/21 08:39 Dose: 600 mg Magnesium Hydroxide (Magnesium Hydroxide Susp 30 Ml Udc) 30 ml PO DAILY PRN PRN Reason: Constipation Stop: 12/11/21 11:21 Sodium Chloride (Sodium Chloride 0.65% Na Soln 45 Ml ([place])) 1 - 2 sprays NA PRN PRN PRN Reason: Nasal Dryness/Congestion Stop: 12/11/21 11:21 Thyroid ([place]etta Thyroid 30 Mg Tab) 90 mg PO DAILY@0700 [facility] Stop: 12/13/21 06:59 Last Admin: 11/14/21 06:41 Dose: 90 mg Mental Health & Subst Abuse Tx Psychiatrist Name of Psychiatrist: Lita Cardoza PA-C Psychiatrist's Date of Appointment with Psychiatrist: 11/26/21 Time of Appointment with Psychiatrist: 9:00 AM Psychiatric Appointment Comment: [address] [facility] [address] Therapist Name of Therapist: [facility] Therapist's Therapy Appointment Comment: Call to establish therapy services if interested. Supervisor Pipe Finishing Name of Supervisor Pipe Finishing: [employer] Phone Number for Supervisor Pipe Finishing: [phone] Case Management Appointment Comment: Call to establish BCM services if interested. Post Discharge Appointments Primary Care Physician Name Of Family Doctor: Arielle Calderon Primary [facility] Date of Appointment with PCP: 11/23/21 Time of Appointment with PCP: 10:45 check in (bring ID, insurance card) Provider Appointment Comment: [address], [place] [address] (1) Bipolar disorder Active/Remission status: currently active Current bipolar episode type: manic Current episode severity: severe Psychotic features: with psychotic features Qualified Code(s): F31.2 - Bipolar disorder, current episode manic severe with psychotic features
[2021-11-18] MEDS: ARMOUR THYROID 30 MG TAB PO SCH (07:06)
[2021-11-18] MEDS ORDERED: LORazepam 0.5 MG TAB PO SCH (08:00)
[2021-11-18] MEDS: LITHIUM CARBONATE 300 MG TAB PO SCH ×2 (08:43→20:24)
[2021-11-18] MEDS: haloperidoL 5 MG TAB PO SCH ×2 (08:43→20:24)
--- NOTE | 2021-11-18 13:56 | Psychiatric Progress Note ---
Date of Service November 18, 2021 Impression / Recommendations Impression 31 yo woman with a history of BPAD presenting with acute aleida in the context of no recent psychiatric medication and worsening sleep, disorganization, impulsivity, irritability and risk taking behaviors over the last few weeks. Her initial screening UDS was positive for amphetamine/methamphetamine so possibility of substance-induced presentation but aleida felt to be more likely with increased impulsivity and risk taking potentially leading to substance use in recent days as she has no known history of substance use besides marijuana. As of 11/10/21 she is on a 303 commitment. 11/18/21: improving, voices willingness to comply with medications outside of the hospital. (1) Aleida: (2) Bipolar disorder: (3) Hypothyroidism: (4) Eliza's disease: Plan 11/18/21: d/c am Ativan, Li level this pm to finalize dosing prior to discharge. Safety planning. 11/17/21: as TSH is normal, will restart Armor thyroid now that aleida is resolving, continue Ativan taper this hs with goal of finding minimal effective dose and/or consolidating to bedtime. Patient declines PABON but agreeable to CM. 11/16/21: continue Ativan and Haldol tapers, clarify dosing plan for thyroid medication, lithium level in pm on 11/18/21. 11/15/21: shift pm dose of Haldol and Ativan to hs. 11/14/21: hold [place] thyroid, titrate lithium to 600 mg BID. 11/13/21: Li level in the morning. Continue other medications. 11/12/21: Reduce [place] thyroid to 90mg qd. Continue other medications. Will check Li level on 11/14/21 and then consider further titration. 11/11/21: Continue with current medications and tx plan. Fasting lipid panel and glucose and free T3/free T4 ordered for tomorrow morning. EKG done. She continues to refuse ROIs for family. 11/10/21: Now on 303 commitment. Required olanzapine 10mg IM as part of chemical restraint and then took haldol 5mg po and ativan 2mg po. Will begin medication over objection with haldol 5mg po or IM qAM & qevening and ativan 2mg po or IM qmorning and qevening. 11/09/21: The patient was admitted to the [facility] (locked inpatient mental health unit) on q15 min checks (behavioral with suicide precautions) for safety. The patient will participate in group, recreational, and milieu therapies and will be offered additional individual and family sessions as clinically appropriate. -Start [place] carbonate 300mg BID -Zyprexa and ativan prn for agitation -Continue prior to admission [place] thyroid, she prefers this to synthroid Inventory Assets Strengths: supportive relationships, employed, housing, intelligent Needs: safety and stabilization, medication adjustment, additional coping skills, i ncreased outpatient services Suicide Risk Level Suicide Risk Level: Low (q15 min observation checks) Risk Factors Assessment : Yes Do You Have Access To A Gun?: No Health Problems: Yes Mental Health Diagnoses: Yes Previous Attempt: No Family History of Suicide: No Previous Psychiatric Hospitalization: Yes Hopelessness: No Protective Factors Assessment Synagogue Beliefs: Yes Employed: Yes ([employer]) Stable Relationships: Yes Supportive Family: Yes Interval History Identifying Information GIOVANNI EDMOND is a 31-year-old F who currently lives in [place] with her mother, has a history of BPAD, and was admitted on 11/08/21 14:17 on a 302 involuntary commitment for acute aleida. Chief Complaint "I'm actually feeling better, I'm excited to go home." Review of Systems Sleep Information Total Hours of Sleep: 8 Sleep Comments: pt on q-15 minute checks Meal Information Percent Meal Consumed - Breakfast: 100 Percent Meal Consumed - Lunch: 100 Percent Meal Consumed - Dinner: 100 Subjective Subjective Patient was seen & assessed and interval progress reviewed with treatment team. Patient agreed to CM referral and would prefer [place] [facility] CM. Feeling less tired. Still gets religiously preoccupied in select conversations but redirectible. Physical Exam Psychiatric Orientation: alert and oriented x 3 Apperance: appropriately dressed and appropriately groomed Eye Contact: good eye contact Motor Behavior: no abnormal motor movements Speech: normal rate/rhythm/volume of speech Affect: euthymic affect Mood: no depressed mood Thought Process: goal directed thought process Thought Content: not paranoid and no delusions Suicidal Thoughts: denies suicidal thoughts Homicidal Thoughts: denies homicidal thoughts Hallucinations: no auditory hallucinations and no visual hallucinations Cognition: attention grossly intact and language grossly intact Estimated Intelligence: consistent with education level Insight: + limited insight Vital Signs (Past 24 Hours) Last Vital Signs Temp 37.0 C 11/18/21 06:00 Pulse 93 H 11/18/21 06:44 Resp 18 11/18/21 06:00 BP 113/76 11/18/21 06:44 Pulse Ox 97 11/08/21 07:13 O2 Del Method 11/08/21 07:13 Results & Data ([facility]) Current Inpatient Medications Current Inpatient Medications: Current Inpatient Medications Acetaminophen (Acetaminophen 325 Mg Tab) 650 mg PO Q4H PRN PRN Reason: Headache or Minor Fever Stop: 12/11/21 11:21 Last Admin: 11/15/21 01:36 Dose: 650 mg Al Hydrox/Mg Hydrox/Simethicone (Aluminum/Magnesium Susp 30 Ml Udc) 30 ml PO Q4H PRN PRN Reason: GI Upset Stop: 12/11/21 11:21 Bismuth Subsalicylate (Bismuth Subsalicylate Liqd 236 Ml) 15 ml PO PRN PRN PRN Reason: Loose Stool Stop: 12/11/21 11:21 Haloperidol (Haloperidol 5 Mg Tab) 5 mg PO BID PRN PRN Reason: agitation Stop: 12/10/21 11:22 Last Admin: 11/11/21 18:52 Dose: 5 mg Haloperidol (Haloperidol 5 Mg Tab) 2.5 mg PO QD@ [facility] Stop: 12/17/21 07:59 Last Admin: 11/18/21 08:43 Dose: 2.5 mg Haloperidol (Haloperidol 5 Mg Tab) 5 mg PO 1999 [facility] Stop: 12/16/21 19:59 Last Admin: 11/17/21 20:56 Dose: 5 mg Haloperidol Lactate (Haloperidol Lactate 5 Mg/Ml 1 Ml Vial) 5 mg IM BID PRN PRN Reason: agitation Stop: 12/10/21 11:22 [place] Carbonate ([place] Carbonate 300 Mg Tab) 600 mg PO BID@ [facility] Stop: 12/14/21 20:59 Last Admin: 11/18/21 08:43 Dose: 600 mg Lorazepam (Lorazepam 1 Mg Tab) 1 mg PO TODAY@1999 [facility] Stop: 12/17/21 19:59 Last Admin: 11/17/21 20:55 Dose: 1 mg Lorazepam (Lorazepam 0.5 Mg Tab) 0.5 mg PO QD@ [facility] Stop: 12/18/21 07:59 Last Admin: 11/18/21 08:44 Dose: 0.5 mg Lorazepam (Lorazepam 0.5 Mg Tab) 0.5 mg PO BID PRN PRN Reason: Anxiety Stop: 12/10/21 11:22 Magnesium Hydroxide (Magnesium Hydroxide Susp 30 Ml Udc) 30 ml PO DAILY PRN PRN Reason: Constipation Stop: 12/11/21 11:21 Sodium Chloride (Sodium Chloride 0.65% Na Soln 45 Ml ([place])) 1 - 2 sprays NA PRN PRN PRN Reason: Nasal Dryness/Congestion Stop: 12/11/21 11:21 Thyroid ([place] Thyroid 30 Mg Tab) 90 mg PO DAILY@0700 [facility] Stop: 12/13/21 06:59 Last Admin: 11/18/21 07:06 Dose: 90 mg Mental Health & Subst Abuse Tx Psychiatrist Name of Psychiatrist: Lita Cardoza PA-C Psychiatrist's Date of Appointment with Psychiatrist: 11/26/21 Time of Appointment with Psychiatrist: 9:00 AM Psychiatric Appointment Comment: [address] [facility] [address] Therapist Name of Therapist: [facility] Therapist's Therapy Appointment Comment: Call to establish therapy services if interested. Poultry Breeder Name of Poultry Breeder: Myke Javier Case Management Phone Number for Poultry Breeder: [phone] Case Management Appointment Comment: Call to follow up on BCM assignment. Post Discharge Appointments Primary Care Physician Name Of Family Doctor: Arielle Calderon Primary [facility] Date of Appointment with PCP: 11/23/21 Time of Appointment with PCP: 10:45 check in (bring ID, insurance card) Provider Appointment Comment: [address], [place] [address] (1) Bipolar disorder Active/Remission status: currently active Current bipolar episode type: manic Current episode severity: severe Psychotic features: with psychotic features Qualified Code(s): F31.2 - Bipolar disorder, current episode manic severe with psychotic features
[2021-11-18] MEDS: LORazepam 1 MG TAB PO SCH (20:25)
[2021-11-19] MEDS: ARMOUR THYROID 30 MG TAB PO SCH (06:51)
[2021-11-19] MEDS: haloperidoL 5 MG TAB PO SCH (08:47)
[2021-11-19] MEDS: LITHIUM CARBONATE 300 MG TAB PO SCH (08:47)
--- NOTE | 2021-11-19 09:39 | Discharge Summary ---
Date of Service November 19, 2021 History of Present Illness As per Dr. Aguilar on admission: Divine presents for psychiatric admission for worsening sleep, risk taking behaviors, and behavioral disorganization concerning for acute aleida. Overnight she was awake, dancing in the hallways, touching other peers on the unit, moved her mattress onto the floor, singing music loudly, attempting to pull on the doors of the unit, tied a hospital sock around her head as a headband and refused ordered medication of olanzapine at [facility]. Today she reports 1.5 years of mood stability on no psychiatric medications which she credits to a diet of "meat, fish and fruit" and feels things changed in the last few days due to a murder in the community that she feels was not adequately covered by the local news media, inability to sleep due to her responsibilities helping to care for her mother/busy schedule, and argument after her brother came to stay in their home and brought his cellphone into her study/office which she reports is an "electronic free zone" and he was not respecting these rules. She feels her is here due to "in media res" which she clarifies for me is Latin for "in the middle of things" and due to "helping with my mom's sacred detox". She has bruises all over her arms and legs of various stages of healing but is not sure where they came from noting "I cannot account for where they all came from" but she wonders if some occurred from needing to be put into handcuffs to be brought by police/EMS to the ED and from requiring IM medication in the ED on arrival. Today she reports her mood is "5/10" and denies any psychiatric symptoms and disagrees with a potential diagnosis of aleida. She is intermittently irritable during the interview, especially when discussing symptoms of acute aleida and suspiciousness about my note taking including standing over me and invading my personal space in an attempt to see my notes. Further history and collateral per fleet manager notes from 11/08/21: "EMS worker brought patient to ED reporting patient is clearly experiencing a manic episode, has not slept in 2 days and has not been eating as she should, nor taken her medication. This morning police were called to the home because of patients odd behaviors. Officer Antonio reports patient lives with her Mom and the Mom called the police due to an argument and patients mental health. The Officer reports there are blankets and food on the front porch as if patient is sleeping/living there. Yesterday, patient was scheduled to work, however, she showed up for the wrong shift and was dressed like Bonnie, the leida character from Beauty and the Beast. [...] Spoke with Devyn (patient's brother) and he reports he has noticed this maniabuilding up for the past few months, exhibiting very odd and risky behaviors. Patient is not taking her medication, does not have a known drug history and has not mentioned anything about wanting to hurt herself or anyone else. Patient has not slept in 3 days, according to patients Mom who was talking in the back ground during this conversation. Patients brother believes patients decision making is impaired and she has been associating with homeless people and taking them to work with her. This morning, patient took her Moms motorized wheelchair out of her Moms room along with the cell phone and hid it. It is unknown why patient did this, but it is important for patients Mom to be able to move about the home as she is unable to do so without her chair." She is not currently prescribed any psychiatric medications. Further psychiatric ROS and history limited by her irritability and mood lability. Physical Exam Psychiatric See admission H&P and DOD assessment. Vital Signs (Past 24 Hours) Last Vital Signs Temp 36.8 C 11/19/21 06:26 Pulse 77 11/19/21 06:27 Resp 16 11/19/21 06:26 BP 101/67 11/19/21 06:27 Pulse Ox 97 11/08/21 07:13 O2 Del Method 11/08/21 07:13 Principal Diagnosis bipolar disorder Psychiatric Data See daily stay summary. In short, safety was maintained and the patient was initially manic and ucooperative with care. She had a significant incident of agitation/aggression early in stay requiring locked seclusion, IM medication during which she smeared feces and a 2nd opinion for medication over objections was given but she ultimately she agreed to titration of Haldol, Ativan, and Litihium. Her thyroid medication was held briefly in case it was in anyway agitating her aleida as litihium was increased. She cleared rather quickly and Ativan was essentially tapered ahead of discharge. Her Haldol dose was also decr eased to hs only with hopes to improve med compliance at discharge, the am dose of Haldol was discontinued as she agreed to titration of Litium at discharge to add an additional 300 mg hs since her trough level was 0.5. A family session was held and safety plan was completed prior to discharge. Last stay she was also a 303 and discharged on an outpatient involuntary commitment. [place] resources have changed and also PABON medications cannot be forced even on an outpatient commitment and she did agree to a CM referral. She seems to have some schizotypal traits at baseline and also preferences for non- prescription remedies (she declines using) so I recognize her voiced commitment to continue lithium may change quickly when not in a structured environment but an outpatient commitment would not modify that risk. Given that she was able to be discharged well ahead of her 303 expiring and good baseline functioning, no hospitalizations for 2 years, and this episode was likely triggered by lack of sleep due to meth use, I think it make sense to allow her some autonomy with regards to her outpatient treatment. For all of these reasons a 304 was not pursued but it was discussed with her that if she represents that would likely be pursued. Reinforced no substance use. She voiced good understanding off all recommendations. Day of Discharge Assessment Today the patient voices readiness for discharge. They note improvement in mood and deny thoughts to harm self or others. Thoughts are organized and they are improved from admission. She can be hyper-buddhism at times and/or focussed on numerology but this is redirectible and there is no evidence of hallucinations or those thoughts interfering with her ability to care for self and are therefore not criteria for ongoing inpatient confinement on an involuntary commitment. They agree to take mediations as prescribed and keep follow-up appointments. They are stable for discharge to outpatient level of care. Transition of Care Transition Of Care Record: was reviewed with the patient Advance Directives Advance Directives Information Provided: Yes Advance Directives: No Mental Health Advance Directive: No Advance Directives on File: No Living Will: No Power of Front Line Leader: No Advance Directives Reason:: Declines as Mental Health Visit. Suicide Risk Level Suicide Risk Level Comments: Suicide risk at discharge is deemed low as the patient is no longer requiring 24-hr monitoring, has a safety plan, and is free of suicidal ideation at discharge (and denied throughout her stay). Risk Factors Assessment : Yes Do You Have Access To A Gun?: No Health Problems: Yes Mental Health Diagnoses: Yes Previous Attempt: No Family History of Suicide: No Previous Psychiatric Hospitalization: Yes Hopelessness: No Protective Factors Assessment Zoroastrian Beliefs: Yes Employed: Yes (Local [employer]) Stable Relationships: Yes Supportive Family: Yes Total Time Total Time Spent: Greater Than 30 Minutes Total Time Includes: Examination of the patient, Discharge Planning and Medication Reconciliation Discharge Data Lab Results 11/08/21 11/08/21 11/08/21 07:57 07:57 07:57 WBC 15.13 H RBC 4.71 Hgb 13.6 Hct 40.6 MCV 86.2 MCH 28.9 MCHC 33.5 RDW Std Deviation 40.4 RDW Coeff of Yanna 13.0 Plt Count 324 MPV 9.2 L Immature Gran % (Auto) 0.3 Neut % (Auto) 78.4 Lymph % (Auto) 11.8 [place] % (Auto) 9.1 Eos % (Auto) 0.1 Baso % (Auto) 0.3 Neut # (Auto) 11.88 H Lymph # (Auto) 1.78 [place] # (Auto) 1.37 H Eos # (Auto) 0.01 Baso # (Auto) 0.04 Immature Gran # (Auto) 0.05 H Sodium 142 Potassium 3.9 Chloride 110 H Carbon Dioxide 21 Anion Gap 11 BUN 11 Creatinine 0.76 Est Cr Clr Drug Dosing Not Reportable Est GFR ( Amer) 122.9 Est GFR (Non-Af Amer) 106.0 BUN/Creatinine Ratio 14.5 Glucose 112 H Fasting Glucose Calcium 9.9 Total Bilirubin 0.8 AST 19 ALT 12 Alkaline Phosphatase 24 L Total Protein 7.3 Albumin 4.8 Globulin 2.5 Albumin/Globulin Ratio 1.9 Triglycerides Cholesterol LDL Cholesterol, Calc VLDL Cholesterol, Calc HDL Cholesterol Cholesterol/HDL Ratio TSH 3.051 Free T4 Free T3 Urine Color Urine Appearance Urine pH Ur Specific [place] Urine Protein Urine Glucose (UA) Urine Ketones Urine Blood Urine Nitrite Urine Bilirubin Urine Urobilinogen Ur Leukocyte Esterase Urine WBC (Auto) Urine RBC (Auto) U Hyaline Cast (Auto) U Epithel Cells (Auto) Urine Bacteria (Auto) POC Ur Test Salicylates Urine Opiates Screen Ur Methadone, Qual Acetaminophen Urine Barbiturates Ur Phencyclidine (PCP) U Amphetamines Confirm U Amphetamin/Meth Scrn U Methamphetamin Confrm MDMA (Ecstasy) Screen U OH-Alprazolam Confrm U Benzodiazepines Scrn 7-Amino Clonazepam Ur Nordiazepam Confirm U OH-ethylflurazepam U Lorazepam Cnf GC/MS U Oxazepam Confm GC/MS Ur Temazepam Confirm U OH-Triazolam Confirm U OH-Midazolam Confirm [place] Ur Cocaine Metabolite U Marijuana (THC) Screen U Marijuana THC Carboxy Drug Screen Comment Ethyl Alcohol mg/dL SARS-CoV-2, RNA, NAAT 11/08/21 11/08/21 11/08/21 07:57 07:57 09:45 WBC RBC Hgb Hct MCV MCH MCHC RDW Std Deviation RDW Coeff of Yanna Plt Count MPV Immature Gran % (Auto) Neut % (Auto) Lymph % (Auto) [place] % (Auto) Eos % (Auto) Baso % (Auto) Neut # (Auto) Lymph # (Auto) [place] # (Auto) Eos # (Auto) Baso # (Auto) Immature Gran # (Auto) Sodium Potassium Chloride Carbon Dioxide Anion Gap BUN Creatinine Est Cr Clr Drug Dosing Est GFR ( Amer) Est GFR (Non-Af Amer) BUN/Creatinine Ratio Glucose Fasting Glucose Calcium Total Bilirubin AST ALT Alkaline Phosphatase Total Protein Albumin Globulin Albumin/Globulin Ratio Triglycerides Cholesterol LDL Cholesterol, Calc VLDL Cholesterol, Calc HDL Cholesterol Cholesterol/HDL Ratio TSH Free T4 Free T3 Urine Color Urine Appearance Urine pH Ur Specific [place] Urine Protein Urine Glucose (UA) Urine Ketones Urine Blood Urine Nitrite Urine Bilirubin Urine Urobilinogen Ur Leukocyte Esterase Urine WBC (Auto) Urine RBC (Auto) U Hyaline Cast (Auto) U Epithel Cells (Auto) Urine Bacteria (Auto) POC Ur Test Salicylates < 3.0 L Urine Opiates Screen Ur Methadone, Qual Acetaminophen < 3 L Urine Barbiturates Ur Phencyclidine (PCP) U Amphetamines Confirm U Amphetamin/Meth Scrn U Methamphetamin Confrm MDMA (Ecstasy) Screen U OH-Alprazolam Confrm U Benzodiazepines Scrn 7-Amino Clonazepam Ur Nordiazepam Confirm U OH-ethylflurazepam U Lorazepam Cnf GC/MS U Oxazepam Confm GC/MS Ur Temazepam Confirm U OH-Triazolam Confirm U OH-Midazolam Confirm [place] Ur Cocaine Metabolite U Marijuana (THC) Screen U Marijuana THC Carboxy Drug Screen Comment Ethyl Alcohol mg/dL < 10.0 SARS-CoV-2, RNA, NAAT NEGATIVE 11/08/21 11/08/21 11/08/21 11:15 11:15 11:15 WBC RBC Hgb Hct MCV MCH MCHC RDW Std Deviation RDW Coeff of Yanna Plt Count MPV Immature Gran % (Auto) Neut % (Auto) Lymph % (Auto) [place] % (Auto) Eos % (Auto) Baso % (Auto) Neut # (Auto) Lymph # (Auto) [place] # (Auto) Eos # (Auto) Baso # (Auto) Immature Gran # (Auto) Sodium Potassium Chloride Carbon Dioxide Anion Gap BUN Creatinine Est Cr Clr Drug Dosing Est GFR ( Amer) Est GFR (Non-Af Amer) BUN/Creatinine Ratio Glucose Fasting Glucose Calcium Total Bilirubin AST ALT Alkaline Phosphatase Total Protein Albumin Globulin Albumin/Globulin Ratio Triglycerides Cholesterol LDL Cholesterol, Calc VLDL Cholesterol, Calc HDL Cholesterol Cholesterol/HDL Ratio TSH Free T4 Free T3 Urine Color Yellow Urine Appearance Turbid A Urine pH 5.5 Ur Specific [place] 1.019 Urine Protein Negative Urine Glucose (UA) Negative Urine Ketones 2+ H Urine Blood Negative Urine Nitrite Negative Urine Bilirubin Negative Urine Urobilinogen Negative Ur Leukocyte Esterase 1+ H Urine WBC (Auto) 5-10 H Urine RBC (Auto) 0-4 U Hyaline Cast (Auto) 1-5 U Epithel Cells (Auto) >30 H Urine Bacteria (Auto) 1+ H POC Ur Test NEG Salicylates Urine Opiates Screen Neg Ur Methadone, Qual Neg Acetaminophen Urine Barbiturates Neg Ur Phencyclidine (PCP) Neg U Amphetamines Confirm U Amphetamin/Meth Scrn Pos H U Methamphetamin Confrm MDMA (Ecstasy) Screen Neg U OH-Alprazolam Confrm U Benzodiazepines Scrn Pos H 7-Amino Clonazepam Ur Nordiazepam Confirm U OH-ethylflurazepam U Lorazepam Cnf GC/MS U Oxazepam Confm GC/MS Ur Temazepam Confirm U OH-Triazolam Confirm U OH-Midazolam Confirm [place] Ur Cocaine Metabolite Neg U Marijuana (THC) Screen Pos H U Marijuana THC Carboxy Drug Screen Comment Ethyl Alcohol mg/dL SARS-CoV-2, RNA, NAAT 11/08/21 11/12/21 11/12/21 11:15 08:07 08:07 WBC RBC Hgb Hct MCV MCH MCHC RDW Std Deviation RDW Coeff of Yanna Plt Count MPV Immature Gran % (Auto) Neut % (Auto) Lymph % (Auto) [place] % (Auto) Eos % (Auto) Baso % (Auto) Neut # (Auto) Lymph # (Auto) [place] # (Auto) Eos # (Auto) Baso # (Auto) Immature Gran # (Auto) Sodium Potassium Chloride Carbon Dioxide Anion Gap BUN Creatinine Est Cr Clr Drug Dosing Est GFR ( Amer) Est GFR (Non-Af Amer) BUN/Creatinine Ratio Glucose Fasting Glucose 109 H Calcium Total Bilirubin AST ALT Alkaline Phosphatase Total Protein Albumin Globulin Albumin/Globulin Ratio Triglycerides 40 Cholesterol 137 LDL Cholesterol, Calc 78 VLDL Cholesterol, Calc 8 HDL Cholesterol 51 Cholesterol/HDL Ratio 2.7 TSH Free T4 0.95 Free T3 Urine Color Urine Appearance Urine pH Ur Specific [place] Urine Protein Urine Glucose (UA) Urine Ketones Urine Blood Urine Nitrite Urine Bilirubin Urine Urobilinogen Ur Leukocyte Esterase Urine WBC (Auto) Urine RBC (Auto) U Hyaline Cast (Auto) U Epithel Cells (Auto) Urine Bacteria (Auto) POC Ur Test Salicylates Urine Opiates Screen Ur Methadone, Qual Acetaminophen Urine Barbiturates Ur Phencyclidine (PCP) U Amphetamines Confirm 665 H U Amphetamin/Meth Scrn U Methamphetamin Confrm 1170 H MDMA (Ecstasy) Screen U OH-Alprazolam Confrm NEGATIVE U Benzodiazepines Scrn 7-Amino Clonazepam NEGATIVE Ur Nordiazepam Confirm NEGATIVE U OH-ethylflurazepam NEGATIVE U Lorazepam Cnf GC/MS 568 H U Oxazepam Confm GC/MS NEGATIVE Ur Temazepam Confirm NEGATIVE U OH-Triazolam Confirm NEGATIVE U OH-Midazolam Confirm >2000 H [place] Ur Cocaine Metabolite U Marijuana (THC) Screen U Marijuana THC Carboxy 24 H Drug Screen Comment SEE NOTE Ethyl Alcohol mg/dL SARS-CoV-2, RNA, NAAT 11/12/21 11/14/21 11/18/21 08:07 08:03 19:05 WBC RBC Hgb Hct MCV MCH MCHC RDW Std Deviation RDW Coeff of Yanna Plt Count MPV Immature Gran % (Auto) Neut % (Auto) Lymph % (Auto) [place] % (Auto) Eos % (Auto) Baso % (Auto) Neut # (Auto) Lymph # (Auto) [place] # (Auto) Eos # (Auto) Baso # (Auto) Immature Gran # (Auto) Sodium Potassium Chloride Carbon Dioxide Anion Gap BUN Creatinine Est Cr Clr Drug Dosing Est GFR ( Amer) Est GFR (Non-Af Amer) BUN/Creatinine Ratio Glucose Fasting Glucose Calcium Total Bilirubin AST ALT Alkaline Phosphatase Total Protein Albumin Globulin Albumin/Globulin Ratio Triglycerides Cholesterol LDL Cholesterol, Calc VLDL Cholesterol, Calc HDL Cholesterol Cholesterol/HDL Ratio TSH Free T4 Free T3 4.68 H Urine Color Urine Appearance Urine pH Ur Specific [place] Urine Protein Urine Glucose (UA) Urine Ketones Urine Blood Urine Nitrite Urine Bilirubin Urine Urobilinogen Ur Leukocyte Esterase Urine WBC (Auto) Urine RBC (Auto) U Hyaline Cast (Auto) U Epithel Cells (Auto) Urine Bacteria (Auto) POC Ur Test Salicylates Urine Opiates Screen Ur Methadone, Qual Acetaminophen Urine Barbiturates Ur Phencyclidine (PCP) U Amphetamines Confirm U Amphetamin/Meth Scrn U Methamphetamin Confrm MDMA (Ecstasy) Screen U OH-Alprazolam Confrm U Benzodiazepines Scrn 7-Amino Clonazepam Ur Nordiazepam Confirm U OH-ethylflurazepam U Lorazepam Cnf GC/MS U Oxazepam Confm GC/MS Ur Temazepam Confirm U OH-Triazolam Confirm U OH-Midazolam Confirm [place] 0.3 L 0.5 L Ur Cocaine Metabolite U Marijuana (THC) Screen U Marijuana THC Carboxy Drug Screen Comment Ethyl Alcohol mg/dL SARS-CoV-2, RNA, NAAT Hospital Course (1) Aleida: (2) Bipolar disorder: (3) Hypothyroidism: (4) Eliza's disease: Plan 11/18/21: d/c am Ativan, Li level this pm to finalize dosing prior to discharge. Safety planning. 11/17/21: as TSH is normal, will restart [place] thyroid now that aleida is resolving, continue Ativan taper this hs with goal of finding minimal effective dose and/or consolidating to bedtime. Patient declines PABON but agreeable to CM. 11/16/21: continue Ativan and Haldol tapers, clarify dosing plan for thyroid medication, lithium level in pm on 11/18/21. 11/15/21: shift pm dose of Haldol and Ativan to hs. 11/14/21: hold [place] thyroid, titrate lithium to 600 mg BID. 11/13/21: Li level in the morning. Continue other medications. 11/12/21: Reduce [place] thyroid to 90mg qd. Continue other medications. Will check Li level on 11/14/21 and then consider further titration. 11/11/21: Continue with current medications and tx plan. Fasting lipid panel and glucose and free T3/free T4 ordered for tomorrow morning. EKG done. She continues to refuse ROIs for family. 11/10/21: Now on 303 commitment. Required olanzapine 10mg IM as part of chemical restraint and then took haldol 5mg po and ativan 2mg po. Will begin medication over objection with haldol 5mg po or IM qAM & qevening and ativan 2mg po or IM qmorning and qevening. 11/09/21: The patient was admitted to the [facility]) on q15 min checks (behavioral with suicide precautions) for safety. The patient will participate in group, recreational, and milieu therapies and will be offered additional individual and family sessions as clinically appropriate. -Start [place] carbonate 300mg BID -Zyprexa and ativan prn for agitation -Continue prior to admission [place] thyroid, she prefers this to synthroid Mental Health & Subst Abuse Tx Psychiatrist Name of Psychiatrist: Lita Cardoza PA-C Psychiatrist's Date of Appointment with Psychiatrist: 11/26/21 Time of Appointment with Psychiatrist: 9:00 AM Psychiatric Appointment Comment: [address] [facility] [place] [address] Therapist Name of Therapist: [facility] Therapist's Therapy Appointment Comment: Call to establish therapy services if interested. Ornamental Painter Name of Ornamental Painter: Myke Javier Case Management Phone Number for Ornamental Painter: [phone] Case Management Appointment Comment: Call to follow up on BCM assignment. Post Discharge Appointments Primary Care Physician Name Of Family Doctor: Arielle [facility]on [facility] Date of Appointment with PCP: 11/23/21 Time of Appointment with PCP: 10:45 check in (bring ID, insurance card) Provider Appointment Comment: [address], [place] [address] Other #1: Name of Aftercare Appointment: [facility] Phone Number of Aftercare Appointment: [phone] Time of Aftercare Appointment: Call to initiate intake process to become paid caregiver. Aftercare Appointment Comment: [email or web address] #2: Name of Aftercare Appointment: [facility] (New Patient Appointment) - KIMBER Cleary Phone Number of Aftercare Appointment: Date of Aftercare Appointment: 02/09/22 Time of Aftercare Appointment: 1:40 PM Aftercare Appointment Comment: [phone], [facility] [address] #3: Name of Aftercare Appointment: [facility] - Dr. Andi Cho Phone Number of Aftercare Appointment: [phone] Date of Aftercare Appointment: 11/23/21 Time of Aftercare Appointment: 8:20 AM Aftercare Appointment Comment: virtual - will email you link Contact Information Discharge Discharge Address: [address], [place] [address] Discharge Plan Discharge Items Patient Disposition: Home - Self-Care Reason For Visit: ALEIDA Discharge Diagnosis: bipolar disorder Activity: Resume your previous activity Non-emergency contact: Primary Care Provider, Psychiatrist and Table Assembler Metal Call non-emergency contact if: you have any medication questions and your symptoms worsen Follow-up/Referrals: Gena Cho MD [Primary Care Provider] - Diet: Regular Addtl Attending Provider Instructions: SPECIAL CARE INSTRUCTIONS: 1. Follow through with your scheduled aftercare appointments. If unable to keep an appointment, please call to reschedule. 2. Take your medication only as prescribed. Medication should not be changed or stopped without the approval of your doctor. In the event of worsening symptoms or concerns about side effects, contact your doctor immediately. 3. Utilize new healthy coping skills, anger management skills, and stress management skills learned during your hospitalization. Journal feelings and process them with a support person. Identify stressors or situations that may result in relapse, deterioration or inappropriate behaviors and develop a plan to deal with those issues. 4. If your coping skills are ineffective and you are in crisis, contact your outpatient providers for direction. If unable to reach your providers, please call the [facility] CRISIS LINE AT , go to the [facility] walk-in center at [address], [address], [place], or go to the closest Emergency Room. 5. Avoid alcohol and un-prescribed drugs. 6. You have been provided with the Mental Health Advance Directives Pamphlet for your review. 7. Your condition is stable for discharge to outpatient level of care, but recovery is an ongoing process. Ifthoughts to harm yourself or others return, follow the safety plan developed during your stay. Planning for a safe return home includes securing weapons. Our treatment team recommends weaponsbe removed from the home until your outpatient provider reassesses your progress. In rare cases where the items themselvescannot be removed, guns and ammunitionshould be secured separatelyand keys stored by a reliable personoutside of the home. If you were admitted on an involuntary commitment, the police or other legal authorities may be involved in this process. AFTERCARE APPOINTMENTS: * Please call your insurance company prior to your scheduled appointment to confirm your aftercare providers are covered. Take your insurance information to your appointments. WHO TO CALL AND WHEN: Medical Emergencies: For questions or emergencies related to your hospital stay, please contact the Inpatient Behavioral Health Unit at [phone]. A access clinician is on-call 30/08 for the Behavioral Health Unit for emergencies At any time you feel your situation is an emergency, you may also call 911 immediately. Stand-Alone Forms: My [facility], Smoking Cessation Medications and DC Order Prescriptions: New haloperidol 5 mg Tablet 5 mg PO 1999 Qty: 14 0RF lithium carbonate 300 mg Tablet See Rx Instructions .ROUTE .COMPLEX Qty: 45 0RF Rx Instructions: 2 tabs in the am and 3 tabs in the pm lorazepam 1 mg Tablet 1 mg PO DAILY PRN (Reason: Anxiety) Qty: 7 0RF Continued thyroid (pork) [[place] Thyroid] 90 mg tablet 90 mg PO DAILY Qty: 90 3RF thyroid (pork) [[place] Thyroid] 15 mg tablet 15 mg PO DAILY Qty: 90 3RF Discharge Orders: Discharge Order (Routine); Ordered 11/19/21 Ordered By: Cristiane Herrera Admission Data Admit Date/Time: 11/08/21 14:17 Attending Provider: Cristiane Herrera Admit Provider: Adina Aguilar Primary Care Provider: Gena Cho Other Interventions: Discharge Summary Assessment (RN) Last Done: 11/19/21 09:56 PSY Interdisciplinary Discharge Planning Last Done: 11/19/21 09:56 Coding Level of Care Code 05240 D/C day mgmt > 30 min Diagnoses Aleida F30.9 Bipolar disorder F31.2 Active/Remission status: currently active Current bipolar episode type: manic Current episode severity: severe Psychotic features: with psychotic features Hypothyroidism E03.9 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
== END 2021-11-19 10:52 | disposition home or self-care (01) | DRG 885 ==
LOC: ED 07:13 → 3S 14:09 → SUATTDRO 14:17 → 3S 11-14 10:56

== ENCOUNTER 2022-08-17 07:54 | Inpatient (IN) ==
[2022-08-17] MEDS ORDERED: LIDOCAINE 1% LOCAL 20 ML VIAL INFIL PRN (08:23)
[2022-08-17] MEDS ORDERED: OXYTOCIN 30 UNITS/500 ML BAG IV PRN ×2 (08:23→10:25)
[2022-08-17] MEDS ORDERED: LACTATED RINGER'S 1,000 ML IV PRN (08:23)
[2022-08-17] MEDS ORDERED: OXYTOCIN 30 UNITS/500ML NSS IV ONE (08:27)
--- NOTE | 2022-08-17 08:32 | History & Physical Report ---
Date of Service August 17, 2022 History of Present Illness Chief Complaint: labor Primary Care Provider: Gena Cho MD 32 F P0000 at 40.4 weeks admitted via ambulance in active labor. GBS is unknown. Allergies Allergy/AdvReac Type Severity Reaction Status Date / Time amoxicillin Allergy Intermediate RASH Verified 03/31/22 08:39 Bactrim Allergy Intermediate HIVES Verified 08/02/14 21:30 prednisone Allergy Intermediate PSYCH Verified 03/31/22 08:39 SYMPTOMS (MANIC) sulfamethoxazole Allergy Intermediate HIVES Verified 03/31/22 08:39 trimethoprim Allergy Intermediate HIVES Verified 03/31/22 08:39 clindamycin Allergy Verified 03/31/22 08:39 Sulfa (Sulfonamide Allergy Verified 03/31/22 08:39 Antibiotics) Home Medications Medication Instructions Recorded Confirmed Type prenat.vits,alejandra,[id number] 1 tab PO DAILY 02/10/22 03/31/22 History thyroid (pork) [Carlin Thyroid] PO 02/10/22 03/31/22 History metronidazole 0.75 % (37.5 mg/5 1 appful vaginal DAILY 7 days #70 03/03/22 03/31/22 Rx gram) vaginal gel grams levothyroxine 150 mcg tablet 150 mcg PO DAILY #30 tabs 06/14/22 Rx Patient History Medical History Bipolar disorder (08/02/12) Eliza's disease Hypokalemia Hypothyroidism Madeline Manic behavior Varicella vaccination Surgical History H/O oral surgery Family History Brother ADHD (attention deficit hyperactivity disorder) Drug dependence Father Alcoholism Coronary heart disease Myocardial infarction Grandmother (Maternal) Bipolar disorder Depression Mother Multiple sclerosis Uncle Colorectal cancer Denies family history of Ovarian cancer Prostate cancer Breast cancer Social History Smoking Status: Never smoker Do You Dip or Chew Tobacco: No; Hx Alcohol Use: Yes Hx Substance Use: No Preferred Language: Irish Communication Ability: Effective Cartography Supervisor Required: No marital status: Single marital status details: marina Randle (39) Current Living Situation: Parent Current Living Situation Comment: lives with mother, dog current occupational status: employed current occupation: [employer] Feels Safe at Home: Yes Assistive Devices: None 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 neg Review of Systems All systems reviewed & are unremarkable except as noted in HPI & below Physical Exam Constitutional: WD/WN, vitals as above Eyes: PERRL, conjunctivae normal, anicteric sclerae Respiratory: normal respiratory effort, lungs clear to auscultation Cardiovascular: RRR, no murmur, no edema Gastrointestinal (Abdomen): normal bowel sounds, soft, nontender, no hepatosplenomegaly Musculoskeletal: Extremities: extremities normal to inspection Skin: no rashes, warm and dry Neurologic: patellar DTR's 2+ bilat, sensation intact Psychiatric: A+Ox3, euthymic affect Genitourinary: no vaginal lesions, no adnexal mass OB Exam Abdomen: + fundal height and + vertex Manual OB Exam: + cervical dilation 10 cm, + cervical effacement 100%, + station -1 and + amniotic fluid clear OB Exam Monitor Tracing: + external FHT monitor used, + external uterine monitor used, + category I and + normal FHT variability AROM with Amni-hook clear fluid Code Status & VTE Plan VTE Prophylaxis Plan VTE Prophylaxis will be ordered: No Monitoring External Monitor Cat 1
[2022-08-17] MEDS ORDERED: Patient's HEIGHT &/or WEIGHT Needed STA (08:44)
[2022-08-17] MEDS ORDERED: ceFAZolin 2000MG 2,000 MG/15 ML SYR IV STA (08:50)
[2022-08-17 08:51] LABS: Hematocrit (blood only) 34.2 % (37.0-47.0); Hemoglobin 11.6 g/dl (12.0-16.0); Mean Corpuscular Hemoglobin 27.2 pg (25.0-34.0); Mean Corpuscular Hgb Conc 33.9 g/dL (32.0-36.0); Mean Corpuscular Volume 80.3 fL (80.0-100.0); Mean Platelet Volume 9.7 fL (9.4-12.4); Platelet Count 267 K/uL (130-400); RDW Coefficient of Variation 14.6 % (11.5-14.5); RDW Standard Deviation 42.4 fL (36.4-46.3); Red Blood Count 4.26 M/uL (4.20-5.40); White Blood Count 12.17 K/ul (4.8-10.8)
[2022-08-17] MEDS ORDERED: HYDROCORTISONE ACETATE 25 MG SUPP PR PRN (10:25)
[2022-08-17] MEDS ORDERED: bisacodyL 10 MG SUPP PR PRN (10:25)
[2022-08-17] MEDS ORDERED: DIPHTHERIA/TETANUS/PERTUSSIS Vaccine (Tdap, Age 7+yrs) 0.5mL SYR/VL IM ONE (10:25)
[2022-08-17] MEDS ORDERED: BENZOCAINE 20% AER SPR 82.5 GM CAN EXT PRN (10:25)
[2022-08-17] MEDS ORDERED: ACETAMINOPHEN 325 MG TAB PO PRN (10:25)
--- NOTE | 2022-08-17 10:28 | Delivery Summary ---
Vaginal Delivery Summary Date of Service August 17, 2022 Vaginal Delivery Summary Delivery Note live female TONI over intact perineum with delayed cord clamping and Apgars 8/9 weight pending. Cord blood obtained followed by spontaneous delivery of intact placenta. first degree tear repaired with 3/0 Vicryl suture. EBL 100 ml. Final sponge, needle and instrument count are correct. Mom and baby stable.
--- NOTE | 2022-08-17 14:37 | Psychiatric Consultation ---
Date of Consultation August 17, 2022 Impression / Recommendations Impression Ruby presents with stable mood and appears to be well attached and bonding well with her new baby daughter. She feels well supported by her mother and significant other and denies any recent mood changes. Discussed at length increased risk for mood symptoms-both emergence of psychosis or aleida as well as post depression given her history of bipolar affective disorder. Recommended she start a mood stabilizer, she prefers not to take any psychiatric medication given her recent mood stability but agrees she will consider this and will follow-up with [facility] for psychiatric assessment should she start to notice any mood changes over the next days to months. Reviewed importance of protecting her sleep as much as possible (ideally at least 4- 6 hours consecutively if feasible) to reduce likelihood of emergence of aleida during post sleep disruption. Her mother feels she can be a good support with helping protect Ruby's sleep and will help watch for any signs of aleida, psychosis or depression. She denies any other concerns or questions at this time. (1) Bipolar disorder: Active/Remission status: in full remission Most recent bipolar episode type: manic Qualified Code(s): F31.74 - Bipolar disorder, in full remission, most recent episode manic (2) : Plan -Safe for discharge from psychiatric standpoint once medically stable -If mood symptoms emerge in post period would recommend use of olanzapine 10mg HS po (generally considered one of the safer options for breast feeding) or haldol 5mg HS po (she has done well on this in the past, considered less safe in breast feeding but could use with close pediatric and psychiatric follow-up). Would avoid use of abilify if she plans to continue breast feeding as there is less safety data for this regarding exposure -Under no circumstances should she be started on an SSRI, SNRI or Wellbutrin WITHOUT also starting a mood stabilizer if she develops depression in the post period as this could send her into an episode of acute aleida -Discussed importance of trying to protect her sleep and utilize supports as much as possible in the post period to reduce likelihood of a major mood episode Psych History Identifying Data Ruby is a 32 yo woman s/p vaginal delivery of a baby girl who lives with her mother in [place] with a history of bipolar affective disorder and hypothyroidism admitted to the OB service. Psychiatry consulted for any recommendations given her psychiatric history. Chief Complaint "I'm doing really well". History of Present Illness Ruby is known to me from her previous inpatient psychiatry admission to [facility] for acute aleida in November 2021. She was then taking haldol po for some time and then was getting Abilify Maintena 400mg PABON monthly through [facility] but stopped all psychiatric medications a few months into her . She is joined bedside by her mother and daughter and reports her mood has been stable over the last 6 months without any psychiatric medications. Her mother confirms that her mood has been stable without any episodes of depression nor aleida. Ruby appears to be bonding well with her daughter and feels well supported by her mother and her significant other. She is not interested in starting any medication for mood stabilization at this time but was agreeable to discussing options should her mood change that would safe while breast feeding. She declined an offer for us to set up a follow-up appointment with [facility] for psychiatry but feels comfortable calling them and agrees to set up an appointment should she start to notice any mood changes. She denies any recent issues with sleep. Allergies Allergy/AdvReac Type Severity Reaction Status Date / Time amoxicillin Allergy Intermediate RASH Verified 08/17/22 10:37 Bactrim Allergy Intermediate HIVES Verified 08/02/14 21:30 prednisone Allergy Intermediate PSYCH Verified 08/17/22 10:37 SYMPTOMS (MANIC) sulfamethoxazole Allergy Intermediate HIVES Verified 08/17/22 10:37 trimethoprim Allergy Intermediate HIVES Verified 08/17/22 10:37 clindamycin Allergy Mild Hives Verified 08/17/22 10:37 Sulfa (Sulfonamide Allergy Mild Hives Verified 08/17/22 10:37 Antibiotics) Home Medications Medication Instructions Recorded Confirmed Type prenat.vits,alejandra,[id number] 1 tab PO DAILY 02/10/22 08/17/22 History levothyroxine 150 mcg tablet 150 mcg PO DAILY #30 tabs 06/14/22 08/17/22 Rx Patient History Medical History Bipolar disorder (08/02/12) Eliza's disease Hypokalemia Hypothyroidism Aleida Manic behavior Varicella vaccination Surgical History H/O oral surgery Family History Brother ADHD (attention deficit hyperactivity disorder) Drug dependence Father Alcoholism Coronary heart disease Myocardial infarction Grandmother (Maternal) Bipolar disorder Depression Mother Multiple sclerosis Uncle Colorectal cancer Denies family history of Ovarian cancer Prostate cancer Breast cancer Social History Smoking Status: Unknown if ever smoked Do You Dip or Chew Tobacco: No; Hx Alcohol Use: No Hx Substance Use: No (pt. states she doesnt use) Preferred Language: Greenlandic Communication Ability: Effective Pluck Trimmer Required: No Beliefs That Will Affect Care: None marital status: Single marital status details: marina Randle (39) Current Living Situation: Parent Current Living Situation Comment: lives with mother, dog current occupational status: employed current occupation: [employer] Other Information That Helps Us Care for You: No Feels Safe at Home: Declines to Answer Assistive Devices: None Physical Exam Psychiatric: Orientation: alert and oriented x 3 Apperance: appropriately dressed and appropriately groomed Eye Contact: good eye contact Motor Behavior: no abnormal motor movements Speech: normal rate/rhythm/volume of speech Affect: euthymic affect Mood: no depressed mood and no anxious mood Thought Process: linear/logical thought process Thought Content: reality based without delusions Suicidal Thoughts: denies suicidal thoughts Homicidal Thoughts: denies homicidal thoughts Hallucinations: no auditory hallucinations and no visual hallucinations Cognition: recent memory grossly intact, remote memory grossly intact, attention grossly intact and language grossly intact Estimated Intelligence: consistent with education level Insight: + fair insight Judgment: + fair judgement Vital Signs (Past 24 Hours): Last Vital Signs Temp 36.5 C 08/17/22 08:57 Pulse 102 H 08/17/22 12:10 Resp 24 08/17/22 08:19 BP 120/75 08/17/22 12:10 Review of Systems All systems reviewed & are unremarkable except as noted in HPI & below Results & Data (PSY) Medications Administered Oxytocin (Pitocin) 30 units in 500 mls @ 333.333 mls/hr IV .Q1H30M PRN; Protocol PRN Reason: Bleeding Control Stop: 09/16/22 08:22 Last Titration: 08/17/22 12:26 Dose: 0 units/hr, 0 mls/hr Documented By: Admin: 08/17/22 10:03 Dose: 20 units/hr, 333.3 mls/hr Documented By: SCAR Co-signed By: RAMSEY Lactated Ringer's (Lr) 1,000 mls @ 125 mls/hr IV .Q8H PRN; Protocol PRN Reason: L&D Protocol Stop: 08/19/22 08:22 Last Infusion: 08/17/22 12:26 Dose: 0 mls/hr Documented By: Admin: 08/17/22 08:30 Dose: 125 mls/hr Documented By: SCAR Coding Level of Care Code 80959 IN/OBS CONSULT LVL 3,45M Diagnoses Bipolar disorder F31.74 Active/Remission status: in full remission Most recent bipolar episode type: manic Z34.90 Time Spent (min) 55
[2022-08-17] MEDS ORDERED: ceFAZolin 1000MG 1,000 MG/7.5 ML SYR IV PRN (16:00)
[2022-08-17] MEDS: DOCUSATE SODIUM 100 MG CAP PO SCH (20:42)
[2022-08-18] MEDS: IBUPROFEN 600 MG TAB PO PRN (00:04)
[2022-08-18 06:26] LABS: Hematocrit (blood only) 31.4 % (37.0-47.0); Hemoglobin 10.4 g/dl (12.0-16.0); Mean Corpuscular Hemoglobin 26.9 pg (25.0-34.0); Mean Corpuscular Hgb Conc 33.1 g/dL (32.0-36.0); Mean Corpuscular Volume 81.3 fL (80.0-100.0); Mean Platelet Volume 9.7 fL (9.4-12.4); Platelet Count 260 K/uL (130-400); RDW Coefficient of Variation 14.9 % (11.5-14.5); RDW Standard Deviation 43.3 fL (36.4-46.3); Red Blood Count 3.86 M/uL (4.20-5.40); White Blood Count 15.84 K/ul (4.8-10.8)
[2022-08-18] MEDS: LEVOTHYROXINE SODIUM 150 MCG TABLET PO SCH (07:29)
--- NOTE | 2022-08-18 07:57 | Obstetrical Progress Note ---
Date of Service August 18, 2022 Subjective Ambulation: ambulating normally Voiding: no voiding problems Passing Gas:: Yes Diet Tolerance:: regular diet Feeding Type:: breast feeding Current Pain Level(1-10): 0 (doing well) Physical Exam Constitutional WD/WN, vitals as above Musculoskeletal Extremities: extremities normal to inspection Skin no rashes, warm and dry Neurologic patellar DTR's 2+ bilat, sensation intact Psychiatric A+Ox3, euthymic affect Results & Data Vital Signs (Past 12 Hours) Vital Signs Temp Pulse Pulse Resp BP Pulse Ox O2 Del Method 08/18/22 04:26 36.9 C 90 18 126/71 98 Room Air 08/17/22 23:57 36.7 C 94 H 18 131/81 98 Room Air Laboratory Results Laboratory Results - last 72 hr 08/17/22 08/17/22 08/18/22 08:35 Unknown 06:04 WBC 12.17 H 15.84 H RBC 4.26 3.86 L Hgb 11.6 L 10.4 L Hct 34.2 L 31.4 L MCV 80.3 81.3 MCH 27.2 26.9 MCHC 33.9 33.1 RDW Std Deviation 42.4 43.3 RDW Coeff of Yanna 14.6 H 14.9 H Plt Count 267 260 MPV 9.7 9.7 SARS-CoV-2, RNA, NAAT NEGATIVE
[2022-08-18] MEDS: DOCUSATE SODIUM 100 MG CAP PO SCH ×2 (08:10→21:28)
[2022-08-18] MEDS: PRENATAL VITAMIN 1 TAB PO SCH (08:10)
[2022-08-18] MEDS: FERROUS SULFATE 325 MG TAB PO SCH (08:10)
[2022-08-18] MEDS ORDERED: NON-FORMULARY MEDICATION (Prenat.Vits,Cal,Min-Iron-Folic tablet) PO SCH (09:00)
[2022-08-18] MEDS ORDERED: bisacodyL 5 MG TABEC PO SCH (20:00)
[2022-08-19] MEDS: LEVOTHYROXINE SODIUM 150 MCG TABLET PO SCH (06:08)
[2022-08-19 06:32] LABS: Hematocrit (blood only) 34.6 % (37.0-47.0); Hemoglobin 11.3 g/dl (12.0-16.0)
--- NOTE | 2022-08-19 07:24 | Labor Progress Brief Note ---
Date of Service August 19, 2022 Subjective Reason For Note: Routine Evaluation Assessment & Plan Admission and Anticipated Discharge Date Admission Date: August 17, 2022 Results & Data Vital Signs (Past 12 Hours) Vital Signs Temp Pulse Resp BP Pulse Ox O2 Del Method 08/19/22 00:00 36.6 C 105 H 18 116/75 98 Room Air
--- NOTE | 2022-08-19 07:26 | Obstetrical Progress Note ---
Date of Service August 19, 2022 Subjective Ambulation: ambulating normally Voiding: no voiding problems Passing Gas:: Yes Diet Tolerance:: regular diet Lochia:: Small Feeding Type:: breast feeding Current Pain Level(1-10): 0 doing well Physical Exam Constitutional WD/WN, vitals as above Gastrointestinal (Abdomen) Inspection/Auscultation: abdomen normal to inspection fundus firm abdomen soft and non-tender Musculoskeletal Extremities: extremities normal to inspection Skin no rashes, warm and dry Neurologic patellar DTR's 2+ bilat, sensation intact Psychiatric A+Ox3, euthymic affect Results & Data Vital Signs (Past 12 Hours) Vital Signs Temp Pulse Resp BP Pulse Ox O2 Del Method 08/19/22 00:00 36.6 C 105 H 18 116/75 98 Room Air Laboratory Results Laboratory Results - last 72 hr 08/17/22 08/17/22 08/18/22 08:35 Unknown 06:04 WBC 12.17 H 15.84 H RBC 4.26 3.86 L Hgb 11.6 L 10.4 L Hct 34.2 L 31.4 L MCV 80.3 81.3 MCH 27.2 26.9 MCHC 33.9 33.1 RDW Std Deviation 42.4 43.3 RDW Coeff of Yanna 14.6 H 14.9 H Plt Count 267 260 MPV 9.7 9.7 SARS-CoV-2, RNA, NAAT NEGATIVE 08/19/22 06:18 WBC RBC Hgb 11.3 L Hct 34.6 L MCV MCH MCHC RDW Std Deviation RDW Coeff of Yanna Plt Count MPV SARS-CoV-2, RNA, NAAT
[2022-08-19] MEDS: PRENATAL VITAMIN 1 TAB PO SCH (07:48)
[2022-08-19] MEDS: DOCUSATE SODIUM 100 MG CAP PO SCH (07:48)
[2022-08-19] MEDS: FERROUS SULFATE 325 MG TAB PO SCH (07:49)
[2022-08-19] MEDS: IBUPROFEN 600 MG TAB PO PRN (13:38)
== END 2022-08-19 21:40 | disposition home or self-care (01) | DRG 807 ==
LOC: OPB 07:54 → 4S1 07:56 → 4E2 13:01
DX: Z79.899 Other long term (current) drug therapy; O70.1 Second degree perineal laceration during delivery; O99.284 Endocrine, nutritional and metabolic diseases complicating childbirth; Z81.8 Family history of other mental and behavioral disorders; Z88.2 Allergy status to sulfonamides; Z88.1 Allergy status to other antibiotic agents; Z37.0 Single live birth; O99.344 Other mental disorders complicating childbirth; Z88.8 Allergy status to other drugs, medicaments and biological substances; E03.9 Hypothyroidism, unspecified; Z79.890 Hormone replacement therapy; Z88.0 Allergy status to penicillin; F31.74 Bipolar disorder, in full remission, most recent episode manic

== ENCOUNTER 2024-03-29 13:16 | Inpatient (IN) ==
--- NOTE | 2024-03-29 13:46 | Emergency Department Note ---
Impression & Plan Acute hypernatremia ADMIT ED Provider Note HPI: History obtained from shelter staff and medical provider over the phone. The patient is a 33-year-old female with history of bipolar affective disorder with psychotic features/behavior, presents the emergency department from [facility] over concern for agitated behavior and limited p.o. intake over the past several days. I received report over the phone from Brittany Arroyo RN at [facility]. She states the patient has been with them for about a week and she has been extremely agitated during her stay. She is refusing medications and she is not eating or drinking. She has been in the "restraint chair" 4 times since she was initially bucked and at times she has been there for as long as 8 hours secondary to her agitated behavior. She states they have been unable to obtain any lab work from her and they cannot give her any medications unwillingly until they get a court order. She states that she therefore sent the patient to the ER to be evaluated medically and to have lab work obtained. On my assessment here of the patient, she appears to be floridly psychotic, she is unable to have any coherent conversation with me. She is not physically aggressive or obviously agitated but she declines any physical examination. ROS: - Per HPI Differential Diagnosis: Acute psychosis, dehydration, acute kidney injury, critical electrolyte abnormalities to include hyper/hyponatremia, acute infection/sepsis, polysubstance abuse, agitated delirium, amongst other potential pathologies. *Outpatient medications and allergy history reviewed. PE: General: Alert HEENT: Normocephalic, trachea midline Eyes: Extraocular eye movement is intact, no scleral erythema Pulmonary: Nonlabored breathing Cardio: Patient appears well-perfused GI: Abdomen is nondistended : Deferred MSK: No evidence of trauma or malformation of the extremities, no edema Skin: No evidence of rash Neuro: Alert, no focal deficits Psychiatric: Patient is disorganized, unable to have a coherent conversation INDEPENDENT INTERPRETATIONS: cafeteria monitor: (As interpreted by myself): - An order was placed for continuous cardiac monitoring - Patient was noted to be in sinus rhythm with a rate of 107 Chest x-ray: (As interpreted by myself): Tiny bilateral pneumothoraces, subcutaneous emphysema, pneumomediastinum Interventions provided in ED: -IV normal saline bolus, D5 half-normal saline maintenance fluids, IV Ativan Medical Decision Making: Patient presented to the emergency department with apparent psychosis, she has not been eating or drinking much at her facility and she has been in the restraint chair multiple times according to the RN at [facility], patient was sent for medical screening lab work to be obtained. On my assessment here in the ED the patient is anxious appearing and psychotic, she declines physical exam and therefore she was given IV Ativan and workup was initiated. Lab work shows a leukocytosis of 15.6, hemoglobin is normal, platelet count is slightly elevated at 576, CMP shows hyponatremia at 155, chloride is also elevated at 117, BUN is elevated at 45, creatinine is normal, lactic acid is slightly elevated 2.7, there is a mild nonspecific transaminitis. Procalcitonin is low, TSH is within normal limits. Urinalysis shows trace ketones without any evidence of an obvious infection. Urine drug screen is negative, alcohol level is negative, viral panel PCR testing is pending. Chest x-ray was obtained here in the ED given the patient's leukocytosis and tachycardia, this shows evidence of apparent pneumomediastinum with tiny bilateral pneumothoraces per the interpreting radiologist. Patient is saturating well on room air on my reassessment, following IV Ativan she did calm down and I was able to perform a physical exam, the patient does have some palpable crepitus in the bilateral neck without significant swelling, she has clear bilateral breath sounds without increased work of breathing. Pneumothoraces appear to be tiny on chest x-ray, I do not see that there is an indication for chest tube placement at this time. I discussed the above findings with the on-call hospitalist for [facility], Dr. Marroquin, and the patient was accepted for further management on inpatient basis. Hospitalist team has consulted pulmonology. I will defer antibiotics and further management to the inpatient team at this time, as the patient is stable. I also did discuss with the patient would be admitted with the on-call medical provider at [facility], Brittany Arroyo RN. Patient was placed for admission in stable condition. Consultants/Discussions held with other healthcare providers: -Hospitalist, Dr. Saleh Disposition discussion held by myself with: -[facility], Brittany Arroyo RN Diagnosis: 1. Acute psychosis 2. Hypernatremia, acute 3. Pneumomediastinum, acute 4. Leukocytosis, acute 5. Lactic acidosis, acute Disposition: Admission Eze Chua DO Emergency Medicine Past Med/Surg History Problem List (Updated 03/29/24 @ 16:18 by Eze Chua DO) Acute hypernatremia (Acute) Contusion, multiple sites Dehydration with hypernatremia Severe dehydration Hypothyroidism Bipolar affective disorder, manic, severe, with psychotic behavior Manic behavior (Acute) Allergic rhinitis due to pollen Depression (Acute 08/02/12) Secondary amenorrhea Medical History (Updated 03/29/24 @ 16:18 by Eze Chua DO) Varicella vaccination Hypokalemia Surgical History H/O oral surgery Family History Brother ADHD (attention deficit hyperactivity disorder) Drug dependence Father Alcoholism Coronary heart disease Myocardial infarction Grandmother (Maternal) Bipolar disorder Depression Mother Multiple sclerosis Uncle Colorectal cancer Denies family history of Ovarian cancer Prostate cancer Breast cancer Social History Smoking Status: Unknown if ever smoked Do You Dip or Chew Tobacco: No; Hx Alcohol Use: No Hx Substance Use: Yes Last Used Substance: Days (ago) Last Used Substance Other:: pt states she stopped using this year, but tried it again two days ago Preferred Language: Croatian Communication Ability: Effective Lubricator Granulator Required: No Beliefs That Will Affect Care: Faith Faith Beliefs: Patient unable to participate in admission marital status: Single marital status details: marina aRndle (41) Current Living Situation: Parent 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: employed current occupation: [employer] Feels Safe at Home: Yes Assistive Devices: None Allergies Allergies Allergy/AdvReac Type Severity Reaction Status Date / Time haloperidol [From Haldol] Allergy Severe Unknown Verified 03/29/24 14:18 amoxicillin Allergy Intermediate RASH Verified 08/17/22 10:37 Bactrim Allergy Intermediate HIVES Verified 08/02/14 21:30 prednisone Allergy Intermediate PSYCH Verified 08/17/22 10:37 SYMPTOMS (MANIC) sulfamethoxazole Allergy Intermediate HIVES Verified 08/17/22 10:37 trimethoprim Allergy Intermediate HIVES Verified 08/17/22 10:37 clindamycin Allergy Mild Hives Verified 08/17/22 10:37 Sulfa (Sulfonamide Allergy Mild Hives Verified 08/17/22 10:37 Antibiotics) diphenhydramine Allergy Unknown Unknown Verified 03/29/24 14:18 [From Augie] Home Meds Home Medications Medication Instructions Recorded Confirmed olanzapine 10 mg tablet 10 mg PO BID 03/29/24 03/29/24 Results & Data (ED) Vital Signs Vital Signs - 24 hr 03/29/24 13:17 03/29/24 14:21 03/29/24 14:23 Temperature 37.0 C Temperature Source Oral Pulse Rate 118 H 113 H 116 H Pulse Rate [Apical] Pulse Rate from SpO2 Sensor 114 H Respiratory Rate 22 13 13 Respiratory Depth Blood Pressure 121/79 Blood Pressure [Left Arm] Blood Pressure Mean 93 Blood Pressure Mean [Left Arm] Blood Pressure Position Semi-fowlers Pulse Oximetry 100 91 94 Oxygen Delivery Method Room Air Room Air Sepsis Recent Fever Within 48 Hours No Sepsis New/Unexplained Change in Mental Status No Sepsis Action Taken by Nursing Physician Notified 03/29/24 14:24 03/29/24 14:24 03/29/24 14:24 Temperature Temperature Source Pulse Rate 115 H Pulse Rate [Apical] 115 H Pulse Rate from SpO2 Sensor 114 H Respiratory Rate 13 13 Respiratory Depth Normal Blood Pressure 123/90 Blood Pressure [Left Arm] 123/90 Blood Pressure Mean 108 Blood Pressure Mean [Left Arm] 101 Blood Pressure Position Pulse Oximetry 94 95 Oxygen Delivery Method Room Air Sepsis Recent Fever Within 48 Hours Sepsis New/Unexplained Change in Mental Status Sepsis Action Taken by Nursing 03/29/24 14:45 03/29/24 15:00 03/29/24 15:49 Temperature Temperature Source Pulse Rate 112 H 111 H 105 H Pulse Rate [Apical] Pulse Rate from SpO2 Sensor Respiratory Rate 13 13 Respiratory Depth Blood Pressure 113/93 130/94 Blood Pressure [Left Arm] Blood Pressure Mean 102 115 Blood Pressure Mean [Left Arm] Blood Pressure Position Pulse Oximetry 98 98 Oxygen Delivery Method Sepsis Recent Fever Within 48 Hours Sepsis New/Unexplained Change in Mental Status Sepsis Action Taken by Nursing Laboratory Data 03/29/24 14:11 03/29/24 14:11 Lab Results 03/29/24 03/29/24 03/29/24 Range/Units 14:11 14:37 15:04 WBC 15.64 H (4.8-10.8) K/ul RBC 5.11 (4.20-5.40) M/uL Hgb 14.4 (12.0-16.0) g/dl Hct 43.4 (37.0-47.0) % MCV 84.9 (80.0-100.0) fL MCH 28.2 (25.0-34.0) pg MCHC 33.2 (32.0-36.0) g/dL RDW Std Deviation 42.0 (36.4-46.3) fL RDW Coeff of Yanna 13.5 (11.5-14.5) % Plt Count 576 H (130-400) K/uL MPV 9.1 L (9.4-12.4) fL Immature Gran % (Auto) 0.5 % Neut % (Auto) 74.8 % Lymph % (Auto) 14.8 % [place] % (Auto) 9.6 % Eos % (Auto) 0.1 % Baso % (Auto) 0.2 % Neut # (Auto) 11.70 H (1.40-6.50) K/uL Lymph # (Auto) 2.31 (1.20-3.40) K/uL [place] # (Auto) 1.50 H (0.11-0.59) K/uL Eos # (Auto) 0.02 (0.00-0.50) K/uL Baso # (Auto) 0.03 (0.00-0.20) K/uL Immature Gran # (Auto) 0.08 (0.01-0.20) K/uL Sodium 155 H (136-145) mmol/L Potassium 4.1 (3.5-5.1) mmol/L Chloride 117 H (98-107) mmol/L Carbon Dioxide 30 (21-32) mmol/L Anion Gap 8 (3-11) BUN 45 H (6-23) mg/dl Creatinine 0.98 (0.6-1.2) mg/dl Est Cr Clr Drug Dosing Not Reportable eGFR 79.14 BUN/Creatinine Ratio 45.9 H (10-20) Glucose 97 (70-99(Fasting)) mg/dl Lactate 2.7 H* (0.4-2.0) mmol/L Calcium 10.2 (8.6-10.3) mg/dl Total Bilirubin 0.8 (0.2-1.0) mg/dl AST 58 H (13-39) U/L ALT 55 H (7-52) U/L Alkaline Phosphatase 26 L (34-104) U/L Total Protein 7.9 (6.0-8.3) gm/dl Albumin 5.0 (3.4-5.0) gm/dl Globulin 2.9 (2.5-4.0) gm/dl Albumin/Globulin Ratio 1.7 (0.9-2) Procalcitonin 0.06 (0-0.5) ng/ml TSH 4.380 (0.300-4.500) uIu/ml Urine Color Dark Yellow Urine Appearance Turbid A (Clear) Urine pH 5.5 (4.5-7.5) Ur Specific [place] 1.031 H (1.000-1.030) Urine Protein 2+ H (Negative) Urine Glucose (UA) Negative (Negative) Urine Ketones Trace H (Negative) Urine Blood Negative (Negative) Urine Nitrite Negative (Negative) Urine Bilirubin Negative (Negative) Urine Urobilinogen Negative (Negative) Ur Leukocyte Esterase Negative (Negative) Urine WBC (Auto) 0-5 (0-5) /hpf Urine RBC (Auto) 0-2 (0-2) /hpf U Hyaline Cast (Auto) >20 H (0-2) /lpf U Epithel Cells (Auto) 6-10 H (0-2) /hpf Urine Bacteria (Auto) None Seen (None Seen) Hyaline Casts Present A (None Presnt) /lpf Urine Mucus Present A (None Prsent) Salicylates < 3.0 L (3.0-30) mg/dl Urine Opiates Screen Neg (Neg) Ur Methadone, Qual Neg (Neg) Urine Fentanyl Screen Neg (Neg) Acetaminophen < 3 L (10-30) ug/ml Urine Barbiturates Neg (Neg) Ur Phencyclidine (PCP) Neg (Neg) U Amphetamin/Meth Scrn Neg (Neg) MDMA (Ecstasy) Screen Neg (Neg) U Benzodiazepines Scrn Neg (Neg) Ur Cocaine Metabolite Neg (Neg) U Marijuana (THC) Screen Neg (Neg) Ethyl Alcohol mg/dL < 10.0 (<10.0) mg/dl Administered Medications Dextrose/Sodium Chloride (D5w And 1/2nss) 1,000 mls @ 250 mls/hr IV .Q4H KOFI Stop: 03/30/24 14:47 Last Admin: 03/29/24 16:47 Dose: 250 mls/hr Documented By: JAZMÍN Discontinued Medications Sodium Chloride (Nss) 1,000 mls @ 999 mls/hr IV .Q1H1M STA Stop: 03/29/24 14:42 Last Admin: 03/29/24 14:17 Dose: 999 mls/hr Documented By: NORA Lorazepam (Lorazepam 2 Mg/1 Ml Vial) 1 mg IV NOW STA Stop: 03/29/24 13:43 Last Admin: 03/29/24 14:06 Dose: 1 mg Documented By: NORA Imaging Data Radiologist's Impression: Chest X-Ray 03/29/24 14:53 EXAM: Radiograph of the Chest 1 View INDICATION: Leukocytosis TECHNIQUE: Frontal view of the chest. COMPARISON: 11/09/2022 FINDINGS: Lungs and pleural spaces: Trace bilateral apical pneumothoraces noted. Question trace bilateral medial pneumothoraces. There is lucency in the right costophrenic sulcus. No consolidation or pulmonary edema. No pleural effusion. Heart: Shape and configuration within normal limits allowing for technique. Mediastinum: There is pneumomediastinum. Media sternal contour normal. Bones/joints: No fracture, erosion or dislocation. Soft tissues: Extensive subcutaneous gas bilateral chest. Upper abdomen: No abnormality noted. IMPRESSION: 1. Pneumomediastinum and trace bilateral pneumothoraces. 2. Lucency along the medial diaphragm likely reflects pneumomediastinum but free intraperitoneal air is not completely excluded but thought less likely. ACT 112: Negative or not required by law. Electronically signed by Manjula Carlin 03-29-2024 4:14 PM Shoulder X-Ray 03/29/24 15:45 EXAM: Radiographs of the Right Shoulder Complete 2 or More Views INDICATION: Leukocytosis. TECHNIQUE: Two or more views of the right shoulder. COMPARISON: No relevant prior studies available. FINDINGS: Bones/joints: No fracture, erosion or dislocation. Soft tissues: Extensive subcutaneous gas right neck, lateral chest wall and upper arm. Lungs and pleural spaces: There is trace right apical and medial pneumothorax. Other findings: Pneumomediastinum probable. IMPRESSION: 1. No acute osseous abnormality of the right shoulder. 2. Right pneumothorax and pneumomediastinum. ACT 112: Negative or not required by law. Electronically signed by Manjula Carlin 03-29-2024 4:14 PM Discharge Plan Visit Data Chief Complaint: Mental Health Evaluation Stated Complaint: [facility] ED Provider: Eze Chua Discharge Problem: Acute hypernatremia Forms Stand Alone Forms: My [facility], Suicide Prevention Resources Prescriptions Prescriptions: No Action olanzapine 10 mg Tablet 10 mg PO BID Referrals Referrals: Gena Cho MD [Outside Practitioners] -
[2024-03-29] MEDS: LORazepam 2 MG/1 ML VIAL IV STA (14:06)
[2024-03-29] MEDS: SODIUM CHLORIDE 0.9% 1,000 ML IV STA (14:17)
[2024-03-29 14:29] LABS: Basophils # (auto) 0.03 K/uL (0.00-0.20); Basophils % (auto) 0.2 %; Eosinophils # (auto) 0.02 K/uL (0.00-0.50); Eosinophils % (auto) 0.1 %; Hematocrit (blood only) 43.4 % (37.0-47.0); Hemoglobin 14.4 g/dl (12.0-16.0); Immature Granulocytes # (auto) 0.08 K/uL (0.01-0.20); Immature Granulocytes % (auto) 0.5 %; Lymphocytes # (auto) 2.31 K/uL (1.20-3.40); Lymphocytes % (auto) 14.8 %; Mean Corpuscular Hemoglobin 28.2 pg (25.0-34.0); Mean Corpuscular Hgb Conc 33.2 g/dL (32.0-36.0); Mean Corpuscular Volume 84.9 fL (80.0-100.0); Mean Platelet Volume 9.1 fL (9.4-12.4); Monocytes % (auto) 9.6 %; Neutrophils % (auto) 74.8 %; Platelet Count 576 K/uL (130-400); RDW Coefficient of Variation 13.5 % (11.5-14.5); Red Blood Count 5.11 M/uL (4.20-5.40); White Blood Count 15.64 K/ul (4.8-10.8)
[2024-03-29 14:46] LABS: Alanine Aminotransferase 55 U/L (7-52); Albumin Globulin Ratio 1.7 (0.9-2); Alkaline Phosphatase 26 U/L (34-104); Anion Gap 8 (3-11); Aspartate Aminotransferase 58 U/L (13-39); BUN Creatinine Ratio 45.9 (10-20); Bilirubin,Total 0.8 mg/dl (0.2-1.0); Blood Urea Nitrogen 45 mg/dl (6-23); Calcium 10.2 mg/dl (8.6-10.3); Carbon Dioxide 30 mmol/L (21-32); Chloride 117 mmol/L (98-107); Globulin 2.9 gm/dl (2.5-4.0); Glucose 97 mg/dl (70-99(Fasting)); Potassium 4.1 mmol/L (3.5-5.1); Sodium 155 mmol/L (136-145); Total Protein 7.9 gm/dl (6.0-8.3)
[2024-03-29 14:47] LABS: Acetaminophen < 3 ug/ml (10-30); Salicylate < 3.0 mg/dl (3.0-30)
[2024-03-29 15:07] LABS: Appearance Urine Turbid (Clear); Bacteria Urine Automated None Seen (None Seen); Bilirubin Urine Negative (Negative); Blood Urine Negative (Negative); Cast Urine Automated >20 /lpf (0-2); Color Urine Dark Yellow; Glucose Urine UA Negative (Negative); Hyaline Casts Urine Present /lpf (None Presnt); Ketones Urine Trace (Negative); Leukocyte Esterase Urine Negative (Negative); Mucus Urine Present (None Prsent); Nitrite Urine Negative (Negative); Protein Urine 2+ (Negative); RBC Urine Automated 0-2 /hpf (0-2); Specific Gravity Urine 1.031 (1.000-1.030); Urobilinogen Urine Negative (Negative); WBC Urine Automated 0-5 /hpf (0-5); pH Urine 5.5 (4.5-7.5)
[2024-03-29 15:33] LABS: Amphetamines+Metham, Urine Neg (Neg); Barbiturates, Urine Neg (Neg); Benzodiazepine, Urine Neg (Neg); Cocaine, Urine Neg (Neg); Fentanyl, Urine Neg (Neg); MDMA (Ecstacy), Urine Neg (Neg); Marijuana, Urine Neg (Neg); Methadone, Urine Neg (Neg); Opiate, Urine Neg (Neg); Phencyclidine, Urine Neg (Neg)
--- NOTE | 2024-03-29 15:57 | History & Physical Report ---
Date of Service March 29, 2024 Assessment & Plan (1) Severe dehydration: (2) Dehydration with hypernatremia: (3) Bipolar affective disorder, manic, severe, with psychotic behavior: (4) Contusion, multiple sites: (5) Hypothyroidism: (6) Depression: Plan Patient is a 33-year-old female who presents from the local [facility]dc with what is most likely severe aleida in the setting of her known bipolar disorder to the point where she is not been eating or drinking adequately and presents with severe dehydration and hypernatremia. Patient has significantly ill. At higher risk for worsening condition and organ dysfunction due to severe dehydration if she is not cared for in the hospital. Admit to hospital MedSurg unit Continue fluid resuscitation with D5W Monitor electrolytes and other laboratory studies Check free T4 T3 levels, patient has a history of Eliza's thyroiditis, reviewing outpatient endocrinology notes indicates that she is on [place] Thyroid 60 mg daily. Continue [place] Thyroid Appears that patient is on scheduled Zyprexa will continue this Ativan IV as needed for agitation Zyprexa IM for severe agitation not responsive to the Ativan Psychiatry consultation, patient may need additional medications to control her aleida before returning to [facility] At this point have a low suspicion for sepsis or bacterial infection. Procalcitonin is low. Suspect leukocytosis, increased LFTs and thrombocytosis most likely reactive due to her severe dehydration. I would anticipate these improving with hydration. Some of the leukocytosis may be reactive due to her musculoskeletal trauma as well. X-ray right shoulder due to significant contusion rule out any fracture. History of Present Illness Chief Complaint: Not eating or drinking and manic episodes Primary Care Provider: [facility] Patient is a 33-year-old female with known bipolar disorder with severe episodes of aleida and psychosis. Presents to the emergency department from the local fdc for medical screening. Reported that the patient has not been eating or drinking much over the last few days. Also reports that she has been needed to be put in the restraint chair for multiple hours multiple times since her presentation to the fdc on March 21. In the emergency room she was given Ativan so we could perform evaluation. She was noted be quite hyponatremic with some elevated WBCs as well as elevated liver function testing. She is referred to our service for further management of these issues. Time my evaluation the patient is extremely drowsy from the Ativan. She does awaken attempts to answer some questions but her verbal responses essentially unintelligible. [facility] guards at the bedside do not have much information. However they were able to report that she was throwing herself against the door, she may have fallen out of her bunk a couple days ago and confirmed the restraints. This may explain some of the bruising. Rest of history obtained from ED physician and review of the medical record. Allergies Allergy/AdvReac Type Severity Reaction Status Date / Time haloperidol [From Haldol] Allergy Severe Unknown Verified 03/29/24 14:18 amoxicillin Allergy Intermediate RASH Verified 08/17/22 10:37 Bactrim Allergy Intermediate HIVES Verified 08/02/14 21:30 prednisone Allergy Intermediate PSYCH Verified 08/17/22 10:37 SYMPTOMS (MANIC) sulfamethoxazole Allergy Intermediate HIVES Verified 08/17/22 10:37 trimethoprim Allergy Intermediate HIVES Verified 08/17/22 10:37 clindamycin Allergy Mild Hives Verified 08/17/22 10:37 Sulfa (Sulfonamide Allergy Mild Hives Verified 08/17/22 10:37 Antibiotics) diphenhydramine Allergy Unknown Unknown Verified 03/29/24 14:18 [From Benadryl] Home Medications Medication Instructions Recorded Confirmed Type olanzapine 10 mg tablet 10 mg PO BID 03/29/24 03/29/24 History Past Med/Surg History Problem List (Updated 03/29/24 @ 15:55 by Marquise Marroquin DO) Contusion, multiple sites Dehydration with hypernatremia Severe dehydration Hypothyroidism Bipolar affective disorder, manic, severe, with psychotic behavior Manic behavior (Acute) Allergic rhinitis due to pollen Depression (Acute 08/02/12) Secondary amenorrhea Medical History (Updated 03/29/24 @ 15:55 by Marquise Marroquin DO) Varicella vaccination Hypokalemia Surgical History H/O oral surgery Family History Brother ADHD (attention deficit hyperactivity disorder) Drug dependence Father Alcoholism Coronary heart disease Myocardial infarction Grandmother (Maternal) Bipolar disorder Depression Mother Multiple sclerosis Uncle Colorectal cancer Denies family history of Ovarian cancer Prostate cancer Breast cancer Social History Smoking Status: Unknown if ever smoked Do You Dip or Chew Tobacco: No; Hx Alcohol Use: No Hx Substance Use: Yes Last Used Substance: Days (ago) Last Used Substance Other:: pt states she stopped using this year, but tried it again two days ago Preferred Language: Malian Communication Ability: Effective Waiter Waitress Required: No Beliefs That Will Affect Care: Amish Amish Beliefs: Patient unable to participate in admission marital status: Single marital status details: marina Randle (39) Current Living Situation: Parent 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: employed current occupation: [employer] Feels Safe at Home: Yes Assistive Devices: None Review of Systems Review of Systems: Unobtainable from patient due to her current medical status Physical Exam 2 Physical Exam: Constitutional: Extremely drowsy, mildly ill in appearance HEENT: Mucous membranes extremely dry, lips dry and cracked, sclera clear Neck: Soft, no adenopathy Lungs: Clear to auscultation, decreased, no wheezes rales or rhonchi CV: S1-S2, regular, tachycardic Abdomen: Soft, nontender, nondistended Extremities: No significant edema Musculoskeletal: Significant bruising right shoulder, no significant swelling, possibly some mild tenderness, mild bruising left shoulder. Neuro: Minimally responsive, not following commands due to sedation Psych: Sedated Results & Data Results & Data Vital Signs (Past 12 Hours) Vital Signs Temp Pulse Pulse Resp BP BP Pulse Ox 03/29/24 15:00 111 H 13 130/94 98 03/29/24 14:45 112 H 13 113/93 98 03/29/24 14:24 115 H 13 95 03/29/24 14:24 123/90 03/29/24 14:24 115 H 13 123/90 94 03/29/24 14:23 116 H 13 94 03/29/24 14:21 113 H 13 91 03/29/24 13:17 37.0 C 118 H 22 121/79 100 O2 Del Method 03/29/24 15:00 03/29/24 14:45 03/29/24 14:24 03/29/24 14:24 03/29/24 14:24 Room Air 03/29/24 14:23 Room Air 03/29/24 14:21 03/29/24 13:17 Room Air Diagnostic Findings Reviewed imaging, laboratory and diagnostic studies. Pertinent findings as below. Chest x-ray pending WBCs 15.6 Hemoglobin 14.4 Platelets 576 Sodium 155 Potassium 4.1 Chloride 117 BUN 45 Creatinine 0.98 Lactate 2.7 AST 58 ALT 55 Alk phos 26 Procalcitonin 0.06 TSH 4.38 Urine specific gravity 1.031 Urine protein 2+ Trace ketones in the urine No bacteria seen in the urine Urine drug screen negative Ethyl alcohol less than 10 Respiratory viral panel pending Code Status & VTE Plan VTE Prophylaxis Plan VTE Prophylaxis will be ordered: Yes
--- NOTE | 2024-03-29 16:14 | XRay Report ---
EXAM: Radiographs of the Right Shoulder Complete 2 or More Views INDICATION: Leukocytosis. TECHNIQUE: Two or more views of the right shoulder. COMPARISON: No relevant prior studies available. FINDINGS: Bones/joints: No fracture, erosion or dislocation. Soft tissues: Extensive subcutaneous gas right neck, lateral chest wall and upper arm. Lungs and pleural spaces: There is trace right apical and medial pneumothorax. Other findings: Pneumomediastinum probable. IMPRESSION: 1. No acute osseous abnormality of the right shoulder. 2. Right pneumothorax and pneumomediastinum. ACT 112: Negative or not required by law. Electronically signed by Manjula Carlin 03-29-2024 4:14 PM
--- NOTE | 2024-03-29 16:16 | XRay Report ---
EXAM: Radiograph of the Chest 1 View INDICATION: Leukocytosis TECHNIQUE: Frontal view of the chest. COMPARISON: 11/09/2022 FINDINGS: Lungs and pleural spaces: Trace bilateral apical pneumothoraces noted. Question trace bilateral medial pneumothoraces. There is lucency in the right costophrenic sulcus. No consolidation or pulmonary edema. No pleural effusion. Heart: Shape and configuration within normal limits allowing for technique. Mediastinum: There is pneumomediastinum. Media sternal contour normal. Bones/joints: No fracture, erosion or dislocation. Soft tissues: Extensive subcutaneous gas bilateral chest. Upper abdomen: No abnormality noted. IMPRESSION: 1. Pneumomediastinum and trace bilateral pneumothoraces. 2. Lucency along the medial diaphragm likely reflects pneumomediastinum but free intraperitoneal air is not completely excluded but thought less likely. ACT 112: Negative or not required by law. Electronically signed by Manjula Carlin 03-29-2024 4:14 PM
[2024-03-29] MEDS: D5W AND 1/2NSS 1,000 ML IV SCH (16:47)
[2024-03-29 17:00] LABS: Adenovirus PCR Not Detected (NotDetected); Bordetella parapertussis PCR Not Detected (NotDetected); Bordetella pertussis PCR Not Detected (NotDetected); Chlamydia pneumoniae PCR Not Detected (NotDetected); Coronavirus 229E PCR Not Detected (NotDetected); Coronavirus CoV-2 (COVID19)PCR Not Detected (NotDetected); Coronavirus HKU1 PCR Not Detected (NotDetected); Coronavirus NL63 PCR Not Detected (NotDetected); Coronavirus OC43PCR Not Detected (NotDetected); Human Metapneumovirus PCR Not Detected (NotDetected); Influenza A PCR Not Detected (NotDetected); Influenza B PCR Not Detected (NotDetected); Mycoplasma pneumoniae PCR Not Detected (NotDetected); Parainfluenza Virus 1 PCR Not Detected (NotDetected); Parainfluenza Virus 2 PCR Not Detected (NotDetected); Parainfluenza Virus 3 PCR Not Detected (NotDetected); Parainfluenza Virus 4 PCR Not Detected (NotDetected); Respiratory Syncytial VirusPCR Not Detected (NotDetected); Rhinovirus/Enterovirus PCR Not Detected (NotDetected)
[2024-03-29] MEDS: cefTRIAXone SODIUM 1,000 MG/50 ML BAG IV SCH (17:18)
--- NOTE | 2024-03-29 17:31 | CT Scan Report ---
CT chest without contrast History: Chest pain Comparison: None Technique: Helical CT imaging of the chest performed without IV contrast Dose reduction techniques were achieved by using automatic exposure control and/or adjustment of mA and/or kV according to patient size and/or use of iterative reconstruction technique. Findings: Diffuse air tracking throughout the soft tissues, including pneumomediastinum, pneumopericardium, and a trace left pneumothorax. There is soft tissue gas throughout the chest wall and to the upper extremities. There is just a small volume of pneumoperitoneum seen overlying the surface of the liver and spleen, with more pronounced retropneumoperitoneum. There is no significant fluid about the lower esophagus to suggest a johnny esophageal tear. No focal consolidation. No pleural effusion. No pneumothorax. Heart size is normal. The thoracic aorta is normal in size. The pulmonary artery is normal in size. No significant pericardial effusion. No suspicious lymphadenopathy in the chest. The central airway is clear. Limited visualized upper abdomen. No acute bony abnormalities. Impression: Diffuse air tracking throughout the soft tissues of the chest and visualized abdomen, as above. Trace left pneumothorax. There is just a small volume of pneumoperitoneum, as above, with more pronounced retropneumoperitoneum. Electronically signed by Best Terrell 03-29-2024 5:30 PM
[2024-03-29] MEDS ORDERED: ONDANSETRON INJ 2 MG/ML 2 ML VIAL IV PRN (18:48)
[2024-03-29] MEDS ORDERED: ALUMINUM/MAGNESIUM SUSP 30 ML UDC PO PRN (18:48)
[2024-03-29] MEDS ORDERED: LORazepam 2 MG/1 ML VIAL IV PRN (18:48)
[2024-03-29] MEDS ORDERED: ACETAMINOPHEN 325 MG TAB PO PRN (18:48)
[2024-03-29 19:37] LABS: T4 Free Thyroxine 1.2 ng/dl (0.61-1.60)
--- NOTE | 2024-03-29 19:42 | Communication Note ---
Date of Service: March 29, 2024 Patient tachycardic, drowsy post Ativan administration at the ER. No unusual chest pain or SOB as per RN. Med/tele transfer for closer monitoring.
[2024-03-29 20:05] LABS: Magnesium 2.8 mg/dl (1.7-2.4)
[2024-03-29 20:10] LABS: Base Excess VBG 3.5 mEq/L; HCO3 VBG 29 mmol/L; Oxygen Saturation VBG < 60.0 %; PCO2 VBG 47 mmHg (38-50); PO2 VBG 40 mmHg
[2024-03-29] MEDS: DEXTROSE 5% 1,000 ML IV SCH (20:14)
[2024-03-29] MEDS: OLANZapine 10 MG/2.1 ML SDV IM PRN (21:23)
[2024-03-29] MEDS: DOXYCYCLINE HYCLATE 100 MG in DEXTROSE 5% MINI-B 100 ML IV STA (22:16)
[2024-03-29] MEDS: OLANZapine 10 MG TAB PO SCH (22:19)
[2024-03-29] MEDS: ENOXAPARIN INJ 40 MG/0.4 ML SYR SQ SCH (22:45)
--- NOTE | 2024-03-30 01:14 | CT Scan Report ---
Exam(s): CT ABDOMEN + PELVIS Without Contrast EXAM: CT Abdomen and Pelvis Without Intravenous Contrast CLINICAL HISTORY: Pneumoperitoneum. TECHNIQUE: Axial computed tomography images of the abdomen and pelvis without intravenous contrast. CTDI is 15.13 mGy and DLP is 783.57 mGy-cm. Automated exposure control was utilized for the study. A dose lowering technique was utilized adhering to the principles of ALARA. COMPARISON: CT abdomen and pelvis with contrast dated 11/09/2022 FINDINGS: Limitations: There is diffuse extensive respiratory artifact, which degrades image quality throughout the examination. Lung bases: Evaluation of the lung bases is somewhat limited. There is tracking of gas into the subpleural space at the lung bases. No consolidation. Mediastinum: No acute osseous abnormality. There is minimal gas in the epidural space at the thoracolumbar junction, presumably tracking from the mediastinum. Extensive tracking pneumomediastinum throughout the inferior thorax with direct communication with the retroperitoneum. There is extensive tracking retroperitoneal emphysema throughout the abdomen and pelvis with near complete extension surrounding both kidneys, the aorta and IVC. There is also some extension into the paraspinal musculature. ABDOMEN: Liver: The liver is grossly unremarkable. Gallbladder and bile ducts: The gallbladder is moderately distended. No obvious calcified gallstones. No obvious wall thickening. No ductal dilation. Pancreas: Evaluation of the pancreas is limited. No obvious ductal dilation. The pancreas is grossly unremarkable. Spleen: Unremarkable. No splenomegaly. Adrenals: Unremarkable. No mass. Kidneys and ureters: The unenhanced kidneys are grossly unremarkable, extensive respiratory artifact and extensive retroperitoneal gas. No hydronephrosis or obstructive ureteral stones. Stomach and bowel: The stomach is mildly distended with fluid and gas. Evaluation of the bowel is markedly degraded by extensive respiratory artifact and lack of IV contrast. No evidence for focal high-grade bowel obstruction. Mild stool burden. Evaluation of the colon is degraded, limiting evaluation for subtle focal abnormality. No mucosal thickening. PELVIS: Appendix: No findings to suggest acute appendicitis. Bladder: The bladder is moderately distended without bladder wall thickening. No bladder stones. Reproductive: Unremarkable as visualized. ABDOMEN and PELVIS: Intraperitoneal space: Evaluation for pneumoperitoneum is markedly degraded by extensive prominent respiratory artifact. However, there is some pneumoperitoneum suggested along the margins of the liver. No significant fluid collection. Bones/joints: No acute fracture. No dislocation. Soft tissues: There is extensive tracking subcutaneous emphysema throughout the superficial soft tissues of the thorax, extending into the superior abdomen and the right flank. Incidentally, there is also tracking subcutaneous emphysema throughout the minimally included left upper extremity. Vasculature: Unremarkable. No abdominal aortic aneurysm. Lymph nodes: Unremarkable. No enlarged lymph nodes. IMPRESSION: 1. Extensive tracking pneumomediastinum throughout the inferior thorax with direct communication with the retroperitoneum. There is extensive tracking retroperitoneal emphysema throughout the abdomen and pelvis with near complete extension surrounding both kidneys, the aorta and IVC. There is also some extension into the paraspinal musculature. 2. There is extensive tracking subcutaneous emphysema throughout the superficial soft tissues of the thorax, extending into the superior abdomen and the right flank. Incidentally, there is also tracking subcutaneous emphysema throughout the minimally included left upper extremity. 3. Evaluation for pneumoperitoneum is markedly degraded by extensive prominent respiratory artifact. However, there is some pneumoperitoneum suggested along the margins of the liver. While subtle bowel perforation is difficult to exclude given this appearance, given the extensive changes noted previously, favor subtle extension into the intraperitoneal space from the pneumomediastinum and retroperitoneal gas. 4. The stomach is mildly distended with fluid and gas. Evaluation of the bowel is markedly degraded by extensive respiratory artifact and lack of IV contrast. No evidence for focal high-grade bowel obstruction. Mild stool burden. Evaluation of the colon is degraded, limiting evaluation for subtle focal abnormality. No free intraperitoneal fluid. Electronically signed by: Tony Beauchamp MD 03/30/24 01:13 AM
[2024-03-30] MEDS: OLANZapine 10 MG/2.1 ML SDV IM STA (02:23)
[2024-03-30 05:14] LABS: Basophils # (auto) 0.02 K/uL (0.00-0.20); Basophils % (auto) 0.2 %; Eosinophils # (auto) 0.26 K/uL (0.00-0.50); Eosinophils % (auto) 2.5 %; Hematocrit (blood only) 36.7 % (37.0-47.0); Hemoglobin 11.8 g/dl (12.0-16.0); Immature Granulocytes # (auto) 0.12 K/uL (0.01-0.20); Immature Granulocytes % (auto) 1.1 %; Lymphocytes # (auto) 2.44 K/uL (1.20-3.40); Lymphocytes % (auto) 23.3 %; Mean Corpuscular Hgb Conc 32.2 g/dL (32.0-36.0); Mean Platelet Volume 9.1 fL (9.4-12.4); Monocytes # (auto) 1.03 K/uL (0.11-0.59); Monocytes % (auto) 9.8 %; Neutrophils # (auto) 6.61 K/uL (1.40-6.50); Neutrophils % (auto) 63.1 %; Platelet Count 418 K/uL (130-400); RDW Coefficient of Variation 13.3 % (11.5-14.5); RDW Standard Deviation 41.7 fL (36.4-46.3); Red Blood Count 4.22 M/uL (4.20-5.40); White Blood Count 10.48 K/ul (4.8-10.8)
[2024-03-30] MEDS: METOPROLOL TARTRATE 1 MG/ML VIAL IV STA (05:19)
[2024-03-30] MEDS: DOXYCYCLINE HYCLATE 100 MG CAP PO SCH ×2 (05:32→09:43)
[2024-03-30 05:41] LABS: Alanine Aminotransferase 41 U/L (7-52); Albumin Globulin Ratio 1.8 (0.9-2); Albumin Level 3.9 gm/dl (3.4-5.0); Alkaline Phosphatase 20 U/L (34-104); Anion Gap 3 (3-11); Aspartate Aminotransferase 40 U/L (13-39); BUN Creatinine Ratio 33.3 (10-20); Bilirubin,Total 0.7 mg/dl (0.2-1.0); Blood Urea Nitrogen 26 mg/dl (6-23); Calcium 8.7 mg/dl (8.6-10.3); Carbon Dioxide 31 mmol/L (21-32); Chloride 118 mmol/L (98-107); Globulin 2.2 gm/dl (2.5-4.0); Glucose 138 mg/dl (70-99(Fasting)); Potassium 3.9 mmol/L (3.5-5.1); Sodium 152 mmol/L (136-145); Total Protein 6.1 gm/dl (6.0-8.3)
[2024-03-30] MEDS: ARMOUR THYROID 30 MG TAB PO SCH (09:43)
[2024-03-30] MEDS: LORazepam 2 MG/1 ML VIAL IV STA (10:17)
--- NOTE | 2024-03-30 10:40 | XRay Report ---
XR chest 1V portable CLINICAL HISTORY: could not do 2 view d/t pt refusal COMPARISON STUDY: 03/29/2024 FINDINGS: Single view portable chest demonstrates significant reduction in the pneumomediastinum with only a small amount of residual air identified in the subcutaneous emphysema tissues of the base of the neck and the right lateral thorax. There is no pneumothorax identified on the surface single rota spenser portable view. IMPRESSION: Significant reduction in pneumomediastinum and subcutaneous emphysema with small amount of subcutaneous emphysema remaining. No pneumothorax. Lung fuentes clear. ACT 112: Negative or not required by law. Electronically signed by: Marlyn Phelan M.D. 03/30/2024 10:39 AM
--- NOTE | 2024-03-30 10:43 | Surgery Consultation ---
Date of Consultation March 30, 2024 Assessment & Plan (1) Pneumomediastinum: Her CT images and results were personally viewed and interpreted by myself She has no evidence of free fluid on CT scan but does have trace bilateral pneumothoraces and pneumomediastinum and retroperitoneal air Her abdomen is completely benign without any tenderness, guarding or rebound I think she likely has a traumatic pneumomediastinum and bilateral pneumothoraces and this air has tracked along the retroperitoneum The only way to rule out an esophageal injury would be to give her oral contrast which I doubt she would tolerate Suspicion for esophageal injury would be very low as she would be much sicker than she is right now If she does show signs of sepsis, worsening leukocytosis or fever and concern for esophageal injury, she would need to be transferred to a tertiary care center No plans for any surgery on her abdomen She can have a diet from a surgical standpoint Surgery will sign off at this time, please call with any questions or concerns (2) Pneumoperitoneum: History of Present Illness Reason for Consultation: Pneumoperitoneum Attending Physician: Ho Grant MD History of Present Illness This is a 33-year-old female who was admitted yesterday from shelter. The patient has a history of aleida and psychosis and is unable to give an accurate history. The history is taken from the shelter guards as well as the chart over the last day or so. Apparently the patient did have a self-inflicted fall backwards onto her upper thorax and had not been eating for many days. No vomiting per the shelter guards. Her workup did include a CT of the chest abdomen pelvis that showed pneumomediastinum, trace bilateral pneumothoraces, suggestion of pneumoperitoneum. She had been hemodynamically stable since admission. Allergies Allergy/AdvReac Type Severity Reaction Status Date / Time haloperidol [From Haldol] Allergy Severe Unknown Verified 03/29/24 14:18 amoxicillin Allergy Intermediate RASH Verified 08/17/22 10:37 Bactrim Allergy Intermediate HIVES Verified 08/02/14 21:30 prednisone Allergy Intermediate PSYCH Verified 08/17/22 10:37 SYMPTOMS (MANIC) sulfamethoxazole Allergy Intermediate HIVES Verified 08/17/22 10:37 trimethoprim Allergy Intermediate HIVES Verified 08/17/22 10:37 clindamycin Allergy Mild Hives Verified 08/17/22 10:37 Sulfa (Sulfonamide Allergy Mild Hives Verified 08/17/22 10:37 Antibiotics) diphenhydramine Allergy Unknown Unknown Verified 03/29/24 14:18 [From Benadryl] Home Medications Medication Instructions Recorded Confirmed Type olanzapine 10 mg tablet 10 mg PO BID 03/29/24 03/29/24 History Patient History Medical History Varicella vaccination Hypokalemia Surgical History H/O oral surgery Family History Brother ADHD (attention deficit hyperactivity disorder) Drug dependence Father Alcoholism Coronary heart disease Myocardial infarction Grandmother (Maternal) Bipolar disorder Depression Mother Multiple sclerosis Uncle Colorectal cancer Denies family history of Ovarian cancer Prostate cancer Breast cancer Social History Smoking Status: Unknown if ever smoked Do You Dip or Chew Tobacco: No; Hx Alcohol Use: No Hx Substance Use: No Preferred Language: [place] Communication Ability: Effective Counselor At Law Required: No Beliefs That Will Affect Care: Congregation Congregation Beliefs: Patient unable to participate in admission marital status: Single marital status details: marina Randle (39) Current Living Situation: Parent 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: employed current occupation: [employer] Feels Safe at Home: Yes Assistive Devices: None Review of Systems Review of Systems: Unobtainable due to mental health condition Physical Exam Constitutional: + frail appearing and + disheveled; no a cute distress Eyes: PERRL, conjunctivae normal, anicteric sclerae ENMT: external ear and nose normal, oropharynx normal Neck: trachea midline, no thyromegaly Respiratory: normal respiratory effort; no respiratory distress Cardiovascular: RRR, no murmur, no edema Gastrointestinal (Abdomen): Soft, nontender, nondistended Musculoskeletal: no cyanosis or clubbing, extremities motor strength 5/5 Skin: no rashes, warm and dry Neurologic: PERRL, EOMI, accommodation nl, no face palsy, no dysarthria Lymphatic: no cervical or axillary lymphadenopathy Results & Data Vital Signs (Past 12 Hours) Vital Signs Temp Pulse Pulse Resp BP BP BP 03/30/24 08:09 36.5 C 100 H 18 117/75 03/30/24 06:15 85 131/65 03/30/24 05:19 80 150/74 H 03/30/24 02:47 113 H 18 150/90 H 03/29/24 22:50 03/29/24 22:50 36.9 C 121 H 18 136/84 03/29/24 22:50 36.9 C 121 H 18 136/84 03/29/24 22:45 84 Pulse Ox O2 Del Method O2 Flow Rate 03/30/24 08:09 99 Non-rebreather 15 03/30/24 06:15 03/30/24 05:19 03/30/24 02:47 100 Non-rebreather 15 03/29/24 22:50 Non-rebreather 15 03/29/24 22:50 100 Non-rebreather 15 03/29/24 22:50 100 Non-rebreather 15 03/29/24 22:45 Diagnostic Findings IMPRESSION: 1. Extensive tracking pneumomediastinum throughout the inferior thorax with direct communication with the retroperitoneum. There is extensive tracking retroperitoneal emphysema throughout the abdomen and pelvis with near complete extension surrounding both kidneys, the aorta and IVC. There is also some extension into the paraspinal musculature. 2. There is extensive tracking subcutaneous emphysema throughout the superficial soft tissues of the thorax, extending into the superior abdomen and the right flank. Incidentally, there is also tracking subcutaneous emphysema throughout the minimally included left upper extremity. 3. Evaluation for pneumoperitoneum is markedly degraded by extensive prominent respiratory artifact. However, there is some pneumoperitoneum suggested along the margins of the liver. While subtle bowel perforation is difficult to exclude given this appearance, given the extensive changes noted previously, favor subtle extension into the intraperitoneal space from the pneumomediastinum and retroperitoneal gas. 4. The stomach is mildly distended with fluid and gas. Evaluation of the bowel is markedly degraded by extensive respiratory artifact and lack of IV contrast. No evidence for focal high-grade bowel obstruction. Mild stool burden. Evaluation of the colon is degraded, limiting evaluation for subtle focal abnormality. No free intraperitoneal fluid. PG Care Time/CCT Total # of Minutes Spent Total Time Spent with Patient: Total time spent is greater than 50% in coordination of care (as documented) at patient's floor/unit and/or counseling patient: Coding Level of Care Code 97312 IN/OBS CONSULT LVL 5,80M Diagnoses Pneumomediastinum J98.2 Pneumoperitoneum K66.8
--- NOTE | 2024-03-30 12:00 | Nephrology Consultation ---
Date of Consultation March 30, 2024 Assessment & Plan (1) Acute hypernatremia: She was not eating and drinking for long time now. Na is high at 152 by definition means free water deficit. Renal function normal though. continue d5w at 100 ml/hr. with her Pneumomediastinum/peritoneum risk of Resp distress with fast hydration rate. Regardless for her body wt this should be enough. NO further workup needed. (2) Pneumomediastinum: Still o2 sats normal. per primary team. Pending pulm consult (3) Pneumoperitoneum: Plan time spent 48 mins History of Present Illness Reason for Consultation: hypernatremia Attending Physician: Ho Grant MD History of Present Illness 33-year-old female with known bipolar disorder with severe episodes of aleida and psychosis who was brought to hospital from local shelter. Reported that the patient has not been eating or drinking much over the last few days. Also reports that she has been needed to be put in the restraint chair for multiple hours multiple times since her presentation to the shelter on March 21. In the emergency room she was given Ativan so we could perform evaluation. even now she just received IV Ativan for extreme agitation and at the time of my exam she was sedated. professional security officer from the correction reported that patient has been extremely agitated last few days and she may have opened the sprinkler in the pressure of the water sprinkler it directly on her chest and cause her to fall. patient does have pneumomediastinum extending both chest and abdomen. she was found to have hypernatremia with a serum sodium of 152 and is currently getting D5 water at 150 mL/hour. However in the initial hour she received normal saline and D5 half-normal saline. at this time she is saturating 100% on room air and blood pressure and pulse rate is reasonable. kidney function is normal review of systems unable to obtain as patient is sedated from Ativan and prior to that was extremely agitated. Physical Exam Physical Exam: Constitutional: Extremely drowsy, mildly ill in appearance HEENT: Mucous membranes extremely dry, lips dry and cracked, sclera clear Neck: Soft, no adenopathy Lungs: Clear to auscultation, decreased, no wheezes rales or rhonchi CV: S1-S2, regular, tachycardic Abdomen: Soft, nontender, nondistended Extremities: No significant edema Musculoskeletal: Significant bruising right shoulder, no significant swelling, possibly some mild tenderness, mild bruising left shoulder. Neuro: Minimally responsive, not following commands due to sedation Psych: Sedated Allergies Allergy/AdvReac Type Severity Reaction Status Date / Time haloperidol [From Haldol] Allergy Severe Unknown Verified 03/29/24 14:18 amoxicillin Allergy Intermediate RASH Verified 08/17/22 10:37 Bactrim Allergy Intermediate HIVES Verified 08/02/14 21:30 prednisone Allergy Intermediate PSYCH Verified 08/17/22 10:37 SYMPTOMS (MANIC) sulfamethoxazole Allergy Intermediate HIVES Verified 08/17/22 10:37 trimethoprim Allergy Intermediate HIVES Verified 08/17/22 10:37 clindamycin Allergy Mild Hives Verified 08/17/22 10:37 Sulfa (Sulfonamide Allergy Mild Hives Verified 08/17/22 10:37 Antibiotics) diphenhydramine Allergy Unknown Unknown Verified 03/29/24 14:18 [From Benadryl] Home Medications Medication Instructions Recorded Confirmed Type olanzapine 10 mg tablet 10 mg PO BID 03/29/24 03/29/24 History Patient History Medical History Varicella vaccination Hypokalemia Surgical History H/O oral surgery Family History Brother ADHD (attention deficit hyperactivity disorder) Drug dependence Father Alcoholism Coronary heart disease Myocardial infarction Grandmother (Maternal) Bipolar disorder Depression Mother Multiple sclerosis Uncle Colorectal cancer Denies family history of Ovarian cancer Prostate cancer Breast cancer Social History Smoking Status: Unknown if ever smoked Do You Dip or Chew Tobacco: No; Hx Alcohol Use: No Hx Substance Use: No Preferred Language: German Communication Ability: Effective Bods Developer Required: No Beliefs That Will Affect Care: Anglican Anglican Beliefs: Patient unable to participate in admission marital status: Single marital status details: marina Randle (39) Current Living Situation: Parent 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
--- NOTE | 2024-03-30 12:31 | Psychiatric Consultation ---
Date of Consultation March 30, 2024 Impression / Recommendations Impression Diagnostically consistent with unspecified psychosis suspect aleida and psychosis 2/2 known history of bipolar affective disorder vs schizoaffective disorder vs less likely substance-induced or withdrawal but does have history of cannabis use which has contributed to psychosis in the past. Symptoms described by guard at bedside and reported by ED/hospitalist providers and reports from medical staff at the snf describe pattern of aleida with psychosis with lack of sleep, poor po intake (suspect maybe driven by paranoia or delusions), agitation, disorganized behavior of smearing feces and delusions about aliens, having an implanted chip and paranoia. In the past she has responded well to haldol and ativan with less effect seen from olanzapine. However, she is not able to currently communicate with me about potential other reactions to haldol or why it is listed as an allergy. She previously had reported some sense of dystonic reaction from haldol in 11/2022 but then when meeting with her at that time she had denied symptoms to me and seemed to tolerate it well. Olanzapine can be beneficial for sleep promotion and aleida and psychosis but should not be given concurrently with IV or IM ativan. Overall, I spent a total of 60 minutes with this case including review of chart records, review of labwork, direct evaluation of the patient at bedside, counseling the patient, discussion of the patient with the Nurse and with the hospitalist provider, discussion with the psychiatric liason during clinical rounds and documentation in the electronic health record. (1) Unspecified psychosis not due to a substance or known physiological condition: (2) Bipolar affective disorder, manic, severe, with psychotic behavior: (3) Dehydration with hypernatremia: (4) Bilateral pneumothoraces: Plan -Consider head CT given collateral report of fall at snf after dismantling sprinkler head -Continue olanzapine 10mg BID or can consolidate to 20mg HS po if this improves adherence -Start ativan 1mg BID po if she can tolerate this from a respiratory standpoint -If she declines olanzapine po another option would be haldol 5mg BID and ativan 1mg BID which has worked well in the past. * Would monitor to ensure no signs of acute dystonic reaction i.e. muscle stiffness/not able to move her neck or eyes or trouble swallowing. If this occurs would give Cogentin 1mg IM x1 For behavioral emergency would use: * Ativan 0.5mg IV q4h prn for agitation * OR if ineffective Haldol 5mg IM, and ativan 2mg IM. * OR If concerns arise for acute dystonic reaction to haldol then could use: olanzapine 10mg IM but do not give it within 1 hour of IV or IM ativan due to potential for fatal respiratory suppression. Psychiatry will continue to follow Psych History Identifying Data 33 yo woman with history of bipolar affective disorder vs schizoaffective disorder admitted [facility], lack of po intake and injury and found to have pneumothorax and hypernatremia. Psychiatry consulted for aleida/psychosis management recommendations. Chief Complaint asleep History of Present Illness Ruby is known to our consult service from previous [facility] to [facility] in [facility]/2019 & 11/2021 for acute aleida/psychosis and consults in 08/2022 & 11/2022. She was brought to the hospital by [facility] correctional officers due to psychosis and ongoing lack of po intake, lack of sleep and disorganized behaviors. Received ativan 1mg IV in the ED and then olanzapine 10mg IM ~11pm and 5mg IM ~2am. This morning prior to seeing her she had required ativan 1mg IV and was then sleeping at time of my assessment. Collateral from guard at bedside notable for little to no sleep since arriving to snf on the and stated delusions about alien abductions, belief she has an implanted chip, writing coordinates or numbers on snf wall with feces and then standing on sink in bathroom to dismantle a sprinkler head with resultant forceful fall when pressurized water rushed out pushing her onto the concrete snf cell floor. Review of records show good response to haldol and ativan in the past. Olanzapine had been less beneficial when used on RUST in 2021. History of abilify PABON which she discontinued prior to or early in course of in 2022. Allergies Allergy/AdvReac Type Severity Reaction Status Date / Time haloperidol [From Haldol] Allergy Severe Unknown Verified 03/29/24 14:18 amoxicillin Allergy Intermediate RASH Verified 08/17/22 10:37 Bactrim Allergy Intermediate HIVES Verified 08/02/14 21:30 prednisone Allergy Intermediate PSYCH Verified 08/17/22 10:37 SYMPTOMS (MANIC) sulfamethoxazole Allergy Intermediate HIVES Verified 08/17/22 10:37 trimethoprim Allergy Intermediate HIVES Verified 08/17/22 10:37 clindamycin Allergy Mild Hives Verified 08/17/22 10:37 Sulfa (Sulfonamide Allergy Mild Hives Verified 08/17/22 10:37 Antibiotics) diphenhydramine Allergy Unknown Unknown Verified 03/29/24 14:18 [From Benadryl] Home Medications Medication Instructions Recorded Confirmed Type olanzapine 10 mg tablet 10 mg PO BID 03/29/24 03/29/24 History Patient History Medical History Varicella vaccination Hypokalemia Surgical History H/O oral surgery Family History Brother ADHD (attention deficit hyperactivity disorder) Drug dependence Father Alcoholism Coronary heart disease Myocardial infarction Grandmother (Maternal) Bipolar disorder Depression Mother Multiple sclerosis Uncle Colorectal cancer Denies family history of Ovarian cancer Prostate cancer Breast cancer Social History Smoking Status: Unknown if ever smoked Do You Dip or Chew Tobacco: No; Hx Alcohol Use: No Hx Substance Use: No Preferred Language: Djiboutian Communication Ability: Effective Drawer In Jacquard Loom Required: No Beliefs That Will Affect Care: Scientologist Scientologist Beliefs: Patient unable to participate in admission marital status: Single marital status details: marina Randle (39) Current Living Situation: Parent 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: employed current occupation: [employer] Feels Safe at Home: Yes Assistive Devices: None Physical Exam Vital Signs (Past 24 Hours): Last Vital Signs Temp 36.3 C L 03/30/24 11:29 Pulse 76 03/30/24 11:29 Resp 16 03/30/24 11:29 BP 115/70 03/30/24 11:29 Pulse Ox 100 03/30/24 11:29 O2 Del Method Room Air 03/30/24 12:04 O2 Flow Rate 15 03/30/24 08:09 Review of Systems Unobtainable due to reduced consciousness Results & Data (PSY) Medications Administered Doxycycline Hyclate (Doxycycline Hyclate 100 Mg Cap) 100 mg PO BIDM KOFI Stop: 04/04/24 08:59 Last Admin: 03/30/24 09:43 Dose: Not Given Documented By: ANNABELLE Enoxaparin Sodium (Enoxaparin Inj 40 Mg/0.4 Ml Syr) 40 mg SQ Q24H KOFI Stop: 04/28/24 18:47 Last Admin: 03/29/24 22:45 Dose: Not Given Documented By: MITZY Ceftriaxone Sodium (Rocephin) 1,000 mg in 50 mls @ 100 mls/hr IV Q24H KOFI Stop: 04/03/24 16:44 Last Infusion: 03/29/24 17:48 Dose: Infused Documented By: Admin: 03/29/24 17:18 Dose: 100 mls/hr Documented By: JAZMÍN Dextrose (D5w) 1,000 mls @ 100 mls/hr IV .Q10H KOFI Stop: 03/30/24 18:47 Last Infusion: 03/30/24 12:03 Dose: Infused Documented By: Admin: 03/30/24 05:19 Dose: 150 mls/hr Documented By: Infusion: 03/30/24 05:15 Dose: Infused Documented By: Admin: 03/29/24 20:14 Dose: 150 mls/hr Documented By: MANJINDER Olanzapine (Olanzapine 10 Mg Tab) 10 mg PO BID KOFI Stop: 04/28/24 20:59 Last Admin: 03/30/24 09:43 Dose: Not Given Documented By: Admin: 03/29/24 22:19 Dose: Not Given Documented By: GISSELL Olanzapine (Olanzapine 10 Mg/2.1 Ml Sdv) 10 mg IM BID PRN PRN Reason: severe agitation/ aleida Stop: 04/28/24 18:47 Last Admin: 03/29/24 21:23 Dose: 10 mg Documented By: MANJINDER Thyroid (Davis Thyroid 30 Mg Tab) 60 mg PO QAM KOFI Stop: 04/29/24 08:59 Last Admin: 03/30/24 09:43 Dose: Not Given Documented By: ANNABELLE Coding Level of Care Code 70765 IN/OBS CONSULT LVL 4,60M Diagnoses Unspecified psychosis not due to a substance or known physiological condition F29 Bipolar affective disorder, manic, severe, with psychotic behavior F31.2 Dehydration with hypernatremia E86.0; E87.0 Bilateral pneumothoraces J93.9
--- NOTE | 2024-03-30 13:13 | Pulmonary Consultation ---
Date of Consultation March 30, 2024 Assessment & Plan (1) Pneumomediastinum: (2) Bilateral pneumothoraces: (3) Subcutaneous emphysema: (4) Bipolar affective disorder, manic, severe, with psychotic behavior: Plan Bilateral tiny apical pneumothoraces, small amount of pneumomediastinum and severe subcutaneous emphysema significantly improved today on chest x-ray. No need for additional supplemental oxygen at this time. No indication for antibiotics at this present time. Will defer discontinuing antibiotics to the primary team. Recommend a follow-up chest x-ray in 4-5 days which can be pursued as an outpatient. Patient will likely need acute psychiatric rehabilitation due to severe manic episode. Pulmonary to sign off. Please call with questions. History of Present Illness Reason for Consultation: Pneumomediastinum Attending Physician: Ho Grant MD History of Present Illness 33-year-old female with a past medical history of bipolar disorder all apparently had a manic episode while in intermediate. She was profoundly agitated, refusing to eat, refusing medications and required restraining by the correctional officers due to severely agitated and violent behavior. No history is able to be obtained from the patient today as she is significantly sedated. She is breathing spontaneously and maintaining excellent saturations on room air. She has diffuse bruising in her extremities and yesterday she underwent a CT chest which revealed a trace left pneumothorax and diffuse subcutaneous emphysema, pneumomediastinum, small volume of pneumoperitoneum and retropneumoperitoneum. Chest x-ray today revealed significant reduction pneumomediastinum and subcutaneous emphysema. No evidence of pneumothorax was seen. Allergies Allergy/AdvReac Type Severity Reaction Status Date / Time haloperidol [From Haldol] Allergy Severe Unknown Verified 03/29/24 14:18 amoxicillin Allergy Intermediate RASH Verified 08/17/22 10:37 Bactrim Allergy Intermediate HIVES Verified 08/02/14 21:30 prednisone Allergy Intermediate PSYCH Verified 08/17/22 10:37 SYMPTOMS (MANIC) sulfamethoxazole Allergy Intermediate HIVES Verified 08/17/22 10:37 trimethoprim Allergy Intermediate HIVES Verified 08/17/22 10:37 clindamycin Allergy Mild Hives Verified 08/17/22 10:37 Sulfa (Sulfonamide Allergy Mild Hives Verified 08/17/22 10:37 Antibiotics) diphenhydramine Allergy Unknown Unknown Verified 03/29/24 14:18 [From [facility]] Home Medications Medication Instructions Recorded Confirmed Type olanzapine 10 mg tablet 10 mg PO BID 03/29/24 03/29/24 History Patient History Medical History Varicella vaccination Hypokalemia Surgical History H/O oral surgery Family History Brother ADHD (attention deficit hyperactivity disorder) Drug dependence Father Alcoholism Coronary heart disease Myocardial infarction Grandmother (Maternal) Bipolar disorder Depression Mother Multiple sclerosis Uncle Colorectal cancer Denies family history of Ovarian cancer Prostate cancer Breast cancer Social History Smoking Status: Unknown if ever smoked Do You Dip or Chew Tobacco: No; Hx Alcohol Use: No Hx Substance Use: No Preferred Language: Faroese Communication Ability: Effective Head Char Filter Tank Tender Required: No Beliefs That Will Affect Care: Samaritan Samaritan Beliefs: Patient unable to participate in admission marital status: Single marital status details: marina Randle (39) Current Living Situation: Parent 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 Patient with 4 point shackles. Correctional officers at bedside. Eyes: Pupils are equal round and reactive to light. Conjunctivae are normal. Anicteric sclera. Ears nose, mouth and throat: No perioral cyanosis. Poor dentition. Neck: Trachea is midline. Visual inspection is normal. Respiratory: Clear to auscultation bilaterally. No use of accessory muscles. No significant clubbing noted. No significant crepitus. Cardiovascular: Regular rate and rhythm. No murmurs. No edema. Gastrointestinal: Normal bowel sounds, soft, nontender and nondistended. No hepatosplenomegaly noted. Musculoskeletal: No cyanosis. Patient is able to move all extremities. Strength is 5 out of 5 in the upper and lower extremities. Skin: Diffuse bruising in the upper and lower extremities. Neurologic: No obvious focal neurological deficits seen. Psychiatric: Hypoactive delirium. Results & Data Results & Data Vital Signs (Past 12 Hours) Vital Signs Temp Pulse Pulse Resp BP BP BP 03/30/24 12:04 03/30/24 11:29 36.3 C L 76 16 115/70 03/30/24 08:09 36.5 C 100 H 18 117/75 03/30/24 06:15 85 131/65 03/30/24 05:43 73 03/30/24 05:19 80 150/74 H 03/30/24 02:47 113 H 18 150/90 H Pulse Ox O2 Del Method O2 Flow Rate 03/30/24 12:04 Room Air 03/30/24 11:29 100 Room Air 03/30/24 08:09 99 Non-rebreather 15 03/30/24 06:15 03/30/24 05:43 03/30/24 05:19 03/30/24 02:47 100 Non-rebreather 15 PG Care Time/CCT Total # of Minutes Spent Total Time Spent with Patient: Total time spent is greater than 50% in coordination of care (as documented) at patient's floor/unit and/or counseling patient: Coding Level of Care Code 62210 IN/OBS CONSULT LVL 2,35M Diagnoses Pneumomediastinum J98.2 Bilateral pneumothoraces J93.9 Subcutaneous emphysema T79.7XXA Bipolar affective disorder, manic, severe, with psychotic behavior F31.2
[2024-03-30] MEDS: LORazepam 2 MG/1 ML VIAL IV PRN (15:16)
--- NOTE | 2024-03-30 16:27 | CT Scan Report ---
CT head without contrast History: Trauma Comparison: None Technique: Using multidetector thin collimation helical acquisition technique, axial, coronal and sagittal CT images from the skull base to the vertex were obtained without intravenous contrast. Dose reduction techniques were achieved by using automatic exposure control and/or adjustment of mA and/or kV according to patient size and/or use of iterative reconstruction technique. Findings: No intracranial hemorrhage, mass-effect, or midline shift. The ventricles are proportionate to the cerebral sulci. The pleitez to white matter differentiation of the cerebral hemispheres is preserved. The basal cisterns are patent. Moderate fluid seen throughout the maxillary sinuses, ethmoid air cells, and left frontal sinus. Mastoid air cells are clear. Partially visualized air tracking throughout the soft tissues in the neck about the base of the skull, consistent with extension of known soft tissue emphysema seen in the chest on prior study. Impression: No acute intracranial pathology. Electronically signed by Best Terrell 03-30-2024 4:26 PM
--- NOTE | 2024-03-30 16:32 | Hospitalist Progress Note ---
Date of Service March 30, 2024 Assessment & Plan (1) Severe dehydration: (2) Dehydration with hypernatremia: (3) Bipolar affective disorder, manic, severe, with psychotic behavior: (4) Contusion, multiple sites: (5) Hypothyroidism: (6) Depression: Plan Patient is a 33-year-old female who presents from the local senior care with what is most likely severe aleida in the setting of her known bipolar disorder to the point where she is not been eating or drinking adequately and presents with severe dehydration and hypernatremia. Patient has significantly ill. At higher risk for worsening condition and organ dysfunction due to severe dehydration if she is not cared for in the hospital. Admit to hospital MedSurg unit Continue fluid resuscitation with D5W Monitor electrolytes and other laboratory studies Check free T4 T3 levels, patient has a history of Eliza's thyroiditis, reviewing outpatient endocrinology notes indicates that she is on Marlette Thyroid 60 mg daily. Continue Marlette Thyroid Appears that patient is on scheduled Zyprexa will continue this Ativan IV as needed for agitation Zyprexa IM for severe agitation not responsive to the Ativan Psychiatry consultation, patient may need additional medications to control her aleida before returning to [facility] At this point have a low suspicion for sepsis or bacterial infection. Procalcitonin is low. Suspect leukocytosis, increased LFTs and thrombocytosis most likely reactive due to her severe dehydration. I would anticipate these improving with hydration. Some of the leukocytosis may be reactive due to her musculoskeletal trauma as well. X-ray right shoulder due to significant contusion rule out any fracture. Acute metabolic encephalopathy Psychosis Hypernatremia, dehydration 2/20 Sodium level 152 Continue D5 water Nephrology service consulted CT head: No acute process Psychiatry service consulted As needed Zyprexa IM and Ativan IV ordered Discussed with MARLENA Corbin, will need to provide Ativan 1 hour apart from Zyprexa per psychiatry service recommendations Pneumomediastinum, pneumoperitoneum Hemodynamically stable On room air On empiric ceftriaxone plus doxycycline Pulmonology service and general surgery service consult Admission and Anticipated Discharge Date Admission Date: March 29, 2024 Subjective Follow-up for encephalopathy, psychosis, etc. Seen with RN at the bedside throughout whole encounter next Officers also at the bedside Patient is sleeping, very drowsy next occasionally opens eyes to verbal stimuli Confused No signs of pain, respiratory distress Review of Systems Review of Systems: all noted and negative except for above Physical Exam Physical Exam: General- Very drowsy, confused,not in distress, breathing with no effort or accessory muscle use Eyes- anicteric Neck- no JVD Lungs- clear breath sounds bilaterally, no rales/wheezes Heart- normal rate, regular rhythm; no murmurs Abdomen- normal bowel sounds, nondistended, soft, nontender Extremities- no pretibial edema, no calf tenderness Positive bruising on the lower legs, bilaterally Neuro- Very drowsy Skin- warm & dry Results & Data Results & Data Vital Signs (Past 12 Hours) Vital Signs Temp Pulse Pulse Resp BP BP Pulse Ox 03/30/24 15:34 36.7 C 96 H 16 114/73 100 03/30/24 13:41 101 H 03/30/24 12:04 03/30/24 11:29 36.3 C L 76 16 115/70 100 03/30/24 08:09 36.5 C 100 H 18 117/75 99 03/30/24 06:15 85 131/65 03/30/24 05:43 73 03/30/24 05:19 80 150/74 H O2 Del Method O2 Flow Rate 03/30/24 15:34 Room Air 03/30/24 13:41 03/30/24 12:04 Room Air 03/30/24 11:29 Room Air 03/30/24 08:09 Non-rebreather 15 03/30/24 06:15 03/30/24 05:43 03/30/24 05:19 all noted and reviewed including below
[2024-03-30] MEDS ORDERED: Nursing to Pharmacy Communication SCH (19:45)
[2024-03-30 19:46] LABS: Anion Gap 4 (3-11); BUN Creatinine Ratio 30.3 (10-20); Blood Urea Nitrogen 20 mg/dl (6-23); Calcium 8.8 mg/dl (8.6-10.3); Carbon Dioxide 31 mmol/L (21-32); Chloride 116 mmol/L (98-107); Glucose 114 mg/dl (70-99(Fasting)); Potassium 3.5 mmol/L (3.5-5.1); Sodium 151 mmol/L (136-145)
--- NOTE | 2024-03-30 22:15 | Communication Note ---
Date of Service: March 30, 2024 Patient refusing Zyprexa as per RN. Patient stated that "normally she has been prescribed trileptal rather than the zyprexa as it has been more effective" as per RN. Will relay to Psychiatry service in AM.
[2024-03-30] MEDS: DEXTROSE 5% 500 ML IV SCH (23:35)
[2024-03-31 06:16] LABS: Basophils # (auto) 0.02 K/uL (0.00-0.20); Basophils % (auto) 0.2 %; Eosinophils # (auto) 0.29 K/uL (0.00-0.50); Eosinophils % (auto) 3.5 %; Hematocrit (blood only) 35.3 % (37.0-47.0); Hemoglobin 11.2 g/dl (12.0-16.0); Immature Granulocytes # (auto) 0.03 K/uL (0.01-0.20); Immature Granulocytes % (auto) 0.4 %; Lymphocytes # (auto) 1.93 K/uL (1.20-3.40); Lymphocytes % (auto) 23.6 %; Mean Corpuscular Hemoglobin 28.4 pg (25.0-34.0); Mean Corpuscular Hgb Conc 31.7 g/dL (32.0-36.0); Mean Corpuscular Volume 89.4 fL (80.0-100.0); Mean Platelet Volume 9.3 fL (9.4-12.4); Monocytes # (auto) 0.68 K/uL (0.11-0.59); Monocytes % (auto) 8.3 %; Neutrophils # (auto) 5.23 K/uL (1.40-6.50); Platelet Count 360 K/uL (130-400); RDW Coefficient of Variation 12.8 % (11.5-14.5); RDW Standard Deviation 41.9 fL (36.4-46.3); Red Blood Count 3.95 M/uL (4.20-5.40); White Blood Count 8.18 K/ul (4.8-10.8)
[2024-03-31 06:27] LABS: Anion Gap 3 (3-11); BUN Creatinine Ratio 31.5 (10-20); Blood Urea Nitrogen 17 mg/dl (6-23); Calcium 8.4 mg/dl (8.6-10.3); Carbon Dioxide 30 mmol/L (21-32); Chloride 114 mmol/L (98-107); Glucose 121 mg/dl (70-99(Fasting)); Potassium 3.6 mmol/L (3.5-5.1); Sodium 147 mmol/L (136-145)
[2024-03-31] MEDS: DEXTROSE 5% 500 ML IV SCH (11:13)
[2024-03-31] MEDS: D5W AND NSS 1,000 ML IV SCH (12:39)
--- NOTE | 2024-03-31 16:55 | Hospitalist Progress Note ---
Date of Service March 31, 2024 Assessment & Plan (1) Severe dehydration: (2) Dehydration with hypernatremia: (3) Bipolar affective disorder, manic, severe, with psychotic behavior: (4) Contusion, multiple sites: (5) Hypothyroidism: (6) Depression: Plan Patient is a 33-year-old female who presents from the local [place] [facility] with what is most likely severe aleida in the setting of her known bipolar disorder to the point where she is not been eating or drinking adequately and presents with severe dehydration and hypernatremia. Patient has significantly ill. At higher risk for worsening condition and organ dysfunction due to severe dehydration if she is not cared for in the hospital. Admit to hospital MedSurg unit Continue fluid resuscitation with D5W Monitor electrolytes and other laboratory studies Check free T4 T3 levels, patient has a history of Eliza's thyroiditis, reviewing outpatient endocrinology notes indicates that she is on Sidney Thyroid 60 mg daily. Continue Sidney Thyroid Appears that patient is on scheduled Zyprexa will continue this Ativan IV as needed for agitation Zyprexa IM for severe agitation not responsive to the Ativan Psychiatry consultation, patient may need additional medications to control her aleida before returning to [facility] At this point have a low suspicion for sepsis or bacterial infection. Procalcitonin is low. Suspect leukocytosis, increased LFTs and thrombocytosis most likely reactive due to her severe dehydration. I would anticipate these improving with hydration. Some of the leukocytosis may be reactive due to her musculoskeletal trauma as well. X-ray right shoulder due to significant contusion rule out any fracture. Acute metabolic encephalopathy Psychosis Hypernatremia, dehydration 2/ Sodium level 152 Continue D5 water Nephrology service consulted CT head: No acute process Psychiatry service consulted As needed Zyprexa IM and Ativan IV ordered Discussed with MARLENA Corbin, will need to provide Ativan 1 hour apart from Zyprexa per psychiatry service recommendations 2/ Sodium level improving, 147 Continue D5 water Psych on board, on Zyprexa Pneumomediastinum, pneumoperitoneum Hemodynamically stable On room air On empiric ceftriaxone plus doxycycline--> discontinued Pulmonology service and general surgery service consult--> repeat xray showing improvement of pneumothorax per Pulm monitor closely DVT Px Lovenox SC Admission and Anticipated Discharge Date Admission Date: March 29, 2024 Subjective Follow-up for encephalopathy, psychosis, etc. Seen resting in bed, sitting up, awake and alert, oriented x 2, still mostly confused RN at the bedside throughout whole encounter, along with patient officers States that she feels fine today Denies shortness of breath, chest pain, palpitations Denies pain in any part of her body Saying things like " different water sources needed, water is unsafe, etc." no other symptoms Review of Systems Review of Systems: all noted and negative except for above Physical Exam Physical Exam: General- oriented x 1-2, still confused, not in distress, speaks in sentences with no effort or accessory muscle use Eyes- anicteric Neck- no JVD Lungs- clear breath sounds bilaterally, no rales/wheezes Heart- normal rate, regular rhythm; no murmurs Abdomen- normal bowel sounds, nondistended, soft, nontender Extremities- no pretibial edema, no calf tenderness Neuro- alert, oriented x 1-2; no gross focal neurologic deficits Skin- warm & dry Results & Data Results & Data Vital Signs (Past 12 Hours) Vital Signs Temp Pulse Pulse Resp BP Pulse Ox O2 Del Method 03/31/24 16:15 36.7 C 88 16 125/80 100 Room Air 03/31/24 13:00 80 03/31/24 12:14 36.4 C L 68 16 108/70 99 Room Air 03/31/24 08:40 36.7 C 104 H 16 127/80 99 Room Air 03/31/24 07:23 Room Air 03/31/24 05:45 70 all noted and reviewed including below
[2024-04-01 07:45] LABS: Basophils # (auto) 0.02 K/uL (0.00-0.20); Basophils % (auto) 0.3 %; Eosinophils # (auto) 0.15 K/uL (0.00-0.50); Eosinophils % (auto) 2.5 %; Hematocrit (blood only) 37.1 % (37.0-47.0); Hemoglobin 11.7 g/dl (12.0-16.0); Immature Granulocytes # (auto) 0.02 K/uL (0.01-0.20); Immature Granulocytes % (auto) 0.3 %; Lymphocytes # (auto) 1.53 K/uL (1.20-3.40); Lymphocytes % (auto) 25.8 %; Mean Corpuscular Hemoglobin 27.5 pg (25.0-34.0); Mean Corpuscular Hgb Conc 31.5 g/dL (32.0-36.0); Mean Corpuscular Volume 87.3 fL (80.0-100.0); Mean Platelet Volume 9.2 fL (9.4-12.4); Monocytes # (auto) 0.43 K/uL (0.11-0.59); Monocytes % (auto) 7.2 %; Neutrophils # (auto) 3.79 K/uL (1.40-6.50); Neutrophils % (auto) 63.9 %; Platelet Count 357 K/uL (130-400); RDW Coefficient of Variation 12.5 % (11.5-14.5); RDW Standard Deviation 39.8 fL (36.4-46.3); Red Blood Count 4.25 M/uL (4.20-5.40); White Blood Count 5.94 K/ul (4.8-10.8)
[2024-04-01 08:01] LABS: Anion Gap 4 (3-11); BUN Creatinine Ratio 28.6 (10-20); Blood Urea Nitrogen 14 mg/dl (6-23); Calcium 8.2 mg/dl (8.6-10.3); Carbon Dioxide 28 mmol/L (21-32); Chloride 114 mmol/L (98-107); Glucose 104 mg/dl (70-99(Fasting)); Potassium 3.6 mmol/L (3.5-5.1); Sodium 146 mmol/L (136-145)
--- NOTE | 2024-04-01 10:09 | Electrocardiogram Report ---
Test Reason : Blood Pressure : */* mmHG Vent. Rate : 112 BPM Atrial Rate : 112 BPM P-R Int : 142 ms QRS Dur : 68 ms QT Int : 336 ms P-R-T Axes : 71 65 56 degrees QTcB Int : 458 ms Sinus tachycardia Otherwise normal ECG When compared with ECG of 13-Nov-2022 13:44, No significant change was found Confirmed by Dru Claire ([id number]) on 04/01/2024 10:09:40 AM Referred By: [facility] Confirmed By: Dru Claire
--- NOTE | 2024-04-01 12:51 | Hospitalist Progress Note ---
Date of Service April 01, 2024 Assessment & Plan (1) Severe dehydration: (2) Dehydration with hypernatremia: (3) Bipolar affective disorder, manic, severe, with psychotic behavior: (4) Contusion, multiple sites: (5) Hypothyroidism: (6) Depression: Plan Patient is a 33-year-old female who presents from the local nursing home with what is most likely severe aleida in the setting of her known bipolar disorder to the point where she is not been eating or drinking adequately and presents with severe dehydration and hypernatremia. Patient has significantly ill. At higher risk for worsening condition and organ dysfunction due to severe dehydration if she is not cared for in the hospital. Admit to hospital MedSurg unit Continue fluid resuscitation with D5W Monitor electrolytes and other laboratory studies Check free T4 T3 levels, patient has a history of Eliza's thyroiditis, reviewing outpatient endocrinology notes indicates that she is on [place] Thyroid 60 mg daily. Continue [place] Thyroid Appears that patient is on scheduled Zyprexa will continue this Ativan IV as needed for agitation Zyprexa IM for severe agitation not responsive to the Ativan Psychiatry consultation, patient may need additional medications to control her aleida before returning to Nursing Home At this point have a low suspicion for sepsis or bacterial infection. Procalcitonin is low. Suspect leukocytosis, increased LFTs and thrombocytosis most likely reactive due to her severe dehydration. I would anticipate these improving with hydration. Some of the leukocytosis may be reactive due to her musculoskeletal trauma as well. X-ray right shoulder due to significant contusion rule out any fracture. Acute metabolic encephalopathy Psychosis Hypernatremia, dehydration 03/29 Sodium level 152 Continue D5 water Nephrology service consulted CT head: No acute process Psychiatry service consulted As needed Zyprexa IM and Ativan IV ordered Discussed with MARLENA Corbin, will need to provide Ativan 1 hour apart from Zyprexa per psychiatry service recommendations 03/31 Sodium level improving, 147 Continue D5 water Psych on board, on Zyprexa 04/01 now awake, alert still having disorganized thoughts Sodium level 146 Continue D5 water Encouraged to increase oral water intake Psych on board Pneumomediastinum, pneumoperitoneum Hemodynamically stable On room air On empiric ceftriaxone plus doxycycline--> discontinued Pulmonology service and general surgery service consult--> repeat xray showing improvement of pneumothorax per Pulm monitor closely DVT Px Lovenox SC Disposition Inmate, [facility]al facility Admission and Anticipated Discharge Date Admission Date: March 29, 2024 Subjective Follow-up for dehydration, hypernatremia, etc. Seen with nursing home guards at the bedside throughout whole encounter Patient is awake and alert, not in distress, comfortable Conversant, irritable, disorganized thoughts noted States she feels fine Denies headache, dizziness, chest pain, shortness of breath, pain in her body No other new symptoms Review of Systems Review of Systems: all noted and negative except for above Physical Exam Physical Exam: General- oriented x 1-2, not in distress, speaks in sentences with no effort or accessory muscle use Eyes- anicteric Neck- no JVD patient declined physical exam Results & Data Results & Data Vital Signs (Past 12 Hours) Vital Signs Temp Pulse Pulse Resp BP Pulse Ox O2 Del Method 04/01/24 08:32 Room Air 04/01/24 08:03 36.9 C 83 16 118/79 99 Room Air 04/01/24 07:50 87 04/01/24 03:41 72 16 119/79 99 Room Air
--- NOTE | 2024-04-01 13:57 | Psychiatric Progress Note ---
Date of Service April 01, 2024 Impression / Recommendations Impression Diagnostically consistent with unspecified psychosis suspect aleida and psychosis 2/2 known history of bipolar affective disorder vs schizoaffective disorder vs less likely substance-induced or withdrawal but does have history of cannabis use which has contributed to psychosis in the past. A:Patient actively psychotic and manic. Demonstrating poor sleep and medication non-adherence. Presents poor insight and restricting oral fluid and food intake secondary to delusional thought content. Reports having special abilities, over valued ideas, and disoriented to the situation. Unclear if she is actively hallucinating. Allergy to haldol was clarified with the patient and chart review completed and reaction is likely EPS from higher dose given in a patient with higher sensitivity. Has been receiving PRNs for agitation regularly with limited effect. Would recommend optimizing her agitation medications. Overall, I spent a total of 60 minutes with this case including review of chart records, review of labwork, direct evaluation of the patient at bedside, counseling the patient, discussion of the patient with the Nurse and with the hospitalist provider, discussion with the psychiatric liaison during clinical rounds and documentation in the electronic health record. (1) Unspecified psychosis not due to a substance or known physiological condition: (2) Bipolar affective disorder, manic, severe, with psychotic behavior: (3) Dehydration with hypernatremia: (4) Bilateral pneumothoraces: Plan 04/01/24: Continue olanzapine 10mg BID or can consolidate to 20mg HS po if this improves adherence for behavioral emergency consider: Lorazepam 1mg IV Q6hr PRN for agitation Haloperidol 2.5mg IV BID PRN for agitation with Diphenhydramine 50mg IV BID PRN for EPS -All three can be given at same time. Daily EKG to monitor QTc prolongation Psychiatry will continue to follow Interval History Identifying Information 33 yo woman with history of bipolar affective disorder vs schizoaffective disorder admitted medically from [facility] for psychosis, lack of po intake and injury and found to have pneumothorax and hypernatremia. Psychiatry consulted for aleida/psychosis management recommendations. Chief Complaint Psychosis, aleida Subjective Subjective Chart review: 4 hours of sleep last night. Refused olanzapine. On interview patient reports that she has been exposed to a "contaminant". Says that if she drinks water it will get worse and currently refusing water and food. Often labile and restless in the interview and becomes tearful at times. Says that she is trying to decipher the alpha beta code which is an ancient Maltese alphabet. Reports somebody put something in her brain and she is being kept hostage because of her knowledge for the last 4 years of her life. Says that she has special abilities and becomes paranoid when I ask what abilities. Says that is currently World War III and that she received the gold and take it. She denies hearing voices and that her thoughts are more about "intuition and metacognition". Reports she needs to go to research into time travel and scientific studies. She denies suicidal ideation. Reports past EPS reaction from Haldol. Becomes paranoid when she hears chatter from the hallway. Physical Exam Mental Examination Appearance: Unkempt Eye Contact: Maintains Eye Contact Motor Behavior: Restless Speech: Rambling Mood: Euphoric, Irritable, Sad and Expansive Affect: Angry, Labile, Nervous and Suspicious Thought Process: Disorganized and Flight of Ideas Thought Content: Disoriented and Racing Hallucinations: Visual Insight: Poor Judgement: Poor Vital Signs (Past 24 Hours) Last Vital Signs Temp 36.9 C 04/01/24 08:03 Pulse 83 04/01/24 08:03 Resp 16 04/01/24 08:03 BP 118/79 04/01/24 08:03 Pulse Ox 99 04/01/24 08:03 O2 Del Method Room Air 04/01/24 08:32 O2 Flow Rate 15 03/30/24 08:09 Results & Data ([facility]) Laboratory Results Laboratory Results - last 24 hr 04/01/24 07:08 WBC 5.94 RBC 4.25 Hgb 11.7 L Hct 37.1 MCV 87.3 MCH 27.5 MCHC 31.5 L RDW Std Deviation 39.8 RDW Coeff of Yanna 12.5 Plt Count 357 MPV 9.2 L Immature Gran % (Auto) 0.3 Neut % (Auto) 63.9 Lymph % (Auto) 25.8 [place] % (Auto) 7.2 Eos % (Auto) 2.5 Baso % (Auto) 0.3 Neut # (Auto) 3.79 Lymph # (Auto) 1.53 [place] # (Auto) 0.43 Eos # (Auto) 0.15 Baso # (Auto) 0.02 Immature Gran # (Auto) 0.02 Sodium 146 H Potassium 3.6 Chloride 114 H Carbon Dioxide 28 Anion Gap 4 BUN 14 Creatinine 0.49 L Est Cr Clr Drug Dosing Not Reportable eGFR 129.14 BUN/Creatinine Ratio 28.6 H Glucose 104 H Calcium 8.2 L Current Inpatient Medications Current Inpatient Medications: Current Inpatient Medications Acetaminophen (Acetaminophen 325 Mg Tab) 650 mg PO Q4H PRN PRN Reason: pain/fever Stop: 04/28/24 18:47 Al Hydrox/Mg Hydrox/Simethicone (Aluminum/Magnesium Susp 30 Ml Udc) 30 ml PO Q6H PRN PRN Reason: Dyspepsia Stop: 04/28/24 18:47 Enoxaparin Sodium (Enoxaparin Inj 40 Mg/0.4 Ml Syr) 40 mg SQ Q24H KOFI Stop: 04/28/24 18:47 Last Admin: 03/31/24 15:49 Dose: Not Given Dextrose/Sodium Chloride (D5w And Nss) 1,000 mls @ 100 mls/hr IV .Q10H KOFI Stop: 04/01/24 15:00 Last Infusion: 04/01/24 10:10 Dose: 100 mls/hr Lorazepam (Lorazepam 2 Mg/1 Ml Vial) 0.5 mg IV Q4H PRN PRN Reason: agitation/anxiety Stop: 04/29/24 12:38 Last Admin: 03/31/24 21:46 Dose: 0.5 mg Olanzapine (Olanzapine 10 Mg Tab) 10 mg PO BID KOFI Stop: 04/28/24 20:59 Last Admin: 04/01/24 10:10 Dose: Not Given Olanzapine (Olanzapine 10 Mg/2.1 Ml Sdv) 10 mg IM BID PRN PRN Reason: severe agitation/ aleida Stop: 04/28/24 18:47 Last Admin: 03/29/24 21:23 Dose: 10 mg Ondansetron HCl (Ondansetron Inj 2 Mg/Ml 2 Ml Vial) 4 mg IV Q6H PRN PRN Reason: Nausea Stop: 04/28/24 18:47 Thyroid ([place] Thyroid 30 Mg Tab) 60 mg PO QAM KOFI Stop: 04/29/24 08:59 Last Admin: 04/01/24 10:06 Dose: 60 mg
[2024-04-02 06:34] LABS: Anion Gap 3 (3-11); BUN Creatinine Ratio 16.7 (10-20); Blood Urea Nitrogen 8 mg/dl (6-23); Calcium 8.4 mg/dl (8.6-10.3); Carbon Dioxide 27 mmol/L (21-32); Chloride 113 mmol/L (98-107); Glucose 104 mg/dl (70-99(Fasting)); Potassium 3.4 mmol/L (3.5-5.1); Sodium 143 mmol/L (136-145)
[2024-04-02] MEDS: POTASSIUM CHLORIDE CRTAB 20 MEQ TABCR PO STA (08:42)
[2024-04-02] MEDS ORDERED: HALOPERIDOL LACTATE 5 MG/ML 1 ML VIAL IV PRN (16:13)
--- NOTE | 2024-04-02 17:02 | Hospitalist Progress Note ---
Date of Service April 02, 2024 Assessment & Plan (1) Severe dehydration: (2) Dehydration with hypernatremia: (3) Bipolar affective disorder, manic, severe, with psychotic behavior: (4) Contusion, multiple sites: (5) Hypothyroidism: (6) Depression: Plan Patient is a 33-year-old female who presents from the local assisted with what is most likely severe aleida in the setting of her known bipolar disorder to the point where she is not been eating or drinking adequately and presents with severe dehydration and hypernatremia. Patient has significantly ill. At higher risk for worsening condition and organ dysfunction due to severe dehydration if she is not cared for in the hospital. Admit to hospital MedSurg unit Continue fluid resuscitation with D5W Monitor electrolytes and other laboratory studies Check free T4 T3 levels, patient has a history of Eliza's thyroiditis, reviewing outpatient endocrinology notes indicates that she is on [place] Thyroid 60 mg daily. Continue [place] Thyroid Appears that patient is on scheduled Zyprexa will continue this Ativan IV as needed for agitation Zyprexa IM for severe agitation not responsive to the Ativan Psychiatry consultation, patient may need additional medications to control her aleida before returning to Custodial At this point have a low suspicion for sepsis or bacterial infection. Procalcitonin is low. Suspect leukocytosis, increased LFTs and thrombocytosis most likely reactive due to her severe dehydration. I would anticipate these improving with hydration. Some of the leukocytosis may be reactive due to her musculoskeletal trauma as well. X-ray right shoulder due to significant contusion rule out any fracture. Acute metabolic encephalopathy Psychosis Hypernatremia, dehydration 03/29 Sodium level 152 Continue D5 water Nephrology service consulted CT head: No acute process Psychiatry service consulted As needed Zyprexa IM and Ativan IV ordered Discussed with MARLENA Corbin, will need to provide Ativan 1 hour apart from Zyprexa per psychiatry service recommendations 03/31 Sodium level improving, 147 Continue D5 water Psych on board, on Zyprexa 04/01 now awake, alert still having disorganized thoughts Sodium level 146 Continue D5 water Encouraged to increase oral water intake Psych on board 04/02 More calm, cooperative, awake and alert Still declining Zyprexa twice daily Sodium 143 Encouraged to increase oral fluid intake Patient agrees Patient medically stable for discharge Discussed with psychiatry service Recommend to increase dose of Ativan IV as needed, and add Haldol plus Benadryl IV as needed for agitation -to help with patient's psychosis and hopefully with adherence to medications Psychiatry service to reevaluate the patient tomorrow Pneumomediastinum, pneumoperitoneum Hemodynamically stable On room air On empiric ceftriaxone plus doxycycline--> discontinued Pulmonology service and general surgery service consult--> repeat xray showing improvement of pneumothorax per Pulm monitor closely -- Repeat chest x-ray today per pulmonary service recommendation DVT Px Lovenox SC Disposition Inmate, Correctional facility -- Admission and Anticipated Discharge Date Admission Date: March 29, 2024 Subjective Follow-up for psychosis, hypernatremia, dehydration, etc. Seen with correctional officers at the bedside throughout whole encounter Patient seen sitting up in bed, not in distress, smiling Calm, cooperative seems to be more approriately responding to questions States she feels better today Denies headache, dizziness, chest pain, shortness of breath, palpitations, dizziness, nausea, abdominal pain States she is trying to eat more No other new symptoms Review of Systems Review of Systems: all noted and negative except for above Physical Exam Physical Exam: General- oriented x 3, not in distress, speaks in sentences with no effort or accessory muscle use Eyes- anicteric Neck- no JVD Lungs- clear breath sounds bilaterally, no rales/wheezes Heart- normal rate, regular rhythm; no murmurs Abdomen- normal bowel sounds, nondistended, soft, nontender Extremities- no pretibial edema, no calf tenderness Neuro- alert, oriented x 3; no gross focal neurologic deficits Skin- warm & dry Results & Data Results & Data Vital Signs (Past 12 Hours) Vital Signs Temp Pulse Pulse Resp BP BP Pulse Ox 04/02/24 15:46 36.6 C 93 H 16 145/99 H 96 04/02/24 14:36 83 04/02/24 10:48 36.7 C 82 20 132/91 98 04/02/24 09:33 72 04/02/24 07:37 04/02/24 07:28 36.5 C 79 16 111/76 98 O2 Del Method 04/02/24 15:46 Room Air 04/02/24 14:36 04/02/24 10:48 Room Air 04/02/24 09:33 04/02/24 07:37 Room Air 04/02/24 07:28 Room Air all noted and reviewed including below
[2024-04-02] MEDS: LORazepam 2 MG/1 ML VIAL IV PRN (22:28)
[2024-04-03 11:31] LABS: Anion Gap 3 (3-11); BUN Creatinine Ratio 20.7 (10-20); Blood Urea Nitrogen 12 mg/dl (6-23); Calcium 8.8 mg/dl (8.6-10.3); Carbon Dioxide 27 mmol/L (21-32); Chloride 109 mmol/L (98-107); Glucose 96 mg/dl (70-99(Fasting)); Potassium 4.1 mmol/L (3.5-5.1); Sodium 139 mmol/L (136-145)
--- NOTE | 2024-04-03 12:59 | Psychiatric Progress Note ---
Date of Service April 03, 2024 Impression / Recommendations Impression Diagnostically consistent with unspecified psychosis suspect aleida and psychosis 2/2 known history of bipolar affective disorder vs schizoaffective disorder vs less likely substance-induced or withdrawal but does have history of cannabis use which has contributed to psychosis in the past. A:Patient actively psychotic and manic. Demonstrating poor sleep and medication non-adherence. Appears less psychotic today with no endorsements of AVH however remains delusional. Slept well last night. Now accepting some food, fluids, and blood work. Has been tolerating PRN meds well. Would recommend optimizing her agitation medications. Overall, I spent a total of 60 minutes with this case including review of chart records, review of labwork, direct evaluation of the patient at bedside, counseling the patient, discussion of the patient with the Nurse and with the hospitalist provider, discussion with the psychiatric liaison during clinical rounds and documentation in the electronic health record. (1) Unspecified psychosis not due to a substance or known physiological condition: (2) Bipolar affective disorder, manic, severe, with psychotic behavior: (3) Dehydration with hypernatremia: (4) Bilateral pneumothoraces: Plan 04/03/24 -Olanzapine 10mg BID for mood, psychosis, sleep -Lorazepam 2mg HS for sleep, anxiety -Gabapentin 400mg HS for sleep for behavioral emergency consider: Lorazepam 2mg IV Q6hr PRN for agitation Haloperidol 2.5mg IM BID PRN for agitation with Diphenhydramine 50mg IM BID PRN -All three can be given at same time. Daily EKG to monitor QTc prolongation if Haloperidol is administered Psychiatry will continue to follow Interval History Identifying Information 33 yo woman with history of bipolar affective disorder vs schizoaffective disorder admitted medically from [facility] for psychosis, lack of po intake and injury and found to have pneumothorax and hypernatremia. Psychiatry consulted for aleida/psychosis management recommendations. Chief Complaint Aleida, psychosis Subjective Subjective The patient is seen with correctional officers in the room. She presents a brig ht and elated affect. When discussing better sleep last night (got 6 hours) she reports not fighting sleep earlier but there have been "interferences in the past". Says she does not need olanzapine and that she has a nerve problem. Reports taking Ativan last night and initially feeling relaxed but then she felt defeated in the morning. Alem clarifies her nerve problem and said that her mother had multiple sclerosis and that she learned to be a master of her body. She proceeds to talk about myelin sheaths and how they travel at a rate of 288 minutes/h and is trying to reverse it because she is at risk for multiple sclerosis. Reports having "tons of plans for the future" and then talks about a Ashley play and analogy about a bad tempered woman. endorses a "high energy level". 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 Someone flush the toilet in an adjacent room and she became suspicious of the noise and the pipes. Floor nurse reports that patient has been eating and drinking more (salad and tea) and agreed to labwork. Agitated overnight and received PRNs. Physical Exam Mental Examination Appearance: Unkempt Eye Contact: Maintains Eye Contact Motor Behavior: Restless Speech: Rambling Mood: Euphoric and Expansive Affect: Angry, Labile, Nervous and Suspicious Thought Process: Disorganized and Tangential Thought Content: Disoriented and Racing Hallucinations: None Insight: Poor Judgement: Poor Vital Signs (Past 24 Hours) Last Vital Signs Temp 36.6 C 04/03/24 11:07 Pulse 89 04/03/24 11:07 Resp 18 04/03/24 11:07 BP 125/74 04/03/24 11:07 Pulse Ox 96 04/03/24 11:07 O2 Del Method Room Air 04/03/24 11:07 O2 Flow Rate 15 03/30/24 08:09 Results & Data ([facility]) Laboratory Results Laboratory Results - last 24 hr 04/03/24 10:36 Sodium 139 Potassium 4.1 D Chloride 109 H Carbon Dioxide 27 Anion Gap 3 BUN 12 Creatinine 0.58 L Est Cr Clr Drug Dosing Not Reportable eGFR 124.00 BUN/Creatinine Ratio 20.7 H Glucose 96 Calcium 8.8 Current Inpatient Medications Current Inpatient Medications: Current Inpatient Medications Acetaminophen (Acetaminophen 325 Mg Tab) 650 mg PO Q4H PRN PRN Reason: pain/fever Stop: 04/28/24 18:47 Al Hydrox/Mg Hydrox/Simethicone (Aluminum/Magnesium Susp 30 Ml Udc) 30 ml PO Q6H PRN PRN Reason: Dyspepsia Stop: 04/28/24 18:47 Diphenhydramine HCl (Diphenhydramine 50 Mg/Ml Vial) 50 mg IV BID PRN PRN Reason: EPS symptoms Stop: 05/02/24 16:12 Enoxaparin Sodium (Enoxaparin Inj 40 Mg/0.4 Ml Syr) 40 mg SQ Q24H KOFI Stop: 04/28/24 18:47 Last Admin: 04/02/24 20:26 Dose: Not Given Haloperidol Lactate (Haloperidol Lactate 5 Mg/Ml 1 Ml Vial) 2.5 mg IM BID PRN PRN Reason: agitation Stop: 05/02/24 16:12 Lorazepam (Lorazepam 2 Mg/1 Ml Vial) 1 mg IV Q6H PRN PRN Reason: agitation/anxiety Stop: 04/29/24 12:38 Last Admin: 04/02/24 22:28 Dose: 1 mg Olanzapine (Olanzapine 10 Mg Tab) 10 mg PO BID KOFI Stop: 04/28/24 20:59 Last Admin: 04/03/24 08:51 Dose: Not Given Thyroid ([place] Thyroid 30 Mg Tab) 60 mg PO QAM KOFI Stop: 04/29/24 08:59 Last Admin: 04/03/24 08:37 Dose: 60 mg
[2024-04-03] MEDS: HALOPERIDOL LACTATE 5 MG/ML 1 ML VIAL IM PRN (16:54)
[2024-04-03] MEDS: diphenhydrAMINE 50 MG/ML VIAL IV PRN (17:00)
--- NOTE | 2024-04-03 17:07 | Hospitalist Progress Note ---
Date of Service April 03, 2024 Assessment & Plan (1) Severe dehydration: (2) Dehydration with hypernatremia: (3) Bipolar affective disorder, manic, severe, with psychotic behavior: (4) Contusion, multiple sites: (5) Hypothyroidism: (6) Depression: Plan Patient is a 33-year-old female who presents from the local custodial with what is most likely severe aleida in the setting of her known bipolar disorder to the point where she is not been eating or drinking adequately and presents with severe dehydration and hypernatremia. Patient has significantly ill. At higher risk for worsening condition and organ dysfunction due to severe dehydration if she is not cared for in the hospital. Admit to hospital MedSurg unit Continue fluid resuscitation with D5W Monitor electrolytes and other laboratory studies Check free T4 T3 levels, patient has a history of Eliza's thyroiditis, reviewing outpatient endocrinology notes indicates that she is on [place] Thyroid 60 mg daily. Continue [place] Thyroid Appears that patient is on scheduled Zyprexa will continue this Ativan IV as needed for agitation Zyprexa IM for severe agitation not responsive to the Ativan Psychiatry consultation, patient may need additional medications to control her aleida before returning to [facility] At this point have a low suspicion for sepsis or bacterial infection. Procalcitonin is low. Suspect leukocytosis, increased LFTs and thrombocytosis most likely reactive due to her severe dehydration. I would anticipate these improving with hydration. Some of the leukocytosis may be reactive due to her musculoskeletal trauma as well. X-ray right shoulder due to significant contusion rule out any fracture. Acute metabolic encephalopathy Psychosis Hypernatremia, dehydration due to poor Oral Intake Sodium level 152 given D5 water Nephrology service consulted CT head: No acute process Psychiatry service consulted Zyprexa BID, As needed Zyprexa IM and Ativan IV ordered Na improved to 139 now awake and alert,Patient medically stable for discharge mostly irritable, declines meds declining Zyprexa PO BID since admission Discussed with psychiatry service Recommend PO Ativan and Gabapentin at HS for sleep, low back pain --obtain lumbar spine xray in light of fall continue PRN Ativan IV, Haldol IM + Benadryl - discharge to [facility] once cleared by Psych service Pneumomediastinum, pneumoperitoneum s/p fall patient fell after standing on the sink, reached up to open the sprinkler, and fell on the floor due to water pressure Hemodynamically stable On room air On empiric ceftriaxone plus doxycycline--> discontinued Pulmonology service and general surgery service consult--> repeat xray showing improvement of pneumothorax per Pulm monitor closely -- Repeat chest x-ray in 4-5 days recommended patient refusing, threatening to hurt stress test technician discussed with Dr. Ding, since patient HD stable and asymptomatic, will DVT Px Lovenox SC Disposition Inmate, Correctional facility d/c when cleared by Psych Admission and Anticipated Discharge Date Admission Date: March 29, 2024 Subjective seen with correction officers at bedside sitting up, comfortable conversant irritable states she feels fine overall no chest pain, dyspnea, palpitations, dizziness eating her meals, drinking as per RN no other issues Review of Systems Review of Systems: all noted and negative except for above Physical Exam Physical Exam: General- oriented x 1-2, not in distress, speaks in sentences with no effort or accessory muscle use Eyes- anicteric Neck- no JVD Lungs- clear breath sounds bilaterally, no rales/wheezes Heart- normal rate, regular rhythm; no murmurs Abdomen- normal bowel sounds, nondistended, soft, nontender Extremities- no pretibial edema, no calf tenderness Neuro- alert, oriented x 1-2; no gross focal neurologic deficits Skin- warm & dry Results & Data Results & Data Vital Signs (Past 12 Hours) Vital Signs Temp Pulse Pulse Resp BP Pulse Ox O2 Del Method 04/03/24 14:00 94 H 04/03/24 11:07 36.6 C 89 18 125/74 96 Room Air 04/03/24 08:00 Room Air 04/03/24 07:29 36.7 C 85 18 116/77 98 Room Air 04/03/24 07:00 73 all noted and reviewed including below
[2024-04-03] MEDS ORDERED: LORazepam 1 MG TAB PO PRN (20:46)
[2024-04-03] MEDS: GABAPENTIN 400 MG CAP PO SCH (22:02)
[2024-04-03] MEDS ORDERED: LORazepam 1 MG TAB PO SCH (22:30)
[2024-04-04 06:21] LABS: Anion Gap 8 (3-11); BUN Creatinine Ratio 18.3 (10-20); Blood Urea Nitrogen 11 mg/dl (6-23); Calcium 8.7 mg/dl (8.6-10.3); Carbon Dioxide 23 mmol/L (21-32); Chloride 109 mmol/L (98-107); Glucose 82 mg/dl (70-99(Fasting)); Potassium 3.7 mmol/L (3.5-5.1); Sodium 140 mmol/L (136-145)
[2024-04-04] MEDS: GABAPENTIN 100 MG CAP PO STA (10:42)
--- NOTE | 2024-04-04 12:39 | Psychiatric Progress Note ---
Date of Service April 04, 2024 Impression / Recommendations Impression Diagnostically consistent with unspecified psychosis suspect madeline and psychosis 2/2 known history of bipolar affective disorder vs schizoaffective disorder vs less likely substance-induced or withdrawal but does have history of cannabis use which has contributed to psychosis in the past. A:Patient presents in a manic and psychotic state. Auditory visual hallucinations appear to have resolved however patient still has persistent delusions. She presents with good sleep overnight with more stable energy level and less tangential speech today. Her condition is improving. Continues to refuse scheduled medications and diagnostic tests. She tolerated the as needed doses of Haldol with no EPS. She was encouraged to take her scheduled medications for mood anxiety and sleep. Overall, I spent a total of 60 minutes with this case including review of chart records, review of labwork, direct evaluation of the patient at bedside, counseling the patient, discussion of the patient with the Nurse and with the hospitalist provider, discussion with the psychiatric liaison during clinical rounds and documentation in the electronic health record. (1) Unspecified psychosis not due to a substance or known physiological condition: (2) Bipolar affective disorder, manic, severe, with psychotic behavior: (3) Dehydration with hypernatremia: (4) Bilateral pneumothoraces: Plan -Olanzapine 10mg BID for mood, psychosis, sleep -Lorazepam 2mg HS for sleep, anxiety -Gabapentin 400mg HS for sleep for behavioral emergency consider: Lorazepam 2mg IV Q6hr PRN for agitation Haloperidol 2.5mg IM BID PRN for agitation with Diphenhydramine 50mg IM BID PRN -All three can be given at same time. Daily EKG to monitor QTc prolongation if Haloperidol is administered Psychiatry will continue to follow Interval History Identifying Information 33 yo woman with history of bipolar affective disorder vs schizoaffective disorder admitted medically from [facility] for psychosis, lack of po intake and injury and found to have pneumothorax and hypernatremia. Psychiatry consulted for madeline/psychosis management recommendations. Chief Complaint Psychosis, Madeline Subjective Subjective Patient slept 6.5 hours and appears somnolent this morning on interview. Refused scheduled meds last night. Received Haldol Benadryl Ativan PRNs. Per nursing refused EKG. She rates her energy had a 4.5 out of 10. She presents a very bright affect and wants to return back to [facility]. Asking if she can contact her family. Physical Exam Mental Examination Appearance: Unkempt Eye Contact: Maintains Eye Contact Motor Behavior: Restless Speech: Circumstantial Mood: Euphoric Affect: Euphoric and Happy Thought Process: Circumstantial Thought Content: Disoriented and Racing Hallucinations: None Insight: Poor Judgement: Poor Vital Signs (Past 24 Hours) Last Vital Signs Temp 36.7 C 04/04/24 11:25 Pulse 97 H 04/04/24 11:25 Resp 18 04/04/24 11:25 BP 101/61 04/04/24 11:25 Pulse Ox 97 04/04/24 11:25 O2 Del Method Room Air 04/04/24 11:25 O2 Flow Rate 15 03/30/24 08:09 Results & Data ([facility]) Laboratory Results Laboratory Results - last 24 hr 04/03/24 04/04/24 23:16 05:26 Sodium 140 Potassium 3.7 Chloride 109 H Carbon Dioxide 23 Anion Gap 8 BUN 11 Creatinine 0.60 Est Cr Clr Drug Dosing Not Reportable eGFR 122.99 BUN/Creatinine Ratio 18.3 Glucose 82 Calcium 8.7 Urine Osmolality 483 L Ur Random Sodium 102 Current Inpatient Medications Current Inpatient Medications: Current Inpatient Medications Acetaminophen (Acetaminophen 325 Mg Tab) 650 mg PO Q4H PRN PRN Reason: pain/fever Stop: 04/28/24 18:47 Al Hydrox/Mg Hydrox/Simethicone (Aluminum/Magnesium Susp 30 Ml Udc) 30 ml PO Q6H PRN PRN Reason: Dyspepsia Stop: 04/28/24 18:47 Diphenhydramine HCl (Diphenhydramine 50 Mg/Ml Vial) 50 mg IV BID PRN PRN Reason: EPS symptoms Stop: 05/02/24 16:12 Last Admin: 04/03/24 21:55 Dose: 50 mg Enoxaparin Sodium (Enoxaparin Inj 40 Mg/0.4 Ml Syr) 40 mg SQ Q24H KOFI Stop: 04/28/24 18:47 Last Admin: 04/03/24 18:36 Dose: Not Given Gabapentin (Gabapentin 400 Mg Cap) 400 mg PO HS KOFI Stop: 05/03/24 20:59 Last Admin: 04/03/24 22:38 Dose: Not Given Haloperidol Lactate (Haloperidol Lactate 5 Mg/Ml 1 Ml Vial) 2.5 mg IM BID PRN PRN Reason: agitation Stop: 05/02/24 16:12 Last Admin: 04/03/24 21:55 Dose: 2.5 mg Lorazepam (Lorazepam 2 Mg/1 Ml Vial) 1 mg IV Q6H PRN PRN Reason: agitation/anxiety Stop: 04/29/24 12:38 Last Admin: 04/03/24 21:57 Dose: 1 mg Lorazepam (Lorazepam 1 Mg Tab) 2 mg PO HS KOFI Stop: 05/04/24 20:59 Olanzapine (Olanzapine 10 Mg Tab) 10 mg PO BID KOFI Stop: 04/28/24 20:59 Last Admin: 04/03/24 22:38 Dose: Not Given Thyroid (Scott Thyroid 30 Mg Tab) 60 mg PO QAM KOFI Stop: 04/29/24 08:59 Last Admin: 04/03/24 08:37 Dose: 60 mg
--- NOTE | 2024-04-04 13:43 | Hospitalist Progress Note ---
Date of Service April 04, 2024 Assessment & Plan (1) Severe dehydration: (2) Dehydration with hypernatremia: (3) Bipolar affective disorder, manic, severe, with psychotic behavior: (4) Contusion, multiple sites: (5) Hypothyroidism: (6) Depression: Plan Patient is a 33-year-old female who presents from the local alf with what is most likely severe aleida in the setting of her known bipolar disorder to the point where she is not been eating or drinking adequately and presents with hypernatremia. Acute metabolic encephalopathy Psychosis Hypernatremia, dehydration due to poor Oral Intake Serum sodium of 155 On admission Was given D5 Psychiatry consulted; patient recommended Zyprexa 10 mg twice daily, Ativan 2 mg at bedtime and gabapentin 400 mg at bedtime. Patient has been refusing Zyprexa. Ativan, Haldol for agitation Pneumomediastinum, pneumoperitoneum s/p fall Pulmonology service and general surgery service consult--> repeat xray showing improvement of pneumothorax per Pulm monitor closely -- Repeat chest x-ray in 4-5 days recommended patient refusing, threatening to hurt qa tech DVT Px Lovenox SC Disposition Inmate, Correctional facility Patient medically stable; awaiting psych clearance prior to discharge to intermediate. Please note the above document was generated using voice recognition software. It may contain grammatical, syntax or spelling errors. Any formal questions or concerns about the content, text or information contained within the body of this dictation should be directly addressed to the provider for clarification Admission and Anticipated Discharge Date Admission Date: March 29, 2024 Subjective Patient seen and examined at bedside She appears calm and cooperative today She denies fever, chills, chest pain, shortness of breath, abdominal pain, joint pain or rash. She required Haldol and Ativan overnight as she became angry and hostile. Review of Systems Review of Systems: All systems reviewed & are unremarkable except as noted in Subjective Physical Exam Physical Exam: General- Alert oriented x 3; not in distress. Eyes- anicteric Neck- no JVD Lungs- clear breath sounds bilaterally, no rales/wheezes Heart- normal rate, regular rhythm; no murmurs Abdomen- normal bowel sounds, nondistended, soft, nontender Extremities- no pretibial edema, no calf tenderness Neuro- Alert oriented x 3; no gross neurological deficit Skin- warm & dry Results & Data Results & Data Vital Signs (Past 12 Hours) Vital Signs Temp Pulse Pulse Resp BP Pulse Ox O2 Del Method 04/04/24 11:25 36.7 C 97 H 18 101/61 97 Room Air 04/04/24 08:29 36.2 C L 60 18 120/67 100 Room Air 04/04/24 07:21 65
[2024-04-04] MEDS: LORazepam 1 MG TAB PO SCH (21:20)
[2024-04-04 23:19] VITALS: RESP 18
[2024-04-05 06:23] LABS: Anion Gap 6 (3-11); Calcium 8.9 mg/dl (8.6-10.3); Carbon Dioxide 25 mmol/L (21-32); Chloride 109 mmol/L (98-107); Potassium 3.7 mmol/L (3.5-5.1); Sodium 140 mmol/L (136-145)
[2024-04-05 06:28] LABS: BUN Creatinine Ratio 16.4 (10-20); Blood Urea Nitrogen 9 mg/dl (6-23); Glucose 106 mg/dl (70-99(Fasting))
[2024-04-05 07:20] VITALS: TEMP 98.6; O2SAT 99
[2024-04-05 08:05] VITALS: BP 126/87; PULSE 99
--- NOTE | 2024-04-05 10:52 | Discharge Summary ---
Date of Service April 05, 2024 Admission HPI Per Admitting Provider Patient is a 33-year-old female with known bipolar disorder with severe episodes of aleida and psychosis. Presents to the emergency department from the local nursing home for medical screening. Reported that the patient has not been eating or drinking much over the last few days. Also reports that she has been needed to be put in the restraint chair for multiple hours multiple times since her presentation to the nursing home on March 21. In the emergency room she was given Ativan so we could perform evaluation. She was noted be quite hyponatremic with some elevated WBCs as well as elevated liver function testing. She is referred to our service for further management of these issues. Time my evaluation the patient is extremely drowsy from the Ativan. She does awaken attempts to answer some questions but her verbal responses essentially unintelligible. Half-Way guards at the bedside do not have much information. However they were able to report that she was throwing herself against the door, she may have fallen out of her bunk a couple days ago and confirmed the restraints. This may explain some of the bruising. Rest of history obtained from ED physician and review of the medical record. Admission Exam Per Admitting Provider Constitutional: Extremely drowsy, mildly ill in appearance HEENT: Mucous membranes extremely dry, lips dry and cracked, sclera clear Neck: Soft, no adenopathy Lungs: Clear to auscultation, decreased, no wheezes rales or rhonchi CV: S1-S2, regular, tachycardic Abdomen: Soft, nontender, nondistended Extremities: No significant edema Musculoskeletal: Significant bruising right shoulder, no significant swelling, possibly some mild tenderness, mild bruising left shoulder. Neuro: Minimally responsive, not following commands due to sedation Psych: Sedated Principal Diagnosis Acute metabolic encephalopathy Psychosis Hypernatremia, dehydration due to poor Oral Intake Discharge Exam General- Alert oriented x 3; not in distress. Eyes- anicteric Neck- no JVD Lungs- clear breath sounds bilaterally, no rales/wheezes Heart- normal rate, regular rhythm; no murmurs Abdomen- normal bowel sounds, nondistended, soft, nontender Extremities- no pretibial edema, no calf tenderness Neuro- Alert oriented x 3; no gross neurological deficit Skin- warm & dry Discharge Data Allergies Allergy/AdvReac Type Severity Reaction Status Date / Time haloperidol [From Haldol] Allergy Severe Unknown Verified 03/29/24 14:18 amoxicillin Allergy Intermediate RASH Verified 08/17/22 10:37 Bactrim Allergy Intermediate HIVES Verified 08/02/14 21:30 prednisone Allergy Intermediate PSYCH Verified 08/17/22 10:37 SYMPTOMS (MANIC) sulfamethoxazole Allergy Intermediate HIVES Verified 08/17/22 10:37 trimethoprim Allergy Intermediate HIVES Verified 08/17/22 10:37 clindamycin Allergy Mild Hives Verified 08/17/22 10:37 Sulfa (Sulfonamide Allergy Mild Hives Verified 08/17/22 10:37 Antibiotics) diphenhydramine Allergy Unknown Unknown Verified 03/29/24 14:18 [From Benadryl] Consultations 03/29/24 15:05 ED Decision to Admit Stat 03/29/24 16:40 Consult Pulmonology Routine 03/29/24 18:48 Consult Psychiatry Routine 03/30/24 09:06 Consult General Surgery Routine Consult Nephrology Routine Ordered Studies 03/29/24 16:40 CT chest diagnostic wo con Stat 03/29/24 18:50 CT Abd and Pelvis [CT abd pelvis wo con] Urgent 03/30/24 12:35 CT head/brain wo con Stat Hospital Course (1) Severe dehydration: (2) Dehydration with hypernatremia: (3) Bipolar affective disorder, manic, severe, with psychotic behavior: (4) Contusion, multiple sites: (5) Hypothyroidism: (6) Depression: Plan Patient is a 33-year-old female who presents from the local nursing home with what is most likely severe aleida in the setting of her known bipolar disorder to the point where she is not been eating or drinking adequately and presents with hypernatremia. Acute metabolic encephalopathy Psychosis Hypernatremia, dehydration due to poor Oral Intake Serum sodium of 15On admission Was given D5 with improvement on sodium Psychiatry consulted; patient recommended Zyprexa 10 mg twice daily, Ativan 2 mg at bedtime and gabapentin 400 mg at bedtime during the hospitalization. patient mentation improved during the hospitalization; her psychosis also improved and she was Alert and oriented times 3. At discharge, she was placed on zyprexa 10mg twice daily and gabapentin 400mg at night. medical provider at [facility] was updated over the phone. Pneumomediastinum, pneumoperitoneum Patient had a fall; found to have b/l tiny apical pneumothorax, small pneumomediastinum and sc emphysema which improved in repeat CXR. Repeat CXR to be done as outpatient is patient is compliant. Please note the above document was generated using voice recognition software. It may contain grammatical, syntax or spelling errors. Any formal questions or concerns about the content, text or information contained within the body of this dictation should be directly addressed to the provider for clarification Total Time Total Time Spent Total Time Spent (In Minutes): 45 Total Time Includes: Examination of the Patient, Discharge Planning, Medication Reconciliation, Communication With Other Providers and Other Discharge Plan Discharge Items Patient Disposition: [facility] Facility Reason For Visit: DEHYDRATION Discharge Diagnosis: Acute metabolic encephalopathy Psychosis Hypernatremia, dehydration due to poor Oral Intake Activity: Resume your previous activity Non-emergency contact: Primary Care Provider Call non-emergency contact if: you have any medication questions and your symptoms worsen Follow-up/Referrals: [facility] [Primary Care Provider] - Diet: Regular Addtl Attending Provider Instructions: You were admitted to the hospital due to dehydration as well as psychosis. Please ensure adequate hydration to prevent dehydration again. Following medication are recommended; Take Zyprexa 10 mg twice daily Take gabapentin 400 mg at bedtime for sleep Follow-up with your PCP. Pending Studies at Discharge: No Stand-Alone Forms: My [facility] Skilled Items Patient informed of condition?: No Discharge Level of Care: Other Communicable Disease: No Discharge Prognosis: Stable Lines: None Urinary Catheter: No Medications and DC Order Prescriptions: New gabapentin 400 mg Capsule 400 mg PO HS Qty: 30 0RF thyroid (pork) [[place] Thyroid] 30 mg Tablet 60 mg PO QAM Qty: 30 0RF Continued olanzapine 10 mg Tablet 10 mg PO BID Discharge Orders: Discharge Order (Routine); Ordered 04/05/24 Ordered By: Sharif Ramirez Admission Data Admit Date/Time: 03/29/24 15:45 Attending Provider: Sharif Ramirez Admit Provider: Marquise Marroquin Primary Care Provider: [facility] Other Providers: Marquise Marroquin; Aakash Granda; Adina Aguilar; Rupert Lal; Ida Sibley; Orly Red; Abilio El; Elsa Cooley; Cirilo Paulino Other Interventions: Discharge Summary Assessment (RN) Last Done: 04/05/24 08:01
== END 2024-04-05 09:11 | DRG 885 ==
LOC: ED 13:16 → 3E 15:45 → SUATTDRO 15:45 → 3E 18:33 → 2N 22:42
DX: Z79.899 Other long term (current) drug therapy; G93.41 Metabolic encephalopathy; I31.9 Disease of pericardium, unspecified; E87.0 Hyperosmolality and hypernatremia; E03.9 Hypothyroidism, unspecified; J98.2 Interstitial emphysema; Z91.81 History of falling; E86.0 Dehydration; J93.9 Pneumothorax, unspecified; Z88.2 Allergy status to sulfonamides; Z88.0 Allergy status to penicillin; Z88.8 Allergy status to other drugs, medicaments and biological substances; Z88.1 Allergy status to other antibiotic agents; K66.8 Other specified disorders of peritoneum; Z78.1 Physical restraint status; Z79.890 Hormone replacement therapy; F31.2 Bipolar disorder, current episode manic severe with psychotic features